=== PATIENT | female | born 1955 | race Caucasian/White ===

== ENCOUNTER 2017-02-15 18:02 | Emergency (ER) | payer OTHER ==
--- NOTE | 2017-02-15 19:56 | ED ---
Stephan Navarrete Matthew, scribed for Giuseppe Acuna MD on 02/15/17 at 1933 . Complex/Multi-Sys Presentation - HPI Summary HPI Summary: A 61 y/o female presents to the ED with intermittent bilateral tingling in the LE since 2 weeks ago. Today, the tingling increased and became more frequent. The tingling is worse in the right leg and localized in the right upper calf. Associated symptoms include pain on the right side of the neck. She denies any type of trauma or injury. She states that she has been under a lot of stress from her dad's health for the last 6 weeks. She also has a Hx of anxiety. She has not seen by her PCP, because the tingling as been intermittent. She called her PCP today who referred her to the ED. - History Of Current Complaint Chief Complaint: EDGeneral Time Seen by Provider: 02/15/17 19:13 Hx Obtained From: Patient Onset/Duration: Lasting Weeks, Still Present Timing: Intermittent, Lasting: Severity Currently: Mild Severity Initially: Mild Location: Pain At: - tingling in the bilateral LE, which is worse on the right Associated Signs And Symptoms: Positive: Other - Tingling in the legs bilaterally; pain on the right side of the neck - Allergies/Home Medications Allergies/Adverse Reactions: Allergies Allergy/AdvReac Type Severity Reaction Status Date / Time Alprazolam Allergy Unknown Verified 02/15/16 16:50 Reaction Details Atorvastatin Allergy Unknown Verified 02/15/17 17:33 Reaction Details Buspirone [From Buspar] Allergy Unknown Verified 02/15/16 16:50 Reaction Details Cefaclor Allergy GI Upset Verified 02/15/16 16:50 Dexamethasone Allergy Anxiety Verified 02/15/16 16:50 Doxycycline Allergy See Comment Verified 02/15/16 16:50 Erythromycin Allergy Unknown Verified 02/15/16 16:50 Reaction Details Fluoxetine [From Prozac] Allergy Unknown Verified 02/15/16 16:50 Reaction Details Glycerin Allergy Unknown Verified 02/15/16 16:50 Reaction Details Hydromorphone [From Dilaudid] Allergy Unknown Verified 02/15/16 16:50 Reaction Details Levofloxacin [From Levaquin] Allergy Unknown Verified 02/15/16 16:50 Reaction Details Metoprolol Allergy Unknown Verified 02/15/16 16:50 Reaction Details Metronidazole [From Flagyl] Allergy Unknown Verified 02/15/16 16:50 Reaction Details Paroxetine [From Paxil] Allergy Unknown Verified 02/15/16 16:50 Reaction Details Penicillins [PCN] Allergy Unknown Verified 02/15/16 16:50 Reaction Details Sulfacetamide Allergy Unknown Verified 02/15/16 16:50 Reaction Details Sulfur Dioxide Allergy Unknown Verified 02/15/16 16:50 Reaction Details IV contrast media Allergy Unknown Uncoded 02/15/16 16:50 Reaction Details PMH/Surg Hx/FS Hx/Imm Hx Endocrine/Hematology History: Reports: Hx Thyroid Disease - "flip-flopped" Denies: Hx Diabetes Cardiovascular History: Reports: Hx Hypercholesterolemia, Other Cardiovascular Problems/Disorders - HIGH LEVELS OF CO IN BLOOD - 3.2-3.5 Denies: Hx Hypertension Respiratory History: Reports: Hx Asthma - "came and went" Denies: Hx Chronic Obstructive Pulmonary Disease (COPD) GI History: Denies: Hx Ulcer Psychiatric History: Reports: Hx Anxiety - Surgical History Surgery Procedure, Year, and Place: precancerous skin cancers; deviated septum; wisdom teeth Infectious Disease History: No Infectious Disease History: Denies: Hx Clostridium Difficile, Hx Hepatitis, Hx Human Immunodeficiency Virus (HIV), Hx of Known/Suspected MRSA, Hx Shingles, Hx Tuberculosis, Hx Known/ Suspected VRE, Hx Known/Suspected VRSA, History Other Infectious Disease, Traveled Outside the [place] in Last 30 Days - Family History Known Family History: Positive: Cardiac Disease - SISTER - [place] AGE 54, Diabetes - FATHER, Other - F - COLON CA, BOTH PARENTS - HIGH CHOLESTEROL, M - BRAIN TUMOR - Social History Alcohol Use: Rare Hx Substance Use: No Substance Use Type: Reports: None Hx Tobacco Use: No Smoking Status (MU): Never Smoked Tobacco Review of Systems Constitutional: Negative Eyes: Negative ENT: Negative Cardiovascular: Negative Respiratory: Negative Gastrointestinal: Negative Genitourinary: Negative Positive: Myalgia - pain on the right side of the neck Skin: Negative Neurological: Other - Tingling in the bilateral LE, which is worse on the right Psychological: Normal All Other Systems Reviewed And Are Negative: Yes Physical Exam Triage Information Reviewed: Yes Vital Signs On Initial Exam: Initial Vitals Temp Pulse Resp BP Pulse Ox 98.8 F 87 14 192/86 100 02/15/17 18:05 02/15/17 18:05 02/15/17 18:05 02/15/17 18:05 02/15/17 18:05 Vital Signs Reviewed: Yes Appearance: Positive: Well-Appearing, No Pain Distress Skin: Positive: Warm Head/Face: Positive: Normal Head/Face Inspection Eyes: Positive: NATHAN ENT: Positive: Hearing grossly normal Neck: Positive: Supple Respiratory/Lung Sounds: Positive: Breath Sounds Present Cardiovascular: Positive: RRR Abdomen Description: Positive: Nontender, Soft Bowel Sounds: Positive: Present Musculoskeletal: Positive: Normal, Strength/ROM Intact. Negative: Edema Left, Edema Right Neurological: Positive: Sensory/Motor Intact, Normal Gait Psychiatric: Positive: Anxious - [place] Coma Scale Coma Scale Total: 15 Diagnostics - Vital Signs Vital Signs Temp Pulse Resp BP Pulse Ox 02/15/17 18:30 89 185/88 100 02/15/17 18:12 98.4 F 92 16 192/86 100 02/15/17 18:11 91 100 02/15/17 18:10 192/86 02/15/17 18:05 98.8 F 87 14 192/86 100 - Laboratory Result Diagrams: 02/15/17 20:30 02/15/17 20:30 Lab Statement: Any lab studies that have been ordered have been reviewed, and results considered in the medical decision making process. - Ultrasound No standard instances Ultrasound Interpretation: No Acute Changes - IMPRESSION: No evidence for right or left lower extremity deep venous thrombosis. Ultrasound Interpretation Completed By: Radiologist - EKG 18:24 Cardiac Rate: NL - 88 bpm EKG Rhythm: Sinus Rhythm EKG Interpretation: No STEMI; No Change 02/15/16 Complex Multi-Symp Course/Dx Assessment/Plan: A 61 y/o female presents to the ED with intermittent bilateral tingling in the LE since 2 weeks ago. Today, the tingling increased and became more frequent today. The tingling is worse in the right leg and localized in the right upper calf. Associated symptoms include pain on the right side of the neck. Labs were reviewed. US shows no evidence for right or left lower extremity deep venous thrombosis. EKG shows sinus rhythm at 88 bpm and no change from 02/15/16. The patient will be discharged home with PCP follow-up. - Diagnoses Provider Diagnoses: Extremity numbness Discharge - Discharge Plan Condition: Stable Disposition: HOME Patient Education Materials: Leg Pain (ED) Referrals: Jerson Tyson MD [Primary Care Provider] - 3 Days Additional Instructions: Please follow-up with your primary care physician within the next week. The documentation as recorded by the Stephan cast Matthew accurately reflects the service I personally performed and the decisions made by me, Giuseppe Acuna MD.
--- NOTE | 2017-02-15 20:30 | RAD ---
INDICATION: Bilateral leg pain and paresthesias. COMPARISON: November 07, 2008 RIGHT lower extremity venous Doppler. TECHNIQUE: Bonilla scale, color Doppler, and spectral analysis of the deep veins of the bilateral lower extremities. Vessel compression, phasicity, and augmentation assessed. REPORT: The right common femoral, great saphenous, profunda femoral, femoral, popliteal, peroneal, and posterior tibial veins are patent. The left common femoral, great saphenous, profunda femoral, femoral, popliteal, peroneal, and posterior tibial veins are patent. IMPRESSION: No evidence for right or left lower extremity deep venous thrombosis.
[2017-02-15 20:39] LABS: Hematocrit 42 % (35-47); Mean Corpuscular HGB Conc 33 g/dl (31-36); Mean Corpuscular Hemoglobin 29 pg (27-31); Mean Corpuscular Volume 88 fL (80-97); Mean Platelet Volume 8 um3 (7.4-10.4); Red Blood Count 4.79 10^6/ul (4.0-5.4); Red Cell Distribution Width 14 % (10.5-15); White Blood Count 9.1 10^3/ul (3.5-10.8)
[2017-02-15 21:12] LABS: BUN/Creatinine Ratio 16.3 (8-20); Calcium 10.7 mg/dL (8.6-10.3); EGFR African American 79.3 (>60); EGFR Non-African American 61.7 (>60); Magnesium 2.3 mg/dL (1.9-2.7); Potassium 3.3 mmol/L (3.5-5.0)
[2017-02-15 22:11] VITALS: BP 135/85
== END 2017-02-15 22:17 | disposition home or self-care (01) ==
LOC: ED 18:02
DX: R20.2 Paresthesia of skin (principal); E78.00 Pure hypercholesterolemia, unspecified; M54.2 Cervicalgia; M79.605 Pain in left leg; M79.604 Pain in right leg; Z88.8 Allergy status to other drugs, medicaments and biological substances; Z88.0 Allergy status to penicillin; Z88.1 Allergy status to other antibiotic agents
CPT/HCPCS: 36415; 80048; 83735; 85025; 93005; 93970; 99284

== ENCOUNTER 2017-03-10 19:10 | Emergency (ER) | payer OTHER ==
[2017-03-10 22:09] VITALS: BP 150/84
--- NOTE | 2017-03-10 22:16 | ED ---
Allergic Reaction/Systemic - HPI Summary HPI Summary: Patient presents to ED after taking the medication levothyroxine for the first time today at 8:45am. She notes to feeling scratchy in the throat, a cough, and feeling fuzzy since 3pm. She was seen by her PCP yesterday who prescribed the medication d/t high TSH levels incidentally found when she was in the ED 3 weeks ago. She is currently on several medications and currently takes potassium supplements found incidentally on last ED visit. Her MD stated her thyroid was slightly enlarged and she would like an US. I explained to the patient that would be an outpatient appt. I have given her information related to vitamins and natural supplements for hypothyroid. - History of Current Complaint Chief Complaint: EDAllergicReaction Time Seen by Provider: 03/10/17 21:02 Hx Obtained From: Patient Onset/Duration: Gradual Onset Timing: Constant, Lasting Hours Severity Initially: Moderate Severity Currently: Mild Pain Intensity: 1 Pain Scale Used: 0-10 Numeric Aggravating Factor(s): Nothing - medication Alleviating Factor(s): Nothing Associated Signs And Symptoms: Positive: Other: - throat itching, cough - Related Hx Possible Reaction To: Medications - Allergies/Home Medications Allergies/Adverse Reactions: Allergies Allergy/AdvReac Type Severity Reaction Status Date / Time Alprazolam Allergy Unknown Verified 02/15/16 16:50 Reaction Details Atorvastatin Allergy Unknown Verified 02/15/17 17:33 Reaction Details Buspirone [From Buspar] Allergy Unknown Verified 02/15/16 16:50 Reaction Details Cefaclor Allergy GI Upset Verified 02/15/16 16:50 Dexamethasone Allergy Anxiety Verified 02/15/16 16:50 Doxycycline Allergy See Comment Verified 02/15/16 16:50 Erythromycin Allergy Unknown Verified 02/15/16 16:50 Reaction Details Fluoxetine [From Prozac] Allergy Unknown Verified 02/15/16 16:50 Reaction Details Glycerin Allergy Unknown Verified 02/15/16 16:50 Reaction Details Hydromorphone [From Dilaudid] Allergy Unknown Verified 02/15/16 16:50 Reaction Details Levofloxacin [From Levaquin] Allergy Unknown Verified 02/15/16 16:50 Reaction Details Metoprolol Allergy Unknown Verified 02/15/16 16:50 Reaction Details Metronidazole [From Flagyl] Allergy Unknown Verified 02/15/16 16:50 Reaction Details Paroxetine [From Paxil] Allergy Unknown Verified 02/15/16 16:50 Reaction Details Penicillins [PCN] Allergy Unknown Verified 02/15/16 16:50 Reaction Details Sulfacetamide Allergy Unknown Verified 02/15/16 16:50 Reaction Details Sulfur Dioxide Allergy Unknown Verified 02/15/16 16:50 Reaction Details IV contrast media Allergy Unknown Uncoded 02/15/16 16:50 Reaction Details PMH/Surg Hx/FS Hx/Imm Hx Previously Healthy: Yes Endocrine/Hematology History: Reports: Hx Thyroid Disease - "flip-flopped" Denies: Hx Diabetes Cardiovascular History: Reports: Hx Hypercholesterolemia, Other Cardiovascular Problems/Disorders - HIGH LEVELS OF CO IN BLOOD - 3.2-3.5 Denies: Hx Hypertension Respiratory History: Reports: Hx Asthma - "came and went" Denies: Hx Chronic Obstructive Pulmonary Disease (COPD) GI History: Denies: Hx Ulcer Psychiatric History: Reports: Hx Anxiety - Surgical History Surgery Procedure, Year, and Place: precancerous skin cancers; deviated septum; wisdom teeth - Immunization History Hx Pertussis Vaccination: No Immunizations Up to Date: Unable to Obtain/Confirm Infectious Disease History: Denies: Hx Clostridium Difficile, Hx Hepatitis, Hx Human Immunodeficiency Virus (HIV), Hx of Known/Suspected MRSA, Hx Shingles, Hx Tuberculosis, Hx Known/ Suspected VRE, Hx Known/Suspected VRSA, History Other Infectious Disease, Traveled Outside the [place] in Last 30 Days - Family History Known Family History: Positive: None - REVIEWED & NONCONTRIBUTORY, Cardiac Disease - SISTER - [place] AGE 54, Diabetes - FATHER, Other - F - COLON CA, BOTH PARENTS - HIGH CHOLESTEROL, M - BRAIN TUMOR Family History: NON CONTRIBUTORY - Social History Occupation: Employed Full-time Lives: With Family Alcohol Use: Rare Hx Substance Use: No Substance Use Type: Reports: None Hx Tobacco Use: No Smoking Status (MU): Never Smoked Tobacco Do You Chew or Dip Tobacco: No Have You Chewed or Dipped Tobacco in the LAST YEAR: No Review of Systems Constitutional: Negative Eyes: Negative Positive: Other - throat tickling Cardiovascular: Negative Positive: Cough Positive: no symptoms reported, see HPI Musculoskeletal: Negative Neurological: Negative Psychological: Normal All Other Systems Reviewed And Are Negative: Yes Physical Exam Triage Information Reviewed: Yes Vital Signs On Initial Exam: Initial Vitals Temp Pulse Resp BP Pulse Ox 98 F 93 18 169/89 100 03/10/17 19:16 05/31/17 19:16 03/10/17 19:16 03/10/17 19:16 03/10/17 19:16 Vital Signs Reviewed: Yes Appearance: Positive: Well-Appearing, Well-Nourished Skin: Positive: Warm, Skin Color Reflects Adequate Perfusion Head/Face: Positive: Normal Head/Face Inspection Eyes: Positive: EOMI, NATHAN, Conjunctiva Clear ENT: Positive: Pharynx normal Neck: Positive: Supple, No Lymphadenopathy, Other: - slightly enlarged thyroid Respiratory/Lung Sounds: Positive: Clear to Auscultation, Breath Sounds Present Cardiovascular: Positive: Normal, RRR, Pulses are Symmetrical in both Upper and Lower Extremities Musculoskeletal: Positive: Strength/ROM Intact Neurological: Positive: Alert, Oriented to Person Place, Time Psychiatric: Positive: Normal Diagnostics - Vital Signs Vital Signs Temp Pulse Resp BP Pulse Ox 03/10/17 19:16 98 F 93 18 169/89 100 - Laboratory Lab Statement: Any lab studies that have been ordered have been reviewed, and results considered in the medical decision making process. Allergic Reaction Course/Dx - Course Course Of Treatment: Patient presents with possible allergic reaction to new levothyroxine medication. Fuzzy feeling, throat tingling and cough which all began about 6 hours after taking the medication. She denies symptoms now except for a slight tickle in the throat still. Otherwise symptoms resolved. Patient would like a thyroid US, and provider explained to patient we would be unable to do a thyroid US and she will need to follow up. She is OK with follow up and with discharge. D/t allergy with steroid, it was advised we would not start prednisone or other allergy medication since she is unable to take anything. She is to return if any symptoms become worse. - Diagnoses Differential Diagnosis/HQI/PQRI: Positive: Airway Obstruction, Anaphylaxis, Bronchospasm Provider Diagnoses: Medication reaction Discharge - Discharge Plan Condition: Stable Disposition: HOME Patient Education Materials: Anaphylaxis (ED) Referrals: Jerson Tyson MD [Primary Care Provider] - Additional Instructions: Magnesium Glycinate 400mg at bedtime For Hypothyroid: Lugol's Iodine solution dropper Red marine algae Nature-thyroid Get plenty of iodine in your diet If you take a large dose of a mineral, it will compete with other minerals to reduce their absorption. The mineral most often taken in large amounts is calcium: The dose is usually several hundred of milligrams, compared to doses of just a few milligrams or even microgram amounts (1,000 micrograms = 1 milligram) of most other minerals. So if you take a calcium supplement, take it at a different time of day than other mineral supplements or a multivitamin/ multimineral supplement. Doses of magnesium can also be relatively large and should, ideally, be taken apart from other minerals. If you take high doses of zinc long-term (50 mg or more per day for 10 weeks or longer ), be aware that it can cause copper deficiency, so you may need to supplement with copper as well. Some vitamins can actually enhance the absorption of other nutrients. Vitamin C , for example, can enhance iron absorption from supplements and plant foods. The fat-soluble vitamins (A, D, E, and K) are likely to be better absorbed if taken with a meal that contains fats. In fact, one study found that taking vitamin D with dinner rather than breakfast increased blood levels of vitamin D by about 50%. However, evidence (mainly from animal and cell studies) suggests that moderate to large doses of fat-soluble vitamins reduce absorption of other fat-soluble vitamins - by about 10 to 50% - due to competition. Absorption of vitamin K appears to be particularly reduced by other fat-soluble vitamins, while vitamin A absorption is least affected and may actually be better absorbed when taken with vitamin E (Alanis, Food [employer] 2015). Taking vitamins D, E, or K several hours before or after other fat-soluble vitamins would seem to maximize their absorption. Taking certain supplements with food can reduce gastrointestinal side-effects. For example, taking magnesium with food can reduce the occurrence of diarrhea, and taking iron with food can reduce the chance of stomach upset. Discontinue levothyroxine until follow up with PCP
== END 2017-03-10 22:10 | disposition home or self-care (01) ==
LOC: ED 19:10
DX: T38.1X5A Adverse effect of thyroid hormones and substitutes, initial encounter (principal); R09.89 Other specified symptoms and signs involving the circulatory and respiratory systems; R05 Cough; Y92.9 Unspecified place or not applicable; E07.9 Disorder of thyroid, unspecified; E78.00 Pure hypercholesterolemia, unspecified; J45.909 Unspecified asthma, uncomplicated; F41.9 Anxiety disorder, unspecified; Z88.5 Allergy status to narcotic agent; Z88.0 Allergy status to penicillin; Z88.2 Allergy status to sulfonamides; Z88.8 Allergy status to other drugs, medicaments and biological substances; Z88.1 Allergy status to other antibiotic agents; Z91.041 Radiographic dye allergy status
CPT/HCPCS: 99281

== ENCOUNTER 2017-06-14 13:31 | Inpatient (IN) | payer OTHER ==
[2017-06-14 15:45] LABS: Hematocrit 39 % (35-47); Hemoglobin 13.3 g/dl (12.0-16.0); Mean Corpuscular HGB Conc 34 g/dl (31-36); Mean Corpuscular Hemoglobin 30 pg (27-31); Mean Corpuscular Volume 88 fL (80-97); Mean Platelet Volume 8 um3 (7.4-10.4); Red Blood Count 4.47 10^6/ul (4.0-5.4); Red Cell Distribution Width 14 % (10.5-15); White Blood Count 5.2 10^3/ul (3.5-10.8)
[2017-06-14 15:59] LABS: Albumin 4.4 g/dL (3.2-5.2); BUN/Creatinine Ratio 12.7 (8-20); EGFR African American 64.3 (>60); Globulin 3.1 g/dL (2-4); Potassium 3.4 mmol/L (3.5-5.0); Total Bilirubin 0.5 mg/dL (0.2-1.0); Total Protein 7.5 g/dL (6.4-8.9)
--- NOTE | 2017-06-14 15:59 | RAD ---
Indication: Abdominal pain. Comparison: December 31, 2013 Technique: Upright AP 1525 hours Report: Suboptimal inspiration compared with the previous exam which demonstrated elevated lung volumes. Clear lungs and pleural spaces. Negative for pneumothorax. The heart, pulmonary vasculature, and mediastinal contours are unremarkable. Negative for free air beneath the diaphragm. Unremarkable osseous structures and soft tissue contours. IMPRESSION: No evidence for acute intrathoracic disease.
[2017-06-14 16:00] LABS: Urine Bacteria 1+ (Absent); Urine Bilirubin Negative (Negative); Urine Glucose Negative (Negative); Urine Nitrite Negative (Negative)
--- NOTE | 2017-06-14 16:27 | RAD ---
INDICATION: Abdominal pain LEFT abdomen. Question diverticulitis and hernia. COMPARISON: No relevant prior exams available on the [facility] for comparison. TECHNIQUE: Multidetector CT images were obtained from the lung bases to the ischial tuberosities. Evaluation of the viscera is limited without IV contrast. Multiplanar reformation. REPORT: Unremarkable visualized inferior thorax. The liver, gallbladder, pancreas, and spleen are unremarkable. Negative for CT abnormality of the upper GI, small bowel, or posteriorly extending appendix. Redundant colon without suspicious finding. Negative for ascites, free air, or significant hernias. Normal adrenal glands. 2.8 cm water density cortical cyst mid pole RIGHT kidney. No suspicious focal renal lesions, nephrolithiasis, or hydronephrosis. Unremarkable nondilated ureters and partially distended urinary bladder. Unremarkable rightward deviated uterus and adnexal regions. Negative for lymphadenopathy. Normal diameter abdominal aorta and iliac arteries. Physiologic partial distention of the IVC. Characteristic benign osseous hemangioma at L1. Asymmetric mild medullary sclerosis at the RIGHT iliac bone adjacent to the cephalad portion of the sacroiliac joint is grossly unchanged compared with the 2007 exam without concern. No suspicious focal osseous lesions evident. Mild multilevel degenerative spondylosis and facet joint osteoarthritis. IMPRESSION: No acute abdominal pelvic pathologic process evident.
[2017-06-14] MEDS: NS 0.9% 1000 ML* 1,000 ML IV SCH (16:42)
--- NOTE | 2017-06-14 17:57 | ED ---
Jt Navarrete Angela, scribed for Hayder Henao on 06/14/17 at 1459 . Skin Complaint - HPI Summary HPI Summary: This pt is a 62 y/o female c/o rash in her legs, now spreading to her abdomen and arms x3 days. Pt reports abdominal pain, lower extremity tingling, joint pain. She notes she has progressive muscle cramps since February. Pt states feeling "foggy" for the last couple of days. She denies chest pain, SOB, fever, back pain. Pt denies tobacco, drug, or alcohol use. 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 Pt reports seeing her PCP last week regarding her muscle cramps, joint pain, and decreased energy, and will be have a follow up for possible auto-immune disorder. - History of Current Complaint Chief Complaint: EDGeneral Time Seen by Provider: 06/14/17 14:47 Stated Complaint: RASH/PAIN, THROAT TIGHTNING Hx Obtained From: Patient Onset/Duration: Started Days Ago Skin Exposure Onset/Duration: Days Ago Pain Intensity: 0 Skin Location: Diffuse - legs, arms and abdomen Character: Redness Aggravating Symptom(s): Nothing Alleviating Symptom(s): Nothing Associated Signs & Symptoms: Rash, Abdominal Pain - Allergy/Home Medications Allergies/Adverse Reactions: Allergies Allergy/AdvReac Type Severity Reaction Status Date / Time Alprazolam Allergy Unknown Verified 02/15/16 16:50 Reaction Details Atorvastatin Allergy Unknown Verified 02/15/17 17:33 Reaction Details Buspirone [From Buspar] Allergy Unknown Verified 02/15/16 16:50 Reaction Details Cefaclor Allergy GI Upset Verified 02/15/16 16:50 Dexamethasone Allergy Anxiety Verified 02/15/16 16:50 Diphenhydramine Allergy Agitation Verified 06/14/17 13:58 Doxycycline Allergy See Comment Verified 02/15/16 16:50 Erythromycin Allergy Unknown Verified 02/15/16 16:50 Reaction Details Fluoxetine [From Prozac] Allergy Unknown Verified 02/15/16 16:50 Reaction Details Glycerin Allergy Unknown Verified 02/15/16 16:50 Reaction Details Hydromorphone [From Dilaudid] Allergy Unknown Verified 02/15/16 16:50 Reaction Details Levofloxacin [From Levaquin] Allergy Unknown Verified 02/15/16 16:50 Reaction Details Metoprolol Allergy Unknown Verified 02/15/16 16:50 Reaction Details Metronidazole [From Flagyl] Allergy Unknown Verified 02/15/16 16:50 Reaction Details Paroxetine [From Paxil] Allergy Unknown Verified 02/15/16 16:50 Reaction Details Penicillins [PCN] Allergy Unknown Verified 02/15/16 16:50 Reaction Details Sulfacetamide Allergy Unknown Verified 02/15/16 16:50 Reaction Details Sulfur Dioxide Allergy Unknown Verified 02/15/16 16:50 Reaction Details IV contrast media Allergy Unknown Uncoded 02/15/16 16:50 Reaction Details PMH/Surg Hx/FS Hx/Imm Hx Endocrine/Hematology History: Reports: Hx Thyroid Disease - "flip-flopped" Denies: Hx Diabetes Cardiovascular History: Reports: Hx Hypercholesterolemia, Other Cardiovascular Problems/Disorders - HIGH LEVELS OF CO IN BLOOD - 3.2-3.5 Denies: Hx Hypertension Respiratory History: Reports: Hx Asthma - "came and went" Denies: Hx Chronic Obstructive Pulmonary Disease (COPD) GI History: Reports: Other GI Disorders - IBS Denies: Hx Ulcer Psychiatric History: Reports: Hx Anxiety - Surgical History Surgery Procedure, Year, and Place: precancerous skin cancers; deviated septum; wisdom teeth Infectious Disease History: No Infectious Disease History: Denies: Hx Clostridium Difficile, Hx Hepatitis, Hx Human Immunodeficiency Virus (HIV), Hx of Known/Suspected MRSA, Hx Shingles, Hx Tuberculosis, Hx Known/ Suspected VRE, Hx Known/Suspected VRSA, History Other Infectious Disease, Traveled Outside the [place] in Last 30 Days - Family History Known Family History: Positive: None - REVIEWED & NONCONTRIBUTORY, Cardiac Disease - SISTER - [place] AGE 54, Diabetes - FATHER, Other - F - COLON CA, BOTH PARENTS - HIGH CHOLESTEROL, M - BRAIN TUMOR Family History: NON CONTRIBUTORY - Social History Alcohol Use: None Hx Substance Use: No Substance Use Type: Reports: None Hx Tobacco Use: No Smoking Status (MU): Never Smoked Tobacco Review of Systems Negative: Fever, Chills Eyes: Negative ENT: Negative Negative: Chest Pain Negative: Shortness Of Breath Positive: Abdominal Pain Positive: Arthralgia Positive: Rash Positive: Paresthesia - in her LE. Psychological: Normal All Other Systems Reviewed And Are Negative: Yes Physical Exam Triage Information Reviewed: Yes Vital Signs On Initial Exam: Initial Vitals Temp Pulse Resp BP Pulse Ox 98.7 F 100 17 156/82 100 06/14/17 13:34 06/14/17 13:34 06/14/17 13:34 06/14/17 13:34 06/14/17 13:34 Vital Signs Reviewed: Yes Appearance: Positive: Well-Appearing, No Pain Distress Skin: Positive: Warm, Dry, Other - Maculopapular rash in the right and left legs. generalised rash present Head/Face: Positive: Normal Head/Face Inspection Eyes: Positive: EOMI, NATHAN ENT: Positive: Normal ENT inspection Neck: Positive: Supple, Nontender Cardiovascular: Positive: RRR, Pulses are Symmetrical in both Upper and Lower Extremities Abdomen Description: Positive: Soft, Other: - Diffuse tenderness in the abd. Bowel Sounds: Positive: Present Musculoskeletal: Positive: Normal, Strength/ROM Intact Neurological: Positive: Normal, Sensory/Motor Intact, Alert, Oriented to Person Place, Time - Osvaldo Coma Scale Coma Scale Total: 15 Diagnostics - Vital Signs Vital Signs Temp Pulse Resp BP Pulse Ox 06/14/17 13:58 99.3 F 97 18 144/82 99 06/14/17 13:34 98.7 F 100 17 156/82 100 - Laboratory Lab Results: Lab Results 06/14/17 06/14/17 06/14/17 Range/Units 15:24 15:24 15:24 WBC 5.2 (3.5-10.8) 10^3/ul RBC 4.47 (4.0-5.4) 10^6/ul Hgb 13.3 (12.0-16.0) g/dl Hct 39 (35-47) % MCV 88 (80-97) fL MCH 30 (27-31) pg MCHC 34 (31-36) g/dl RDW 14 (10.5-15) % Plt Count 199 (150-450) 10^3/ul MPV 8 (7.4-10.4) um3 Neut % (Auto) 67.3 (38-83) % Lymph % (Auto) 13.2 L (25-47) % [place] % (Auto) 17.0 H (1-9) % Eos % (Auto) 2.2 (0-6) % Baso % (Auto) 0.3 (0-2) % Absolute Neuts (auto) 3.5 (1.5-7.7) 10^3/ul Absolute Lymphs (auto) 0.7 L (1.0-4.8) 10^3/ul Absolute Monos (auto) 0.9 H (0-0.8) 10^3/ul Absolute Eos (auto) 0.1 (0-0.6) 10^3/ul Absolute Basos (auto) 0 (0-0.2) 10^3/ul Absolute Nucleated RBC 0 10^3/ul Nucleated RBC % 0 INR (Anticoag Therapy) 0.93 (0.89-1.11) APTT 29.3 (26.0-36.3) seconds Sodium 136 (133-145) mmol/L Potassium 3.4 L (3.5-5.0) mmol/L Chloride 100 L (101-111) mmol/L Carbon Dioxide 26 (22-32) mmol/L Anion Gap 10 (2-11) mmol/L BUN 14 (6-24) mg/dL Creatinine 1.10 H (0.51-0.95) mg/dL Est GFR ( Amer) 64.3 (>60) Est GFR (Non-Af Amer) 50.0 (>60) BUN/Creatinine Ratio 12.7 (8-20) Glucose 89 (70-100) mg/dL Lactic Acid (0.5-2.0) mmol/L Calcium 10.0 (8.6-10.3) mg/dL Total Bilirubin 0.50 (0.2-1.0) mg/dL AST 40 H (13-39) U/L ALT 29 (7-52) U/L Alkaline Phosphatase 66 (34-104) U/L Total Creatine Kinase 47 (10-223) U/L Troponin I 0.00 (<0.04) ng/mL Total Protein 7.5 (6.4-8.9) g/dL Albumin 4.4 (3.2-5.2) g/dL Globulin 3.1 (2-4) g/dL Albumin/Globulin Ratio 1.4 (1-3) Lipase 19 (11.0-82.0) U/L Urine Color Urine Appearance Urine pH (5-9) Ur Specific [place] (1.010-1.030) Urine Protein (Negative) Urine Ketones (Negative) Urine Blood (Negative) Urine Nitrate (Negative) Urine Bilirubin (Negative) Urine Urobilinogen (Negative) Ur Leukocyte Esterase (Negative) Urine WBC (Auto) (Absent) Urine RBC (Auto) (Absent) Ur Squamous Epith Cells (Absent) Urine Bacteria (Absent) Urine Glucose (Negative) 06/14/17 06/14/17 Range/Units 15:45 15:45 WBC (3.5-10.8) 10^3/ul RBC (4.0-5.4) 10^6/ul Hgb (12.0-16.0) g/dl Hct (35-47) % MCV (80-97) fL MCH (27-31) pg MCHC (31-36) g/dl RDW (10.5-15) % Plt Count (150-450) 10^3/ul MPV (7.4-10.4) um3 Neut % (Auto) (38-83) % Lymph % (Auto) (25-47) % [place] % (Auto) (1-9) % Eos % (Auto) (0-6) % Baso % (Auto) (0-2) % Absolute Neuts (auto) (1.5-7.7) 10^3/ul Absolute Lymphs (auto) (1.0-4.8) 10^3/ul Absolute Monos (auto) (0-0.8) 10^3/ul Absolute Eos (auto) (0-0.6) 10^3/ul Absolute Basos (auto) (0-0.2) 10^3/ul Absolute Nucleated RBC 10^3/ul Nucleated RBC % INR (Anticoag Therapy) (0.89-1.11) APTT (26.0-36.3) seconds Sodium (133-145) mmol/L Potassium (3.5-5.0) mmol/L Chloride (101-111) mmol/L Carbon Dioxide (22-32) mmol/L Anion Gap (2-11) mmol/L BUN (6-24) mg/dL Creatinine (0.51-0.95) mg/dL Est GFR ( Amer) (>60) Est GFR (Non-Af Amer) (>60) BUN/Creatinine Ratio (8-20) Glucose (70-100) mg/dL Lactic Acid 1.6 (0.5-2.0) mmol/L Calcium (8.6-10.3) mg/dL Total Bilirubin (0.2-1.0) mg/dL AST (13-39) U/L ALT (7-52) U/L Alkaline Phosphatase (34-104) U/L Total Creatine Kinase (10-223) U/L Troponin I (<0.04) ng/mL Total Protein (6.4-8.9) g/dL Albumin (3.2-5.2) g/dL Globulin (2-4) g/dL Albumin/Globulin Ratio (1-3) Lipase (11.0-82.0) U/L Urine Color Yellow Urine Appearance Clear Urine pH 8.0 (5-9) Ur Specific [place] 1.003 L (1.010-1.030) Urine Protein Negative (Negative) Urine Ketones Negative (Negative) Urine Blood Negative (Negative) Urine Nitrate Negative (Negative) Urine Bilirubin Negative (Negative) Urine Urobilinogen Negative (Negative) Ur Leukocyte Esterase Trace H (Negative) Urine WBC (Auto) Trace(0-5/hpf) (Absent) Urine RBC (Auto) Absent (Absent) Ur Squamous Epith Cells Present H (Absent) Urine Bacteria 1+ H (Absent) Urine Glucose Negative (Negative) Result Diagrams: 06/14/17 15:24 06/14/17 15:24 Lab Statement: Any lab studies that have been ordered have been reviewed, and results considered in the medical decision making process. - Radiology Chest XR Xray Interpretation: No Acute Changes - IMPRESSION: No evidence for acute intrathoracic disease. ED physician has reviewed this radiology report and agrees. Radiology Interpretation Completed By: Radiologist - CT CT Abdomen/Pelvis CT Interpretation: No Acute Changes - IMPRESSION: No acute abdominal pelvic pathologic process evident. ED physician has reviewed this radiology report and agrees. CT Interpretation Completed By: Radiologist - EKG 16:37 Cardiac Rate: NL EKG Rhythm: Sinus Rhythm Re-Evaluation - Re-Evaluation First Eval Re-Evaluation Time: 17:11 Comment: Discussed the results and plan with the pt. Course/Dx - Course Assessment/Plan: This pt is a 62 y/o female c/o rash in her legs, now spreading to her abdomen and arms x3 days. Pt reports abdominal pain, lower extremity tingling, joint pain. Elevated BP noted. Bloodwork, CT abd/pelv, and chest XR were obtained. In the ED, pt was given IV fluids. Chest XR and CT abd/pel were both negative. Dr. Mart has accepted the pt for admission. - Diagnoses Provider Diagnoses: generalized rash, rule out TTP, MAHA/HUS, Renal failure, Anxiety, Depression - Physician Notifications Discussed Care Of Patient With: Charlene Mart Time Discussed With Above Provider: 17:06 Instructed by Provider To: Other - I discussed the pt's case with Dr. Mart. She has accepted the pt for admissionn. Discharge - Discharge Plan Condition: Stable Disposition: ADMITTED TO [facility] Referrals: Jerson Tyson MD [Primary Care Provider] - The documentation as recorded by the Jt cast Angela accurately reflects the service I personally performed and the decisions made by Earlene wolfe Emmanuel.
[2017-06-14] MEDS ORDERED: NS 0.9% 1000 ML* 1,000 ML IV SCH (18:00)
[2017-06-14] MEDS ORDERED: clonazePAM TAB(*) 0.5 MG ONE (18:10)
[2017-06-14] MEDS: clonazePAM TAB(*) 0.5 MG PO PRN ×2 (18:12→21:01)
[2017-06-14 18:39] LABS: C Reactive Protein 62.92 mg/L (< 5.00)
[2017-06-14] MEDS: Famotidine TAB* 20 MG PO SCH (20:59)
[2017-06-14] MEDS: Heparin VIAL(*) 5000 UNITS/ML VIAL (FIVE THOUSAND) SUBCUT SCH (20:59)
[2017-06-14] MEDS: Artificial Tears* 15 ML BTL BOTH EYES PRN (21:00)
[2017-06-14] MEDS: Nortriptyline CAP* 10 MG PO SCH (21:00)
[2017-06-14] MEDS: predniSONE TAB* 20 MG PO SCH (21:04)
[2017-06-14] MEDS: Cyclosporine 0.05% OPHTH (NF) 0.4 ML VIAL BOTH EYES SCH (21:05)
--- NOTE | 2017-06-14 21:36 | HP ---
CC: Dr. Tyson* HISTORY AND PHYSICAL: DATE OF ADMISSION: 06/14/17 PRIMARY CARE PROVIDER: Dr. Tyson. ATTENDING PHYSICIAN WHILE IN THE HOSPITAL: Dr. Pako Cuello * (report dictated by Rikki Barber NP) CHIEF COMPLAINT: 1. Arthralgias. 2. Myalgias. 3. Rash. HISTORY OF PRESENT ILLNESS: Ms. Trent is a 62-year-old female patient, who was recently seen by her primary for arthralgias and myalgias was referred to Rheumatology for an elevated STEVEN. She comes in today stating that she has been having difficulty with more arthralgias, more pain, not feeling well, having just aching all over and pain. She says she noticed that over the weekend she developed a rash that was mostly both on bilateral legs and also on the right triceps. The patient states that the rash is painful for palpation, says it does not itch, says that there has been no skin sloughing. She denies having any trouble with her eyes and denies having any sores in her mouth. She said that she has not had any fevers or chills. She does have her new medication. She was recently placed on ketoconazole cream. The patient denied having any abdominal discomfort. She denied having any nausea or vomiting. She denied having any chest pain or shortness of breath with this. Denied having any difficulty with her tightness in her throat. She was concerned because of the rash, the arthralgias, came to our ER, was evaluated by Dr. Henao, and we were asked to evaluate for admission. PAST MEDICAL HISTORY: Significant for: 1. Hyperlipidemia. 2. Graves'. 3. Anxiety. 4. Depression. 5. GERD. PAST SURGICAL HISTORY: 1. She has had skin excisions. 2. She has had septoplasty. HOME MEDICATIONS: 1. Selenium 100 mcg p.o. b.i.d. 2. Potassium 10 mEq p.o. daily. 3. Artificial tears 1 drop both eyes every 2 hours as needed. 4 Tylenol 500 mg every 8 hours as needed. 5. Nortriptyline 10 mg at bedtime. 6. Bactroban 1 application topical b.i.d. as needed. 7. Restasis 1 drop both eyes b.i.d. 8. Mucinex 600 mg p.o. b.i.d. as needed. 9. Ketoconazole 2% externally every 48 hours. 10. Ibuprofen 800 mg every 8 hours as needed. 11. Flaxseed 1 capsule p.o. b.i.d. 12. Calcium with vitamin D 1 capsule p.o. daily. 13. Nexium 40 mg daily. 14. Aspiring 81 mg daily. 15. Clonazepam 0.5 mg p.o. t.i.d. as needed. ALLERGIES TO MEDICATIONS: Multiple and include XANAX, ATORVASTATIN, BUSPAR, CEFACLOR, DEXAMETHASONE, DIPHENHYDRAMINE, DOXYCYCLINE, ERYTHROMYCIN, PROZAC, GLYCERIN, DILAUDID, LEVAQUIN, METOPROLOL, FLAGYL, PAXIL, PENICILLIN, SULFA, SULFUR DIOXIDE, and IV DYE. FAMILY HISTORY: Her mother had history of hyperlipidemia. Father had diabetes and TIA. Mother has had Alzheimer's. SOCIAL HISTORY: She does not smoke. Does not drink. Denies recreational drugs. Surrogate decision maker is her . REVIEW OF SYSTEMS: There is no documented fever. She denied having any double vision. No ear discharge, no rhinorrhea. No sore throat, no thyroid enlargement. Denies having any chest pain. There is no orthopnea, no nocturnal dyspnea. There was no abdominal pain. No nausea, no vomiting. No dysuria, no frequency. There was no seizure, no loss of consciousness. No pruritus and no skin ulcerations. Review of 14 systems was completed, all others negative. PHYSICAL EXAMINATION GENERAL: At this time, Ms. Trent is a 62-year-old female patient. She is sitting in the ER stretcher. She does not appear to be in any acute distress. VITAL SIGNS: Reveal blood pressure 155/78, pulse 91, respirations 18, O2 sat 99 %, temp 99.1. HEENT: Head is atraumatic and normocephalic. Eyes: EOMs are intact. Sclerae anicteric and not pale. Throat: Oral mucosa appears to be moist. No oropharyngeal erythema. NECK: Supple. LUNGS: Clear to auscultation bilaterally. No wheezes, rales, or rhonchi. HEART: Heart sounds S1, S2. Regular rate and rhythm. No murmurs, rubs, or gallops. ABDOMEN: Soft, flat, nontender. Bowel sounds were present. EXTREMITIES: Pulses 2+ throughout. She is able to move all 4 extremities with 5/5 strength. NEUROLOGIC: The patient is awake, she is alert, she is oriented x3. SKIN: Grossly intact. She does have a rash noted to her lower extremities, which is mildly raised, it is blanchable, it is painful to palpation, there are no vesicles or pustules noted. There is erythema noted, but otherwise the skin is grossly intact. DIAGNOSTIC STUDIES/LAB DATA: Today revealed WBC of 5.2, RBC of 4.47, hemoglobin of 13.3, hematocrit of 39, platelet count of 199. INR was 0.93, PTT of 29.3. Sodium was 134, potassium was 3.4, chloride 100, bicarb was 26, BUN 14 , creatinine 1.1, glucose of 89, lactate 1.6, calcium 10. Total bili 0.5, AST 40, ALT 29, Troponin 0. Lipase 19. Urine showed 1+ bacteria, low specific gravity, trace leukocyte esterase. She did have an abdominal and pelvis CT scan obtained today, which revealed impression: No acute abdominal or pelvic pathology process evident. She had an EKG obtained today, showed sinus rhythm with rate of 88. No ST elevations. There were T-wave inversions in V1 and flattened V2. Reviewed to the previous EKG, it is similar. She did have chest x-ray obtained today, which revealed no evidence for acute intrathoracic disease. Old medical records were reviewed. ASSESSMENT AND PLAN: Ms. Trent is a 62-year-old female patient coming into the ER today with complaints of arthralgias, myalgias, and a rash. The hospitalist service was asked to evaluate for admission. She will be admitted under observation status for: 1. Arthralgias and myalgias, again etiology is unclear. She did have positive STEVEN with her primary care provider. My plan at this point is to check autoimmune labs and check vasculitis labs as well, although the rash does not appear to be vasculitis in appearance. I will check rheumatoid factor as well. We will get ESR, CRP, anti-double stranded DNA antibody, and we will continue to follow and Lyme serology has been sent as well. If she spikes a fever, I would have a low threshold to put her on doxycycline. 2. Rash. Again, at this point this could be allergic reaction, possibly she was taking ketoconazole, which is new for her. I am going to go ahead and put her on steroids for the time being. We will monitor this. We will follow. 3. Hyperlipidemia. Continue her current medical regimen. 4. History of Graves'. Follow with her primary. 5. Gastroesophageal reflux disease. Continue PPI therapy. 6. Anxiety and depression. Continue with supportive care and p.r.n. Klonopin and her meds as prescribed. 7. DVT prophylaxis. I will place her on heparin subcu. 8. Code status. Full code. 9. Fluids, electrolytes, and nutrition: She can have a gluten-free diet. TIME SPENT: On this admission was approximately 60 minutes with greater than half the time spent [id number] with the patient obtaining my history and physical, the other half the time was spent going over the plan of care with the patient and implementing plan of care. I did discuss the plan of care with my attending, Dr. Cuello; he is in agreement. RIKKI BARBER, EBONY [id number]/CPS #: [id number] SREEKANTH
[2017-06-15] MEDS: NS 0.9% 1000 ML* 1,000 ML IV SCH (04:38)
[2017-06-15 05:31] LABS: Hematocrit 35 % (35-47); Hemoglobin 11.9 g/dl (12.0-16.0); Mean Corpuscular HGB Conc 34 g/dl (31-36); Mean Corpuscular Hemoglobin 30 pg (27-31); Mean Corpuscular Volume 88 fL (80-97); Mean Platelet Volume 9 um3 (7.4-10.4); Red Blood Count 3.96 10^6/ul (4.0-5.4); Red Cell Distribution Width 14 % (10.5-15); White Blood Count 3.4 10^3/ul (3.5-10.8)
[2017-06-15 05:34] LABS: Comments Flag Yes
[2017-06-15 05:35] LABS: Add Diff/Slide Review? Slide Review Added
[2017-06-15 05:49] LABS: BUN/Creatinine Ratio 14.3 (8-20); Calcium 8.9 mg/dL (8.6-10.3); EGFR Non-African American 62.2 (>60); Potassium 3.9 mmol/L (3.5-5.0)
[2017-06-15] MEDS: Heparin VIAL(*) 5000 UNITS/ML VIAL (FIVE THOUSAND) SUBCUT SCH ×3 (06:24→20:49)
[2017-06-15] MEDS: Cyclosporine 0.05% OPHTH (NF) 0.4 ML VIAL BOTH EYES SCH ×2 (07:34→22:11)
[2017-06-15] MEDS: Omeprazole CAP* 20 MG PO SCH (07:42)
[2017-06-15] MEDS: Calcium/Vitamin D TAB 250/125* TAB PO SCH (07:42)
[2017-06-15] MEDS: Aspirin EC Low Dose* 81 MG TAB.EC PO SCH (07:42)
[2017-06-15] MEDS: clonazePAM TAB(*) 0.5 MG PO PRN ×3 (07:42→20:48)
[2017-06-15] MEDS: Artificial Tears* 15 ML BTL BOTH EYES PRN (07:42)
[2017-06-15] MEDS: predniSONE TAB* 20 MG PO SCH (07:42)
[2017-06-15 09:36] LABS: TSH (Thyroid Stimulating Horm) 0.8 mcIU/mL (0.34-5.60)
--- NOTE | 2017-06-15 12:24 | PN ---
Subjective Date of Service: 06/15/17 Interval History: HOSPITALIST PROGRESS NOTE Patient seen and examined at bedside. She feels better today, rash has improved a lot. Pain is unchanged. Family History: Unchanged from Admission Social History: Unchanged from Admission Past Medical History: Unchanged from Admission Objective Active Medications: Acetaminophen (Tylenol Tab*) 650 mg PO Q4H PRN PRN Reason: FEVER/PAIN Aspirin (Aspirin Ec Low Dose*) 81 mg PO DAILY [facility] Last Admin: 06/15/17 07:42 Dose: 81 mg Calcium/Vitamin D (Oscal D Tab 250/125*) 1 tab PO DAILY [facility] Last Admin: 06/15/17 07:42 Dose: 1 tab Clonazepam (Klonopin Tab(*)) 0.5 mg PO TID PRN PRN Reason: ANXIETY Last Admin: 06/15/17 07:42 Dose: 0.5 mg Cyclosporine (Restasis 0.05% Ophth) 1 drop BOTH EYES BID [facility] PRN Reason: Protocol Last Admin: 06/15/17 07:34 Dose: Not Given Famotidine (Pepcid Tab*) 40 mg PO BEDTIME [facility] PRN Reason: Protocol Last Admin: 06/14/17 20:59 Dose: 40 mg Heparin Sodium (Porcine) (Heparin Vial(*)) 5,000 units SUBCUT Q8HR [facility] Last Admin: 06/15/17 06:24 Dose: 5,000 units Nortriptyline HCl (Pamelor Cap*) 10 mg PO BEDTIME [facility] Last Admin: 06/14/17 21:00 Dose: 10 mg Omeprazole (Prilosec Cap*) 20 mg PO DAILY@0730 [facility] PRN Reason: Protocol Last Admin: 06/15/17 07:42 Dose: 20 mg Ondansetron HCl (Zofran Inj*) 4 mg IV Q6H PRN PRN Reason: NAUSEA Polyvinyl Alcohol (Polyvinyl Alcohol 1.4% Opth*) 1 drop BOTH EYES Q2H PRN PRN Reason: DRY EYE Last Admin: 06/15/17 07:42 Dose: 1 drop Prednisone (Deltasone Tab*) 40 mg PO DAILY [facility] Last Admin: 06/15/17 07:42 Dose: 40 mg Vital Signs 06/15/17 06/15/17 06/15/17 04:11 07:42 08:05 Temperature 97.8 F Pulse Rate 76 69 Respiratory 16 20 16 Rate Blood Pressure 100/61 112/66 (mmHg) O2 Sat by Pulse 98 98 Oximetry Oxygen Devices in Use Now: None Appearance: Pleasant lady sitting up in bed in NAD. Eyes: No Scleral Icterus Ears/Nose/Mouth/Throat: Mucous Membranes Moist Neck: Trachea Midline Respiratory: Symmetrical Chest Expansion and Respiratory Effort, Clear to Auscultation Cardiovascular: RRR - Normal S1 and S2 Skin: - - Palpable purpura to lateral aspect of RLE Neurological: Alert and Oriented x 3, NL Muscle Strength and Tone Lines/Tubes/Other Access: Clean, Dry and Intact Peripheral IV Nutrition: Taking PO's Result Diagrams: 06/15/17 05:05 06/15/17 05:05 Additional Lab and Data: Assess/Plan/Problems-Billing Assessment: Mrs. Trent is a 62yo F with PMH of HLD, anxiety, depression, GERD, remote h/o Grave's disease, who has had months of arthralgias, myalgias, found to have a positive STEVEN as outpatient, who presented to ED with a painful rash to bilateral LE. - Patient Problems (1) Palpable purpura Comment: - Rash is already improving after first prednisone dose, but she still has some palpable lesions on the lateral aspect ofr RLE and RUE. - Will request skin biopsy. (2) Arthralgia Comment: - Suspect patient may have fibromyalgia with her chronic pain, but with her positive STEVEN, changing pain pattern, rash, will pursue further rheumatological w/u. - Consult requested with Dr. Valiente. (3) GERD (gastroesophageal reflux disease) Comment: - Continue Famotidine. (4) Graves disease Comment: - TSH is normal. (5) DVT prophylaxis Comment: - SQ heparin. (6) Full code status Status and Disposition: Change to inpatient to continue her w/u.
[2017-06-15] MEDS: Ondansetron INJ* 2 MG/ML VIAL IV PRN (14:07)
[2017-06-15] MEDS: Acetaminophen TAB* 325 MG PO PRN (14:08)
--- NOTE | 2017-06-15 18:45 | CONSULT ---
Consult Consult: Ms. Trent is a 62 year old woman with a history of Grave's disease who presented with increased lower extremity discomfort in the setting of a diffuse rash. Rash appears to be palpable purpura and may be due to vasculitis. Given her history of sicca symptoms, consider a possible connective tissue disorder such as lupus or Sjogren's. I agree with Prednisone 40mg daily; this should be tapered gradually as an outpatient by about 10mg every 4 to 5 days. Follow up YVETTE panel. Follow up with me in 1 or 2 weeks.
[2017-06-15] MEDS: Nortriptyline CAP* 10 MG PO SCH (20:49)
[2017-06-15] MEDS: Famotidine TAB* 20 MG PO SCH (20:49)
[2017-06-15] MEDS: PTO: Cyclosporine 0.05% OPHTH (NF) 0.4 ML VIAL BOTH EYES SCH (22:05)
--- NOTE | 2017-06-16 01:15 | CONS ---
CONSULTATION REPORT: DATE OF CONSULT: 06/15/17 CONSULTING PHYSICIAN: Dr. Charlene Carey. REASON FOR CONSULT: Evaluate for cause of a positive STEVEN and rash. HISTORY OF PRESENT ILLNESS: Ms. Trent is a 62-year-old woman with a longstanding history of Graves' disease. She has been on chronic Pamelor or nortriptyline and she has not been on any new medications. She has been referred to me for a positive STEVEN and tentatively, she was scheduled to see me as an outpatient. However, she developed increasing discomfort especially in the skin with discomfort of lumps under her skin along her thigh regions as well as general lethargy and more pain and not feeling well overall. In particular, she developed a rash over the weekend that was on her legs, but also the tarso especially her abdominal region and her upper arms as well too. It has been painful on palpation and she has noted some raised areas that are not pruritic. She was hospitalized for the discomfort related to this condition and a skin biopsy was done, which is now pending. As noted above, in light of a positive STEVEN, she is having skin biopsy to also evaluate for a possible vasculitis. She was placed on prednisone 40 mg daily which she has noted an improvement with as well, but it should be noted that prior to the rash she has been on a new shampoo, a ketoconazole cream. She denies any abdominal discomfort. She denies any vomiting. She currently denies any chest pain or shortness of breath. She has had no definite lymph node swelling, but her lymph nodes feel generally uncomfortable especially on her upper neck area. She denies any nausea or vomiting and she denies any focal neurologic signs. The rash indeed has improved and tentatively she is planning to go home tomorrow. Her symptoms are worse as the day goes on, but the rash lasted all the way and it is gradually fading. She is having a mass in her left arm region , which may be a lipoma, evaluated at [facility] PAST MEDICAL HISTORY: Includes: 1. Hyperlipidemia. 2. History of depression. 3. History of gastroesophageal reflux disease, for which she has had difficulty getting her proton pump inhibitor approved for a chronic 30-day use. 4. Longstanding history of depression and anxiety, which has been stable. 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 PAST SURGICAL HISTORY: Includes skin excisions, as well as a septoplasty. HOME MEDICATIONS: Include: 1. Selenium 100 mcg daily. 2. Potassium 10 mEq daily, which was recently placed on after a visit to the ER , when she was found to have a low potassium. 3. She also has artificial tear drops as needed for sicca symptoms from her eyes. 4. Also nortriptyline 10 mg daily as needed. 5. She is also on Bactroban as needed. 6. Also Restasis as needed. 7. Mucinex 600 mg as needed twice daily. 8. Ketoconazole 2% externally as needed which is on hold. 9. Ibuprofen as needed 800 mg. 10. Flaxseed oil. 11. Calcium with vitamin D. 12. Nexium. 13. Aspirin. 14. Clonazepam as needed. ALLERGIES: Include XANAX and she has had adverse reactions or intolerance to ATORVASTATIN, BUSPAR, CEFACLOR, DEXAMETHASONE, DIPHENHYDRAMINE, DOXYCYCLINE, ERYTHROMYCIN, PROZAC, GLYCERIN, DILAUDID, LEVAQUIN, METOPROLOL which actually paradoxically caused an elevated heart rate. She has also had adverse reactions to FLAGYL, PENICILLIN, SULFA, PAXIL, SULFUR DIOXIDE, and IV DYE. FAMILY HISTORY: Notable for hyperlipidemia, but no connective tissue disease or disorder in the family except for arthritis. Her father had diabetes and the TIA. Her mother had dementia. SOCIAL HISTORY: She does not smoke. She does not drink any alcohol. 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 REVIEW OF SYSTEMS: Skin: She has had lumps which have been notable and it was felt that she might have a lipoma. She recently had an MRI of her left upper extremity and she is seeing a possible plastic surgeon to have these removed. Otherwise, she has denied any fever. She denies any diplopia. No ear discharge and no sinus symptoms. She denies any sore throat. Endocrine: She denies thyroid enlargement. Cardiac: She denies chest wall pain. Pulmonary: She denies orthopnea or shortness of breath. GI: She denies abdominal pain. She has been trying to lose weight in a hard healthy way. Denies any nausea or vomiting. Genitourinary: Denies dysuria, no frequency. Neurologic: Denies any seizure. No loss of consciousness. Skin: She has had no itching, but she does have rash, which is gradually fading. A 14-point review of systems was reviewed and was otherwise negative. PHYSICAL EXAM: Temperature 97.8, respiratory rate of 16, blood pressure 100/61 to 112/66. In general, she is a pleasant woman sitting up in bed, in no acute distress. Eyes: No scleral icterus. Ears, Nose, and Throat: No lesions noted. Mucous membranes are moist. She did have mild dryness of her skin as well as her ocular region as well as her mouth. Neck: Trachea was midline. Lymph: No adenopathy. Lungs: Clear and symmetric. Chest: Expansion and respiratory effort. Cardiovascular: Regular rate and rhythm. Normal S1 and S2. No S3 or S4. On her exam, she did have a 1/6 systolic ejection murmur, left lower sternal border. Skin: She had nonconfluent papular erythematous regions, less than 3 to 4 cm each, scattered along the lower extremity, which were palpable especially at the right lower extremity, but also scattered across the upper arms. They are little more confluent on the arms, as well as scattered across the abdominal region. No specific pattern and no dermatomal pattern. Neurologic: Alert and oriented x3. Normal muscle strength and tone. Musculoskeletal: No synovitis. She had no warmth of the joints. Genitourinary : No CVA tenderness. Endocrine: No thyromegaly. LABORATORY DATA: She had a white count of 3.4. She did have an elevated C- reactive protein and a BUN of 13, creatinine 0.91. In terms of prior labs, she has had Lyme testing that was nonreactive in February of this year. She has recently had her TSH checked and she had a rheumatoid factor that was 11.1 and also she had an antinuclear antibody that was 1:640, nucleolar pattern, on 05/17. ASSESSMENT AND PLAN: Ms. Trent is a 62-year-old woman with a history of Graves ' disease, now with palpable purpura with increasing arthralgias, as well as positive STEVEN and now with painful rash in the lower extremities. 1. In terms of her rash, it is unclear whether this could be related to some kind of new agent or toxic exposure, but other than the ketoconazole shampoo, she has had no recent new medications or other topical applications. Given her history of dry eyes, as well as slightly dry mouth, as well as thyroid disease, we will consider a possible overlap connective tissue disorder that might be explaining her symptoms, such as Sjogren's Syndrome. I agree with checking an extractable nuclear antigen panel. I would also check complements, double- stranded DNA, and cardiolipin antibodies, as well as an ANCA as her rash also appears to be vasculitic, but also follow up on the skin biopsy. 2. Rash. Appears to be vasculitic in nature. Consider a small or medium vessel vasculitis. We will follow up on the skin biopsy. Would also consider checking urinalysis if not already done. 3. Elevated C-reactive protein. Should improve as we reduce the inflammation. 4. Prednisone use. She is on prednisone 40 mg daily, which she is noticing benefit from. Consider tapering by 10 mg every 4 to 5 [address] Based on her ultimate diagnosis, we may consider a disease-modifying agent such as Plaquenil if she is diagnosed with an undifferentiated connective tissue disorder or Sjogren's. Would also follow up on lesions as noted above. 5. Graves' disease. TSH was normal. TIME SPENT: With the patient was greater than 60 minutes with greater than 50% of the time spent counseling the patient. [id number]/[facility] #: [id number] SREEKANTH
[2017-06-16] MEDS: Heparin VIAL(*) 5000 UNITS/ML VIAL (FIVE THOUSAND) SUBCUT SCH ×2 (05:45→14:39)
[2017-06-16] MEDS: Calcium/Vitamin D TAB 250/125* TAB PO SCH (08:39)
[2017-06-16] MEDS: predniSONE TAB* 20 MG PO SCH (08:40)
[2017-06-16] MEDS: Aspirin EC Low Dose* 81 MG TAB.EC PO SCH (08:40)
[2017-06-16] MEDS: clonazePAM TAB(*) 0.5 MG PO PRN (08:40)
[2017-06-16] MEDS: Omeprazole CAP* 20 MG PO SCH (08:40)
[2017-06-16] MEDS: PTO: Cyclosporine 0.05% OPHTH (NF) 0.4 ML VIAL BOTH EYES SCH (08:40)
[2017-06-16] MEDS: Acetaminophen TAB* 325 MG PO PRN (08:43)
[2017-06-16] MEDS: Ondansetron INJ* 2 MG/ML VIAL IV PRN (09:58)
[2017-06-16] MEDS: Sucralfate TAB* 1 GM PO SCH ×2 (09:58→11:56)
[2017-06-16 13:17] VITALS: BP 125/66
[2017-06-16 14:29] LABS: Cyclic Citrullinated Pept IgG <15.6 U
[2017-06-16] MEDS: Artificial Tears* 15 ML BTL BOTH EYES PRN (14:40)
[2017-06-16 16:36] LABS: Rheumatoid Factor <15 IU/mL (<15)
[2017-06-16 16:41] LABS: Albumin 3.2 g/dL (3.4-4.7); Gamma Globulin 0.9 g/dL (0.6-1.6); Total Protein(PEP) 6.4 g/dL (6.3 - 7.9)
--- NOTE | 2017-06-17 03:12 | DS ---
CC: Dr. Tyson; Dr. Valiente * DISCHARGE SUMMARY: DATE OF ADMISSION: 06/14/17 DATE OF DISCHARGE: 06/16/17 PRIMARY CARE PROVIDER: Dr. Tyson. CONSULTING REMOTE BROADCAST TECHNICIAN: Dr. Valiente. DISCHARGE DIAGNOSES: 1. Arthralgias and rash, with palpable purpura, likely secondary to vasculitis. 2. Possible Sjogren's syndrome versus mixed connective tissue disorder. SECONDARY DIAGNOSES: 1. Remote history of Graves' disease. 2. Hyperlipidemia. 3. Anxiety. 4. Depression. 5. Gastroesophageal reflux disease. MEDICATION LIST: 1. Selenium 100 mcg p.o. b.i.d. 2. Potassium chloride 10 mEq p.o. daily. 3. Artificial tears 1 drop to both eyes q.2 hours p.r.n. dry eyes. 4. Acetaminophen 500 mg p.o. q.8 hours p.r.n. pain. 5. Ranitidine 300 mg p.o. at bedtime. 6. Nortriptyline 10 mg p.o. at bedtime. 7. Mupirocin topical to affected areas twice a day as needed. 8. Restasis 1 drop to both eyes b.i.d. 9. Guaifenesin 600 mg p.o. b.i.d. p.r.n. cough. 10. Ibuprofen 800 mg p.o. q.8 hours p.r.n. pain. 11. Flaxseed oil 1 capsule p.o. b.i.d. 12. Calcium plus vitamin D 1 tablet p.o. daily. 13. Nexium 40 mg p.o. daily. 14. Aspirin 81 mg p.o. daily. 15. Clonazepam 0.5 mg p.o. t.i.d. as needed for anxiety. New medications: 1. Prednisone taper as follows: 40 mg p.o. daily for 5 days, 30 mg p.o. daily for 5 days, 20 mg for 5 days, 10 mg until you see Dr. Valiente. 2. Sucralfate 1 g p.o. before meals. 3. Compazine 5 mg p.o. q.6 hours p.r.n. nausea. 4. Lorazepam 0.5 mg p.o. b.i.d. as needed for severe anxiety, MDD 2 tablets, dispense 45 tablets, no refills. The [facility] Prescription Monitoring Program was consulted and the patient last received a 30-day supply of clonazepam on 05/14/17. Reference number is [id number]. HOSPITAL COURSE: Ms. Trent is a 62-year-old lady with a past medical history as stated above that presented to the emergency room with complaints of arthralgias and a rash. For more details about her presentation, I refer you to her history and physical. As outpatient, the patient had a positive STEVEN 1:640, nucleolar pattern. The patient's rash was compatible with a palpable purpura and she had a skin biopsy done and the result is pending at the time of this dictation, but should be followed as outpatient. The patient also found to have an elevated ESR at 49, elevated CRP at 62. She was seen in consultation by Rheumatology (Dr. Valiente) and his thought was that given that the patient has a history of dry eyes as well as dry mouth as well as thyroid disease, we could consider possible mixed connective tissue disorder that might be explaining her symptoms such as Sjogren's syndrome. He agreed with autoimmune workup and biopsy. He has felt that her rash appeared vasculitic in nature and he recommended continued treatment with prednisone. At the time of this dictation, anti-double stranded DNA, STEVEN, ANCA panel, rheumatoid factor, C3, C4, anticardiolipin, YVETTE are pending and should be followed as outpatient. The patient had Lyme and hepatitis serologies that were negative. She will be discharged on a steroid taper as she states that the steroid use in this whole situation makes her extremely anxious and she states that for those situations, just Klonopin is not enough. She states she lives in an area that will take half an hour for EMS to reach her and she is afraid that without Ativan, she would not be able to wait for the ambulance. She describes an episode when she started taking fluoxetine that she had severe anxiety with the medication and "it was hell" waiting for the ambulance to get to her home, so I am giving her a prescription for Ativan and maybe her primary care provider could consider switching from Klonopin to Ativan instead. The patient is medically stable for discharge at this time. She will follow up with Dr. Tyson and Dr. Valiente as outpatient. PHYSICAL EXAMINATION: Vital Signs: Temperature is 97.9, heart rate is 70, respiratory rate is 18, oxygen saturation is 97% on room air, blood pressure is 125/66. General: The patient is a pleasant lady, sitting up in bed, in no acute distress. CVS: Normal S1, S2. Regular rate and rhythm. Chest: Breath sounds present bilaterally with no added sounds. Abdomen is soft. Bowel sounds are present. Neuro: She is alert and oriented x3. Able to move all 4 extremities. DIET: Gluten-free diet. ACTIVITIES: As tolerated. DISPOSITION: To home. STATUS WHILE IN THE HOSPITAL: Inpatient. Please keep in mind this is a summarized version of this patient's hospital stay. If you need more information, please feel free to call me at [phone] or please obtain the full medical records. Please note that at the time of this dictation, her skin biopsy as well as multiple laboratory tests as described above is pending and their results need to be followed as outpatient. TIME SPENT: Approximately 45 minutes was spent to complete this discharge. [id number]/[facility] #: [id number] SREEKANTH
[2017-06-17 13:09] LABS: SS-B/La Antibody <0.2 U; Sm (Smith) IgG Antibody <0.2 U; U1-nRNP Antibody <0.2 U
[2017-06-17 20:58] LABS: Complement C3 162 mg/dL (75 - 175)
[2017-06-18 12:24] LABS: Vitamin D 1,25-Dihydroxy 89 pg/mL (18-78)
[2017-06-18 19:04] LABS: Phospholipid Ab IgG < 9.4 GPL; Phospholipid Ab IgM, S 12.5 MPL
== END 2017-06-16 16:30 | disposition home or self-care (01) | DRG 813 ==
LOC: ED 13:31 → MED 17:40 → OBSVTOIN 17:40 → INTOOBSV 17:40 → OBSVTOIN 06-15 10:38
PROVIDERS: ADMIT Internal Medicine; ATTEND Internal Medicine
PROC: 0HBKXZX Excision of Right Lower Leg Skin, External Approach, Diagnostic (ICD-10-PCS; principal; 2017-06-15)
DX: D69.2 Other nonthrombocytopenic purpura (principal); M35.00 Sjogren syndrome, unspecified; F32.9 Major depressive disorder, single episode, unspecified; I77.6 Arteritis, unspecified; K58.9 Irritable bowel syndrome, unspecified; F41.9 Anxiety disorder, unspecified; E78.5 Hyperlipidemia, unspecified; K21.9 Gastro-esophageal reflux disease without esophagitis; G89.29 Other chronic pain; M25.50 Pain in unspecified joint; R40.2412 Glasgow coma scale score 13-15, at arrival to emergency department; J45.909 Unspecified asthma, uncomplicated; Z82.49 Family history of ischemic heart disease and other diseases of the circulatory system; Z83.3 Family history of diabetes mellitus; Z88.0 Allergy status to penicillin; Z88.2 Allergy status to sulfonamides; Z88.8 Allergy status to other drugs, medicaments and biological substances; Z88.1 Allergy status to other antibiotic agents; Z91.041 Radiographic dye allergy status; Z80.0 Family history of malignant neoplasm of digestive organs; Z82.3 Family history of stroke
CPT/HCPCS: 11100; 11101; 36415; 71010; 74176; 80048; 80053; 80074; 81003; 81015; 82550; 82570; 82652; 83516; 83605; 83690; 84155; 84156; 84165; 84443; 84484; 85025; 85610; 85652; 85730; 86038; 86140; 86147; 86160; 86200; 86225; 86235; 86431; 86618; 87040; 87086; 88305; 88312; 88346; 88350; 93005; A9270-GY; G0378; J1644; J2405; J7512

== ENCOUNTER 2017-06-16 20:38 | Emergency (ER) | payer OTHER ==
[2017-06-17 00:56] VITALS: BP 153/80
--- NOTE | 2017-06-17 01:21 | ED ---
Belle [facility]arrete Rebecca, scribed for Hayder Henao on 06/17/17 at 0034 . Complex/Multi-Sys Presentation - HPI Summary HPI Summary: Pt is a 62 y/o F who presents to ED c/o anxiety s/p Prednisone ingestion. Pt was evaluated by [facility] 3 days ago and was admitted and D/C to home with Rx for Prednisone. She was given Rx for 4 mg Prednisone for 5 days, then 30 mg for 5 days, then 20 mg for 5 days and 10 mg for 5 days. Pt reports that after taking her Prednisone dose today (day 2 of medication) she began experiencing anxiety. Sx aggravated by Prednisone and alleviated by nothing, unchanged by Klonopin. PCP is Dr. Tyson. - History Of Current Complaint Chief Complaint: EDGeneral Time Seen by Provider: 06/17/17 00:12 Hx Obtained From: Patient Onset/Duration: Still Present Severity Currently: None Location: Negative Aggravating Factor(s): Prednisone Alleviating Factor(s): Nothing Associated Signs And Symptoms: Positive: Other - Anxiety - Allergies/Home Medications Allergies/Adverse Reactions: Allergies Allergy/AdvReac Type Severity Reaction Status Date / Time Alprazolam Allergy Unknown Verified 06/16/17 22:19 Reaction Details Atorvastatin Allergy Unknown Verified 06/16/17 22:19 Reaction Details Buspirone [From Buspar] Allergy Unknown Verified 06/16/17 22:19 Reaction Details Cefaclor Allergy GI Upset Verified 06/16/17 22:19 Dexamethasone Allergy Anxiety Verified 06/16/17 22:19 Diphenhydramine Allergy Agitation Verified 06/16/17 22:19 Doxycycline Allergy See Comment Verified 06/16/17 22:19 Erythromycin Allergy Unknown Verified 06/16/17 22:19 Reaction Details Fluoxetine [From Prozac] Allergy Unknown Verified 06/16/17 22:19 Reaction Details Glycerin Allergy Unknown Verified 06/16/17 22:19 Reaction Details Hydromorphone [From Dilaudid] Allergy Unknown Verified 06/16/17 22:19 Reaction Details Levofloxacin [From Levaquin] Allergy Unknown Verified 06/16/17 22:19 Reaction Details Metoprolol Allergy Unknown Verified 06/16/17 22:19 Reaction Details Metronidazole [From Flagyl] Allergy Unknown Verified 06/16/17 22:19 Reaction Details Paroxetine [From Paxil] Allergy Unknown Verified 06/16/17 22:19 Reaction Details Penicillins [PCN] Allergy Unknown Verified 06/16/17 22:19 Reaction Details Sulfacetamide Allergy Unknown Verified 06/16/17 22:19 Reaction Details Sulfur Dioxide Allergy Unknown Verified 06/16/17 22:19 Reaction Details IV contrast media Allergy Unknown Uncoded 06/16/17 22:19 Reaction Details PMH/Surg Hx/FS Hx/Imm Hx Endocrine/Hematology History: Reports: Hx Thyroid Disease - "flip-flopped" Denies: Hx Diabetes Cardiovascular History: Reports: Hx Hypercholesterolemia, Other Cardiovascular Problems/Disorders - HIGH LEVELS OF CO IN BLOOD - 3.2-3.5 Denies: Hx Hypertension Respiratory History: Reports: Hx Asthma - "came and went" Denies: Hx Chronic Obstructive Pulmonary Disease (COPD) GI History: Reports: Other GI Disorders - IBS Denies: Hx Ulcer Sensory History: Reports: Hx Contacts or Glasses Denies: Hx Hearing Aid Opthamlomology History: Reports: Hx Contacts or Glasses Psychiatric History: Reports: Hx Anxiety - Surgical History Surgery Procedure, Year, and Place: precancerous skin cancers; deviated septum; wisdom teeth Infectious Disease History: No Infectious Disease History: Denies: Hx Clostridium Difficile, Hx Hepatitis, Hx Human Immunodeficiency Virus (HIV), Hx of Known/Suspected MRSA, Hx Shingles, Hx Tuberculosis, Hx Known/ Suspected VRE, Hx Known/Suspected VRSA, History Other Infectious Disease, Traveled Outside the in Last 30 Days - Family History Known Family History: Positive: Cardiac Disease - SISTER - [place] AGE 54, Diabetes - FATHER, Other - F - COLON CA, BOTH PARENTS - HIGH CHOLESTEROL, M - BRAIN TUMOR - Social History Alcohol Use: Occasionally Hx Substance Use: No Substance Use Type: Reports: None Hx Tobacco Use: No Smoking Status (MU): Never Smoked Tobacco Review of Systems Negative: Fever Positive: Anxious All Other Systems Reviewed And Are Negative: Yes Physical Exam - Summary Physical Exam Summary: Appearance: Well appearing, no pain distress Skin: warm, dry, reflects adequate perfusion Head/face: normal Eyes: EOMI, NATHAN ENT: normal Neck: supple, nontender Respiratory: CTA, breath sounds present Cardiovascular: RRR, pulses symmetrical Abdomen: nontender, soft Bowel: present Musculoskeletal: normal, strength/ROM intact Neuro: normal, sensory motor intact, A&Ox3 Triage Information Reviewed: Yes Vital Signs On Initial Exam: Initial Vitals Temp Pulse Resp BP Pulse Ox 98.4 F 104 18 185/98 97 06/16/17 20:47 06/16/17 20:47 06/16/17 20:47 06/16/17 20:47 06/16/17 20:47 Vital Signs Reviewed: Yes Diagnostics - Vital Signs Vital Signs Temp Pulse Resp BP Pulse Ox 06/16/17 23:00 76 146/70 97 06/16/17 22:30 79 139/76 96 06/16/17 22:14 98.4 F 85 16 167/82 96 06/16/17 22:12 88 95 06/16/17 22:11 167/82 06/16/17 20:47 98.4 F 104 18 185/98 97 - Laboratory Lab Statement: Any lab studies that have been ordered have been reviewed, and results considered in the medical decision making process. Complex Multi-Symp Course/Dx Assessment/Plan: Pt is a 62 y/o F who presents to ED c/o anxiety s/p Prednisone ingestion. Pt was evaluated by [facility] 3 days ago and was admitted and D/C to home with Rx for Prednisone. She was given Rx for 4 mg Prednisone for 5 days, then 30 mg for 5 days, then 20 mg for 5 days and 10 mg for 5 days. Pt reports that after taking her Prednisone dose today (day 2 of medication) she began experiencing anxiety. Sx aggravated by Prednisone and alleviated by nothing, unchanged by Klonopin. PCP is Dr. Tyson. She will be D/C to home with Dx of drug reaction and anxiety, Rx for medrol dosepack, instrucitons to cease prednisone and a follow up with her PCP. She understands and agrees. Elevated BP noted. - Diagnoses Provider Diagnoses: Drug reaction, Anxiety Discharge - Discharge Plan Condition: Stable Disposition: HOME Prescriptions: Methylprednisolone [Medrol Dosepak 4 MG*] 0 mg PO .SEE DEMARCO INSTRUCTION #1 tab Patient Education Materials: Adverse Drug Reaction (ED), Anxiety (ED) Referrals: Jerson Tyson MD [Primary Care Provider] - 3 Days Additional Instructions: Stop Prednisone prescription and follow up with your primary care physician. The documentation as recorded by the Belle [facility] Rebecca accurately reflects the service I personally performed and the decisions made by , Hayder Henao.
== END 2017-06-17 00:57 | disposition home or self-care (01) ==
LOC: ED 20:38
DX: T50.905A Adverse effect of unspecified drugs, medicaments and biological substances, initial encounter (principal); F41.9 Anxiety disorder, unspecified; Y92.9 Unspecified place or not applicable
CPT/HCPCS: 99282

== ENCOUNTER 2017-06-17 19:59 | Emergency (ER) | payer OTHER ==
[2017-06-17] MEDS ORDERED: NS 0.9% 1000 ML* 2,000 ML IV ONE (20:41)
[2017-06-17] MEDS ORDERED: LORazepam INJ* 2 MG/ML 1 ML VIAL IV ONE (20:41)
[2017-06-17 21:25] LABS: Hematocrit 39 % (35-47); Hemoglobin 13.2 g/dl (12.0-16.0); Mean Corpuscular HGB Conc 34 g/dl (31-36); Mean Corpuscular Hemoglobin 29 pg (27-31); Mean Corpuscular Volume 87 fL (80-97); Mean Platelet Volume 8 um3 (7.4-10.4); Red Blood Count 4.52 10^6/ul (4.0-5.4); Red Cell Distribution Width 14 % (10.5-15); White Blood Count 7.5 10^3/ul (3.5-10.8)
[2017-06-17 21:37] LABS: Urine Bacteria Absent (Absent); Urine Bilirubin Negative (Negative); Urine Glucose Negative (Negative); Urine Nitrite Negative (Negative)
[2017-06-17 21:42] LABS: ALT 53 U/L (7-52); AST 39 U/L (13-39); Alkaline Phosphatase 59 U/L (34-104); Anion Gap 8 mmol/L (2-11); BUN/Creatinine Ratio 18.3 (8-20); Blood Urea Nitrogen 19 mg/dL (6-24); C Reactive Protein 12.33 mg/L (< 5.00); CO2 Carbon Dioxide 28 mmol/L (22-32); Calcium 9.7 mg/dL (8.6-10.3); Chloride 104 mmol/L (101-111); EGFR African American 68.6 (>60); EGFR Non-African American 53.3 (>60); Glucose 93 mg/dL (70-100); Magnesium 2.1 mg/dL (1.9-2.7); Potassium 3.4 mmol/L (3.5-5.0); Sodium 140 mmol/L (133-145)
[2017-06-17] MEDS ORDERED: Potassium Chlor TAB* 10 MEQ TAB.ER PO ONE (22:06)
--- NOTE | 2017-06-17 22:10 | ED ---
Deep Navarrete Benjamin, scribed for Emerson Avila MD on 06/17/17 at 2041 . Syncope/Near Syncope - HPI Summary HPI Summary: 62yo female c/o weakness and near syncopal episode earlier tonight. Earlier tonight, pt started feeling weak and not right while she was walking outside to take some pictures. Pt states getting foggy, also noticed her left eye not focusing and having blurry vision. Pt felt so wiped out and weak that she had to lye down and close her eyes. She states that she wont feel comfortable standing/sitting or walking due to her weakness. Pt also reports some anxiety and racing heart rate. Pt was also seen last night at the ED and was evaluated for possible auto-immune disorder. Pt denies dizziness, CP, or SOB. PMHx of anxiety and depression. Pt has a mass on his left arm that is scheduled to be removed. Pt takes prednisone and last time she took it was last night. - History Of Current Complaint Chief Complaint: EDWeakness Time Seen by Provider: 06/17/17 20:17 Hx Obtained From: Patient Onset/Duration: Gradual Onset, Lasting Hours, Still Present Timing: Constant Context: Unwitnessed Activity At Onset: Exertion - walking Associated Head Trauma: No Aggravating Factor(s): Nothing Alleviating Factor(s): Nothing Associated Signs And Symptoms: Weakness - Allergies/Home Medications Allergies/Adverse Reactions: Allergies Allergy/AdvReac Type Severity Reaction Status Date / Time Alprazolam Allergy Unknown Verified 06/16/17 22:19 Reaction Details Atorvastatin Allergy Unknown Verified 06/16/17 22:19 Reaction Details Buspirone [From Buspar] Allergy Unknown Verified 06/16/17 22:19 Reaction Details Cefaclor Allergy GI Upset Verified 06/16/17 22:19 Dexamethasone Allergy Anxiety Verified 06/16/17 22:19 Diphenhydramine Allergy Agitation Verified 06/16/17 22:19 Doxycycline Allergy See Comment Verified 06/16/17 22:19 Erythromycin Allergy Unknown Verified 06/16/17 22:19 Reaction Details Fluoxetine [From Prozac] Allergy Unknown Verified 06/16/17 22:19 Reaction Details Glycerin Allergy Unknown Verified 06/16/17 22:19 Reaction Details Hydromorphone [From Dilaudid] Allergy Unknown Verified 06/16/17 22:19 Reaction Details Levofloxacin [From Levaquin] Allergy Unknown Verified 06/16/17 22:19 Reaction Details Metoprolol Allergy Unknown Verified 06/16/17 22:19 Reaction Details Metronidazole [From Flagyl] Allergy Unknown Verified 06/16/17 22:19 Reaction Details Paroxetine [From Paxil] Allergy Unknown Verified 06/16/17 22:19 Reaction Details Penicillins [PCN] Allergy Unknown Verified 06/16/17 22:19 Reaction Details Prednisone Allergy Anxiety Verified 06/17/17 00:38 Sulfacetamide Allergy Unknown Verified 06/16/17 22:19 Reaction Details Sulfur Dioxide Allergy Unknown Verified 06/16/17 22:19 Reaction Details IV contrast media Allergy Unknown Uncoded 06/16/17 22:19 Reaction Details PMH/Surg Hx/FS Hx/Imm Hx Endocrine/Hematology History: Reports: Hx Thyroid Disease - "flip-flopped" Denies: Hx Diabetes Cardiovascular History: Reports: Hx Hypercholesterolemia, Other Cardiovascular Problems/Disorders - HIGH LEVELS OF CO IN BLOOD - 3.2-3.5 Denies: Hx Hypertension Respiratory History: Reports: Hx Asthma - "came and went" Denies: Hx Chronic Obstructive Pulmonary Disease (COPD) GI History: Reports: Other GI Disorders - IBS Denies: Hx Ulcer Sensory History: Reports: Hx Contacts or Glasses Denies: Hx Hearing Aid Opthamlomology History: Reports: Hx Contacts or Glasses Psychiatric History: Reports: Hx Anxiety - Surgical History Surgery Procedure, Year, and Place: precancerous skin cancers; deviated septum; wisdom teeth Infectious Disease History: No Infectious Disease History: Denies: Hx Clostridium Difficile, Hx Hepatitis, Hx Human Immunodeficiency Virus (HIV), Hx of Known/Suspected MRSA, Hx Shingles, Hx Tuberculosis, Hx Known/ Suspected VRE, Hx Known/Suspected VRSA, History Other Infectious Disease, Traveled Outside the [place] in Last 30 Days - Family History Known Family History: Positive: Cardiac Disease - SISTER - [place] AGE 54, Diabetes - FATHER, Other - F - COLON CA, BOTH PARENTS - HIGH CHOLESTEROL, M - BRAIN TUMOR - Social History Occupation: Employed Full-time Lives: With Family Alcohol Use: Occasionally Hx Substance Use: No Substance Use Type: Reports: None Hx Tobacco Use: No Smoking Status (MU): Never Smoked Tobacco Review of Systems Positive: Fatigue Positive: Blurred Vision ENT: Negative Positive: Palpitations - racing heart Respiratory: Negative Gastrointestinal: Negative Genitourinary: Negative Musculoskeletal: Negative Skin: Negative Positive: Weakness, Syncope - near Positive: Anxious All Other Systems Reviewed And Are Negative: Yes Physical Exam Triage Information Reviewed: Yes Vital Signs On Initial Exam: Initial Vitals Temp Pulse Resp BP Pulse Ox 98.4 F 85 17 183/83 96 06/17/17 20:03 06/17/17 20:03 06/17/17 20:03 06/17/17 20:03 06/17/17 20:03 Vital Signs Reviewed: Yes Appearance: Positive: Well-Appearing, No Pain Distress, Well-Nourished Skin: Positive: Warm, Skin Color Reflects Adequate Perfusion, Dry Head/Face: Positive: Normal Head/Face Inspection Eyes: Positive: EOMI, NATHAN ENT: Positive: Normal ENT inspection, Hearing grossly normal Neck: Positive: Supple, Nontender Respiratory/Lung Sounds: Positive: Clear to Auscultation, Breath Sounds Present Cardiovascular: Positive: RRR, Pulses are Symmetrical in both Upper and Lower Extremities Abdomen Description: Positive: Nontender, Soft Bowel Sounds: Positive: Present Musculoskeletal: Positive: Strength/ROM Intact Neurological: Positive: Sensory/Motor Intact, Alert, Oriented to Person Place, Time, Other - pt states "feeling too weak to stand up." Psychiatric: Positive: Anxious Diagnostics - Vital Signs Vital Signs Temp Pulse Resp BP Pulse Ox 06/17/17 20:03 98.4 F 85 17 183/83 96 - Laboratory Lab Results: Lab Results 06/17/17 06/17/17 06/17/17 Range/Units 21:11 21:11 21:20 WBC 7.5 (3.5-10.8) 10^3/ul RBC 4.52 (4.0-5.4) 10^6/ul Hgb 13.2 (12.0-16.0) g/dl Hct 39 (35-47) % MCV 87 (80-97) fL MCH 29 (27-31) pg MCHC 34 (31-36) g/dl RDW 14 (10.5-15) % Plt Count 255 (150-450) 10^3/ul MPV 8 (7.4-10.4) um3 Neut % (Auto) 70.6 (38-83) % Lymph % (Auto) 16.4 L (25-47) % Sweet Grass % (Auto) 10.2 H (1-9) % Eos % (Auto) 2.6 (0-6) % Baso % (Auto) 0.2 (0-2) % Absolute Neuts (auto) 5.3 (1.5-7.7) 10^3/ul Absolute Lymphs (auto) 1.2 (1.0-4.8) 10^3/ul Absolute Monos (auto) 0.8 (0-0.8) 10^3/ul Absolute Eos (auto) 0.2 (0-0.6) 10^3/ul Absolute Basos (auto) 0 (0-0.2) 10^3/ul Absolute Nucleated RBC 0 10^3/ul Nucleated RBC % 0 Sodium 140 (133-145) mmol/L Potassium 3.4 L (3.5-5.0) mmol/L Chloride 104 (101-111) mmol/L Carbon Dioxide 28 (22-32) mmol/L Anion Gap 8 (2-11) mmol/L BUN 19 (6-24) mg/dL Creatinine 1.04 H (0.51-0.95) mg/dL Est GFR ( Amer) 68.6 (>60) Est GFR (Non-Af Amer) 53.3 (>60) BUN/Creatinine Ratio 18.3 (8-20) Glucose 93 (70-100) mg/dL Calcium 9.7 (8.6-10.3) mg/dL Magnesium 2.1 (1.9-2.7) mg/dL Total Bilirubin 0.40 (0.2-1.0) mg/dL AST 39 (13-39) U/L ALT 53 H (7-52) U/L Alkaline Phosphatase 59 (34-104) U/L Troponin I 0.00 (<0.04) ng/mL C-Reactive Protein 12.33 H (< 5.00) mg/L Total Protein 7.0 (6.4-8.9) g/dL Albumin 4.0 (3.2-5.2) g/dL Globulin 3.0 (2-4) g/dL Albumin/Globulin Ratio 1.3 (1-3) TSH Pending Urine Color Yellow Urine Appearance Clear Urine pH 8.0 (5-9) Ur Specific Drummond 1.005 L (1.010-1.030) Urine Protein Negative (Negative) Urine Ketones Negative (Negative) Urine Blood Negative (Negative) Urine Nitrate Negative (Negative) Urine Bilirubin Negative (Negative) Urine Urobilinogen Negative (Negative) Ur Leukocyte Esterase 1+ H (Negative) Urine WBC (Auto) Trace(0-5/hpf) (Absent) Urine RBC (Auto) Absent (Absent) Ur Squamous Epith Cells Present H (Absent) Urine Bacteria Absent (Absent) Urine Glucose Negative (Negative) Salicylates Pending Acetaminophen Pending Serum Alcohol Pending Result Diagrams: 06/17/17 21:11 06/17/17 21:11 Lab Statement: Any lab studies that have been ordered have been reviewed, and results considered in the medical decision making process. Course/Dx Course Of Treatment: Reviewed pts medication and allergy lists. High blood pressure noted. DISCUSSED RESULTS WITH PATIENT. SX APPEAR TO BE DUE TO ANXIETY. THIS WAS DISCUSSED WITH PATIENT/. NO CRITICAL CARE TIME. - Diagnoses Provider Diagnoses: Anxiety, Weakness Discharge - Discharge Plan Condition: Stable Disposition: HOME Prescriptions: Potassium Chlor TAB* [Klor Con ER TAB 10 MEQ*] 10 meq PO DAILY #30 tab Patient Education Materials: Anxiety (ED), Weakness (ED) Referrals: Jerson Tyson MD [Primary Care Provider] - Additional Instructions: FOLLOW UP WITH YOUR DOCTOR. RETURN TO THE EMERGENCY DEPARTMENT FOR ANY WORSENING OF YOUR CONDITION OR QUESTIONS OR CONCERNS. The documentation as recorded by the Deep cast Benjamin accurately reflects the service I personally performed and the decisions made by me, Emerson Avila MD.
[2017-06-17 22:44] VITALS: BP 144/70
[2017-06-17 23:31] LABS: Acetaminophen < 15 mcg/mL; Alcohol < 10 mg/dL (<10); Salicylate < 2.50 mg/dL (<30)
[2017-06-17 23:40] LABS: TSH (Thyroid Stimulating Horm) 4.81 mcIU/mL (0.34-5.60)
== END 2017-06-17 22:30 | disposition home or self-care (01) ==
LOC: ED 19:59
DX: F41.9 Anxiety disorder, unspecified (principal); R53.1 Weakness; R55 Syncope and collapse; R53.83 Other fatigue; H53.8 Other visual disturbances
CPT/HCPCS: 36415; 80053; 80320; 80329; 81003; 81015; 83735; 84443; 84484; 85025; 86140; 87086; 96374; 99284; A9270-GY; G0480; J2060

== ENCOUNTER 2017-10-28 17:38 | Emergency (ER) | payer SELFPAY ==
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
[2017-10-28 20:39] VITALS: BP 172/90
== END 2017-10-28 20:38 | disposition home or self-care (01) ==
LOC: ED 17:38
DX: R51 Headache (principal); M54.2 Cervicalgia; V89.2XXA Person injured in unspecified motor-vehicle accident, traffic, initial encounter; Y92.410 Unspecified street and highway as the place of occurrence of the external cause
CPT/HCPCS: 72020; 72050; 99282

== ENCOUNTER 2018-08-07 19:45 | Emergency (ER) | payer MEDICARE, OTHER ==
[2018-08-07 20:38] LABS: ABS Basophils 0 10^3/ul (0-0.2); ABS Eosinophils 0 10^3/ul (0-0.6); ABS Lymphocytes 1.6 10^3/ul (1.0-4.8); ABS Monocytes 0.7 10^3/ul (0-0.8); ABS Neutrophils 6.8 10^3/ul (1.5-7.7); ABS Nucleated RBC 0 10^3/ul; Eosinophil % 0.4 % (0-6); Hematocrit 39 % (35-47); Lymphocyte % 17.6 % (25-47); Mean Corpuscular HGB Conc 34 g/dl (31-36); Mean Corpuscular Hemoglobin 27 pg (27-31); Mean Corpuscular Volume 82 fL (80-97); Mean Platelet Volume 8.2 um3 (7.4-10.4); Nucleated Red Blood Cells % 0; Platelet Count 305 10^3/ul (150-450); Red Blood Count 4.74 10^6/ul (4.00-5.40); Red Cell Distribution Width 16 % (10.5-15); White Blood Count 9.2 10^3/ul (3.5-10.8)
[2018-08-07 20:42] LABS: Urine Appearance Clear; Urine Blood Negative (Negative); Urine Color Straw; Urine Ketones Negative (Negative); Urine Protein Negative (Negative); Urine Red Blood Cell Absent (Absent); Urine Specific Gravity 1.005 (1.010-1.030); Urine Urobilinogen Negative (Negative); Urine White Blood Cell Trace(0-5/hpf) (Absent)
[2018-08-07 20:52] LABS: EGFR Non-African American 54.4 (>60)
--- NOTE | 2018-08-07 21:02 | ED ---
Throat Pain/Nasal Congestion - HPI Summary HPI Summary: Patient complains of right ear pain, diffuse abdominal pain, diffuse back pain, intermittent burning after urination, productive cough, nasal congestion, loose stools, nausea 1 week. Patient was diagnosed with sinus infection and UTI on Wednesday by PCP and given Z-Leonardo for both infections. Patient states increase in symptoms despite being on azithromycin for 3 days. Denies fever, sore throat, CP, SOB, vomiting, diarrhea, vaginal symptoms. Medical history is sleep apnea, anxiety. - History of Current Complaint Chief Complaint: EDGeneral Time Seen by Provider: 08/07/18 20:02 Hx Obtained From: Patient Onset/Duration: Gradual Onset Severity: Moderate Associated Signs And Symptoms: Positive: Nasal Discharge Cough: Productive - Allergies/Home Medications Allergies/Adverse Reactions: Allergies Allergy/AdvReac Type Severity Reaction Status Date / Time alprazolam Allergy Anxiety Verified 08/07/18 20:58 atorvastatin Allergy See Comment Verified 08/07/18 20:58 buspirone Allergy See Comment Verified 08/07/18 20:58 cefaclor Allergy GI Upset Verified 08/07/18 20:58 dexamethasone Allergy Anxiety Verified 08/07/18 20:58 doxycycline Allergy See Comment Verified 08/07/18 20:58 erythromycin base Allergy See Comment Verified 08/07/18 20:58 fluoxetine [From Prozac] Allergy See Comment Verified 08/07/18 20:58 glycerin Allergy Unknown Verified 08/07/18 20:58 Reaction Details hydromorphone [From Dilaudid] Allergy See Comment Verified 08/07/18 20:58 levofloxacin Allergy GI Upset Verified 08/07/18 20:58 metoprolol Allergy See Comment Verified 08/07/18 20:58 metronidazole [From Flagyl] Allergy Unknown Verified 08/07/18 20:58 Reaction Details paroxetine Allergy See Comment Verified 08/07/18 20:58 Penicillins Allergy GI Upset Verified 08/07/18 20:58 prednisone Allergy Anxiety Verified 08/07/18 20:58 sulfacetamide Allergy Unknown Verified 08/07/18 20:58 Reaction Details sulfur dioxide Allergy Sneezing Verified 08/07/18 20:58 iv contrast Allergy See Comment Uncoded 08/07/18 20:58 IV contrast media Allergy ITCHY MOUTH Uncoded 09/22/17 11:26 Home Medications: Home Medications Albuterol inh POWDER (NF) [Proair Respiclick] 1 puff INH Q4H PRN 08/07/18 [ History Confirmed 08/07/18] Fluticasone/Vilanterol [Breo Ellipta 200-25 Mcg INH] 1 inh INH DAILY 08/07/18 [ History Confirmed 08/07/18] Levocetirizine Dihydrochloride [Levocetirizine Dihydrochl] 5 mg PO DAILY [History Confirmed 08/07/18] Magnesium Oxide [Magnesium] 250 mg PO DAILY 08/07/18 [History Confirmed 08/07/18 ] PMH/Surg Hx/FS Hx/Imm Hx Endocrine/Hematology History: Reports: Hx Thyroid Disease - "flip-flopped" Denies: Hx Anticoagulant Therapy, Hx Diabetes Cardiovascular History: Reports: Hx Hypercholesterolemia, Other Cardiovascular Problems/Disorders - HIGH LEVELS OF CO IN BLOOD - 3.2-3.5 Denies: Hx Hypertension, Hx Pacemaker/ICD Respiratory History: Reports: Hx Asthma - "came and went" Denies: Hx Chronic Obstructive Pulmonary Disease (COPD) GI History: Reports: Other GI Disorders - IBS Denies: Hx Ulcer History: Denies: Hx Renal Disease Sensory History: Reports: Hx Contacts or Glasses Denies: Hx Hearing Aid Opthamlomology History: Reports: Hx Contacts or Glasses Neurological History: Reports: Other Neuro Impairments/Disorders - NECK SPRAIN/ STRAIN Psychiatric History: Reports: Hx Anxiety Denies: Hx Panic Disorder - Cancer History Cancer Type, 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 Hx Chemotherapy: No Hx Radiation Therapy: No - Surgical History Surgery Procedure, Year, and Place: precancerous skin cancers; deviated septum; wisdom teeth - Immunization History Date of Tetanus Vaccine: UTD Infectious Disease History: No Infectious Disease History: Denies: Hx Clostridium Difficile, Hx Hepatitis, Hx Human Immunodeficiency Virus (HIV), Hx of Known/Suspected MRSA, Hx Shingles, Hx Tuberculosis, Hx Known/ Suspected VRE, Hx Known/Suspected VRSA, History Other Infectious Disease, Traveled Outside the [place] in Last 30 Days - Family History Known Family History: Positive: None - REVIEWED & NONCONTRIBUTORY, Cardiac Disease - SISTER - ID AGE 54, Diabetes - FATHER, Other - F - COLON CA, BOTH PARENTS - HIGH CHOLESTEROL, M - BRAIN TUMOR Family History: NON CONTRIBUTORY - Social History Alcohol Use: None Hx Substance Use: No Substance Use Type: Reports: None Hx Tobacco Use: No Smoking Status (MU): Never Smoked Tobacco Review of Systems Constitutional: Negative Eyes: Negative Positive: Ear Ache, Nasal Discharge Cardiovascular: Negative Positive: Cough Positive: Nausea Positive: burning Musculoskeletal: Negative Skin: Negative Neurological: Negative Psychological: Normal All Other Systems Reviewed And Are Negative: Yes Physical Exam Triage Information Reviewed: Yes Vital Signs On Initial Exam: Initial Vitals Temp Pulse Resp BP Pulse Ox 99 F 110 18 169/87 100 08/07/18 19:49 08/07/18 19:49 08/07/18 19:49 08/07/18 19:49 08/07/18 19:49 Vital Signs Reviewed: Yes Appearance: Positive: Well-Appearing Skin: Positive: Warm Head/Face: Positive: Normal Head/Face Inspection Eyes: Positive: Normal ENT: Positive: Normal ENT inspection Neck: Positive: Supple Respiratory/Lung Sounds: Positive: Clear to Auscultation Cardiovascular: Positive: Normal Abdomen Description: Positive: Other: - Mild tenderness to palpation of abdomen diffusely Musculoskeletal: Positive: Normal Neurological: Positive: Normal Psychiatric: Positive: Normal AVPU Assessment: Alert - [place] Coma Scale Best Eye Response: 4 - Spontaneous Best Motor Response: 6 - Obeys Commands Best Verbal Response: 5 - Oriented Coma Scale Total: 15 Diagnostics - Vital Signs Vital Signs Temp Pulse Resp BP Pulse Ox 08/07/18 19:49 99 F 110 18 169/87 100 - Laboratory Lab Results: Lab Results 08/07/18 08/07/18 08/07/18 Range/Units 20:18 20:18 20:18 WBC 9.2 (3.5-10.8) 10^3/ul RBC 4.74 (4.00-5.40) 10^6/ul Hgb 13.0 (12.0-16.0) g/dl Hct 39 (35-47) % MCV 82 (80-97) fL MCH 27 (27-31) pg MCHC 34 (31-36) g/dl RDW 16 H (10.5-15) % Plt Count 305 (150-450) 10^3/ul MPV 8.2 (7.4-10.4) um3 Neut % (Auto) 73.8 (38-83) % Lymph % (Auto) 17.6 L (25-47) % [place] % (Auto) 7.8 H (0-7) % Eos % (Auto) 0.4 (0-6) % Baso % (Auto) 0.4 (0-2) % Absolute Neuts (auto) 6.8 (1.5-7.7) 10^3/ul Absolute Lymphs (auto) 1.6 (1.0-4.8) 10^3/ul Absolute Monos (auto) 0.7 (0-0.8) 10^3/ul Absolute Eos (auto) 0 (0-0.6) 10^3/ul Absolute Basos (auto) 0 (0-0.2) 10^3/ul Absolute Nucleated RBC 0 10^3/ul Nucleated RBC % 0 Sodium 137 (135-145) mmol/L Potassium 3.5 (3.5-5.0) mmol/L Chloride 103 (101-111) mmol/L Carbon Dioxide 25 (22-32) mmol/L Anion Gap 9 (2-11) mmol/L BUN 13 (6-24) mg/dL Creatinine 1.02 H (0.51-0.95) mg/dL Est GFR ( Amer) 65.8 (>60) Est GFR (Non-Af Amer) 54.4 (>60) BUN/Creatinine Ratio 12.7 (8-20) Glucose 99 (70-100) mg/dL Lactic Acid 1.9 (0.5-2.0) mmol/L Calcium 9.9 (8.6-10.3) mg/dL Total Bilirubin 0.30 (0.2-1.0) mg/dL AST 19 (13-39) U/L ALT 19 (7-52) U/L Alkaline Phosphatase 67 (34-104) U/L C-Reactive Protein 2.11 (<8.01) mg/L Total Protein 7.4 (6.4-8.9) g/dL Albumin 4.5 (3.2-5.2) g/dL Globulin 2.9 (2-4) g/dL Albumin/Globulin Ratio 1.6 (1-3) Lipase 31 (11.0-82.0) U/L Urine Color Urine Appearance Urine pH (5-9) Ur Specific [place] (1.010-1.030) Urine Protein (Negative) Urine Ketones (Negative) Urine Blood (Negative) Urine Nitrate (Negative) Urine Bilirubin (Negative) Urine Urobilinogen (Negative) Ur Leukocyte Esterase (Negative) Urine WBC (Auto) (Absent) Urine RBC (Auto) (Absent) Urine Bacteria (Absent) Urine Glucose (Negative) 08/07/18 Range/Units 20:27 WBC (3.5-10.8) 10^3/ul RBC (4.00-5.40) 10^6/ul Hgb (12.0-16.0) g/dl Hct (35-47) % MCV (80-97) fL MCH (27-31) pg MCHC (31-36) g/dl RDW (10.5-15) % Plt Count (150-450) 10^3/ul MPV (7.4-10.4) um3 Neut % (Auto) (38-83) % Lymph % (Auto) (25-47) % [place] % (Auto) (0-7) % Eos % (Auto) (0-6) % Baso % (Auto) (0-2) % Absolute Neuts (auto) (1.5-7.7) 10^3/ul Absolute Lymphs (auto) (1.0-4.8) 10^3/ul Absolute Monos (auto) (0-0.8) 10^3/ul Absolute Eos (auto) (0-0.6) 10^3/ul Absolute Basos (auto) (0-0.2) 10^3/ul Absolute Nucleated RBC 10^3/ul Nucleated RBC % Sodium (135-145) mmol/L Potassium (3.5-5.0) mmol/L Chloride (101-111) mmol/L Carbon Dioxide (22-32) mmol/L Anion Gap (2-11) mmol/L BUN (6-24) mg/dL Creatinine (0.51-0.95) mg/dL Est GFR ( Amer) (>60) Est GFR (Non-Af Amer) (>60) BUN/Creatinine Ratio (8-20) Glucose (70-100) mg/dL Lactic Acid (0.5-2.0) mmol/L Calcium (8.6-10.3) mg/dL Total Bilirubin (0.2-1.0) mg/dL AST (13-39) U/L ALT (7-52) U/L Alkaline Phosphatase (34-104) U/L C-Reactive Protein (<8.01) mg/L Total Protein (6.4-8.9) g/dL Albumin (3.2-5.2) g/dL Globulin (2-4) g/dL Albumin/Globulin Ratio (1-3) Lipase (11.0-82.0) U/L Urine Color Straw Urine Appearance Clear Urine pH 8.0 (5-9) Ur Specific [place] 1.005 L (1.010-1.030) Urine Protein Negative (Negative) Urine Ketones Negative (Negative) Urine Blood Negative (Negative) Urine Nitrate Negative (Negative) Urine Bilirubin Negative (Negative) Urine Urobilinogen Negative (Negative) Ur Leukocyte Esterase Trace A (Negative) Urine WBC (Auto) Trace(0-5/hpf) (Absent) Urine RBC (Auto) Absent (Absent) Urine Bacteria 1+ A (Absent) Urine Glucose Negative (Negative) Result Diagrams: 08/07/18 20:18 08/07/18 20:18 Lab Statement: Any lab studies that have been ordered have been reviewed, and results considered in the medical decision making process. EENT Course/Dx - Course Course Of Treatment: Patient complains of right ear pain, diffuse abdominal pain , diffuse back pain, intermittent burning after urination, productive cough, nasal congestion, loose stools, nausea 1 week. Patient was diagnosed with sinus infection and UTI on Wednesday by PCP and given Z-Leonardo for both infections. Patient states increase in symptoms despite being on azithromycin for 3 days. Denies fever, sore throat, CP, SOB, vomiting, diarrhea, vaginal symptoms. Medical history is sleep apnea, anxiety. Physical exam unremarkable. Vital signs within normal limits. Labwork unremarkable. UA positive. Flu and strep negative. Rx for Keflex. - Diagnoses Provider Diagnoses: UTI (urinary tract infection), Viral syndrome Discharge - Sign-Out/Discharge Documenting (check all that apply): Patient Departure - Discharge Plan Condition: Stable Disposition: HOME Patient Education Materials: Urinary Tract Infection in Women (ED), Viral Syndrome (ED) Referrals: Jerson Tyson MD [Primary Care Provider] - - Billing Disposition and Condition Condition: STABLE Disposition: Home
[2018-08-07] MEDS ORDERED: Cephalexin CAP* 500 MG PO ONE (21:24)
[2018-08-07 21:54] VITALS: BP 155/90
== END 2018-08-07 21:53 | disposition home or self-care (01) ==
LOC: ED 19:45
DX: N39.0 Urinary tract infection, site not specified (principal); B34.9 Viral infection, unspecified; J45.909 Unspecified asthma, uncomplicated; Z88.5 Allergy status to narcotic agent; Z88.0 Allergy status to penicillin; Z88.2 Allergy status to sulfonamides; Z88.8 Allergy status to other drugs, medicaments and biological substances; Z88.1 Allergy status to other antibiotic agents; Z91.041 Radiographic dye allergy status
CPT/HCPCS: 36415; 80053; 81003; 81015; 83605; 83690; 85025; 86140; 87040; 87086; 87651; 99283; A9270-GY

== ENCOUNTER 2018-11-21 09:05 | Observation (INO) | payer MEDICARE, OTHER ==
[~2018-11-21 09:05] MED LIST: Buffered Lidocaine 1% SYRIN* 1 ML/SYRINGE INTRADERM ONE; Lactated Ringers 1000 ML Bag* 1,000 ML IV SCH
[2018-11-21] MEDS ORDERED: fentaNYL* 50 MCG/ML 2 ML VIAL (100 MCG VIAL) ONE ×5 (09:25→15:04)
[2018-11-21] MEDS ORDERED: Midazolam* 1 MG/ML 2 ML VIAL (2 MG) ONE (09:25)
[2018-11-21] MEDS ORDERED: Ondansetron INJ* 2 MG/ML VIAL ONE (09:42)
[2018-11-21] MEDS ORDERED: Clindamycin 900 MG/D5W BAG(*) 900 MG/50 ML BAG IVPB ONE (09:42)
[2018-11-21] MEDS ORDERED: Propofol* 10 MG/ML 20 ML BTL ONE (09:42)
[2018-11-21] MEDS ORDERED: Lidocaine 2% PF* 10 ML AMP ONE (09:42)
[2018-11-21] MEDS ORDERED: Bupivacaine 0.25% SDV PF* 10 ML VIAL INJ ONE (10:12)
[2018-11-21] MEDS ORDERED: Bupivacaine 0.25% W/EPI* 10 ML SDV ONE (10:12)
[2018-11-21] MEDS ORDERED: Ketorolac INJ* 30 MG/ML 1 ML VIAL ONE (11:09)
[2018-11-21] MEDS ORDERED: DiMENhydriNATE IV* 50 MG/ML VIAL IV PUSH PRN (11:12)
[2018-11-21] MEDS ORDERED: Naloxone* 0.4 MG/ML 1 ML VIAL IV PRN (11:12)
--- NOTE | 2018-11-21 12:11 | OP ---
OPERATIVE REPORT: DATE OF OPERATION: 11/21/18 DATE OF : 51 SURGEON: Pedrito Cason MD TRANSPORTATION ASSOCIATE: GAY Dangelo An marketing assistant was needed for the procedure to aid in positioning of the arm and retraction. ANESTHESIOLOGIST: Dr. Zuniga. ANESTHESIA: General. PRE-OP DIAGNOSIS: Large superficial anteromedial-sided elbow lipoma. POST-OP DIAGNOSIS: Large superficial anteromedial-sided elbow lipoma. OPERATIVE PROCEDURE: Excision of large superficial anteromedial elbow lipoma. INDICATIONS: Hamida has had a very slowing enlarging lipoma. MRI with and without contrast showed no enhancement to suggest an atypical lipomatous tumor. I had talked to the patient. She had wanted to have it excised. I told her that we would stay superficial to the fascia, and she understands that there is a risk with any mass excision that it may more than a benign mass. FINDINGS: See above and below. ESTIMATED BLOOD LOSS: 5 mL. COMPLICATIONS: None. DESCRIPTION OF PROCEDURE: Hamida was seen in the preoperative holding area. The correct site, side, and procedure were identified. We came back to the operating room, where the arm was prepped and draped in the usual fashion and a time-out was performed. The arm was gently exsanguinated with the Esmarch and the tourniquet was inflated to 250 mmHg. I made a longitudinal incision over the anteromedial aspect of the forearm right over the lipoma. It was about 8 cm long at least just medial to the elbow flexion crease. The dissection was carried down until I found what looked like a pseudocapsule around the more firm lipoma tissue. A marginal excision was then performed. I took great care to preserve as many sensory nerves as possible. There were some few larger branches that were preserved. The vein traversing to the lipoma was tied off proximally and distally. Once I had completed full marginal excision, I marked the lipoma with sutures to give the orientation for the pathologist. The deep fascia was not violated during the procedure. Local anesthetic was not used. The wound was irrigated out. It was closed with some 3-0 Vicryl to reapproximate the subcutaneous tissue and the skin was closed with 4-0 nylon suture. A well padded long-arm splint was applied with the elbow in about 45 degrees of flexion. Tourniquet was deflated and she was taken to the recovery room in stable condition. [id number]/[id number] #: [id number] SREEKANTH
[2018-11-21] MEDS: fentaNYL* 50 MCG/ML 2 ML VIAL (100 MCG VIAL) IV PRN ×5 (12:12→15:05)
[2018-11-21] MEDS ORDERED: DiMENhydriNATE IV* 50 MG/ML VIAL ONE (12:16)
[2018-11-21] MEDS ORDERED: Scopolamine 1.5 mg* PATCH TRANSDERM PRN (13:01)
[2018-11-21] MEDS ORDERED: traMADol TAB* 50 MG PO ONE (13:43)
[2018-11-21] MEDS ORDERED: traMADol TAB* 50 MG ONE (13:45)
[2018-11-21] MEDS ORDERED: Scopolamine 1.5 mg* PATCH ONE (13:45)
[2018-11-21] MEDS ORDERED: clonazePAM TAB(*) 0.5 MG PO ONE (15:25)
[2018-11-21] MEDS ORDERED: Acetaminophen ADULT LIQ* 650 MG/20.3 ML UDC ONE (15:48)
[2018-11-21] MEDS ORDERED: diPHENhydraMINE IV* 50 MG/ML 1 ml VIAL (BENADRYL) IV PRN (16:47)
[2018-11-21] MEDS ORDERED: Docusate CAP* 100 MG PO PRN (16:47)
[2018-11-21] MEDS ORDERED: Ondansetron INJ* 2 MG/ML VIAL IV PRN (16:47)
[2018-11-21] MEDS ORDERED: Ondansetron ODT TAB* 4 MG PO PRN (16:47)
[2018-11-21] MEDS ORDERED: diPHENhydraMINE PO* 25 MG PO PRN (16:47)
[2018-11-21] MEDS ORDERED: Cyclobenzaprine TAB* 10 MG PO PRN (16:47)
[2018-11-21] MEDS ORDERED: clonazePAM TAB(*) 0.5 MG PO PRN (16:51)
[2018-11-21] MEDS ORDERED: Ibuprofen TAB* 800 MG PO PRN (16:51)
[2018-11-21] MEDS ORDERED: Artificial Tears* 15 ML BTL BOTH EYES PRN (16:51)
[2018-11-21] MEDS ORDERED: Mupirocin 2% OINT* TUBE TOPICAL PRN (16:51)
[2018-11-21] MEDS ORDERED: Albuterol HFA INHALER* 8 gm MDI INH PRN (16:51)
[2018-11-21] MEDS ORDERED: Potassium Chlor TAB* 10 MEQ TAB.ER PO PRN (16:51)
[2018-11-21] MEDS ORDERED: guaiFENesin ER TAB 600 MG PO PRN (16:51)
[2018-11-21] MEDS ORDERED: HYDROcodone/ACETAMIN 5-325 MG* 1 TAB PO PRN (16:53)
[2018-11-21] MEDS: Lactated Ringers 1000 ML Bag* 1,000 ML IV SCH (17:52)
[2018-11-21] MEDS: Acetaminophen TAB* 325 MG PO SCH (17:53)
[2018-11-21] MEDS: HYDROcodone/ACETAMIN 5-325 MG* 1 TAB PO PRN (18:49)
[2018-11-21] MEDS: Cyclosporine 0.05% OPHTH (NF) 0.4 ML VIAL BOTH EYES SCH (20:16)
[2018-11-21] MEDS ORDERED: Famotidine TAB* 20 MG PO SCH (21:00)
[2018-11-21] MEDS ORDERED: Aspirin EC TAB* 81 MG TAB.EC PO SCH (21:00)
[2018-11-21] MEDS ORDERED: Nortriptyline CAP* 10 MG PO SCH (21:00)
[2018-11-22] MEDS: Acetaminophen TAB* 325 MG PO SCH ×2 (01:07→09:17)
[2018-11-22] MEDS: Lactated Ringers 1000 ML Bag* 1,000 ML IV SCH (03:11)
[2018-11-22] MEDS: HYDROcodone/ACETAMIN 5-325 MG* 1 TAB PO PRN ×2 (04:55→11:32)
[2018-11-22] MEDS ORDERED: Pantoprazole TAB * 40 MG TAB PO SCH (09:00)
[2018-11-22] MEDS ORDERED: NON FORMULARY MED* (Magnesium Oxide [Magnesium] 250 MG) PO SCH (09:00)
[2018-11-22] MEDS: Cyclosporine 0.05% OPHTH (NF) 0.4 ML VIAL BOTH EYES SCH (09:17)
[2018-11-22 11:18] VITALS: BP 104/49
--- NOTE | 2018-11-22 11:22 | PN ---
Progress Note - Progress Note Date of Service: 11/22/18 SOAP: Subjective: []Pt seen and examined at bedside. She stayed the night after excision of her left elbow lipoma last night due to extreme anxiety after receiving tramadol and a scopolamine patch. It is unclear if this was in reaction to one of these medications or if she was suffering a panic attack, as she does have a history of anxiety. Today she feels well, she tolerate norco well. Dnies CP, SOB, dizziness, nausea. Desires DC to home Objective: []General: NAD LLE: Left elbow dressing CDI, no erythema proximal or distal. Able to flex and crane engineer MTPs, sensation intact to light touch distally, capillary refill less than two seconds distally. Assessment: [] POD 1 sp excision of elbow lipoma Plan: []Patient is feeling well and stable for discharge to home today Vital Signs Temp 98.0 F 11/22/18 11:04 Pulse 78 11/22/18 11:04 Resp 16 11/22/18 11:04 BP 104/49 11/22/18 11:04 Pulse Ox 98 11/22/18 11:04 Intake & Output 11/21/18 11/22/18 11/22/18 18:59 06:59 18:59 Intake Total 800 2160 Output Total 0 Balance 800 2160 Weight 187 lb Intake: IV Fluids 800 980 LR 800 980 Oral 1180 Output: Urine 0 Other: Estimated Void Medium # Voids 1
--- NOTE | 2018-11-22 15:41 | DS ---
DISCHARGE SUMMARY: DATE OF ADMISSION: 11/21/18 DATE OF DISCHARGE: PROVIDER: Pedrito Cason MD * (DICTATED BY GAY SEPULVEDA) PRE-OP DIAGNOSIS: Large superficial anteromedial-sided elbow lipoma. OPERATIVE PROCEDURE: Excision of large superficial anteromedial elbow lipoma. HISTORY: Hamida has a very slowing enlarging lipoma of her left elbow. She elected to have it removed. HOSPITAL COURSE: The patient was admitted to [facility] on . She underwent an excision of large superficial anteromedial elbow lipoma. She was initially set to have this done as an outpatient procedure. While on PACU, she was not able to meet criteria in order to be discharged, who is experiencing extreme anxiety. It was unclear if this was from a medication she was given, 2 medications that she had not received before include tramadol and scopolamine patch or if this is just an exacerbation of her baseline anxiety. The patient was having panic attack in the PACU and was unable to be discharged home postop day 0. She was therefore admitted to stay overnight. Postop day 1 , she is well appearing, in no acute distress. She was given Ambridge for pain which she has tolerated well and pain is well controlled. She has no further concerns. She is deemed to be medically and orthopedically stable for discharge home. DISCHARGE MEDICATIONS: Include: 1. Klonopin 0.5 mg p.o. t.i.d. 2. Nortriptyline 10 mg p.o. at bedtime. 3. Nexium 40 mg p.o. q.a.m. 4. Restasis 1 drop both eyes b.i.d. 5. Acetaminophen 500 mg p.o. q.8 hours p.r.n. 6. Artificial tears 1 drop both eyes q.2 hours. 7. Ranitidine 300 mg p.o. at bedtime. 8. Mupirocin 2% ointment topically b.i.d. p.r.n. 9. Mucinex 600 mg p.o. b.i.d. p.r.n. 10. Motrin 800 mg p.o. q.8 hours p.r.n. 11. Flaxseed oil 1000 mg capsule b.i.d. 12. Calcium 600, vitamin D3 800 one cap p.o. q.a.m. 13. Aspirin 81 mg p.o. at bedtime. 14. Magnesium oxide 250 mg p.o. q.a.m. 15. ProAir RespiClick 1 puff inhaled q.4 hours p.r.n. 16. Potassium chloride tab 10 mg p.o. q.a.m. p.r.n. 17. Docusate 100 mg p.o. b.i.d. p.r.n. 18. Ambridge 5/325 one to two tabs every 4 to 6 hours as needed for pain, max daily dose of 6. DISCHARGE PLAN: The patient will be discharged to home. Pain medication is Ambridge 5/325 one to two tabs every 4 to 6 hours as needed for pain, max of 6 per day. Colace [id number] as needed for constipation while using narcotics. Elevate extremity often decrease swelling and pain; wiggle fingers; no pushing, pulling or lifting. Apply ice as needed to operative site and move all fingers not splinted. Remove the dressing in 3 to 4 days. You may shower, cover sutures as able with light dressing after showering. Follow up in the office with Dr. Cason in 10 to 14 days. GAY SEPULVEDA [id number]/[facility] #: [id number] SREEKANTH
== END 2018-11-22 13:00 | disposition home or self-care (01) | DRG 572 ==
LOC: OR 09:05 → SSU 17:40 → INTOOBSV 17:40
PROVIDERS: ADMIT Orthopaedic Surgery Hand Surgery; ATTEND Orthopaedic Surgery Hand Surgery
PROC: 0JBH0ZZ Excision of Left Lower Arm Subcutaneous Tissue and Fascia, Open Approach (ICD-10-PCS; principal; 2018-11-21 11:15)
DX: D17.22 Benign lipomatous neoplasm of skin and subcutaneous tissue of left arm (principal); J45.909 Unspecified asthma, uncomplicated; E78.5 Hyperlipidemia, unspecified; K21.9 Gastro-esophageal reflux disease without esophagitis; F32.9 Major depressive disorder, single episode, unspecified; F41.9 Anxiety disorder, unspecified; M35.00 Sjogren syndrome, unspecified; Z79.1 Long term (current) use of non-steroidal anti-inflammatories (NSAID); Z79.82 Long term (current) use of aspirin; Z79.899 Other long term (current) drug therapy; Z88.0 Allergy status to penicillin; Z88.2 Allergy status to sulfonamides; Z88.8 Allergy status to other drugs, medicaments and biological substances; Z88.1 Allergy status to other antibiotic agents; Z91.041 Radiographic dye allergy status; G47.00 Insomnia, unspecified; G47.33 Obstructive sleep apnea (adult) (pediatric); F41.0 Panic disorder [episodic paroxysmal anxiety]
CPT/HCPCS: 88304; A9270-GY; G8978-GP-CI; G8979-GP-CI; G8980-GP-CI; G8987-GO-CJ; G8988-GO-CJ; G8989-GO-CJ; J1240; J1885; J2001; J2250; J2405; J2704; J3010; J3490

== ENCOUNTER 2018-11-24 22:53 | Emergency (ER) | payer MEDICARE, OTHER ==
--- OUTSIDE RECORDS SUMMARY | 2018-11-24 23:03 | XMS REPORT | Continuity of Care Document ---
:1955 External Reference #:[id number] Author Name Valeria Carty Care Team Providers Name Role Phone Jerson Tyson MD Primary Care Physician Unavailable Payers Type Date Identification Numbers Payment Provider Subscriber Policy Number: [id number] Medicare Hamida Trent PayID: [id number] [address] [place] [address] Policy Number: [id number] [employer] Hamida Trent PayID: [id number] [address] [place] [address] Expires: 2018 Policy Number: [id number] [employer] Hamida Trent PayID: [id number] [address] [place] [address] Advance Directives Description No Information Available Problems Date Description Provider Status Onset: 02/10/2018 Obstructive sleep apnea Brionna Horvath DNP, RN, Active syndrome [employer] Onset: 02/10/2018 Insomnia Brionna Horvath DNP, RN, Active [employer] Onset: 02/10/2018 Sleep related bruxism Brionna Horvath DNP, RN, Active [employer] Onset: 10/18/2018 Lipoma of skin Pedrito Cason MD Active Family History Date Family Member(s) Problem(s) Comments General Arthritis Social History Type Date Description Comments Sex Unknown Marital Status Lives With Lives With Children Grown, come and go Lives With 2 cats Occupation 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 Working 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, 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 Tobacco Use Start: Unknown Never Smoked Cigarettes Smoking Status Reviewed: 11/15/18 Never Smoked Cigarettes ETOH Use Denies alcohol use Tobacco Use Start: Unknown Patient has never smoked Recreational Drug Use Denies Drug Use Exercise Type/Frequency Exercises regularly Exercise Type/Frequency Physical therapy 1x per week Exercise Type/Frequency Walks 2 times a week Allergies, Adverse Reactions, Alerts Date Description Reaction Status Severity Comments 06/21/2017 Alprazolam Active 06/21/2017 Atorvastatin Active 06/21/2017 Buspirone Active 06/21/2017 Cefaclor Active 06/21/2017 Contrast Dye Active 06/21/2017 Dexamethasone Active 06/21/2017 Dilaudid Cough Active 06/21/2017 Doxycycline Hyclate Active 06/21/2017 Erythromycin Active 06/21/2017 Flagyl IV Active 06/21/2017 Glycerin Active 06/21/2017 Levaquin Active 06/21/2017 Levothyroxine Active 06/21/2017 Metoprolol Active 06/21/2017 Paxil Active 06/21/2017 Penicillin Active 06/21/2017 Fluoxetine Active 06/21/2017 Sulfacetamide Sodium Active 06/21/2017 Sulfur Dioxide Active when she eats dried apricots she gets sneezing fits 01/26/2018 Prednisone Active Moderate 02/10/2018 Gabapentin Active Medications Medication Date Status Form Strength Qnty SIG Indications Ordering Provider Aspir-81 Active Tablets 81mg 1 by mouth Unknown /0000 DR every day Calcium Active Tablets 600-800mg 1 by mouth Unknown 600/Vitamin D3 /0000 -Unit once a day Clonazepam Active Tablets 0.5mg 1 by mouth Unknown /0000 3-4 times daily Esomeprazole Active Capsules 40mg 1 by mouth Unknown Magnesium /0000 DR every day Flaxseed Oil Active Capsules 1000mg 1 by mouth Unknown /0000 twice daily Ibuprofen Active Tablets 800mg by mouth Unknown /0000 three times a day as needed Mucinex Active Tablets 600mg twice a day Unknown /0000 ER 12HR as needed Mupirocin Active Ointment 2% As needed Unknown /0000 Pamelor Active Capsules 10mg Unknown /0000 Refresh Active Solution 1.4-0.6% use daily Unknown /0000 as needed for dry eyes Potassium Chloride Active Tablets 10Meq 1 by mouth Unknown Adore ER /0000 ER every day as needed Ranitidine HCL Active Tablets 300mg 1 by mouth Unknown /0000 every day Restasis Active Emulsion 0.05% 1 drop to Unknown /0000 each eye 2 times per day Tylenol Extra Active Tablets 500mg 2 by mouth Unknown Strength /0000 as needed Ativan Active Tablets 1mg 1 tab as Unknown /0000 needed Benzonatate Active Capsules 100mg Take 1 Unknown /0000 Capsule By Mouth Three Times Daily as Needed For Cough Multivitamin Adult Active Tablets 1 by mouth Unknown /0000 every day Magnesium Active Tablets 250mg 1 by mouth Unknown /0000 every day ( last taken 7-8 days ago week of 02/08/18) Colchicine 07/20 Hx Tablets 0.6mg 30tab take one L95.8 s tablet by Steffanie, - mouth twice M.D. 11/15 a day needed for flare of vasculitis (not started yet 02/10/18) Ketoconazole Hx Shampoo 2% apply twice Unknown /0000 a week for - up to 8 atleast 3 days between each shampoo. Selenium Hx Tablets 100mcg Unknown /0000 - 12/09 Azithromycin Hx Tablets 500mg Take 1 Unknown /0000 Tablet By - Mouth Every Hydroxychloroquine Hx Tablets 200mg Take 1 Unknown Sulfate /0000 Tablet By - Mouth Two 05/03 Times Daily /2017 (not started yet 02/09/18) Immunizations Description No Information Available Vital Signs Date Vital Result Comment 11/15/2018 2:21pm Height 67.25 inches 5'7.25" Weight 183.00 lb Heart Rate 92 /min BP Systolic 138 mmHg BP Diastolic 70 mmHg Pain Level 0 BMI (Body Mass Index) 28.4 kg/m2 10/18/2018 8:27am Height 67.25 inches 5'7.25" Weight 182.00 lb Heart Rate 80 /min BP Systolic 128 mmHg BP Diastolic 62 mmHg Respiratory Rate 18 /min Pain Level 5 BMI (Body Mass Index) 28.3 kg/m2 05/31/2018 9:35am Height 67.25 inches 5'7.25" Weight 185.12 lb Heart Rate 76 /min BP Systolic Sitting 120 mmHg Rue regular cuff BP Diastolic Sitting 76 mmHg Rue regular cuff Respiratory Rate 12 /min O2 % BldC Oximetry 98 % BMI (Body Mass Index) 28.8 kg/m2 05/04/2018 2:22pm Height 67.25 inches 5'7.25" Weight 181.00 lb Heart Rate 90 /min BP Systolic Sitting 126 mmHg Rue reg cuff BP Diastolic Sitting 80 mmHg Rue reg cuff Respiratory Rate 16 /min O2 % BldC Oximetry 96 % On Ra BMI (Body Mass Index) 28.1 kg/m2 03/22/2018 1:10pm Height 67.25 inches 5'7.25" Weight 180.12 lb Heart Rate 81 /min BP Systolic Sitting 138 mmHg BP Diastolic Sitting 76 mmHg Pain Level 0 O2 % BldC Oximetry 98 % BMI (Body Mass Index) 28.0 kg/m2 02/10/2018 2:20pm Height 67.25 inches 5'7.25" Weight 170.50 lb Heart Rate 82 /min BP Systolic Sitting 150 mmHg Rue reg cuff BP Diastolic Sitting 78 mmHg Rue reg cuff Respiratory Rate 16 /min O2 % BldC Oximetry 94 % On Ra BMI (Body Mass Index) 26.5 kg/m2 01/26/2018 11:20am Height 67.25 inches 5'7.25" Weight 172.00 lb Heart Rate 76 /min BP Systolic Sitting 124 mmHg Rue reg cuff BP Diastolic Sitting 72 mmHg Rue reg cuff Respiratory Rate 16 /min O2 % BldC Oximetry 99 % On Ra BMI (Body Mass Index) 26.7 kg/m2 Neck Circumference in inches 15.5 10/20/2017 1:26pm Height 67.25 inches 5'7.25" Weight 176.00 lb Heart Rate 97 /min BP Systolic Sitting 134 mmHg BP Diastolic Sitting 85 mmHg Respiratory Rate 14 /min Pain Level 3 BMI (Body Mass Index) 27.4 kg/m2 07/20/2017 2:14pm Height 67.25 inches 5'7.25" Weight 170.12 lb Heart Rate 104 /min BP Systolic Sitting 144 mmHg BP Diastolic Sitting 74 mmHg Body Temperature 97.5 F O2 % BldC Oximetry 96 % BMI (Body Mass Index) 26.4 kg/m2 06/21/2017 10:29am Height 67.25 inches 5'7.25" Weight 171.25 lb Heart Rate 94 /min BP Systolic Sitting 120 mmHg BP Diastolic Sitting 70 mmHg Respiratory Rate 14 /min Pain Level 5 BMI (Body Mass Index) 26.6 kg/m2 Results Test Date Facility Test Result H/L Range Note CBC Auto Diff 02/01/2018 [facility] White Blood 6.2 10^3/uL N 3.5-10.[address] [place] [address] [phone] Red Blood Count 4.34 10^6/uL N 4.0-5.4 Hemoglobin 12.5 g/dL N 12.0-16.0 Hematocrit 37 % N 35-47 Mean Corpuscular Volume 86 fL N 80-97 Mean Corpuscular Hemoglobin 29 pg N 27-31 Mean Corpuscular HGB Conc 34 g/dL N 31-36 Red Cell Distribution Width 15 % N 10.5-15 Platelet Count 296 10^3/uL N 150-450 Mean Platelet Volume 8.0 um3 N 7.4-10.4 Abs Neutrophils 3.3 10^3/uL N 1.5-7.7 Abs Lymphocytes 1.9 10^3/uL N 1.0-4.8 Abs Monocytes 0.7 10^3/uL N 0-0.8 Abs Eosinophils 0.1 10^3/uL N 0-0.6 Abs Basophils 0.1 10^3/uL N 0-0.2 Abs Nucleated RBC 0 10^3/uL Granulocyte % 53.8 % N 38-83 Lymphocyte % 31.2 % N 25-47 Monocyte % 12.0 % High 0-7 Eosinophil % 2.2 % N 0-6 Basophil % 0.8 % N 0-2 Nucleated Red Blood Cells % 0 Protein 02/01/2018 [facility] Total 7.3 g/dL 6.3 - Electrophoresis [address] Protein(Pep) 7.9 [place] [address] [phone] Albumin 3.9 g/dL 3.4-4.7 Alpha-1 Globulin 0.2 g/dL 0.1-0.3 Alpha-2 Globulin 1.1 g/dL Abnormal 0.6-1.0 Beta Globulin 1.2 g/dL 0.7-1.2 Gamma Globulin 1.0 g/dL 0.6-1.6 Albumin/Globulin Ratio 1.14 Impression See Comment 1 Centuria/Lambda Free 02/01/2018 [facility] Centuria Free 1.08 mg/dL 2 Light Chains Ser [address] [place] [address] [phone] Lambda Free Light Chain 1.27 mg/dL 3 Centuria/Lambda Free Light Chain 0.8504 4 Laboratory test 10/20/2017 [facility] Myeloperoxidase AB <0.2 U [address] [place] [address] [phone] Proteinase 3 0.2 U 6 Urinalysis Profile 10/20/2017 [facility] Urine Color Yellow [address] [place] [address] [phone] Urine Appearance Clear Urine Specific Elco 1.006 Low 1.010-1.030 Urine pH 7.0 N 5-9 Urine Urobilinogen Negative Negative Urine Ketones Negative Negative Urine Protein Negative Negative Urine Leukocytes Trace Abnormal Negative Urine Blood Negative Negative Urine Nitrite Negative Negative Urine Bilirubin Negative Negative Urine Glucose Negative Negative Urine White Blood Cell Trace(0-5/hpf) Absent Urine Red Blood Cell Trace(0-2/hpf) Absent Urine Bacteria Absent Absent CBC Auto Diff 10/20/2017 [facility] White Blood 4.9 10^3/uL N 3.5-10.[address] [place] [address] [phone] Red Blood Count 4.54 10^6/uL N 4.0-5.4 Hemoglobin 13.0 g/dL N 12.0-16.0 Hematocrit 39 % N 35-47 Mean Corpuscular Volume 86 fL N 80-97 Mean Corpuscular Hemoglobin 29 pg N 27-31 Mean Corpuscular HGB Conc 33 g/dL N 31-36 Red Cell Distribution Width 15 % N 10.5-15 Platelet Count 311 10^3/uL N 150-450 Mean Platelet Volume 8 um3 N 7.4-10.4 Abs Neutrophils 2.8 10^3/uL N 1.5-7.7 Abs Lymphocytes 1.4 10^3/uL N 1.0-4.8 Abs Monocytes 0.5 10^3/uL N 0-0.8 Abs Eosinophils 0.1 10^3/uL N 0-0.6 Abs Basophils 0.1 10^3/uL N 0-0.2 Abs Nucleated RBC 0 10^3/uL Granulocyte % 56.4 % N 38-83 Lymphocyte % 29.5 % N 25-47 Monocyte % 11.1 % High 1-9 Eosinophil % 1.9 % N 0-6 Basophil % 1.1 % N 0-2 Nucleated Red Blood Cells % 0 Comp Metabolic Panel 10/20/2017 [facility] Sodium 138 mmol/L N 133-[address] [place] [address] [phone] Potassium 4.3 mmol/L N 3.5-5.0 Chloride 104 mmol/L N 101-111 Co2 Carbon Dioxide 27 mmol/L N 22-32 Anion Gap 7 mmol/L N 2-11 Glucose 87 mg/dL N 70-100 Blood Urea Nitrogen 16 mg/dL N 6-24 Creatinine 0.98 mg/dL High 0.51-0.95 BUN/Creatinine Ratio 16.3 N 8-20 Calcium 9.9 mg/dL N 8.6-10.3 Total Protein 6.9 g/dL N 6.4-8.9 Albumin 4.3 g/dL N 3.2-5.2 Globulin 2.6 g/dL N 2-4 Albumin/Globulin Ratio 1.7 N 1-3 Total Bilirubin 0.50 mg/dL N 0.2-1.0 Alkaline Phosphatase 63 U/L N 34-104 Alt 19 U/L N 7-52 Ast 21 U/L N 13-39 Egfr Non- 57.1 >60 Egfr 73.5 >60 7 Urine Culture And 10/20/2017 [facility] Urine Culture SEE RESULT [address] [place] [address] [phone] Laboratory test 10/13/2017 [facility] C Reactive 3.13 mg/L N < [address] Protein 5.00 [place] [address] [phone] Erythrocyte Sed Rate 35 mm/Hr High 0-30 Anca AB Ser If 10/13/2017 [facility] C-Anca Negative Negative [address] [place] [address] [phone] P-Anca Positive Negative 10 Laboratory test 07/08/2017 [facility] Erythrocyte Sed 41 mm/Hr High 0-[address] [place] [address] [phone] Laboratory test 07/08/2017 [facility] C Reactive 11.27 High < 5.00 [address] Protein mg/[place] [address] [phone] Comp Metabolic 07/05/2017 [facility] Sodium 140 N 133-[address] mmol/[place] [address] [phone] Potassium 3.7 mmol/L N 3.5-5.0 Chloride 104 mmol/L N 101-111 Co2 Carbon Dioxide 28 mmol/L N 22-32 Anion Gap 8 mmol/L N 2-11 Glucose 84 mg/dL N 70-100 Blood Urea Nitrogen 15 mg/dL N 6-24 Creatinine 1.00 mg/dL High 0.51-0.95 BUN/Creatinine Ratio 15.0 N 8-20 Calcium 9.9 mg/dL N 8.6-10.3 Total Protein 6.9 g/dL N 6.4-8.9 Albumin 4.1 g/dL N 3.2-5.2 Globulin 2.8 g/dL N 2-4 Albumin/Globulin Ratio 1.5 N 1-3 Total Bilirubin 0.50 mg/dL N 0.2-1.0 Alkaline Phosphatase 66 U/L N 34-104 Alt 22 U/L N 7-52 Ast 18 U/L N 13-39 Egfr Non- 55.8 N >60 Egfr 71.8 N >60 12 Cryoglobulin & 07/05/2017 [facility] Cryoglobulin Negative N Negative [address] %[place] [address] [phone] Cryofibrinogen Negative N Negative 14 Laboratory test 07/05/2017 [facility] Beta 2 2.16 g/mL N [address] [place] [address] [phone] Centuria/Lambda 07/05/2017 [facility] Centuria Free Light 1.26 mg/dL N 16 Free Light [address] [place] [address] [phone] Lambda Free Light Chain 1.52 mg/dL N 17 Centuria/Lambda Free Light Chain 0.8289 N 18 Protein 07/05/2017 [facility] Total 7.1 g/dL N 6.3 - Electrophoresis [address] Protein(Pep) 7.9 [place] [address] [phone] Albumin 3.7 g/dL N 3.4-4.7 Alpha-1 Globulin 0.3 g/dL N 0.1-0.3 Alpha-2 Globulin 1.1 g/dL Abnormal 0.6-1.0 Beta Globulin 1.1 g/dL N 0.7-1.2 Gamma Globulin 1.1 g/dL N 0.6-1.6 Albumin/Globulin Ratio 1.06 N Impression See Comment N 19 Laboratory test 07/05/2017 [facility] Serum 1.1 cpoise N <= 1.5 [address] [place] [address] [phone] CBC Auto Diff 07/05/2017 [facility] White Blood 4.2 10^3/uL N 3.5-10.[address] [place] [address] [phone] Red Blood Count 4.10 10^6/uL N 4.0-5.4 Hemoglobin 12.3 g/dL N 12.0-16.0 Hematocrit 36 % N 35-47 Mean Corpuscular Volume 87 fL N 80-97 Mean Corpuscular Hemoglobin 30 pg N 27-31 Mean Corpuscular HGB Conc 34 g/dL N 31-36 Red Cell Distribution Width 14 % N 10.5-15 Platelet Count 263 10^3/uL N 150-450 Mean Platelet Volume 8 um3 N 7.4-10.4 Abs Neutrophils 2.1 10^3/uL N 1.5-7.7 Abs Lymphocytes 1.5 10^3/uL N 1.0-4.8 Abs Monocytes 0.5 10^3/uL N 0-0.8 Abs Eosinophils 0.1 10^3/uL N 0-0.6 Abs Basophils 0.1 10^3/uL N 0-0.2 Abs Nucleated RBC 0 10^3/uL N Granulocyte % 48.8 % N 38-83 Lymphocyte % 34.8 % N 25-47 Monocyte % 12.1 % High 1-9 Eosinophil % 3.1 % N 0-6 Basophil % 1.2 % N 0-2 Nucleated Red Blood Cells % 0 N Laboratory test 06/22/2017 [facility] Immunoglobulin E 5.0 N < =214 [address] (Ige) kU/[place] [address] [phone] Immunoglobulins 06/22/2017 [facility] Immunoglobulin G 923 N 767 - 22 Serum Quant [address] mg/dL 1590 [place] [address] [phone] Immunoglobulin M 118 mg/dL N 37 - 286 Immunoglobulin A 130 mg/dL N 61 - 356 Anca AB Ser If 06/22/2017 [facility] C-Anca Negative N Negative [address] [place] [address] [phone] P-Anca Negative N Negative 23 Laboratory test 06/22/2017 [facility] C Reactive 12.98 mg/L High < 5.[address] [place] [address] [phone] Creatine Kinase(CK) 29 U/L N 10-223 Cryoglobulin & 06/22/2017 [facility] Cryoglobulin See Comment N Negative [address] %[place] [address] [phone] Cryofibrinogen Negative N Negative 26 Immunofixation Cryoglobulin See Comment N 27 Laboratory test 06/22/2017 [facility] Anti Nuclear 0.4 U N [address] [place] [address] [phone] Anti Double Stranded Dna AB <12.3 IU/mL N 29 1 RESULT: No apparent monoclonal protein on serum electrophoresis. Test Performed by: [facility] [address] [place] [address] 2 REFERENCE VALUE 0.3300-1.94 3 REFERENCE VALUE 0.5700-2.63 4 REFERENCE VALUE 0.2600-1.65 Test Performed by: [facility] [address] [place] [address] 5 REFERENCE VALUE <0.4 (Negative) Test Performed by: [facility] [address] [place] [address] 6 REFERENCE VALUE <0.4 (Negative) Test Performed by: [facility] [place] [address] [place] [address] 7 Because ethnic data is not always readily available, this report includes an eGFR for both -Americans and non- Americans. The National Kidney Disease Education Program (NKDEP) does not endorse the use of the MDRD equation for patients that are not between the ages of 18 and 70, are , have extremes of body size, muscle mass, or nutritional status, or are non- or non-. According to the National Kidney Foundation, irrespective of diagnosis, the stage of the disease is based on the level of kidney function: Stage Description GFR(mL/min/1.73 m(2)) 1 Kidney damage with normal or decreased GFR 90 2 Kidney damage with mild decrease in GFR 60-89 3 Moderate decrease in GFR 30-59 4 Severe decrease in GFR 15-29 5 Kidney failure <15 (or dialysis) 8 SEE RESULT BELOW Name: HAMIDA TRENT : [address]: Franky Valiente MD Acct: [id number] Unit: [id number] AGE: 62 Location: LAB Re10/20/17 SEX: F Status: REG REF SPEC: [id number] FABRICIO: 10/20/[address] [facility] [address]: Franky Valiente MD REQ: [id number] RECD: 10/20/17 STATUS: NAYA BAINS DR: PAUL BENJAMIN MD, MD _ SOURCE: URINE SPDESC: ORDERED: Urine Culture Procedure Result Reported Site Urine Culture Final 10/22/17- 0855 ML No growth of clinically significant organisms * ML - MAIN LAB ([facility]) . END OF REPORT * ML=Testing performed at Main Lab DEPARTMENT OF PATHOLOGY, [address] [place] [address] Golden Paul M.D. Director [facility] # [id number] 9 Acute inflammation: >10.00 10 Positive for pANCA pattern by immunofluorescence. Suggest further testing for anti-myeloperoxidase (anti-MPO) antibodies, if clinically indicated. ADDITIONAL INFORMATION This test was developed and its performance characteristics determined by [facility] in a manner consistent with CLIA requirements. This test has not been cleared or approved by the U.S. Food and Drug Administration. Test Performed by: [address] [address] 11 Acute inflammation: >10.00 12 Because ethnic data is not always readily available, this report includes an eGFR for both -Americans and non- Americans. The National Kidney Disease Education Program (NKDEP) does not endorse the use of the MDRD equation for patients that are not between the ages of 18 and 70, are , have extremes of body size, muscle mass, or nutritional status, or are non- or non-. According to the National Kidney Foundation, irrespective of diagnosis, the stage of the disease is based on the level of kidney function: Stage Description GFR(mL/min/1.73 m(2)) 1 Kidney damage with normal or decreased GFR 90 2 Kidney damage with mild decrease in GFR 60-89 3 Moderate decrease in GFR 30-59 4 Severe decrease in GFR 15-29 5 Kidney failure <15 (or dialysis) 13 This test is negative at 24 hours. All samples are held and reviewed again at 7 days. If delayed precipitation occurs after 7 days, Immunofixation will be performed and an additional report will follow. REVISED REPORT --- Revised on 07/07/17 1105 --- Cryoglobulin previously reported as: Test not performed Cancelled due to duplicate test on this order Test Performed by: [facility] [place] [address] [place] [address] 14 Test Performed by: [address] [address] 15 REFERENCE VALUE 1.21 - 2.70 Test Performed by: [facility] [place] [address] 16 REFERENCE VALUE 0.3300-1.94 17 REFERENCE VALUE 0.5700-2.63 18 REFERENCE VALUE 0.2600-1.65 Test Performed by: [facility] [place] [address] 19 RESULT: No apparent monoclonal protein on serum electrophoresis. Test Performed by: [facility] - [address] [address] 20 ADDITIONAL INFORMATION This test was developed and its performance characteristics determined by [facility] in a manner consistent with CLIA requirements. This test has not been cleared or approved by the U.S. Food and Drug Administration. Test Performed by: [facility] [place] [address] 21 Test Performed by: [facility] [place] [address] 22 Test Performed by: [place] [address] 23 Negative for cANCA and pANCA patterns by immunofluorescence. ADDITIONAL INFORMATION This test was developed and its performance characteristics determined by [facility] in a manner consistent with CLIA requirements. This test has not been cleared or approved by the U.S. Food and Drug Administration. Test Performed by: [facility] [address] [place] [address] 24 Acute inflammation: >10.00 25 REVISED RESULTS The 7-day test has a trace cryoprecipitate. PREVIOUSLY REPORTED Negative (Reported 06/24/2017 13:39) This test is negative at 24 hours. All samples are held and reviewed again at 7 days. If delayed precipitation occurs after 7 days, Immunofixation will be performed and an additional report will follow. (Reported 06/24/2017 13:39) REVISED REPORT --- Revised on 06/30/17 1301 --- Cryoglobulin previously reported as: Negative %ppt This test is negative at 24 hours. All samples are held and reviewed again at 7 days. If delayed precipitation occurs after 7 days, Immunofixation will be performed and an additional report will follow. 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 ADDITIONAL INFORMATION This test was developed and its performance characteristics determined by [facility] in a manner consistent with CLIA requirements. This test has not been cleared or approved by the U.S. Food and Drug Administration. 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, subcu of left arm Office Visit 05/31/2018 Pulmonology And Brionna Horvath, G47.33 Obstructive sleep 9:30a Sleep Services 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, LEEROY-ALLIE apnea (adult) [facility] (pediatric) Z68.28 Body mass index (BMI) 28.0-28.9, adult Office Visit 05/04/2018 Pulmonology And Brionna G47.33 Obstructive sleep 2:30p Sleep Services Of AUGUSTUS Horvath RN, apnea (adult) [facility] (pediatric) Z68.28 Body mass index (BMI) 28.0-28.9, adult Office Visit 03/22/2018 1:00p Rheumatology Franky Valiente L95.8 Other vasculitis Services Of [place] Judd limited to the skin J32.8 Other chronic sinusitis R79.82 Elevated C-reactive protein (CRP) R70.0 Elevated erythrocyte sedimentation rate 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 Office Visit 02/10/2018 Pulmonology And Brionna G47.33 Obstructive sleep 2:15p Sleep Services Of AUGUSTUS Horvath RN, apnea (adult) [employer] [facility] (pediatric) G47.63 Sleep related bruxism G47.00 Insomnia, unspecified Office Visit 01/26/2018 11:00a Pulmonology And Sleep Sandra Amaro, R06.83 Snoring Services Of [place] NESBITT R40.0 Somnolence G47.63 Sleep related bruxism Office Visit 10/20/2017 1:20p Rheumatology Franky Valiente L95.8 Other vasculitis Services Of [place] Jud[facility] limited to the skin R79.82 Elevated C-reactive protein (CRP) R70.0 Elevated erythrocyte sedimentation rate 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 limited to the skin R79.82 Elevated C-reactive protein (CRP) R70.0 Elevated erythrocyte sedimentation rate 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 R76.0 Raised antibody titer K21.9 Gastro-esophageal reflux disease without esophagitis Office Visit 06/21/2017 10:20a Rheumatology Franky Valiente, L95.8 Other vasculitis [facility] [employer] Professor M.D. limited to the skin R79.82 Elevated C-reactive protein (CRP) M79.1 Myalgia R76.0 Raised antibody titer E88.2 Lipomatosis, not elsewhere classified Office Visit 06/16/2017 [facility] R76.8 Other specified 3:13p kevin Han M.D. abnormal Hospitalists immunological findings in serum D69.2 Other nonthrombocytopenic purpura F32.9 Major depressive disorder, single episode, unspecified F41.9 Anxiety disorder, unspecified Office 06/15/2017 [facility] Charlene D69.2 Other Visit 3:12p kevin Han M.D. nonthrombocytopenic Hospitalists purpura R76.8 Other specified abnormal immunological findings in serum F32.9 Major depressive disorder, single episode, unspecified F41.9 Anxiety disorder, unspecified Office Visit 06/15/2017 8:22a Rheumatology Franky Valiente, R21 Rash and other [facility] M.D. nonspecific skin eruption R76.0 Raised antibody titer R79.82 Elevated C-reactive protein (CRP) M79.1 Myalgia Office Visit 06/14/2017 [facility] Vishal F41.9 Anxiety disorder, 3:11p Assockevin, N.P. unspecified Hospitalists F32.9 Major depressive disorder, single episode, unspecified R21 Rash and other nonspecific skin eruption Plan of Treatment Future Appointment(s):11/21/2018 2:15 pm - GAY Dangelo at [facility]11/21/2018 2:15 pm - Pedrito Cason MD at [facility]05/31/2019 9:30 am - Brionna Horvath DNP, RN, MERCHANDISE BUYER-BC at [facility]
--- OUTSIDE RECORDS SUMMARY | 2018-11-24 23:03 | XMS REPORT | Continuity of Care Document ---
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 Jerson Tyson MD Primary Care Physician Unavailable Payers Date Identification Numbers Payment Provider Subscriber Policy Number: [id number] [employer] [place] Trent PayID: [id number] [address] [place] [address] Policy Number: [id number] [facility] Hamida Trent PayID: [id number] [address] [place] [address] Advance Directives Description No Information Available Problems Date Description Provider Status Onset: 02/04/2018 Uncomplicated moderate persistent Ochoa Yeung MD Active asthma Onset: 02/04/2018 Allergic rhinitis Ochoa Yeung MD Active Onset: 02/04/2018 Allergic rhinitis due to pollen Ochoa Yeung MD Active Family History Date Family Member(s) Observation Comments General Unknown Social History Type Date Description Comments Sex Unknown Home Environment Has a window air conditioner Home Environment Finished Basement Home Environment Uses a dehumidifier Home Environment The floors are carpeted Home Environment The floors are tile Home Environment The floors are wood Home Environment Uses wood heating Home Environment Uses hot water heating Home Environment Uses baseboard heating Smoke-Free Home is smoke-free Pets 2 cats Tobacco Use Start: Unknown No Second Hand Smoke Exposure Tobacco Use Start: Unknown Patient has never smoked Smoking Status Reviewed: 03/16/18 Patient has never smoked Allergies, Adverse Reactions, Alerts Date Description Reaction Status Severity Comments 02/04/2018 Prednisone Active 02/04/2018 Alprazolam Active 02/04/2018 Atorvastatin Active 02/04/2018 Buspirone Active 02/04/2018 Cefaclor Active 02/04/2018 Contrast Dye Active 02/04/2018 Dexamethasone Active 02/04/2018 Hydromorphone Active 02/04/2018 Doxycycline Active 02/04/2018 Erythromycin Active 02/04/2018 Metronidazole Active 02/04/2018 Glycerin Active 02/04/2018 Levofloxacin Active 02/04/2018 Levothyroxine Active 02/04/2018 Metoprolol Active 02/04/2018 Paroxetine Active 02/04/2018 Penicillin Active 02/04/2018 Fluoxetine Active 02/04/2018 Sulfacetamide Active 02/04/2018 Sulfur Dioxide Active 02/04/2018 Gabapentin Active 09/09/2018 Keflex Active Medications Medication Date Status Form Strength Qnty SIG Indications Ordering Provider Azithromycin Active Tablets 500mg Take 1 Unknown /0000 Tablet By Mouth Every Day Restasis Active Emulsion 0.05% Instill 1 Unknown /0000 Drop Into Both Eyes Two Times Daily Ibuprofen Active Tablets 800mg Take 1 Unknown /0000 Tablet By Mouth Every 8 Hours as Needed For Pain Potassium Active Tablets ER 10Meq Take 1 Unknown Chloride Adore ER /0000 Tablet By Mouth Every Day Clonazepam Active Tablets 0.5mg Take 1 Unknown /0000 Tablet By Mouth Every 4 Hours as Needed For Anxiety -- Maximum Benzonatate Active Capsules 100mg Take 1 Unknown /0000 Capsule By Mouth Three Times Daily as Needed For Cough Aspir-[address] 81mg i tab Unknown /0000 everyday Calcium + D3 Active Tablets 600-200 1 by Unknown /0000 mouth every day Multivitamin Active Tablets Unknown Adult /0000 Flaxseed Oil Active Capsules 1000mg Unknown /0000 Mupirocin Active Ointment 2% applyto Unknown /0000 affected area twice a day for 5 days5 Pamelor Active Capsules 10mg Unknown /0000 Ranitidine HCL Active Capsules 300mg 1 capsule Unknown /0000 (300 mg) by oral route once a day as directed Tumeric Active Capsules 1 cap PO Unknown /0000 daily Esomeprazole Active Capsules 40mg Unknown Magnesium /0000 DR Magnesium Active Tablets 250mg Unknown /0000 Refresh Active Solution 1.4-0.6% Unknown / Tylenol Extra Active Tablets 500mg 2 tabs by Unknown Strength /0000 mouth three times a day as directed. max daily dose of tylenol from all sources to not exceed 4000mg Xopenex HFA 03/16 Hx Aerosol 45mcg/Act 15gm 2 puffs J30.1 Christopher /2017 every 4-6 Pillo Yeung MD - hrs as 09/09 needed Flonase 03/16 Hx Suspension 27.5mcg/S 18.20 one spray J30.1 Christopher Sensimist pray 0ml in each Pillo Yeung MD - nostril 09/09 daily Nasacort Allergy 02/04 Hx Aerosol 55mcg/Act 1unit 2 sprays J30.1 Christopher 24H s in each Pillo Yeung MD - nostril 09/09 once a day Xyzal Allergy 02/04 Hx Tablets 5mg 30tab take 1 J30.1 Christopher 24HR s tablet (5 Pillo Yeung MD - mg) by 09/09 oral route once daily as needed Breo Ellipta 02/04 Hx Aerosol 200-25mcg 1unit inhale J30.1 oph /2017 /Inh s one puff Pillo Yeung MD - once a Proair HFA 02/04 Hx Aerosol 108(90Bas 8.500 2 puffs J30.1 oph e) gm every 4 Pillo Yeung MD - mcg/Act as needed 09/09 Hydroxychloroqui Hx Tablets 200mg Take 1 Unknown ne Sulfate / Tablet By - Mouth Two 09/09 Times Daily Immunizations Description No Information Available Vital Signs Date Vital Result Comment 09/09/2018 1:46pm BP Systolic 138 mmHg BP Diastolic 78 mmHg Height 67 inches 5'7" Weight 180.00 lb BMI (Body Mass Index) 28.2 kg/m2 Heart Rate 84 /min Respiratory Rate 18 /min O2 % BldC Oximetry 99 % 03/16/2018 10:59am BP Systolic 119 mmHg BP Diastolic 68 mmHg Height 67 inches 5'7" Weight 174.00 lb BMI (Body Mass Index) 27.2 kg/m2 Heart Rate 79 /min Body Temperature 98.5 F O2 % BldC Oximetry 99 % 02/25/2018 1:29pm BP Systolic 121 mmHg BP Diastolic 69 mmHg Height 67 inches 5'7" Weight 174.00 lb BMI (Body Mass Index) 27.2 kg/m2 Heart Rate 92 /min Body Temperature 97.5 F O2 % BldC Oximetry 98 % 02/04/2018 3:21pm BP Systolic 112 mmHg BP Diastolic 68 mmHg Height 67 inches 5'7" Weight 172.00 lb BMI (Body Mass Index) 26.9 kg/m2 Heart Rate 82 /min Respiratory Rate 16 /min Body Temperature 97.8 F O2 % BldC Oximetry 96 % Results Description No Information Available Procedures Date Code Description Status 09/09/2018 22342 Nitric Oxide Gas Determination Completed 09/09/2018 34978 Nitric Oxide Gas Determination Completed 09/09/2018 95971 Bronchodilation Responsiveness Spirometry Pre/Post Completed Bronchodil Adm 09/09/2018 01788 Bronchodilation Responsiveness Spirometry Pre/Post Completed Bronchodil Adm 02/25/2018 30824 Allergy Tests Percutaneous W/ Allergenic Extracts Completed 02/25/2018 75675 Allergy Tests Percutaneous W/ Allergenic Extracts Completed 02/25/2018 57074 Allergy Tests Percutaneous W/ Allergenic Extracts Completed 02/04/2018 45395 Nitric Oxide Gas Determination Completed 02/04/2018 20721 Bronchodilation Responsiveness Spirometry Pre/Post Completed Bronchodil Adm Encounters Type Date Location Provider Dx Diagnosis Office Visit 09/09/2018 Maciej Solis NP J45.40 Moderate persistent 1:00p asthma, uncomplicated J30.89 Other allergic rhinitis Office Visit 03/16/2018 11:00a GAY White J45.40 Moderate persistent asthma, uncomplicated J30.89 Other allergic rhinitis J30.1 Allergic rhinitis due to pollen Office Visit 02/25/2018 1:30p Maciej Solis NP J45.40 Moderate persistent asthma, uncomplicated J30.89 Other allergic rhinitis J30.1 Allergic rhinitis due to pollen Office Visit 02/04/2018 3:00p Maciej Yeung J30.1 Allergic rhinitis MD due to pollen J30.89 Other allergic rhinitis J45.40 Moderate persistent asthma, uncomplicated Plan of Treatment Future Appointment(s):03/13/2019 1:30 pm - GAY Marroquin at [place]
[2018-11-24] MEDS ORDERED: LORazepam INJ* 2 MG/ML 1 ML VIAL IV PUSH ONE (23:57)
--- NOTE | 2018-11-25 | ED ---
HPI Cardiac - HPI Summary HPI Summary: This patient is a 63 year old female presenting to [facility] accompanied by with a chief complaint of palpitations since this morning. Patient had a lipoma removed from her left elbow on 11/21/2018 and her initial pain medications did not agree with her, so she switched medications. Patient states that all day, she has been hearing my pulse in my ears and presents to the ED in concern. The pain is rated 7/10 in severity. Symptoms aggravated by nothing. Symptoms alleviated by nothing. Patient additionally reports constipation, SOB - History of Current Complaint Chief Complaint: EDDysrhythmPalp Stated Complaint: SHORT OF BREATH Time Seen by Provider: 11/24/18 23:48 Hx Obtained From: Patient Onset/Duration: Started Hours Ago, Still Present Timing: Constant Initial Severity: Moderate Pain Intensity: 7 Pain Scale Used: 0-10 Numeric Chest Pain Location: Diffuse Aggravating Factor(s): Nothing Alleviating Factor(s): Nothing Associated Signs and Symptoms: Positive: Other: - constipation, SOB - Additional Pertinent History Primary Care Physician: [id number] - Allergy/Home Medications Allergies/Adverse Reactions: Allergies Allergy/AdvReac Type Severity Reaction Status Date / Time alprazolam Allergy Anxiety Verified 11/24/18 22:57 atorvastatin Allergy See Comment Verified 11/24/18 22:57 buspirone Allergy See Comment Verified 11/24/18 22:57 cefaclor Allergy GI Upset Verified 11/24/18 22:57 dexamethasone Allergy Anxiety Verified 11/24/18 22:57 doxycycline Allergy See Comment Verified 11/24/18 22:57 erythromycin base Allergy See Comment Verified 11/24/18 22:57 fluoxetine [From Prozac] Allergy See Comment Verified 11/24/18 22:57 gabapentin Allergy See Comment Verified 11/24/18 22:57 gluten Allergy See Comment Verified 11/24/18 22:57 glycerin Allergy Unknown Verified 11/24/18 22:57 Reaction Details hydromorphone [From Dilaudid] Allergy See Comment Verified 11/24/18 22:57 levofloxacin Allergy GI Upset Verified 11/24/18 22:57 levothyroxine Allergy Tachycardia Verified 11/24/18 22:57 metoprolol Allergy See Comment Verified 11/24/18 22:57 metronidazole [From Flagyl] Allergy Unknown Verified 11/24/18 22:57 Reaction Details paroxetine Allergy See Comment Verified 11/24/18 22:57 Penicillins Allergy GI Upset Verified 11/24/18 22:57 prednisone Allergy Anxiety Verified 11/24/18 22:57 sulfacetamide Allergy Unknown Verified 11/24/18 22:57 Reaction Details Iodinated Contrast- Oral and AdvReac See Comment Verified 11/24/18 22:57 IV Dye PMH/Surg Hx/FS Hx/Imm Hx Previously Healthy: No Endocrine/Hematology History: Reports: Hx Thyroid Disease - had issues in the past-no issues since becoming gluten free Denies: Hx Anticoagulant Therapy, Hx Diabetes Cardiovascular History: Reports: Hx Hypercholesterolemia, Other Cardiovascular Problems/Disorders - Elevated cholesterol Denies: Hx Hypertension, Hx Pacemaker/ICD Respiratory History: Reports: Hx Asthma - rescue med if needed-hasn't had issues in a long, Hx Sleep Apnea Denies: Hx Chronic Obstructive Pulmonary Disease (COPD), Other Respiratory Problems/Disorders GI History: Reports: Hx Gastroesophageal Reflux Disease - GERD-on medication Denies: Hx Irritable Bowel, Hx Ulcer, Other GI Disorders - Gluten free diet History: Reports: Other Problems/Disorders - had a UTI once, not recently Denies: Hx Renal Disease Musculoskeletal History: Reports: Hx Arthritis - hands and neck, Other Musculoskeletal History - benign lipomatous neoplasm-left elbow Sensory History: Reports: Hx Cataracts - developing cataracts, Hx Contacts or Glasses - Glasses Denies: Hx Hearing Aid Opthamlomology History: Reports: Hx Cataracts - developing cataracts, Hx Contacts or Glasses - Glasses Neurological History: Reports: Hx Nerve Disease - Sjogrens syndrome Denies: Other Neuro Impairments/Disorders Psychiatric History: Reports: Hx Anxiety - on medication, Hx Depression Denies: Hx Panic Disorder - Cancer History Cancer Type, 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 Deviated septum. [place] teeth. Colonoscopies Hx Anesthesia Reactions: Yes - last colonoscopy-was told she should be sedated differently-[facility] - Immunization History Date of Tetanus Vaccine: UTD Infectious Disease History: No Infectious Disease History: Denies: Hx Clostridium Difficile, Hx Hepatitis, Hx Human Immunodeficiency Virus (HIV), Hx of Known/Suspected MRSA, Hx Shingles, Hx Tuberculosis, Hx Known/ Suspected VRE, Hx Known/Suspected VRSA, History Other Infectious Disease, Traveled Outside the [place] in Last 30 Days - Family History Known Family History: Positive: Cardiac Disease - SISTER - [place] AGE 54, Diabetes - FATHER, Other - F - COLON CA, BOTH PARENTS - HIGH CHOLESTEROL, M - BRAIN TUMOR - Social History Lives: With Family Alcohol Use: None Hx Substance Use: No Substance Use Type: Reports: None Hx Tobacco Use: No Smoking Status (MU): Never Smoked Tobacco Review of Systems Negative: Fever Positive: Palpitations, Chest Pain Positive: Shortness Of Breath Positive: Other - Constipation All Other Systems Reviewed And Are Negative: Yes Physical Exam - Summary Physical Exam Summary: VITAL SIGNS: Reviewed. GENERAL: Patient is a well-developed and nourished female who is lying comfortable in the stretcher. Patient is not in any acute respiratory distress. HEAD AND FACE: No signs of trauma. No ecchymosis, hematomas or skull depressions. No sinus tenderness. EYES: PERRLA, EOMI x 2, No injected conjunctiva, no nystagmus. EARS: Hearing grossly intact. Ear canals and tympanic membranes are within normal limits. MOUTH: Oropharynx within normal limits. NECK: Supple, trachea is midline, no adenopathy, no JVD, no carotid bruit, no c- spine tenderness, neck with full ROM. CHEST: Symmetric, no tenderness at palpation LUNGS: Clear to auscultation bilaterally. No wheezing or crackles. CVS: Regular rate and rhythm, S1 and S2 present, no murmurs or gallops appreciated. ABDOMEN: Soft, non-tender. No signs of distention. No rebound no guarding, and no masses palpated. Bowel sounds are normal. EXTREMITIES: FROM in all major joints, no edema, no cyanosis or clubbing. Left arm is wrapped from hand to all the way up to left mid upper arm NEURO: Alert and oriented x 3. No acute neurological deficits. Speech is normal and follows commands. SKIN: Dry and warm Triage Information Reviewed: Yes Vital Signs On Initial Exam: Initial Vitals Temp Pulse Resp BP Pulse Ox 98.9 F 112 18 214/88 99 11/24/18 22:54 11/24/18 22:54 11/24/18 22:54 11/24/18 22:54 11/24/18 22:54 Vital Signs Reviewed: Yes Diagnostics - Vital Signs Vital Signs Temp Pulse Resp BP Pulse Ox 11/24/18 23:34 100 13 190/92 100 02/14/19 23:30 96 26 98 11/24/18 22:54 98.9 F 112 18 214/88 99 - Laboratory Result Diagrams: 11/25/18 00:06 11/25/18 00:06 Lab Statement: Any lab studies that have been ordered have been reviewed, and results considered in the medical decision making process. - Radiology CXR Radiology Interpretation Completed By: ED Physician Summary of Radiographic Findings: CXR reveals, per ED physician, no acute process. Pending official report. - EKG 2304 Cardiac Rate: NL EKG Rhythm: Sinus Rhythm - 99 BPM Summary of EKG Findings: An EKG, taken 2304, reveals NSR (99 BPM), normal axis, normal interval, no ischemic changes. Re-Evaluation - Re-Evaluation First Eval Re-Evaluation Time: 02:31 Change: Improved Comment: We reviewed labs with patient. Patient feels somewhat better. Her D dimer is elevated. Patient also just had surgery done. There is some risk for PE. Patient is allergic to IV dye. As such, patient will be in the ED until morning when she can get a V/Q scan. Patient is agreeable to this plan. Disposition - Course Course Of Treatment: This patient is a 63 year old female presenting to [facility] accompanied by with a chief complaint of palpitations since this morning. Patient had a lipoma removed from her left elbow on 11/21/2018 and her initial pain medications did not agree with her, so she switched medications. Patient states that all day, she has been hearing my pulse in my ears and presents to the ED in concern. An EKG, taken 2304, reveals NSR (99 BPM), normal axis, normal interval, no ischemic changes. CXR reveals, per ED physician, no acute process. Pending official report. Bloodwork Obtained. In the ED course the patient was given Toradol. We reviewed labs with patient. Patient feels somewhat better. Her D dimer is elevated. Patient also just had surgery done. There is some risk for PE. Patient is allergic to IV dye. As such, patient will be in the ED until morning when she can get a V/Q scan. Patient is agreeable to this plan. Patient will be signed out to Dr. Green at end of shift, pending V/ Q scan. - Diagnoses Provider Diagnoses: Anxiety, SOB (shortness of breath) Discharge - Sign-Out/Discharge Documenting (check all that apply): Sign-Out Patient Signing out patient TO: Sara Green Patient Received Moderate/Deep Sedation with Procedure: No - Discharge Plan Referrals: Jerson Tyson MD [Primary Care Provider] - - Attestation Statements Document Initiated by Scribe: Yes Documenting Scribe: Ryan Hartley Provider For Whom Scribe is Documenting (Include Credential): Reggie Yates MD Scribe Attestation: Ryan Navarrete, scribed for Reggie Yates MD on 11/25/18 at 0720. Status of Scribe Document: Ready
[2018-11-25 00:14] LABS: ABS Basophils 0 10^3/ul (0-0.2); ABS Eosinophils 0.1 10^3/ul (0-0.6); ABS Lymphocytes 1.3 10^3/ul (1.0-4.8); ABS Monocytes 0.8 10^3/ul (0-0.8); ABS Neutrophils 5.5 10^3/ul (1.5-7.7); ABS Nucleated RBC 0 10^3/ul; Eosinophil % 1.5 %; Hematocrit 36 % (35-47); Hemoglobin 11.6 g/dl (12.0-16.0); Lymphocyte % 16.4 %; Mean Corpuscular HGB Conc 33 g/dl (31-36); Mean Corpuscular Hemoglobin 26 pg (27-31); Mean Corpuscular Volume 81 fL (80-97); Mean Platelet Volume 7.9 fL (7.4-10.4); Nucleated Red Blood Cells % 0.1; Platelet Count 306 10^3/ul (150-450); Red Cell Distribution Width 16 % (10.5-15); White Blood Count 7.8 10^3/ul (3.5-10.8)
[2018-11-25 00:24] LABS: INR 0.88 (0.77-1.02)
[2018-11-25 00:33] LABS: Albumin 4.2 g/dL (3.2-5.2); Albumin/Globulin Ratio 1.4 (1-3); BUN/Creatinine Ratio 19.3 (8-20); Calcium 9.8 mg/dL (8.6-10.3); EGFR Non-African American 64.5 (>60); Potassium 3.7 mmol/L (3.5-5.0); Total Bilirubin 0.3 mg/dL (0.2-1.0); Total Protein 7.2 g/dL (6.4-8.9)
[2018-11-25 00:51] LABS: TSH (Thyroid Stimulating Horm) 0.59 mcIU/mL (0.34-5.60)
--- NOTE | 2018-11-25 08:52 | ED ---
Progress - Progress Note Progress Note: The patient is a signout from Dr. Yates. The VQ scan is negative and she will be sent home with a diagnosis of palpitations. - Results/Orders Results/Orders: VQ scan results Homogenous ventilation and perfusion without mass defect. Negative VQ scan. Re-Evaluation - Re-Evaluation First Eval Re-Evaluation Time: 02:31 Change: Improved Comment: We reviewed labs with patient. Patient feels somewhat better. Her D dimer is elevated. Patient also just had surgery done. There is some risk for PE. Patient is allergic to IV dye. As such, patient will be in the ED until morning when she can get a V/Q scan. Patient is agreeable to this plan. Course/Dx - Course Course Of Treatment: The pt is a signout from Dr. Yates. The VQ scan is negative, and the patient will be discharged. I discussed results with patient and she reports feeling better. She is hemodynamically stable and safe for discharge. Strict return precautions given and she will otherwise follow up with her PCP. - Diagnoses Provider Diagnoses: Heart palpitations Discharge - Sign-Out/Discharge Documenting (check all that apply): Patient Departure, Receiving Sign-Out Receiving patient FROM: Reggie Yates Patient Received Moderate/Deep Sedation with Procedure: No - Discharge Plan Condition: Stable Disposition: HOME Referrals: Jerson Tyson MD [Primary Care Provider] - Additional Instructions: Follow up with your primary care physician in 1-3 days. RETURN TO THE EMERGENCY DEPARTMENT FOR CHANGING OR WORSENING SYMPTOMS. - Billing Disposition and Condition Condition: STABLE Disposition: Home - Attestation Statements Document Initiated by Perfecto: Yes Documenting Scribe: Minerva Hickman Provider For Whom Perfecto is Documenting (Include Credential): Sara Green Scribe Attestation: I, Minerva Hickman, scribed for Sara Green on 11/26/18 at 0937. Scribe Documentation Reviewed: Yes Provider Attestation: The documentation as recorded by the Minerva cast accurately reflects the service I personally performed and the decisions made by , Sebastien Green Status of Scribe Document: Viewed
[2018-11-25 10:24] VITALS: BP 116/78
== END 2018-11-25 10:24 | disposition home or self-care (01) ==
LOC: ED 22:53
DX: F41.9 Anxiety disorder, unspecified (principal); R06.02 Shortness of breath; R00.2 Palpitations; K21.9 Gastro-esophageal reflux disease without esophagitis; Z88.5 Allergy status to narcotic agent; Z88.0 Allergy status to penicillin; Z88.2 Allergy status to sulfonamides; Z88.8 Allergy status to other drugs, medicaments and biological substances; Z88.1 Allergy status to other antibiotic agents; Z91.041 Radiographic dye allergy status; Z82.49 Family history of ischemic heart disease and other diseases of the circulatory system; Z83.3 Family history of diabetes mellitus; Z80.0 Family history of malignant neoplasm of digestive organs
CPT/HCPCS: 36415; 71045; 78582; 80053; 83735; 83880; 84443; 84484; 85025; 85379; 85610; 93005; 96374; 99284; A9540; A9558; J2060

== ENCOUNTER 2018-12-27 03:04 | Emergency (ER) | payer MEDICARE, OTHER ==
[2018-12-27] MEDS ORDERED: LORazepam INJ* 2 MG/ML 1 ML VIAL IV PUSH ONE (03:22)
--- NOTE | 2018-12-27 03:22 | ED ---
Palpitations / Dysrhythmia - HPI Summary HPI Summary: A 63 y/o female brought in by [facility] ambulance presents to [facility] with a chief complaint of heart palpitations since 22:35 12/26/18. She reports that she took her new medication for depression for the first time [employer], and this has happened before when she took a new medication. She said that it felt like her heart was racing and so she took Klonopin. She then felt her legs being irritated. She distracted herself with music and by drinking water but then felt chest pressure. She denies feeling dizzy or pain. She also reports that her Jaw hurts on both sides but she has TMJ. She was given Aspirin and NTG en route. At triage she rated her pain as an 8/10 in severity. She reports arm surgery on 08/29 and having some difficulty sleeping. Vital signs while in room HR: 91 bpm , O2 Sat: 99, BP: 109/77. - History of Current Complaint Chief Complaint: EDDysrhythmPalp Time Seen by Provider: 12/27/18 03:07 Hx Obtained From: Patient, EMS Onset/Duration: Sudden Onset, Lasting Hours, Still Present Timing: Constant Severity Initially: Severe Severity Currently: Severe Character: Fast Aggravating: Nothing Associated Signs & Symptoms: Negative - dizziness, fever, chest pain - Allergy/Home Medications Allergies/Adverse Reactions: Allergies Allergy/AdvReac Type Severity Reaction Status Date / Time alprazolam Allergy Anxiety Verified 12/27/18 03:12 atorvastatin Allergy See Comment Verified 12/27/18 03:12 buspirone Allergy See Comment Verified 12/27/18 03:12 cefaclor Allergy GI Upset Verified 12/27/18 03:12 dexamethasone Allergy Anxiety Verified 12/27/18 03:12 doxycycline Allergy See Comment Verified 12/27/18 03:12 erythromycin base Allergy See Comment Verified 12/27/18 03:12 fluoxetine [From Prozac] Allergy See Comment Verified 12/27/18 03:12 gabapentin Allergy See Comment Verified 12/27/18 03:12 gluten Allergy See Comment Verified 12/27/18 03:12 glycerin Allergy Unknown Verified 12/27/18 03:12 Reaction Details hydromorphone [From Dilaudid] Allergy See Comment Verified 12/27/18 03:12 levofloxacin Allergy GI Upset Verified 12/27/18 03:12 levothyroxine Allergy Tachycardia Verified 12/27/18 03:12 metoprolol Allergy See Comment Verified 12/27/18 03:12 metronidazole [From Flagyl] Allergy Unknown Verified 12/27/18 03:12 Reaction Details paroxetine Allergy See Comment Verified 12/27/18 03:12 Penicillins Allergy GI Upset Verified 12/27/18 03:12 prednisone Allergy Anxiety Verified 12/27/18 03:12 sulfacetamide Allergy Unknown Verified 12/27/18 03:12 Reaction Details tramadol Allergy Tachycardia Verified 12/27/18 03:12 Iodinated Contrast- Oral and AdvReac See Comment Verified 12/27/18 03:12 IV Dye PMH/Surg Hx/FS Hx/Imm Hx Endocrine/Hematology History: Reports: Hx Thyroid Disease - had issues in the past-no issues since becoming gluten free Denies: Hx Anticoagulant Therapy, Hx Diabetes Cardiovascular History: Reports: Hx Hypercholesterolemia, Other Cardiovascular Problems/Disorders - Elevated cholesterol Denies: Hx Hypertension, Hx Pacemaker/ICD Respiratory History: Reports: Hx Asthma - rescue med if needed-hasn't had issues in a long, Hx Sleep Apnea Denies: Hx Chronic Obstructive Pulmonary Disease (COPD), Other Respiratory Problems/Disorders GI History: Reports: Hx Gastroesophageal Reflux Disease - GERD-on medication Denies: Hx Irritable Bowel, Hx Ulcer, Other GI Disorders - Gluten free diet History: Reports: Other Problems/Disorders - had a UTI once, not recently Denies: Hx Renal Disease Musculoskeletal History: Reports: Hx Arthritis - hands and neck, Other Musculoskeletal History - benign lipomatous neoplasm-left elbow Sensory History: Reports: Hx Cataracts - developing cataracts, Hx Contacts or Glasses - Glasses Denies: Hx Hearing Aid Opthamlomology History: Reports: Hx Cataracts - developing cataracts, Hx Contacts or Glasses - Glasses Neurological History: Reports: Hx Nerve Disease - Sjogrens syndrome Denies: Other Neuro Impairments/Disorders Psychiatric History: Reports: Hx Anxiety - on medication, Hx Depression Denies: Hx Panic Disorder - Cancer History Cancer Type, 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 Deviated septum. [place] teeth. Colonoscopies Hx Anesthesia Reactions: Yes - last colonoscopy-was told she should be sedated differently-[facility] - Immunization History Date of Tetanus Vaccine: UTD Infectious Disease History: No Infectious Disease History: Denies: Hx Clostridium Difficile, Hx Hepatitis, Hx Human Immunodeficiency Virus (HIV), Hx of Known/Suspected MRSA, Hx Shingles, Hx Tuberculosis, Hx Known/ Suspected VRE, Hx Known/Suspected VRSA, History Other Infectious Disease, Traveled Outside the [place] in Last 30 Days - Family History Known Family History: Positive: Cardiac Disease - SISTER - [place] AGE 54, Diabetes - FATHER, Other - F - COLON CA, BOTH PARENTS - HIGH CHOLESTEROL, M - BRAIN TUMOR - Social History Alcohol Use: None Hx Substance Use: No Substance Use Type: Reports: None Hx Tobacco Use: No Smoking Status (MU): Never Smoked Tobacco Review of Systems Negative: Fever Positive: Palpitations, Other - positive: chest pressure. Negative: Chest Pain Neurological: Negative - dizziness All Other Systems Reviewed And Are Negative: Yes Physical Exam - Summary Physical Exam Summary: VITAL SIGNS: Reviewed. GENERAL: Patient is a well-developed and nourished FEMALE who is lying comfortable in the stretcher. Patient is not in any acute respiratory distress. HEAD AND FACE: No signs of trauma. No ecchymosis, hematomas or skull depressions. No sinus tenderness. EYES: PERRLA, EOMI x 2, No injected conjunctiva, no nystagmus. EARS: Hearing grossly intact. Ear canals and tympanic membranes are within normal limits. MOUTH: Oropharynx within normal limits. NECK: Supple, trachea is midline, no adenopathy, no JVD, no carotid bruit, no c- spine tenderness, neck with full ROM. CHEST: Symmetric, no tenderness at palpation LUNGS: Clear to auscultation bilaterally. No wheezing or crackles. CVS: Regular rate and rhythm, S1 and S2 present, no murmurs or gallops appreciated. ABDOMEN: Soft, non-tender. No signs of distention. No rebound no guarding, and no masses palpated. Bowel sounds are normal. EXTREMITIES: FROM in all major joints, no edema, no cyanosis or clubbing. NEURO: Alert and oriented x 3. No acute neurological deficits. Speech is normal and follows commands. SKIN: Dry and warm Psych: Anxious Triage Information Reviewed: Yes Vital Signs On Initial Exam: Initial Vitals Temp Pulse Resp BP Pulse Ox 98.3 F 87 17 187/103 99 12/27/18 03:09 12/27/18 03:09 12/27/18 03:09 12/27/18 03:09 12/27/18 03:09 Vital Signs Reviewed: Yes Diagnostics - Vital Signs Vital Signs Temp Pulse Resp BP Pulse Ox 12/27/18 03:09 98.3 F 87 17 187/103 99 - Laboratory Result Diagrams: 12/27/18 03:35 12/27/18 03:35 Lab Statement: Any lab studies that have been ordered have been reviewed, and results considered in the medical decision making process. - EKG 03:18 Cardiac Rate: NL - 84 bpm EKG Rhythm: Sinus Rhythm Summary of EKG Findings: Normal sinus rhythm at 84 bpm. Normal axis. Normal interval. No ischemic changes Course/Dx - Course Course Of Treatment: A 63 y/o female brought in by [facility] ambulance presents to [facility] with a chief complaint of heart palpitations since 22:35 12/26/18. She reports that she took her new medication for depression for the first time [employer], and this has happened before when she took a new medication. She said that it felt like her heart was racing and so she took Klonopin. She then felt her legs being irritated. She distracted herself with music and by drinking water but then felt chest pressure. She denies feeling dizzy or pain. She also reports that her Jaw hurts on both sides but she has TMJ. She was given Aspirin and NTG en route. At triage she rated her pain as an 8/10 in severity. She reports arm surgery on 11/21/18 and having some difficulty sleeping. The physical exam revealed that the patient was anxious. EKG at 03:18 showed Normal sinus rhythm at 84 bpm. Normal axis. Normal interval. No ischemic changes. In the ED course the patient was given Ativan IV and Potassium Chloride PO. Bloodowork and chemistries obtained and are WNL. The patient will be discharged. She is agreeable with this plan. - Diagnoses Provider Diagnoses: Anxiety Discharge - Sign-Out/Discharge Documenting (check all that apply): Patient Departure - DC Patient Received Moderate/Deep Sedation with Procedure: No - Discharge Plan Condition: Stable Disposition: HOME Referrals: Jerson Tyson MD [Primary Care Provider] - (1-2 days) Additional Instructions: RETURN TO THE EMERGENCY DEPARTMENT FOR CHANGING OR WORSENING SYMPTOMS. FOLLOW UP WITH PCP IN 1-2 DAYS. - Billing Disposition and Condition Condition: STABLE Disposition: Home - Attestation Statements Document Initiated by Scribe: Yes Documenting Scribe: Hesham Guerrero Provider For Whom Scribe is Documenting (Include Credential): Reggie Yates MD Scribe Attestation: Hesham Navarrete, scribed for Reggie Yates MD on 12/27/18 at 0617. Scribe Documentation Reviewed: Yes Provider Attestation: The documentation as recorded by the Hesham cast accurately reflects the service I personally performed and the decisions made by Po wolfe MD Status of Scribe Document: Viewed
[2018-12-27 03:41] LABS: ABS Basophils 0.1 10^3/ul (0-0.2); ABS Eosinophils 0.1 10^3/ul (0-0.6); ABS Lymphocytes 1.9 10^3/ul (1.0-4.8); ABS Monocytes 0.8 10^3/ul (0-0.8); ABS Neutrophils 3.9 10^3/ul (1.5-7.7); ABS Nucleated RBC 0 10^3/ul; Eosinophil % 1.8 %; Hematocrit 34 % (33-41); Hemoglobin 11.3 g/dL (12.0-16.0); Lymphocyte % 27.7 %; Mean Corpuscular HGB Conc 33 g/dL (31-36); Mean Corpuscular Hemoglobin 26 pg (27-31); Mean Corpuscular Volume 80 fL (80-97); Mean Platelet Volume 8.3 fL (7.4-10.4); Nucleated Red Blood Cells % 0; Platelet Count 303 10^3/uL (150-450); Red Blood Count 4.27 10^6 /uL (3.70-4.87); Red Cell Distribution Width 17 % (10.5-15); White Blood Count 6.8 10^3/uL (3.5-10.8)
[2018-12-27 03:59] LABS: Albumin 4.3 g/dL (3.2-5.2); Albumin/Globulin Ratio 1.6 (1-3); Calcium 9.8 mg/dL (8.6-10.3); EGFR African American 71.4 (>60); Globulin 2.7 g/dL (2-4); Magnesium 2.2 mg/dL (1.9-2.7); Potassium 3.3 mmol/L (3.5-5.0); Total Bilirubin 0.3 mg/dL (0.2-1.0)
[2018-12-27 03:59] LABS: Activated Partial Thrombo Time 27.5 seconds (26.0-36.3); INR 0.89 (0.77-1.02)
--- OUTSIDE RECORDS SUMMARY | 2018-12-27 04:03 | XMS REPORT | Continuity of Care Document ---
:1955 External Reference #:[id number] Author Name Melony Santiago Care Team Providers Name Role Phone Jerson Tyson MD Primary Care Physician Unavailable Payers Date Identification Numbers Payment Provider Subscriber Policy Number: [id number] Medicare Hamida Trent PayID: [id number] [address] [place] [address] Policy Number: [id number] [employer] Hamida Trent PayID: [id number] [address] [place] [address] Expires: 2018 Policy Number: [id number] [employer] Hamida Trent PayID: [id number] [address] [place] [address] Advance Directives Description No Information Available Problems Date Description Provider Status Onset: 02/10/2018 Obstructive sleep apnea Brionna Horvath DNP, RN, Active syndrome KEY ACCOUNT DIRECTOR-BC Onset: 02/10/2018 Insomnia Brionna Horvath DNP, RN, Active KEY ACCOUNT DIRECTOR-BC Onset: 02/10/2018 Sleep related bruxism Brionna Horvath DNP, RN, Active KEY ACCOUNT DIRECTOR-BC Onset: 10/18/2018 Lipoma of skin Pedrito Cason MD Active Family History Date Family Member(s) Observation Comments General Arthritis Social History Type Date Description Comments Sex Unknown Marital Status Lives With Lives With Children Grown, come and go Lives With 2 cats Occupation Currently Working 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, 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 Tobacco Use Start: Unknown Never Smoked Cigarettes Smoking Status Reviewed: 12/23/18 Never Smoked Cigarettes ETOH Use Denies alcohol [...] 06/21/2017 Cefaclor Active 06/21/[address] contrast 06/21/2017 Dexamethasone Active 06/21/2017 Dilaudid Cough Active [...] needed Unknown /0000 Pamelor Active Capsules 10mg 1 capsule Unknown /0000 by mouth at bedtime Refresh Active Solution 1.4-0.6% use daily Unknown [...] taken 7-8 days ago week of 02/08/18) Tramadol HCL 11/21 Hx Tablets 50mg 30tab 1-2 tablets s by mouth Cason, - every 6 MD 12/06 hours needed pain Colchicine 07/20 Hx Tablets 0.6mg 30tab take [...] Available Vital Signs Date Vital Result Comment 12/23/2018 2:01pm Heart Rate 87 /min BP Systolic Sitting 136 mmHg BP Diastolic Sitting 80 mmHg Respiratory Rate 16 /min Pain Level 2 O2 % BldC Oximetry 96 % 12/06/2018 2:39pm Height 67.25 inches 5'7.25" Weight 183.00 lb BP Systolic 122 mmHg BP Diastolic 76 mmHg Pain Level 7 Varies BMI (Body Mass Index) 28.4 kg/m2 12/01/2018 3:34pm Height 67.25 inches 5'7.25" Heart Rate 91 /min BP Systolic 142 mmHg BP Diastolic 82 mmHg Respiratory Rate 19 /min Body Temperature 98.1 F Pain Level 5 11/25/2018 11:27am Height 67.25 inches 5'7.25" Weight 183.00 lb BP Systolic Sitting 116 mmHg BP Diastolic Sitting 68 mmHg Respiratory Rate 16 /min Pain Level 5 BMI (Body Mass Index) 28.4 kg/m2 11/15/2018 2:21pm Height 67.25 inches 5'7.25" Weight [...] Date Facility Test Result H/L Range Note Laboratory test [facility] D Dimer 363 ng/mL High Less Than 1 finding 9 101 [facility] Quantitative [address] [place] [address] [phone] Inr/Protime [facility] Inr 0.88 N 0.77-1.02 9 [place] [address] [phone] CBC Auto Diff [facility] White Blood Count 7.8 10^3/ uL N 3.5-10.8 9 [place] [address] [phone] Red Blood Count 4.40 10^6/uL N 4.00-5.40 Hemoglobin 11.6 g/dL Low 12.0-16.0 Hematocrit 36 % N 35-47 Mean Corpuscular Volume 81 fL N 80-97 Mean Corpuscular Hemoglobin 26 pg Low 27-31 Mean Corpuscular HGB Conc 33 g/dL N 31-36 Red Cell Distribution Width 16 % High 10.5-15 Platelet Count 306 10^3/uL N 150-450 Mean Platelet Volume 7.9 fL N 7.4-10.4 Abs Neutrophils 5.5 10^3/uL N 1.5-7.7 Abs Lymphocytes 1.3 10^3/uL N 1.0-4.8 Abs Monocytes 0.8 10^3/uL N 0-0.8 Abs Eosinophils 0.1 10^3/uL N 0-0.6 Abs Basophils 0 10^3/uL N 0-0.2 Abs Nucleated RBC 0 10^3/uL Granulocyte % 71.3 % Lymphocyte % 16.4 % Monocyte % 10.4 % Eosinophil % 1.5 % Basophil % 0.4 % Nucleated Red Blood Cells % 0.1 Laboratory test 11/25/2018 [facility] B-Type 8 pg/mL <=[address] [address] Peptide BNP [phone] Laboratory test 11/25/2018 [facility] Magnesium 2.0 mg/dL N 1.9-2.[address] [place] [address] [phone] Troponin-I (TnI) 0.00 ng/mL <0.04 2 TSH (Thyroid Stim Horm) 0.59 mcIU/mL N 0.34-5.60 Comp Metabolic Panel 11/25/2018 [facility] Sodium 137 mmol/L N 135-[address] [place] [address] [phone] Potassium 3.7 mmol/L N 3.5-5.0 Chloride 102 mmol/L N 101-111 Co2 Carbon Dioxide 24 mmol/L N 22-32 Anion Gap 11 mmol/L N 2-11 Glucose 121 mg/dL High 70-100 Blood Urea Nitrogen 17 mg/dL N 6-24 Creatinine 0.88 mg/dL N 0.51-0.95 BUN/Creatinine Ratio 19.3 N 8-20 Calcium 9.8 mg/dL N 8.6-10.3 Total Protein 7.2 g/dL N 6.4-8.9 Albumin 4.2 g/dL N 3.2-5.2 Globulin 3.0 g/dL N 2-4 Albumin/Globulin Ratio 1.4 N 1-3 Total Bilirubin 0.30 mg/dL N 0.2-1.0 Alkaline Phosphatase 73 U/L N 34-104 Alt 19 U/L N 7-52 Ast 21 U/L N 13-39 Egfr Non- 64.5 >60 Egfr 78.0 >60 3 CBC Auto Diff 02/01/2018 [facility] White Blood 6.2 10^3/uL N 3.5-10.[address] [place] [address] [phone] Red Blood Count 4.34 10^6/uL N 4.0-5.4 [...] Red Blood Cells % 0 Protein 02/01/2018 [facility] Total 7.3 g/dL 6.3 - Electrophoresis [address] Protein(Pep) 7.9 [place] [address] [phone] Albumin 3.9 g/dL 3.4-4.7 Alpha-1 Globulin 0.2 g/dL 0.1-0.3 Alpha-2 Globulin 1.1 g/dL Abnormal 0.6-1.0 Beta Globulin 1.2 g/dL 0.7-1.2 Gamma Globulin 1.0 g/dL 0.6-1.6 Albumin/Globulin Ratio 1.14 Impression See Comment 4 [place]/Lambda Free 02/01/2018 [facility] [place] Free 1.08 mg/dL 5 Light Chains Ser [address] [place] [address] [phone] Lambda Free Light Chain 1.27 mg/dL 6 [place]/Lambda Free Light Chain 0.8504 7 Laboratory test 10/20/2017 [facility] Myeloperoxidase AB <0.2 U [address] [place] [address] [phone] Proteinase 3 0.2 U 9 Urinalysis Profile 10/20/2017 [facility] Urine Color Yellow [address] [place] [address] [phone] Urine Appearance Clear Urine Specific [place] 1.006 Low 1.010-1.030 Urine pH 7.0 N 5-9 Urine Urobilinogen Negative Negative Urine Ketones Negative Negative Urine Protein Negative Negative Urine Leukocytes Trace Abnormal Negative Urine Blood Negative Negative Urine Nitrite Negative Negative Urine Bilirubin Negative Negative Urine Glucose Negative Negative Urine White Blood Cell Trace(0-5/hpf) Absent Urine Red Blood Cell Trace(0-2/hpf) Absent Urine Bacteria Absent Absent CBC Auto Diff 10/20/2017 [facility] White Blood 4.9 10^3/uL N 3.5-10.[address] [place] [address] [phone] Red Blood Count 4.54 10^6/uL N 4.0-5.4 [...] Cells % 0 Comp Metabolic Panel 10/20/2017 [facility] Sodium 138 mmol/L N 133-[address] [place] [address] [phone] Potassium 4.3 mmol/L N 3.5-5.0 Chloride 104 [...] Egfr Non- 57.1 >60 Egfr 73.5 >60 10 Urine Culture And 10/20/2017 [facility] Urine Culture SEE RESULT [address] [place] [address] [phone] Laboratory test 10/13/2017 [facility] C Reactive 3.13 mg/L N < [address] Protein 5.00 [place] [address] [phone] Erythrocyte Sed Rate 35 mm/Hr High 0-30 Anca AB Ser If 10/13/2017 [facility] C-Anca Negative Negative [address] [place] [address] [phone] P-Anca Positive Negative 13 Laboratory test 07/08/2017 [facility] Erythrocyte 41 mm/Hr High 0-[address] [place] [address] [phone] Laboratory test 07/08/2017 [facility] C Reactive 11.27 mg/L High < 5.00 [address] [place] [address] [phone] Cryoglobulin & 07/05/2017 [facility] Cryoglobulin Negative N Negative [address] %[place] [address] [phone] Cryofibrinogen Negative N Negative 16 Laboratory test 07/05/2017 [facility] Beta 2 2.16 g/mL N [address] [place] [address] [phone] M[place]/Lambda 07/05/2017 [facility] [place] Free Light 1.26 mg/dL N 18 Free Light [address] [place] [address] [phone] Lambda Free Light Chain 1.52 mg/dL N 19 [place]/Lambda Free Light Chain 0.8289 N 20 Protein 07/05/2017 [facility] Total 7.1 g/dL N 6.3 - Electrophoresis [address] Protein(Pep) 7.9 [place] [address] [phone] Albumin 3.7 g/dL N 3.4-4.7 Alpha-1 Globulin 0.3 g/dL N 0.1-0.3 Alpha-2 Globulin 1.1 g/dL Abnormal 0.6-1.0 Beta Globulin 1.1 g/dL N 0.7-1.2 Gamma Globulin 1.1 g/dL N 0.6-1.6 Albumin/Globulin Ratio 1.06 N Impression See Comment N 21 Laboratory test 07/05/2017 [facility] Serum 1.1 cpoise N <= 1.5 [address] [place] [address] [phone] Comp Metabolic 07/05/2017 [facility] Sodium 140 mmol/L N 133- [address] [place] [address] [phone] Potassium 3.7 mmol/L N 3.5-5.0 Chloride 104 [...] 55.8 N >60 Egfr 71.8 N >60 23 CBC Auto Diff 07/05/2017 [facility] White Blood 4.2 10^3/uL N 3.5-10.[address] [place] [address] [phone] Red Blood Count 4.10 10^6/uL N 4.0-5.4 [...] Cells % 0 N Laboratory test 06/22/2017 [facility] Immunoglobulin E 5.0 N < =214 [address] (Ige) kU/[place] [address] [phone] Immunoglobulins 06/22/2017 [facility] Immunoglobulin G 923 N 767 - 25 Serum Quant [address] mg/dL 1590 [place] [address] [phone] Immunoglobulin M 118 mg/dL N 37 - 286 Immunoglobulin A 130 mg/dL N 61 - 356 Anca AB Ser If 06/22/2017 [facility] C-Anca Negative N Negative [address] [place] [address] [phone] P-Anca Negative N Negative 26 Laboratory test 06/22/2017 [facility] C Reactive 12.98 mg/L High < 5.00 [address] [place] [address] [phone] Creatine Kinase(CK) 29 U/L N 10-223 Cryoglobulin & 06/22/2017 [facility] Cryoglobulin See Comment N Negative [address] %[place] [address] [phone] Cryofibrinogen Negative N Negative 29 Immunofixation Cryoglobulin See Comment N 30 Laboratory test 06/22/2017 [facility] Anti Nuclear 0.4 U N [address] [place] [address] [phone] Anti Double Stranded Dna AB <12.3 IU/mL N 32 1 Please note: The following may produce a false positive D Dimer test: - Rheumatoid factor greater than 60 IU/ml - Plasma hemoglobin greater than 0.05 gm/dl - Bilirubin greater than 50 mg/dl - Lipids greater than 1000 mg/dl - FDP greater than 20 ug/ml 2 Troponin-I testing on Plasma Separator Tubes (PST) has a known false positive rate of 0.20-0.40%. All positive troponins reflex immediate secondary confirmatory testing. 3 Because ethnic data is not always readily [...] 15-29 5 Kidney failure <15 (or dialysis) 4 RESULT: No apparent monoclonal protein on serum electrophoresis. Test Performed by: [facility] - [address] [address] 5 REFERENCE VALUE 0.3300-1.94 6 REFERENCE VALUE 0.5700-2.63 7 REFERENCE VALUE 0.2600-1.65 Test Performed by: [facility] - [address] [address] 8 REFERENCE VALUE <0.4 (Negative) Test Performed by: [address] [address] 9 REFERENCE VALUE <0.4 (Negative) Test Performed by: [address] [address] 10 Because ethnic data is not always readily [...] 15-29 5 Kidney failure <15 (or dialysis) 11 SEE RESULT BELOW Name: HAMIDA TRENT : [address]: Franky Valiente MD Acct: [id number] Unit: [id number] AGE: 62 Location: LAB Re10/20/17 SEX: F Status: REG REF SPEC: [id number] FABRICIO: 10/20/17-14[address] [facility] [address]: Franky Valiente MD REQ: [id number] RECD: 10/20/17314 STATUS: COMP NARA DR: PAUL BENJAMIN MD, MD _ SOURCE: URINE SPDESC: ORDERED: Urine Culture Procedure Result Reported Site Urine Culture Final 10/22/17- 0855 ML No growth of clinically significant organisms * ML - MAIN LAB ([facility]) . END OF REPORT * ML=Testing performed at Main Lab DEPARTMENT OF PATHOLOGY, [address] [place] [address] Golden Paul M.D. Director [facility] # [id number] 12 Acute inflammation: >10.00 13 Positive for pANCA pattern by immunofluorescence. Suggest further testing for anti-myeloperoxidase (anti-MPO) antibodies, if clinically indicated. ADDITIONAL INFORMATION This test was developed and its performance characteristics determined by [facility] in a manner consistent with CLIA requirements. This test has not been cleared or approved by the U.S. Food and Drug Administration. Test Performed by: [address] [address] 14 Acute inflammation: >10.00 15 This test is negative at 24 hours. All samples are held and reviewed again at 7 days. If delayed precipitation occurs after 7 days, Immunofixation will be performed and an additional report will follow. REVISED REPORT --- Revised on 07/07/17 1105 --- Cryoglobulin previously reported as: Test not performed Cancelled due to duplicate test on this order Test Performed by: [address] [address] 16 Test Performed by: [address] [address] 17 REFERENCE VALUE 1.21 - 2.70 Test Performed by: [facility] - [address] [address] 18 REFERENCE VALUE 0.3300-1.94 19 REFERENCE VALUE 0.5700-2.63 20 REFERENCE VALUE 0.2600-1.65 Test Performed by: [address] [address] 21 RESULT: No apparent monoclonal protein on serum electrophoresis. Test Performed by: [address] [address] 22 ADDITIONAL INFORMATION This test was developed and its performance characteristics determined by [facility] in a manner consistent with CLIA requirements. This test has not been cleared or approved by the U.S. Food and Drug Administration. Test Performed by: [address] [address] 23 Because ethnic data is not always readily [...] 15-29 5 Kidney failure <15 (or dialysis) 24 Test Performed by: [facility] [place] [address] 25 Test Performed by: [facility] [place] [address] 26 Negative for cANCA and pANCA patterns by immunofluorescence. ADDITIONAL INFORMATION This test was developed and its performance characteristics determined by [facility] in a manner consistent with CLIA requirements. This test has not been cleared or approved by the U.S. Food and Drug Administration. Test Performed by: [place] [address] 27 Acute inflammation: >10.00 28 REVISED RESULTS The 7-day test has a [...] performed and an additional report will follow. 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 ADDITIONAL INFORMATION This test was developed and its performance characteristics determined by [facility] in a manner consistent with CLIA requirements. This test has not been cleared or approved by the U.S. Food and Drug Administration. Test Performed by: [facility] - [address] [address] 31 REFERENCE VALUE <=1.0 (Negative) Test Performed by: [facility] - [address] [address] 32 REFERENCE VALUE <30.0 (Negative) Test Performed by: [address] [address] Procedures Date Code Description Status 11/21/2018 72280 Excision Tumor Soft Tissue Upper Arm/Elbow Subcutaneous < Completed 3 CM 11/21/2018 19733 Excision Tumor Soft Tissue Upper Arm/Elbow Subcutaneous < Completed 3 CM 01/29/2018 30863 Sleep Study Unattended,HRT Rate,Oxygen Sat,Resp Completed Effort/Airflow Encounters Type Date Location Provider Dx Diagnosis Office Visit 10/18/2018 Orthopedic Services Pedrito Cason, D17.22 Benign lipomatous 8:00a Of [facility] N[facility]T neoplasm of skin, subcu of left arm Office Visit 05/31/2018 Pulmonology And Brionna Horvath, G47.33 Obstructive sleep 9:30a [facility], RN, KEY ACCOUNT DIRECTOR-BC apnea (adult) Director Of Rehabilitative Services (pediatric) Z68.28 Body mass index (BMI) 28.0-28.9, adult Office Visit 05/04/2018 Pulmonology And Brionna G47.33 Obstructive sleep 2:30p [facility] Horvath RN, apnea (adult) [place] [facility] (pediatric) Z68.28 Body mass index (BMI) 28.0-28.9, adult Office Visit 03/22/2018 1:00p Rheumatology Analy Cage5.8 Other vasculitis Services Of [place] limited to the skin J32.8 Other chronic sinusitis R79.82 Elevated C-reactive protein (CRP) R70.0 Elevated erythrocyte sedimentation rate 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 Office Visit 02/10/2018 Pulmonology And Brionna G47.33 Obstructive sleep 2:15p [facility]ath RN, [facility] G47.63 Sleep related bruxism G47.00 Insomnia, unspecified Office Visit 01/26/2018 11:00a Pulmonology And Sleep Sandra Amrao, R06.83 Snoring Services [facility] [place] NESBITT R40.0 Somnolence G47.63 Sleep related bruxism Office Visit 10/20/2017 1:20p Rheumatology Alysha Cage.8 Other vasculitis Services Of [place] limited to the skin R79.82 Elevated C-reactive protein (CRP) R70.0 Elevated erythrocyte sedimentation rate 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, unspecified hand F32.9 Major depressive disorder, single episode, unspecified Office Visit 07/20/2017 2:00p Rheumatology Alysha Cage.8 Other vasculitis Services Of [place] limited to the skin R79.82 Elevated C-reactive protein (CRP) R70.0 Elevated erythrocyte sedimentation rate 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 R76.0 Raised antibody titer K21.9 Gastro-esophageal reflux disease without esophagitis Office Visit 06/21/2017 10:20a Rheumatology Alysha Cage.8 Other vasculitis Services Of [place] limited to the skin R79.82 Elevated C-reactive protein (CRP) M79.1 Myalgia R76.0 Raised antibody titer E88.2 Lipomatosis, not elsewhere classified Office Visit 06/16/2017 [facility] R76.8 Other specified 3:13p Asskevin ward M.D. abnormal Hospitalists immunological findings in serum D69.2 Other nonthrombocytopenic purpura F32.9 Major depressive disorder, single episode, unspecified F41.9 Anxiety disorder, unspecified Office 06/15/2017 [facility] Charlene D69.2 Other Visit 3:12p Asskevin ward M.D. nonthrombocytopenic Hospitalists purpura R76.8 Other specified abnormal immunological findings in serum F32.9 Major depressive disorder, single episode, unspecified F41.9 Anxiety disorder, unspecified Office Visit 06/15/2017 8:22a Rheumatology Franky Valiente, R2Be Rash and other Services Of [facility] Dutch nonspecific skin eruption R76.0 Raised antibody titer R79.82 Elevated C-reactive protein (CRP) M79.1 Myalgia Office Visit 06/14/2017 [facility] Vishal F41.9 Anxiety disorder, 3:11p Assockevin, N.PAyana unspecified Hospitalists F32.9 Major depressive disorder, single episode, unspecified R21 Rash and other nonspecific skin eruption Plan of Treatment Future Appointment(s):02/07/2019 1:30 pm - Pedrito Cason MD at [facility]05/31/2019 9:30 am - Brionna Horvath DNP, RN, KEY ACCOUNT DIRECTOR-BC at [facility]ology [facility]
--- OUTSIDE RECORDS SUMMARY | 2018-12-27 04:03 | XMS REPORT | Continuity of Care Document ---
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 Jerson Tyson MD Primary Care Physician Unavailable Payers Date Identification Numbers Payment Provider Subscriber Policy Number: [id number] [place] Hamida Trent PayID: [id number] [address] [place] [address] Policy Number: [id number] [facility] Hamida Trent PayID: [id number] [address] [place] [address] Advance Directives Description No Information Available Problems Date Description Provider Status Onset: 02/04/2018 Allergic rhinitis due to pollen Ochoa Yeung MD Active Onset: 02/04/2018 Allergic rhinitis Ochoa Yeung MD Active Onset: 02/04/2018 Uncomplicated moderate persistent Ochoa Yeung MD Active asthma Family History Date Family Member(s) Observation Comments [...] Form Strength Qnty SIG Indications Ordering Provider Restasis Active Emulsion 0.05% Instill 1 Unknown /0000 Drop Into Both Eyes Two Times Daily Ibuprofen Active Tablets 800mg Take 1 Unknown /0000 Tablet By Mouth Every 8 Hours as Needed For Pain Clonazepam Active Tablets 0.5mg Take 1 Unknown /0000 Tablet By Mouth Every 4 Hours as Needed For Anxiety -- Maximum Aspir-[address] 81mg i tab Unknown /0000 everyday Calcium + D3 Active Tablets 600-200 1 by Unknown /0000 mouth every day Multivitamin Active Tablets Unknown Adult /0000 Flaxseed Oil Active Capsules 1000mg Unknown /0000 Pamelor Active Capsules 10mg Unknown /0000 Ranitidine HCL Active Capsules 300mg 1 capsule Unknown /0000 (300 mg) by oral route once a day as directed Esomeprazole Active Capsules 40mg Unknown Magnesium /0000 DR Magnesium Active Tablets 250mg Unknown /0000 Refresh Active Solution 1.4-0.6% Unknown /0000 Xopenex HFA 03/16 Hx Aerosol 45mcg/Act 15gm 2 puffs J30.1 Christopher /2017 every 4-6 Pillo Yeung MD - hrs as 09/09 needed Flonase 03/16 Hx Suspension 27.5mcg/S 18.20 one spray J30.1 Christopher Sensimist /2017 pray 0ml in each Pillo Yeung MD - nostril 09/09 Nasacort Allergy 04/27 Hx Aerosol 55mcg/Act 1unit 2 sprays J30.1 Christopher 24HR s in each Pillo Yeung MD - nostril 09/09 once a day Xyzal Allergy 02/04 Hx Tablets 5mg 30tab take 1 J30.1 Christopher 24H s tablet (5 Pillo Yeung MD - mg) by 09/09 route once daily as needed Breo Ellipta 02/04 Hx Aerosol 200-25mcg 1unit inhale J30.1 Christopher /2017 /Inh s one puff Pillo Yeung MD - once a Proair HFA 02/04 Hx Aerosol 108(90Bas 8.500 2 puffs J30.1 e) gm every 4 Pillo Yeung MD - mcg/Act as needed 09/09 Azithromycin Hx Tablets 500mg Take 1 Unknown /0000 Tablet By - Mouth 12/16 Potassium Hx Tablets ER 10Meq Take 1 Unknown Chloride Adore ER /0000 Tablet By - Mouth 12/16 Every /2018 Hydroxychloroqui Hx Tablets 200mg Take 1 Unknown ne Sulfate /0000 Tablet By - Mouth Two 09/09 Times Daily Benzonatate Hx Capsules 100mg Take 1 Unknown /0000 Capsule - By Mouth 12/16 Times Daily as Needed For Cough Mupirocin Hx Ointment 2% applyto Unknown /0000 affected - area 12/16 twice day for 5 days5 Tumeric Hx Capsules 1 cap PO Unknown /0000 daily - 12/16 Tylenol Extra Hx Tablets 500mg 2 tabs by Unknown Strength /0000 mouth - three 12/16 times day as directed. max daily dose of tylenol from all sources to not exceed 4000mg Immunizations Description No Information Available Vital Signs Date Vital Result Comment 12/16/2018 3:20pm BP Systolic 140 mmHg BP Diastolic 90 mmHg Height 67 inches 5'7" Weight 187.00 lb BMI (Body Mass Index) 29.3 kg/m2 Heart Rate 96 /min Respiratory Rate 18 /min Body Temperature 97.3 F O2 % BldC Oximetry 95 % 09/09/2018 1:46pm BP Systolic 138 mmHg BP [...] Available Procedures Date Code Description Status 09/09/2018 04533 Nitric Oxide Gas Determination Completed 09/09/2018 21676 Nitric Oxide Gas Determination Completed 09/09/2018 42786 Bronchodilation Responsiveness Spirometry Pre/Post Completed Bronchodil Adm 09/09/2018 63575 Bronchodilation Responsiveness Spirometry Pre/Post Completed Bronchodil Adm 02/25/2018 73746 Allergy Tests Percutaneous W/ Allergenic Extracts Completed 02/25/2018 57183 Allergy Tests Percutaneous W/ Allergenic Extracts Completed 02/25/2018 38090 Allergy Tests Percutaneous W/ Allergenic Extracts Completed 02/04/2018 47643 Nitric Oxide Gas Determination Completed 02/04/2018 35368 Bronchodilation Responsiveness Spirometry Pre/Post Completed Bronchodil Adm [...] due to pollen Office Visit 02/04/2018 3:00p [place] Ochoa Yeung, J30.1 Allergic rhinitis MD due to pollen J30.89 Other allergic rhinitis J45.40 Moderate persistent asthma, uncomplicated Plan of Treatment Future Appointment(s):03/13/2019 1:30 pm - GAY Marroquin at [place]
--- OUTSIDE RECORDS SUMMARY | 2018-12-27 04:04 | XMS REPORT | Continuity of Care Document ---
:1955 External Reference #:[id number] Author Name Jaleesa Smalls Care Team Providers Name Role Phone Jerson Tyson MD Primary Care Physician Unavailable Payers Date Identification Numbers Payment Provider Subscriber Policy Number: [id number] Medicare Hamida Trent PayID: [id number] [address] [place] [address] Policy Number: [id number] [employer] Hamida Trent PayID: [id number] [address] [place] [address] Expires: 2018 Policy Number: [id number] [employer] Hamida Trent PayID: [id number] [address] [place] [address] Advance Directives Description No Information Available Problems Date Description Provider Status Onset: 02/10/2018 Obstructive sleep apnea Brionna Horvath DNP, RN, Active syndrome [employer] MACHINE-BC Onset: 02/10/2018 Insomnia Brionna Horvath DNP, RN, Active [employer] Onset: 02/10/2018 Sleep related bruxism Brionna Horvath DNP, RN, Active [employer] Onset: 10/18/2018 Lipoma of skin Pedrito Cason MD Active Family History Date Family Member(s) Observation Comments General Arthritis Social History Type Date Description Comments Sex Unknown Marital Status Lives With Lives With Children Grown, come and go Lives With 2 cats Occupation Currently Working 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, 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 Tobacco Use Start: Unknown Never Smoked Cigarettes Smoking Status Reviewed: 12/06/18 Never Smoked Cigarettes ETOH Use Denies alcohol [...] Pamelor Active Capsules 10mg Unknown /0000 Refresh 00 Active Solution 1.4-0.6% use daily Unknown /0000 [...] Available Vital Signs Date Vital Result Comment 12/06/2018 2:39pm Height 67.25 inches 5'7.25" Weight [...] Result H/L Range Note CBC Auto Diff 11/25/2018 [facility] White Blood 7.8 10^3/uL N 3.5-10.[address] [place] [address] [phone] Red Blood Count 4.40 10^6/uL N 4.00-5.40 [...] Blood Cells % 0.1 Laboratory test 11/25/2018 [facility] B-Type 8 pg/mL <=[address] [place] [address] Peptide BNP [phone] Comp Metabolic 11/25/2018 [facility] Sodium 137 mmol/L N 135- [address] [place] [address] [phone] Potassium 3.7 mmol/L N 3.5-5.0 Chloride 102 [...] Egfr Non- 64.5 >60 Egfr 78.0 >60 1 Laboratory test 11/25/2018 [facility] Magnesium 2.0 mg/dL N 1.9-2.[address] [place] [address] [phone] Troponin-I (TnI) 0.00 ng/mL <0.04 2 TSH (Thyroid Stim Horm) 0.59 mcIU/mL N 0.34-5.60 Inr/Protime 11/25/2018 [facility] Inr 0.88 N 0.77-1.[address] [place] [address] [phone] Laboratory test 11/25/2018 [facility] D Dimer 363 High Less Than 3 finding Quantitative ng/mL [address] [place] [address] [phone] CBC Auto Diff 02/01/2018 [facility] White Blood 6.2 N 3.5- 10.8 Count 10^3/[place] [address] [phone] Red Blood Count 4.34 10^6/uL N 4.0-5.4 [...] Red Blood Cells % 0 Protein 02/01/2018 [facility] Total 7.3 g/dL 6.3 - Electrophoresis [address] Protein(Pep) 7.9 [place] [address] [phone] Albumin 3.9 g/dL 3.4-4.7 Alpha-1 Globulin 0.2 g/dL 0.1-0.3 Alpha-2 Globulin 1.1 g/dL Abnormal 0.6-1.0 Beta Globulin 1.2 g/dL 0.7-1.2 Gamma Globulin 1.0 g/dL 0.6-1.6 Albumin/Globulin Ratio 1.14 Impression See Comment 4 [place]/Lambda Free 02/01/2018 [facility] [place] Free 1.08 mg/dL 5 Light Chains Ser [address] [place] [address] [phone] Lambda Free Light Chain 1.27 mg/dL 6 [place]/Lambda Free Light Chain 0.8504 7 Urine Culture And 10/20/2017 [facility] Urine Culture SEE RESULT [address] [place] [address] [phone] Laboratory test 10/20/2017 [facility] Myeloperoxidase AB <0.2 U [address] [place] [address] [phone] Proteinase 3 0.2 U 10 Urinalysis Profile 10/20/2017 [facility] Urine Color Yellow [address] [place] [address] [phone] Urine Appearance Clear Urine Specific [place] 1.006 Low 1.010-1.030 Urine pH 7.0 N 5-9 Urine Urobilinogen Negative Negative Urine Ketones Negative Negative Urine Protein Negative Negative Urine Leukocytes Trace Abnormal Negative Urine Blood Negative Negative Urine Nitrite Negative Negative Urine Bilirubin Negative Negative Urine Glucose Negative Negative Urine White Blood Cell Trace(0-5/hpf) Absent Urine Red Blood Cell Trace(0-2/hpf) Absent Urine Bacteria Absent Absent CBC Auto Diff 10/20/2017 [facility] White Blood 4.9 10^3/uL N 3.5-10.[address] [place] [address] [phone] Red Blood Count 4.54 10^6/uL N 4.0-5.4 [...] Cells % 0 Comp Metabolic Panel 10/20/2017 [facility] Sodium 138 mmol/L N 133-[address] [place] [address] [phone] Potassium 4.3 mmol/L N 3.5-5.0 Chloride 104 [...] Egfr Non- 57.1 >60 Egfr 73.5 >60 11 Laboratory test 10/13/2017 [facility] C Reactive 3.13 mg/L N < 5.00 [address] [place] [address] [phone] Erythrocyte Sed Rate 35 mm/Hr High 0-30 Anca AB Ser If 10/13/2017 [facility] C-Anca Negative Negative [address] [place] [address] [phone] P-Anca Positive Negative 13 Laboratory test 07/08/2017 [facility] Erythrocyte Sed 41 mm/Hr High 0-[address] [place] [address] [phone] Laboratory test 07/08/2017 [facility] C Reactive 11.27 High < 5.00 [address] Protein mg/[place] [address] [phone] Comp Metabolic 07/05/2017 [facility] Sodium 140 N 133-[address] mmol/[place] [address] [phone] Potassium 3.7 mmol/L N 3.5-5.0 Chloride 104 [...] 55.8 N >60 Egfr 71.8 N >60 15 Cryoglobulin & 07/05/2017 [facility] Cryoglobulin Negative N Negative [address] %[place] [address] [phone] Cryofibrinogen Negative N Negative 17 Laboratory test 07/05/2017 [facility] Beta 2 2.16 g/mL N [address] [place] [address] [phone] [place]/Lambda 07/05/2017 [facility] [place] Free Light 1.26 mg/dL N 19 Free Light [address] [place] [address] [phone] Lambda Free Light Chain 1.52 mg/dL N 20 [place]/Lambda Free Light Chain 0.8289 N 21 Protein 07/05/2017 [facility] Total 7.1 g/dL N 6.3 - Electrophoresis [address] Protein(Pep) 7.9 [place] [address] [phone] Albumin 3.7 g/dL N 3.4-4.7 Alpha-1 Globulin 0.3 g/dL N 0.1-0.3 Alpha-2 Globulin 1.1 g/dL Abnormal 0.6-1.0 Beta Globulin 1.1 g/dL N 0.7-1.2 Gamma Globulin 1.1 g/dL N 0.6-1.6 Albumin/Globulin Ratio 1.06 N Impression See Comment N 22 Laboratory test 07/05/2017 [facility] Serum 1.1 cpoise N <= 1.[address] [place] [address] [phone] CBC Auto Diff 07/05/2017 [facility] White Blood 4.2 10^3/uL N 3.5-10.[address] [place] [address] [phone] Red Blood Count 4.10 10^6/uL N 4.0-5.4 [...] Cells % 0 N Laboratory test 06/22/2017 [facility] Immunoglobulin E 5.0 N < =[address] (Ige) kU/[place] [address] [phone] Immunoglobulins 06/22/2017 [facility] Immunoglobulin G 923 N 767 - 25 Serum Quant 101 mg/dL 1590 [place] [address] [phone] Immunoglobulin M 118 mg/dL N 37 - 286 Immunoglobulin A 130 mg/dL N 61 - 356 Anca AB Ser If 06/22/2017 [facility] C-Anca Negative N Negative [address] [place] [address] [phone] P-Anca Negative N Negative 26 Laboratory test 06/22/2017 [facility] C Reactive 12.98 mg/L High < 5.[address] [place] [address] [phone] Creatine Kinase(CK) 29 U/L N 10-223 Cryoglobulin & 06/22/2017 [facility] Cryoglobulin See Comment N Negative [address] %[place] [address] [phone] Cryofibrinogen Negative N Negative 29 Immunofixation Cryoglobulin See Comment N 30 Laboratory test 06/22/2017 [facility] Anti Nuclear 0.4 U N [address] [place] [address] [phone] Anti Double Stranded Dna AB <12.3 IU/mL N 32 1 Because ethnic data is not always readily [...] 15-29 5 Kidney failure <15 (or dialysis) 2 Troponin-I testing on Plasma Separator Tubes (PST) has a known false positive rate of 0.20-0.40%. All positive troponins reflex immediate secondary confirmatory testing. 3 Please note: The following may produce a false positive D Dimer test: - Rheumatoid factor greater than 60 IU/ml - Plasma hemoglobin greater than 0.05 gm/dl - Bilirubin greater than 50 mg/dl - Lipids greater than 1000 mg/dl - FDP greater than 20 ug/ml 4 RESULT: No apparent monoclonal protein on serum electrophoresis. Test Performed by: [facility] [address] [place] [address] 5 REFERENCE VALUE 0.3300-1.94 6 REFERENCE VALUE 0.5700-2.63 7 REFERENCE VALUE 0.2600-1.65 Test Performed by: [facility] [address] [place] [address] 8 SEE RESULT BELOW Name: BISITAMMYAmericaHAMIDA M : [address]: Franky Valiente MD Acct: [id number] Unit: [id number] AGE: 62 Location: LAB Re10/20/17 SEX: F Status: REG REF SPEC: [id number] FABRICIO: 10/20/170150 [facility] DR: Franky Valiente MD REQ: [id number] RECD: 10/20/17 STATUS: NAYA BAINS DR: PAUL BENJAMIN MD, MD _ SOURCE: URINE [facility]: ORDERED: Urine Culture Procedure Result Reported Site Urine Culture Final 10/22/17- 0855 ML No growth of clinically significant organisms * ML - MAIN LAB ([facility]) . END OF REPORT * ML=Testing performed at Main Lab DEPARTMENT OF PATHOLOGY, [address] [place] [address] Golden Paul M.D. Director BETTINA # [id number] REFERENCE VALUE <0.4 (Negative) Test Performed by: [address] [address] 10 REFERENCE VALUE <0.4 (Negative) Test Performed by: [address] [address] 11 Because ethnic data is not always readily [...] 15-29 5 Kidney failure <15 (or dialysis) 12 Acute inflammation: >10.00 13 Positive for pANCA pattern by immunofluorescence. Suggest further testing for anti-myeloperoxidase (anti-MPO) antibodies, if clinically indicated. ADDITIONAL INFORMATION This test was developed and its performance characteristics determined by [facility] in a manner consistent with CLIA requirements. This test has not been cleared or approved by the U.S. Food and Drug Administration. Test Performed by: [facility] - [address] [address] 14 Acute inflammation: >10.00 15 Because ethnic data is not always readily [...] 15-29 5 Kidney failure <15 (or dialysis) 16 This test is negative at 24 hours. All samples are held and reviewed again at 7 days. If delayed precipitation occurs after 7 days, Immunofixation will be performed and an additional report will follow. REVISED REPORT --- Revised on 07/07/17 1105 --- Cryoglobulin previously reported as: Test not performed Cancelled due to duplicate test on this order Test Performed by: [address] [address] 17 Test Performed by: [address] [address] 18 REFERENCE VALUE 1.21 - 2.70 Test Performed by: [address] [address] 19 REFERENCE VALUE 0.3300-1.94 20 REFERENCE VALUE 0.5700-2.63 21 REFERENCE VALUE 0.2600-1.65 Test Performed by: [address] [address] 22 RESULT: No apparent monoclonal protein on serum electrophoresis. Test Performed by: [address], [place] [address] 23 ADDITIONAL INFORMATION This test was developed and its performance characteristics determined by [facility] in a manner consistent with CLIA requirements. This test has not been cleared or approved by the U.S. Food and Drug Administration. Test Performed by: [address] [address] Test Performed by: [facility] - [address] [address] Test Performed by: [address] [address] 26 Negative for cANCA and pANCA patterns by immunofluorescence. ADDITIONAL INFORMATION This test was developed and its performance characteristics determined by [facility] in a manner consistent with CLIA requirements. This test has not been cleared or approved by the U.S. Food and Drug Administration. Test Performed by: [address] [address] 27 Acute inflammation: >10.00 28 REVISED RESULTS [...] report will follow. 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 ADDITIONAL INFORMATION This test was developed and its performance characteristics determined by [facility] in a manner consistent with CLIA requirements. This test has not been cleared or approved by the U.S. Food and Drug Administration. Test Performed by: [facility] - [address] [address] 31 REFERENCE VALUE <=1.0 (Negative) Test Performed by: 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 NESBITT neoplasm of skin, subcu of left arm Office Visit 05/31/2018 Pulmonology And Brionna Horvath, G47.33 Obstructive sleep 9:30a Sleep Services 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, 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) Z68.28 Body mass index (BMI) 28.0-28.9, adult Office Visit 05/04/2018 Pulmonology And Brionna G47.33 Obstructive sleep 2:30p Sleep Services Of AUGUSTUS Horvath RN, apnea (adult) [employer]ACH[employer]-BC (pediatric) Z68.28 Body mass index (BMI) 28.0-28.9, adult Office Visit 03/22/2018 1:00p Rheumatology Analy Cage5.8 Other vasculitis Services Of [place] limited to the skin J32.8 Other chronic sinusitis R79.82 Elevated C-reactive protein (CRP) R70.0 Elevated erythrocyte sedimentation rate 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 Office Visit 02/10/2018 Pulmonology And Brionna G47.33 Obstructive sleep 2:15p Sleep Services Of AUGUSTUS Horvath, RN, apnea (adult) [facility] (pediatric) G47.63 Sleep related bruxism G47.00 Insomnia, unspecified Office Visit 01/26/2018 11:00a Pulmonology And Sleep Sandra Amaro, R06.83 Snoring Services Of [facility] R40.0 Somnolence G47.63 Sleep related bruxism Office Visit 10/20/2017 1:20p Rheumatology Franky Valiente L95.8 Other vasculitis Services Of [place] limited to the skin R79.82 Elevated C-reactive protein (CRP) R70.0 Elevated erythrocyte sedimentation rate 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, unspecified hand F32.9 Major depressive disorder, single episode, unspecified Office Visit 07/20/2017 2:00p Rheumatology Franky Valiente L95.8 Other vasculitis Services Of [place] limited to the skin R79.82 Elevated C-reactive protein (CRP) R70.0 Elevated erythrocyte sedimentation rate 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 abnormal Hospitalists immunological findings in serum D69.2 Other nonthrombocytopenic purpura F32.9 Major depressive disorder, single episode, unspecified F41.9 Anxiety disorder, unspecified Office 06/15/2017 [facility] Charlene D69.2 Other Visit 3:12p Assoc,kevin Mart M.D. nonthrombocytopenic Hospitalists purpura R76.8 Other specified abnormal immunological findings in serum F32.9 Major depressive disorder, single episode, unspecified F41.9 Anxiety disorder, unspecified Office Visit 06/15/2017 8:22a Rheumatology Franky Valiente, R21 Rash and other Services Of [facility] Dutch nonspecific skin eruption R76.0 Raised antibody titer R79.82 Elevated C-reactive protein (CRP) M79.1 Myalgia Office Visit 06/14/2017 [facility] Vishal F41.9 Anxiety disorder, 3:11p Assoc,kevin Barber, N.P. unspecified Hospitalists F32.9 Major depressive disorder, single episode, unspecified R21 Rash and other nonspecific skin eruption Plan of Treatment Future Appointment(s):02/07/2019 1:30 pm - Pedrito Cason MD at [facility]05/31/2019 9:30 am - Brionna Horvath DNP, RN, CUTTER MACHINE-BC at Pulmonology And Sleep Services Of [facility]
[2018-12-27] MEDS ORDERED: Potassium Chlor TAB* 20 MEQ TAB.ER PO ONE (04:14)
[2018-12-27 04:46] VITALS: BP 136/81
== END 2018-12-27 04:45 | disposition home or self-care (01) ==
LOC: ED 03:04
DX: F41.9 Anxiety disorder, unspecified (principal); R00.2 Palpitations; J45.909 Unspecified asthma, uncomplicated; K21.9 Gastro-esophageal reflux disease without esophagitis; Z88.5 Allergy status to narcotic agent; Z88.0 Allergy status to penicillin; Z88.2 Allergy status to sulfonamides; Z88.8 Allergy status to other drugs, medicaments and biological substances; Z88.1 Allergy status to other antibiotic agents; Z91.041 Radiographic dye allergy status; Z82.49 Family history of ischemic heart disease and other diseases of the circulatory system; Z83.3 Family history of diabetes mellitus; Z80.0 Family history of malignant neoplasm of digestive organs
CPT/HCPCS: 36415; 80053; 83735; 84484; 85025; 85610; 85730; 93005; 96374; 99283; A9270-GY; J2060

== ENCOUNTER 2019-03-12 21:37 | Emergency (ER) | payer MEDICARE, OTHER ==
--- OUTSIDE RECORDS SUMMARY | 2019-03-12 21:50 | XMS REPORT | Continuity of Care Document ---
:1955 External Reference #:[id number] Author Name Jaleesa Smalls Care Team Providers Name Role Phone Jerson Tyson MD Primary Care Physician Unavailable Payers Date Identification Numbers Payment Provider Subscriber Policy Number: [id number] Medicare Hamida Trent PayID: [id number] [address] [place] [address] Policy Number: [id number] [employer] Hamida Trent PayID: [id number] [address] [place] [address] Expires: 2018 Policy Number: [id number] [employer] Hamida Trent PayID: [id number] [address] [place] [address] Advance Directives Description No Information Available Problems Active Problems Provider Date Obstructive sleep apnea syndrome Brionna Horvath DNP, RN, PHARMACY SERVICE ASSOCIATE- Onset: 12/2017 Insomnia Brionna Horvath DNP RN, PHARMACY SERVICE ASSOCIATE-BC Onset: 02/10/2018 Sleep related bruxism Brionna Horvath DNP, RN, PHARMACY SERVICE ASSOCIATE-BC Onset: 02/10/2018 Lipoma of skin Pedrito Cason MD Onset: 10/18/2018 Family History Date Family Member(s) Observation Comments General Arthritis Social History Type Date Description Comments Sex Unknown Marital Status Lives With Lives With Children Grown, come and go Lives With 2 cats Occupation Currently 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, 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 Tobacco Use Start: Unknown Never Smoked Cigarettes Smoking Status Reviewed: 02/21/19 Never Smoked Cigarettes ETOH Use Denies alcohol use Tobacco Use Start: Unknown Patient has never smoked Recreational Drug Use Denies Drug Use Exercise Type/Frequency Exercises regularly Exercise Type/Frequency Physical therapy 1x per week Exercise Type/Frequency Walks 2 times a week Allergies, Adverse Reactions, Alerts Active Allergies Reaction Severity Comments Date Alprazolam 06/21/2017 Atorvastatin 06/21/2017 Buspirone 06/21/2017 Cefaclor 06/21/[address] contrast 06/21/2017 Dexamethasone 06/21/2017 Dilaudid Cough 06/21/2017 Doxycycline Hyclate 06/21/2017 Erythromycin 06/21/2017 Flagyl IV 06/21/2017 Glycerin 06/21/2017 Levaquin 06/21/2017 Levothyroxine 06/21/2017 Metoprolol 06/21/2017 Paxil 06/21/2017 Penicillin 06/21/2017 Fluoxetine 06/21/2017 Sulfacetamide Sodium 06/21/2017 Sulfur Dioxide when she eats dried apricots she 06/21/2017 gets sneezing fits Prednisone Moderate 01/26/2018 Gabapentin 02/10/2018 Medications Active Medications SIG Qnty Indications Ordering Provider Date Magnesium 1 by mouth every Unknown 250mg Tablets day ( last taken 7-8 days ago week of 02/08/18) Multivitamin Adult 1 by mouth every Unknown day Tablets Benzonatate Take 1 Capsule By Unknown 100mg Mouth Three Times Capsules Daily as Needed For Cough Ativan 1 tab as needed Unknown 1mg Tablets Tylenol Extra Strength 2 by mouth as Unknown needed 500mg Tablets Restasis 1 drop to each Unknown 0.05% Emulsion eye 2 times per day Ranitidine HCL 1 by mouth every Unknown 300mg day Tablets Potassium Chloride 1 by mouth every Unknown Adore ER day as needed 10Meq Tablets ER Refresh use daily as Unknown 1.4-0.6% Solution needed for dry eyes Pamelor 1 capsule by Unknown 10mg Capsules mouth at bedtime Mupirocin As needed Unknown 2% Ointment Mucinex twice a day as Unknown 600mg Tablets ER needed 12HR Ibuprofen by mouth three Unknown 800mg Tablets times a day as needed Flaxseed Oil 1 by mouth twice Unknown 1000mg daily Capsules Esomeprazole Magnesium 1 by mouth every Unknown day 40mg Capsules DR Clonazepam 1 by mouth 3-4 Unknown 0.5mg Tablets times daily Calcium 600/Vitamin D3 1 by mouth once a Unknown day 095-837xf-Stmg Tablets Aspir-81 1 by mouth every Unknown 81mg Tablets DR day History Medications Tramadol HCL 1-2 tablets by 30tabs Pedrito 11/21/2018 - 50mg Tablets mouth every 6 MD Kamla 12/06/2018 hours as needed pain Colchicine take one tablet 30tabs L95.8 Franky Valiente, 07/20/2017 - 0.6mg Tablets by mouth twice a M.D. 11/15/2018 day as needed for flare of vasculitis (not started yet 02/10/18) Ketoconazole apply twice a Unknown - 2% Shampoo week for up to 8 07/20/2017 weeks atleast 3 days between each shampoo. Selenium Unknown - 100mcg Tablets 12/09/2017 Azithromycin Take 1 Tablet By Unknown - 500mg Tablets Mouth Every Day 02/09/2018 Hydroxychloroquine Take 1 Tablet By Unknown - Sulfate Mouth Two Times 05/03/2018 200mg Tablets Daily (not started yet 02/09/18) Immunizations Description No Information Available Vital Signs Date Vital Result Comment 02/21/2019 11:11am Height 67 inches 5'7" Weight 180.00 lb Heart Rate 80 /min BP Systolic 130 mmHg BP Diastolic 64 mmHg Respiratory Rate 16 /min Pain Level 1 BMI (Body Mass Index) 28.2 kg/m2 12/23/2018 2:01pm Heart Rate 87 /min BP [...] Test Result H/L Range Note Laboratory test [facility] D Dimer 363 ng/mL High Less Than 1 finding 9 101 [facility] Quantitative [address] [place] [address] [phone] Inr/Protime [facility] Inr 0.88 N 0.77-1.02 9 [place] [address] [phone] CBC Auto Diff [facility] White Blood Count 7.8 10^3/ uL N 3.5-10.8 9 [place] [address] [phone] Red Blood Count 4.40 10^6/uL N 4.00-5.40 [...] Blood Cells % 0.1 Laboratory test 11/25/2018 [facility] B-Type 8 pg/mL <=[address] [place] [address] Peptide BNP [phone] Laboratory test 11/25/2018 [facility] Magnesium 2.0 mg/dL N 1.9-2.[address] [place] [address] [phone] Troponin-I (TnI) 0.00 ng/mL <0.04 2 TSH (Thyroid Stim Horm) 0.59 mcIU/mL N 0.34-5.60 Comp Metabolic Panel 11/25/2018 [facility] Sodium 137 mmol/L N 135-[address] [place] [address] [phone] Potassium 3.7 mmol/L N 3.5-5.0 Chloride 102 [...] 78.0 >60 3 CBC Auto Diff 02/01/2018 [facility] White Blood 6.2 10^3/uL N 3.5-10.[address] [place] [address] [phone] Red Blood Count 4.34 10^6/uL N 4.0-5.4 [...] Red Blood Cells % 0 Protein 02/01/2018 [facility] Total 7.3 g/dL 6.3 - Electrophoresis [address] Protein(Pep) 7.9 [place] [address] [phone] Albumin 3.9 g/dL 3.4-4.7 Alpha-1 Globulin 0.2 g/dL 0.1-0.3 Alpha-2 Globulin 1.1 g/dL Abnormal 0.6-1.0 Beta Globulin 1.2 g/dL 0.7-1.2 Gamma Globulin 1.0 g/dL 0.6-1.6 Albumin/Globulin Ratio 1.14 Impression See Comment 4 [place]/Lambda Free 02/01/2018 [facility] [place] Free 1.08 mg/dL 5 Light Chains Ser [address] [place] [address] [phone] Lambda Free Light Chain 1.27 mg/dL 6 [place]/Lambda Free Light Chain 0.8504 7 Laboratory test 10/20/2017 [facility] Myeloperoxidase AB <0.2 U [address] [place] [address] [phone] Proteinase 3 0.2 U 9 Urinalysis Profile 10/20/2017 [facility] Urine Color Yellow [address] [place] [address] [phone] Urine Appearance Clear Urine Specific [place] 1.006 Low 1.010-1.030 Urine pH 7.0 N 5-9 Urine Urobilinogen Negative Negative Urine Ketones Negative Negative Urine Protein Negative Negative Urine Leukocytes Trace Abnormal Negative Urine Blood Negative Negative Urine Nitrite Negative Negative Urine Bilirubin Negative Negative Urine Glucose Negative Negative Urine White Blood Cell Trace(0-5/hpf) Absent Urine Red Blood Cell Trace(0-2/hpf) Absent Urine Bacteria Absent Absent CBC Auto Diff 10/20/2017 [facility] White Blood 4.9 10^3/uL N 3.5-10.[address] [place] [address] [phone] Red Blood Count 4.54 10^6/uL N 4.0-5.4 [...] Cells % 0 Comp Metabolic Panel 10/20/2017 [facility] Sodium 138 mmol/L N 133-[address] [place] [address] [phone] Potassium 4.3 mmol/L N 3.5-5.0 Chloride 104 [...] 73.5 >60 10 Urine Culture And 10/20/2017 [facility] Urine Culture SEE RESULT [address] [place] [address] [phone] Laboratory test 10/13/2017 [facility] C Reactive 3.13 mg/L N < [address] Protein 5.00 [place] [address] [phone] Erythrocyte Sed Rate 35 mm/Hr High 0-30 Anca AB Ser If 10/13/2017 [facility] C-Anca Negative Negative [address] [place] [address] [phone] P-Anca Positive Negative 13 Laboratory test 07/08/2017 [facility] Erythrocyte 41 mm/Hr High 0-[address] [place] [address] [phone] Laboratory test 07/08/2017 [facility] C Reactive 11.27 mg/L High < 5.00 [address] [place] [address] [phone] Cryoglobulin & 07/05/2017 [facility] Cryoglobulin Negative N Negative [address] %[place] [address] [phone] Cryofibrinogen Negative N Negative 16 Laboratory test 07/05/2017 [facility] Beta 2 2.16 g/mL N [address] [place] [address] [phone] [place]/Lambda 07/05/2017 [facility] [place] Free Light 1.26 mg/dL N 18 Free Light [address] [place] [address] [phone] Lambda Free Light Chain 1.52 mg/dL N 19 [place]/Lambda Free Light Chain 0.8289 N 20 Protein 07/05/2017 [facility] Total 7.1 g/dL N 6.3 - Electrophoresis [address] Protein(Pep) 7.9 [place] [address] [phone] Albumin 3.7 g/dL N 3.4-4.7 Alpha-1 Globulin 0.3 g/dL N 0.1-0.3 Alpha-2 Globulin 1.1 g/dL Abnormal 0.6-1.0 Beta Globulin 1.1 g/dL N 0.7-1.2 Gamma Globulin 1.1 g/dL N 0.6-1.6 Albumin/Globulin Ratio 1.06 N Impression See Comment N 21 Laboratory test 07/05/2017 [facility] Serum 1.1 cpoise N <= 1.5 [address] [place] [address] [phone] Comp Metabolic 07/05/2017 [facility] Sodium 140 mmol/L N 133- [address] [place] [address] [phone] Potassium 3.7 mmol/L N 3.5-5.0 Chloride 104 [...] N >60 23 CBC Auto Diff 07/05/2017 [facility] White Blood 4.2 10^3/uL N 3.5-10.[address] [place] [address] [phone] Red Blood Count 4.10 10^6/uL N 4.0-5.4 [...] Cells % 0 N Laboratory test 06/22/2017 [facility] Immunoglobulin E 5.0 N < =214 [address] (Ige) kU/[place] [address] [phone] Immunoglobulins 06/22/2017 [facility] Immunoglobulin G 923 N 767 - 25 Serum Quant [address] mg/dL [address] [place] [address] [phone] Immunoglobulin M 118 mg/dL N 37 - 286 Immunoglobulin A 130 mg/dL N 61 - 356 Anca AB Ser If 06/22/2017 [facility] C-Anca Negative N Negative [address] [place] [address] [phone] P-Anca Negative N Negative 26 Laboratory test 06/22/2017 [facility] C Reactive 12.98 mg/L High < 5.[address] [place] [address] [phone] Creatine Kinase(CK) 29 U/L N 10-223 Cryoglobulin & 06/22/2017 [facility] Cryoglobulin See Comment N Negative [address] %[place] [address] [phone] Cryofibrinogen Negative N Negative 29 Immunofixation Cryoglobulin See Comment N 30 Laboratory test 06/22/2017 [facility] Anti Nuclear 0.4 U N [address] [place] [address] [phone] Anti Double Stranded Dna AB <12.3 IU/mL [...] protein on serum electrophoresis. Test Performed by: [facility] - [facility] [address] [place] [address] 5 REFERENCE VALUE 0.3300-1.94 6 REFERENCE VALUE 0.5700-2.63 7 REFERENCE VALUE 0.2600-1.65 Test Performed by: [facility] - [address] [address] 8 REFERENCE VALUE <0.4 (Negative) Test Performed by: [address] [address] 9 REFERENCE VALUE <0.4 (Negative) Test Performed by: [address] [address] 10 Because ethnic data is not always [...] (or dialysis) 11 SEE RESULT BELOW Name: BISITAMMYAmericaHAMIDA M : [address]: Franky Valiente MD Acct: [id number] Unit: [id number] AGE: 62 Location: LAB Re10/20/17 SEX: F Status: REG REF SPEC: [id number] FABRICIO: 10/20/170 [facility] [address]: Franky Valiente MD REQ: [id number] RECD: 10/20/17 STATUS: NAYA BAINS DR: PAUL BENJAMIN MD, MD _ SOURCE: URINE SPDESC: ORDERED: Urine Culture Procedure Result Reported Site Urine Culture Final 10/22/17- 0855 ML No growth of clinically significant organisms * ML - MAIN LAB ([facility]) . END OF REPORT * ML=Testing performed at Main Lab DEPARTMENT OF PATHOLOGY, [address] [place] [address] Golden Paul M.D. Director [facility] # [id number] 12 Acute inflammation: >10.00 13 Positive for pANCA pattern by immunofluorescence. Suggest further testing for anti-myeloperoxidase (anti-MPO) antibodies, if clinically indicated. ADDITIONAL INFORMATION This test was developed and its performance characteristics determined by [facility] in a manner consistent with CLIA requirements. This test has not been cleared or approved by the U.S. Food and Drug Administration. Test Performed by: [address] [address] 14 Acute inflammation: >10.00 15 This test [...] test on this order Test Performed by: [address] [address] 16 Test Performed by: [address] [address] 17 REFERENCE VALUE 1.21 - 2.70 Test Performed by: [address] [address] 18 REFERENCE VALUE 0.3300-1.94 19 REFERENCE VALUE 0.5700-2.63 20 REFERENCE VALUE 0.2600-1.65 Test Performed by: [address] [address] 21 RESULT: No apparent monoclonal protein on serum electrophoresis. Test Performed by: [address] [address] 22 ADDITIONAL INFORMATION This test was developed and its performance characteristics determined by [facility] in a manner consistent with CLIA requirements. This test has not been cleared or approved by the U.S. Food and Drug Administration. Test Performed by: [address] [address] 23 Because ethnic data is not always [...] <15 (or dialysis) 24 Test Performed by: [facility] [place] [address] 25 Test Performed by: [place] [address] 26 Negative for cANCA and pANCA patterns by immunofluorescence. ADDITIONAL INFORMATION This test was developed and its performance characteristics determined by [facility] in a manner consistent with CLIA requirements. This test has not been cleared or approved by the U.S. Food and Drug Administration. Test Performed by: [place] [address] 27 Acute inflammation: >10.00 28 REVISED RESULTS [...] report will follow. 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 ADDITIONAL INFORMATION This test was developed and its performance characteristics determined by [facility] in a manner consistent with CLIA requirements. This test has not been cleared or approved by the U.S. Food and Drug Administration. Test Performed by: [facility] - [address] [address] 31 REFERENCE VALUE <=1.0 (Negative) Test Performed by: [facility] - [address] [address] 32 REFERENCE VALUE <30.0 (Negative) Test Performed by: [address] [address] Procedures Date Code Description Status 11/21/2018 76258 Excision Tumor Soft Tissue Upper Arm/Elbow Subcutaneous < Completed 3 CM 11/21/2018 32905 Excision Tumor Soft Tissue Upper Arm/Elbow Subcutaneous < Completed 3 CM 01/29/2018 26627 Sleep Study Unattended,HRT Rate,Oxygen Sat,Resp Completed Effort/Airflow Encounters Type Date Location Provider Dx Diagnosis Office Visit 10/18/2018 Orthopedic Services Pedrito Cason, D17.22 Benign lipomatous 8:00a Of [facility] neoplasm of skin, subcu of left arm Office Visit 05/31/2018 Pulmonology And Brionna Horvath, G47.33 Obstructive sleep 9:30a [facility] [place], RN, PHARMACY SERVICE ASSOCIATE-BC apnea (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) 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) Z68.28 Body mass index (BMI) 28.0-28.9, adult Office Visit 05/04/2018 Pulmonology And Brionna G47.33 Obstructive sleep 2:30p [facility] Horvath RN, apnea (adult) [place] RE[place] (pediatric) Z68.28 Body mass index (BMI) 28.0-28.9, adult Office Visit 03/22/2018 1:00p Rheumatology Alysha Cage.8 Other vasculitis Services Of [place] limited to the skin J32.8 Other chronic sinusitis R79.82 Elevated C-reactive protein (CRP) R70.0 Elevated erythrocyte sedimentation rate 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 Office Visit 02/10/2018 Pulmonology And Brionna G47.33 Obstructive sleep 2:15p [facility] Horvath RN, apnea (adult) [facility] DAMIR (pediatric) G47.63 Sleep related bruxism G47.00 Insomnia, unspecified Office Visit 01/26/2018 11:00a Pulmonology And Sleep Sandra Amaro, R06.83 Snoring Services Of [place] NESBITT R40.0 Somnolence G47.63 Sleep related bruxism Office Visit 10/20/2017 1:20p Rheumatology Analy Cage5.8 Other vasculitis Services Of [...] esophagitis Office Visit 06/21/2017 10:20a Rheumatology Alysha Cage.Aria Other vasculitis Services Of [place] Jud[place] limited to the skin R79.82 Elevated C-reactive protein (CRP) M79.1 Myalgia R76.0 Raised antibody titer E88.2 Lipomatosis, not elsewhere classified Office Visit 06/16/2017 [facility] Charlene R76.8 Other specified 3:13p kevin Han M.D. abnormal Hospitalists immunological findings in serum D69.2 Other nonthrombocytopenic purpura F32.9 Major depressive disorder, single episode, unspecified F41.9 Anxiety disorder, unspecified Office 06/15/2017 [facility] Charlene D69.2 Other Visit 3:12p kevin Han M.D. nonthrombocytopenic Hospitalists purpura R76.8 Other specified abnormal immunological findings in serum F32.9 Major depressive disorder, single episode, unspecified F41.9 Anxiety disorder, unspecified Office Visit 06/15/2017 8:22a Rheumatology Franky Valiente, R21 Rash and other Services Of [facility] Dutch nonspecific skin eruption R76.0 Raised antibody titer R79.82 Elevated C-reactive protein (CRP) M79.1 Myalgia Office Visit 06/14/2017 [facility] Vishal F41.9 Anxiety disorder, 3:11p Asskevin ward, N.PAyana unspecified Hospitalists F32.9 Major depressive disorder, single episode, unspecified R21 Rash and other nonspecific skin eruption Plan of Treatment Future Appointment(s):05/31/2019 9:30 am - Brionna Horvath DNP, RN, PHARMACY SERVICE ASSOCIATE-BC at Pul[facility]ology [facility]02/21/2019 - Pedrito Cason, MDD17.22 Benign lipomatous neoplasm of skin and subcutaneous tissue oFollow up:Follow up : As needed
[2019-03-12] MEDS ORDERED: NS 0.9% 1000 ML** 1,000 ML IV ONE (23:20)
[2019-03-12 23:39] LABS: ABS Basophils 0.1 10^3/ul (0-0.2); ABS Eosinophils 0.2 10^3/ul (0-0.6); ABS Lymphocytes 2.2 10^3/ul (1.0-4.8); ABS Monocytes 0.9 10^3/ul (0-0.8); ABS Neutrophils 3.1 10^3/ul (1.5-7.7); Eosinophil % 3.7 %; Hematocrit 39 % (35-47); Hemoglobin 12.6 g/dL (12.0-16.0); Lymphocyte % 33.3 %; Mean Corpuscular HGB Conc 33 g/dL (31-36); Mean Corpuscular Hemoglobin 26 pg (27-31); Mean Corpuscular Volume 81 fL (80-97); Mean Platelet Volume 8.1 fL (7.4-10.4); Nucleated Red Blood Cells % 0.1; Platelet Count 329 10^3/uL (150-450); Red Blood Count 4.77 10^6 /uL (3.70-4.87); Red Cell Distribution Width 18 % (10.5-15); White Blood Count 6.5 10^3/uL (3.5-10.8)
[2019-03-12 23:58] LABS: Albumin 4.9 g/dL (3.2-5.2); Albumin/Globulin Ratio 1.6 (1-3); BUN/Creatinine Ratio 22.2 (8-20); C Reactive Protein 5.55 mg/L (<8.01); Calcium 10.2 mg/dL (8.6-10.3); EGFR Non-African American 62.8 (>60); Potassium 3.5 mmol/L (3.5-5.0); Total Bilirubin 0.4 mg/dL (0.2-1.0); Total Protein 7.9 g/dL (6.4-8.9)
[2019-03-13] MEDS ORDERED: LORazepam TAB(*) 1 MG PO ONE (00:05)
[2019-03-13 00:27] LABS: Urine Appearance Clear; Urine Bacteria Absent (Absent); Urine Bilirubin Negative (Negative); Urine Blood Negative (Negative); Urine Color Colorless; Urine Glucose Negative (Negative); Urine Ketones Negative (Negative); Urine Nitrite Negative (Negative); Urine Protein Negative (Negative); Urine Red Blood Cell Absent (Absent); Urine Specific Gravity 1.004 (1.010-1.030); Urine Squamous Epithelial Cell Present (Absent); Urine Urobilinogen Negative (Negative); Urine White Blood Cell Trace(0-5/hpf) (Absent)
[2019-03-13 00:55] LABS: TSH (Thyroid Stimulating Horm) 2.98 mcIU/mL (0.34-5.60)
--- NOTE | 2019-03-13 01:00 | ED ---
Complex/Multi-Sys Presentation - HPI Summary HPI Summary: Patient complains of decreased energy, decreased by mouth intake, feeling dehydrated and overexerted today. Patient states he is working hard on the sun the past 2 days and just doesn't feel "right". Denies fever, cough, sore throat , CP, SOB, N/V/D, abdominal pain, change in urine, change in BM, vaginal symptoms. Medical history is HDL, Graves' disease, sleep apnea, Sjogren's. - History Of Current Complaint Chief Complaint: EDGeneral Time Seen by Provider: 03/12/19 23:19 Hx Obtained From: Patient Onset/Duration: Gradual Onset, Lasting Days Timing: Intermittent, Lasting: Severity Currently: Moderate Severity Initially: Moderate - Allergies/Home Medications Allergies/Adverse Reactions: Allergies Allergy/AdvReac Type Severity Reaction Status Date / Time alprazolam Allergy Anxiety Verified 03/12/19 21:42 atorvastatin Allergy See Comment Verified 03/12/19 21:42 buspirone Allergy See Comment Verified 03/12/19 21:42 cefaclor Allergy GI Upset Verified 03/12/19 21:42 dexamethasone Allergy Anxiety Verified 03/12/19 21:42 doxycycline Allergy See Comment Verified 03/12/19 21:42 erythromycin base Allergy See Comment Verified 03/12/19 21:42 fluoxetine [From Prozac] Allergy See Comment Verified 03/12/19 21:42 gabapentin Allergy See Comment Verified 03/12/19 21:42 gluten Allergy See Comment Verified 03/12/19 21:42 glycerin Allergy Unknown Verified 03/12/19 21:42 Reaction Details hydromorphone [From Dilaudid] Allergy See Comment Verified 03/12/19 21:42 levofloxacin Allergy GI Upset Verified 03/12/19 21:42 levothyroxine Allergy Tachycardia Verified 03/12/19 21:42 metoprolol Allergy See Comment Verified 03/12/19 21:42 metronidazole [From Flagyl] Allergy Unknown Verified 03/12/19 21:42 Reaction Details paroxetine Allergy See Comment Verified 03/12/19 21:42 Penicillins Allergy GI Upset Verified 03/12/19 21:42 prednisone Allergy Anxiety Verified 03/12/19 21:42 sulfacetamide Allergy Unknown Verified 03/12/19 21:42 Reaction Details tramadol Allergy Tachycardia Verified 03/12/19 21:42 Iodinated Contrast- Oral and AdvReac See Comment Verified 03/12/19 21:42 IV Dye PMH/Surg Hx/FS Hx/Imm Hx Endocrine/Hematology History: Reports: Hx Thyroid Disease - had issues in the past-no issues since becoming gluten free Denies: Hx Anticoagulant Therapy, Hx Diabetes Cardiovascular History: Reports: Hx Hypercholesterolemia, Other Cardiovascular Problems/Disorders - Elevated cholesterol Denies: Hx Hypertension, Hx Pacemaker/ICD Respiratory History: Reports: Hx Asthma - rescue med if needed-hasn't had issues in a long, Hx Sleep Apnea Denies: Hx Chronic Obstructive Pulmonary Disease (COPD), Other Respiratory Problems/Disorders GI History: Reports: Hx Gastroesophageal Reflux Disease - GERD-on medication Denies: Hx Irritable Bowel, Hx Ulcer, Other GI Disorders - Gluten free diet History: Reports: Other Problems/Disorders - had a UTI once, not recently Denies: Hx Renal Disease Musculoskeletal History: Reports: Hx Arthritis - hands and neck, Other Musculoskeletal History - benign lipomatous neoplasm-left elbow Sensory History: Reports: Hx Cataracts - developing cataracts, Hx Contacts or Glasses - Glasses Denies: Hx Hearing Aid Opthamlomology History: Reports: Hx Cataracts - developing cataracts, Hx Contacts or Glasses - Glasses EENT History: Denies: Hx Deafness Neurological History: Reports: Hx Nerve Disease - Sjogrens syndrome Denies: Other Neuro Impairments/Disorders Psychiatric History: Reports: Hx Anxiety - on medication, Hx Depression Denies: Hx Panic Disorder - Cancer History Cancer Type, 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 Deviated septum. [place] teeth. Colonoscopies Hx Anesthesia Reactions: Yes - last colonoscopy-was told she should be sedated differently-[facility] - Immunization History Date of Tetanus Vaccine: UTD Date of Influenza Vaccine: none Infectious Disease History: No Infectious Disease History: Denies: Hx Clostridium Difficile, Hx Hepatitis, Hx Human Immunodeficiency Virus (HIV), Hx of Known/Suspected MRSA, Hx Shingles, Hx Tuberculosis, Hx Known/ Suspected VRE, Hx Known/Suspected VRSA, History Other Infectious Disease, Traveled Outside the [place] in Last 30 Days - Family History Known Family History: Positive: Cardiac Disease - SISTER - [place] AGE 54, Diabetes - FATHER, Other - F - COLON CA, BOTH PARENTS - HIGH CHOLESTEROL, M - BRAIN TUMOR - Social History Alcohol Use: None Hx Substance Use: No Substance Use Type: Reports: None Hx Tobacco Use: No Smoking Status (MU): Never Smoked Tobacco Review of Systems Positive: Fatigue Eyes: Negative ENT: Negative Cardiovascular: Negative Respiratory: Negative Gastrointestinal: Negative Genitourinary: Negative Musculoskeletal: Negative Skin: Negative Neurological: Negative Psychological: Normal All Other Systems Reviewed And Are Negative: Yes Physical Exam - Summary Physical Exam Summary: Patient alert and oriented. Lung sounds clear to auscultation bilaterally. RRR. Abdomen soft nontender. Triage Information Reviewed: Yes Vital Signs On Initial Exam: Initial Vitals Temp Pulse Resp BP Pulse Ox 99.4 F 101 16 183/97 97 03/12/19 21:38 03/12/19 21:38 03/12/19 21:38 03/12/19 21:38 03/12/19 21:38 Vital Signs Reviewed: Yes Appearance: Positive: Well-Appearing Skin: Positive: Warm Head/Face: Positive: Normal Head/Face Inspection Eyes: Positive: Normal Neck: Positive: Supple Respiratory/Lung Sounds: Positive: Clear to Auscultation Cardiovascular: Positive: Normal Abdomen Description: Positive: Nontender Musculoskeletal: Positive: Normal Neurological: Positive: Normal Psychiatric: Positive: Normal AVPU Assessment: Alert - Osvaldo Coma Scale Best Eye Response: 4 - Spontaneous Best Motor Response: 6 - Obeys Commands Best Verbal Response: 5 - Oriented Coma Scale Total: 15 Diagnostics - Vital Signs Vital Signs Temp Pulse Resp BP Pulse Ox 03/13/19 00:11 20 03/13/19 00:00 72 19 100 03/12/19 23:57 77 10 167/98 100 03/12/19 23:53 10 03/12/19 21:38 99.4 F 101 16 183/97 97 - Laboratory Lab Results: Lab Results 03/12/19 03/12/19 03/12/19 Range/Units 23:31 23:31 23:55 WBC 6.5 (3.5-10.8) 10^3/uL RBC 4.77 (3.70-4.87) 10^6 /uL Hgb 12.6 (12.0-16.0) g/dL Hct 39 (35-47) % MCV 81 (80-97) fL MCH 26 L (27-31) pg MCHC 33 (31-36) g/dL RDW 18 H (10.5-15) % Plt Count 329 (150-450) 10^3/uL MPV 8.1 (7.4-10.4) fL Neut % (Auto) 47.5 % Lymph % (Auto) 33.3 % [place] % (Auto) 14.4 % Eos % (Auto) 3.7 % Baso % (Auto) 1.1 % Absolute Neuts (auto) 3.1 (1.5-7.7) 10^3/ul Absolute Lymphs (auto) 2.2 (1.0-4.8) 10^3/ul Absolute Monos (auto) 0.9 H (0-0.8) 10^3/ul Absolute Eos (auto) 0.2 (0-0.6) 10^3/ul Absolute Basos (auto) 0.1 (0-0.2) 10^3/ul Absolute Nucleated RBC 0.0 10^3/ul Nucleated RBC % 0.1 Sodium 138 (135-145) mmol/L Potassium 3.5 (3.5-5.0) mmol/L Chloride 103 (101-111) mmol/L Carbon Dioxide 28 (22-32) mmol/L Anion Gap 7 (2-11) mmol/L BUN 20 (6-24) mg/dL Creatinine 0.90 (0.51-0.95) mg/dL Est GFR ( Amer) 76.0 (>60) Est GFR (Non-Af Amer) 62.8 (>60) BUN/Creatinine Ratio 22.2 H (8-20) Glucose 97 (70-100) mg/dL Calcium 10.2 (8.6-10.3) mg/dL Total Bilirubin 0.40 (0.2-1.0) mg/dL AST 23 (13-39) U/L ALT 22 (7-52) U/L Alkaline Phosphatase 66 (34-104) U/L C-Reactive Protein 5.55 (<8.01) mg/L Total Protein 7.9 (6.4-8.9) g/dL Albumin 4.9 (3.2-5.2) g/dL Globulin 3.0 (2-4) g/dL Albumin/Globulin Ratio 1.6 (1-3) TSH 2.98 (0.34-5.60) mcIU/mL Urine Color Colorless Urine Appearance Clear Urine pH 7.0 (5-9) Ur Specific [place] 1.004 L (1.010-1.030) Urine Protein Negative (Negative) Urine Ketones Negative (Negative) Urine Blood Negative (Negative) Urine Nitrate Negative (Negative) Urine Bilirubin Negative (Negative) Urine Urobilinogen Negative (Negative) Ur Leukocyte Esterase 2+ A (Negative) Urine WBC (Auto) Trace(0-5/hpf) (Absent) Urine RBC (Auto) Absent (Absent) Ur Squamous Epith Cells Present A (Absent) Urine Bacteria Absent (Absent) Urine Glucose Negative (Negative) Result Diagrams: 03/12/19 23:31 03/12/19 23:31 Lab Statement: Any lab studies that have been ordered have been reviewed, and results considered in the medical decision making process. Complex Multi-Symp Course/Dx Course Of Treatment: Patient complains of decreased energy, decreased by mouth intake, feeling dehydrated and overexerted today. Patient states he is working hard on the sun the past 2 days and just doesn't feel "right". Denies fever, cough, sore throat, CP, SOB, N/V/D, abdominal pain, change in urine, change in BM, vaginal symptoms. Medical history is HDL, Graves' disease, sleep apnea, Sjogren's. Physical exam:Patient alert and oriented. Lung sounds clear to auscultation bilaterally. RRR. Abdomen soft nontender. Vital signs within normal limits. Labs unremarkable. EKG sinus rhythm. Patient feels better after 1 L normal saline. Advised to follow-up with primary care. - Diagnoses Provider Diagnoses: Low energy, Dehydration Discharge - Sign-Out/Discharge Documenting (check all that apply): Patient Departure Patient Received Moderate/Deep Sedation with Procedure: No - Discharge Plan Condition: Stable Disposition: HOME Patient Education Materials: Dehydration (ED), Fatigue (ED) Referrals: Jerson Tyson MD [Primary Care Provider] - Additional Instructions: Drink plenty of fluids to maintain hydration. Follow-up with primary care for further evaluation of ongoing fatigue. Return to the ED for any new or worsening symptoms. - Billing Disposition and Condition Condition: STABLE Disposition: Home
[2019-03-13 01:09] VITALS: BP 153/83
== END 2019-03-13 01:18 | disposition home or self-care (01) ==
LOC: ED 21:37
DX: R53.83 Other fatigue (principal); E86.0 Dehydration; K21.9 Gastro-esophageal reflux disease without esophagitis; E78.00 Pure hypercholesterolemia, unspecified; Z88.0 Allergy status to penicillin
CPT/HCPCS: 36415; 80053; 81003; 81015; 84443; 85025; 86140; 87086; 93005; 99283; A9270-GY

== ENCOUNTER 2019-03-14 15:23 | Emergency (ER) | payer MEDICARE, OTHER ==
[2019-03-14 15:40] VITALS: BP 146/85
--- NOTE | 2019-03-14 16:35 | UC ---
Skin Complaint HPI - HPI Summary HPI Summary: 63-year-old female presents with complaints of a tick bite to her abdomen. States she discovered the tick earlier today and immediately removed. She is concerned that there may be a retained mouthpart. Patient did bring the tick with her it appears to be an adult female deer tick that is not engorged. Denies fever, chills, rash, flulike symptoms, fatigue, body aches, joint pain or swelling. - History of Current Complaint Chief Complaint: UCSkin Time Seen by Provider: 03/14/19 16:22 Stated Complaint: TICK BITE Hx Obtained From: Patient Pain Intensity: 1 - Allergy/Home Medications Allergies/Adverse Reactions: Allergies Allergy/AdvReac Type Severity Reaction Status Date / Time alprazolam Allergy Anxiety Verified 03/12/19 21:42 atorvastatin Allergy See Comment Verified 03/12/19 21:42 buspirone Allergy See Comment Verified 03/12/19 21:42 cefaclor Allergy GI Upset Verified 03/12/19 21:42 cephalexin [From Keflex] Allergy Unknown Verified 03/14/19 15:42 Reaction Details dexamethasone Allergy Anxiety Verified 03/12/19 21:42 doxycycline Allergy See Comment Verified 03/12/19 21:42 erythromycin base Allergy See Comment Verified 03/12/19 21:42 fluoxetine [From Prozac] Allergy See Comment Verified 03/12/19 21:42 gabapentin Allergy See Comment Verified 03/12/19 21:42 gluten Allergy See Comment Verified 03/12/19 21:42 glycerin Allergy Unknown Verified 03/12/19 21:42 Reaction Details hydromorphone [From Dilaudid] Allergy See Comment Verified 03/12/19 21:42 levofloxacin Allergy GI Upset Verified 03/14/19 15:41 levothyroxine Allergy Tachycardia Verified 03/14/19 15:41 metoprolol Allergy See Comment Verified 03/14/19 15:41 metronidazole [From Flagyl] Allergy Unknown Verified 03/14/19 15:41 Reaction Details mirtazapine Allergy Tachycardia Verified 03/14/19 15:42 paroxetine Allergy See Comment Verified 03/14/19 15:41 Penicillins Allergy GI Upset Verified 03/14/19 15:41 prednisone Allergy Anxiety Verified 03/14/19 15:41 sulfacetamide Allergy Unknown Verified 03/14/19 15:41 Reaction Details tramadol Allergy Tachycardia Verified 03/14/19 15:41 Iodinated Contrast- Oral and AdvReac See Comment Verified 03/14/19 15:41 IV Dye Home Medications: Home Medications Pantoprazole TAB * [Protonix TAB*] 40 mg PO DAILY 03/14/19 [History Confirmed ] PMH/Surg Hx/FS Hx/Imm Hx Endocrine History: Hyperthyroidism, Dyslipidemia Cardiovascular History: Hypertension Respiratory History: Asthma GI/ History: Gastroesophageal Reflux Psychological History: Anxiety Other History Of: Negative For: Anticoagulant Therapy - Surgical History Surgical History: Yes Surgery Procedure, Year, and Place: Precancerous skin cancers. Deviated septum. [place] teeth. Colonoscopies - Family History Known Family History: Positive: Cardiac Disease - SISTER - [place] AGE 54, Diabetes - FATHER, Other - F - COLON CA, BOTH PARENTS - HIGH CHOLESTEROL, M - BRAIN TUMOR - Social History Occupation: Works From/At Home Lives: With Family Alcohol Use: None Substance Use Type: None Smoking Status (MU): Never Smoked Tobacco - Immunization History Most Recent Influenza Vaccination: none Most Recent Pneumonia Vaccination: none Review of Systems All Other Systems Reviewed And Are Negative: Yes Constitutional: Negative: Fever, Chills Skin: Positive: Other - See HPI Respiratory: Positive: Negative Cardiovascular: Positive: Negative Gastrointestinal: Positive: Negative Genitourinary: Positive: Negative Musculoskeletal: Negative: Arthralgia, Myalgia Neurological: Positive: Negative Is Patient Immunocompromised?: No Physical Exam - Summary Physical Exam Summary: GENERAL APPEARANCE: Well developed, well nourished, alert and cooperative, and appears to be in no acute distress. CARDIAC: Normal S1 and S2. No S3, S4 or murmurs. Rhythm is regular. There is no peripheral edema, cyanosis or pallor. Extremities are warm and well perfused. Capillary refill is less than 2 seconds. Peripheral pulses intact. LUNGS: Clear to auscultation without rales, rhonchi, wheezing or diminished breath sounds. ABDOMEN: Positive bowel sounds. Soft, nondistended, nontender. No guarding or rebound. No masses or hepatosplenomegally. MUSKULOSKELETAL: ROM intact to all extremities. No joint erythema or tenderness. Normal muscular development. Normal gait. SKIN: Small area or erythema <0.5 cm in diameter with central excoriation and a retained mouth part to edge of her umbilicus. Triage Information Reviewed: Yes Vital Signs: Initial Vital Signs Temp 98 F 06/04/19 15:35 Pulse 88 03/14/19 15:35 Resp 12 03/14/19 15:35 BP 146/85 03/14/19 15:35 Pulse Ox 99 03/14/19 15:35 Vital Signs Reviewed: Yes Course/Dx - Course Course Of Treatment: 63-year-old female presents with complaints of a tick bite to her abdomen. States she discovered the tick earlier today and immediately removed. She is concerned that there may be a retained mouthpart. Patient did bring the tick with her it appears to be an adult female deer tick that is not engorged. Denies fever, chills, rash, flulike symptoms, fatigue, body aches, joint pain or swelling. Afebrile. Vital signs stable. Patient had a small area or erythema <0.5 cm in diameter with central excoriation and a retained mouth part to edge of her umbilicus otherwise unremarkable exam. Discussed with the patient that since the tick was not engorged there was a very small chance of Lyme transmission and also discussed that with her reported allergy to doxycycline prophylactic treatment would not be warranted at this time. Reviewed symptoms of Lyme disease, anticipatory guidance, and warning symptoms with the patient. She is to follow-up with her primary care provider as needed. Verbalizes understanding and agrees with plan of care. - Differential Diagnoses - Skin Complaint Differential Diagnoses: Local Allergic Reaction, Tick Born Illness - Diagnoses Provider Diagnosis: Tick bite of abdomen Discharge - Sign-Out/Discharge Documenting (check all that apply): Patient Departure All imaging exams completed and their final reports reviewed: No Studies - Discharge Plan Condition: Stable Disposition: HOME Patient Education Materials: Tick Bite (ED) Referrals: Jerson Tyson MD [Primary Care Provider] - Additional Instructions: Ticks transmit infection only after they have attached and then taken a blood meal from their new host. A tick that has not attached cannot not pass any infection. Since the deer tick that transmits Lyme disease typically feeds for more than 36 hours before transmitting the organisim that causes Lyme disease, the risk of acquiring Lyme disease from an tick bite is extremely small, even in an area where the disease is common. There is no benefit of blood testing for Lyme disease at the time of the tick bite because even people who become infected will not have a positive blood test until approximately two to six weeks after the tick bite. To try to avoid getting bitten by a tick, you can: * Wear shoes, long-sleeved shirts, and long pants when you go outside. Keep ticks away from your skin by tucking your pants into your socks. * Wear light colors so you can spot any ticks that get on your clothes. * Wear bug spray or cream that contains DEET. (Do not use DEET on babies younger than 2 months.) On your clothes and gear, you can use bug repellents that have a chemical called "permethrin." * Shower within 2 hours of being outdoors if you think you have been in an area where there are ticks. * Put dry clothes briefly (for about 4 minutes) in a dryer after being outdoors. * Check your clothes and body for ticks after being outdoors. Be sure to check your scalp, waist, armpits, groin, and backs of your knees. Check your children , too. After a tick bite, you will need to monitor for signs of Lyme disease over the nexter several weeks even if you have been given antibiotics to prevent the infection. Seek immediate medical attention if you develop a bullseye rash, fever, flu-like symptoms including headache, stiff neck, fatigue, muscle aches, joint pain or swelling. - Billing Disposition and Condition Condition: STABLE Disposition: Home - Attestation Statements Provider Attestation: Per institutional requirements, I have reviewed the chart, however, I was not consulted specifically or made aware of this patient by the midlevel provider. I did not personally evaluate, interact with , or disposition this patient.
== END 2019-03-14 16:47 | disposition home or self-care (01) ==
LOC: UCEAST 15:23
DX: S30.861A Insect bite (nonvenomous) of abdominal wall, initial encounter (principal); W57.XXXA Bitten or stung by nonvenomous insect and other nonvenomous arthropods, initial encounter; Y92.9 Unspecified place or not applicable; K21.9 Gastro-esophageal reflux disease without esophagitis; Z88.5 Allergy status to narcotic agent; Z88.0 Allergy status to penicillin; Z88.2 Allergy status to sulfonamides; Z88.8 Allergy status to other drugs, medicaments and biological substances; Z88.1 Allergy status to other antibiotic agents; Z91.041 Radiographic dye allergy status
CPT/HCPCS: 99212; G0463

== ENCOUNTER 2019-04-26 23:06 | Emergency (ER) | payer MEDICARE, OTHER ==
--- OUTSIDE RECORDS SUMMARY | 2019-04-26 23:22 | XMS REPORT | Continuity of Care Document ---
:1955 External Reference #:[id number] Author Name Ochoa Yeung MD Address [address] [place] [address] Care Team Providers Name Role Phone Franky Valiente MD Care Team Information Patient Experience Coordinator Unavailable Jerson Tyson MD Primary Care Physician Unavailable Payers Date Identification Numbers Payment Provider Subscriber Policy Number: [id number] [employer] [place] [place] Trent PayID: [id number] [address] [place] [address] Policy Number: [id number] [facility] Hamida Trent PayID: [id number] [address] [place] [address] Problems Active Problems Provider Date Allergic rhinitis due to pollen Ochoa Yeung MD Onset: 02/04/2018 Allergic rhinitis Ochoa Yeung MD Onset: 02/04/2018 Uncomplicated moderate persistent asthma Ochoa Yeung MD Onset: Otitis media Flores Solis NP Onset: 12/16/2018 Family History Date Family Member(s) Observation Comments [...] has never smoked Allergies, Adverse Reactions, Alerts Active Allergies Reaction Severity Comments Date Prednisone 02/04/2018 Alprazolam 02/04/2018 Atorvastatin 02/04/2018 Buspirone 02/04/2018 Cefaclor 02/04/2018 Contrast Dye 02/04/2018 Dexamethasone 02/04/2018 Hydromorphone 02/04/2018 Doxycycline 02/04/2018 Erythromycin 02/04/2018 Metronidazole 02/04/2018 Glycerin 02/04/2018 Levofloxacin 02/04/2018 Levothyroxine 02/04/2018 Metoprolol 02/04/2018 Paroxetine 02/04/2018 Penicillin 02/04/2018 Fluoxetine 02/04/2018 Sulfacetamide 02/04/2018 Sulfur Dioxide 02/04/2018 Gabapentin 02/04/2018 Keflex 09/09/2018 Fluoxetine 03/31/2019 Paroxetine 03/31/2019 Metronidazole 03/31/2019 Tramadol 03/31/2019 Mirtazapine 03/31/2019 Medications Active Medications SIG Qnty Indications Ordering Provider Date Rosuvastatin Calcium Unknown 5mg Tablets Breo Ellipta inhale one puff Unknown once a day 200-25mcg/Inh Aerosol Potassium Chloride Unknown Adore ER 10Meq Tablets ER Pantoprazole Sodium Unknown 40mg Tablets Mupirocin Unknown 2% Ointment Refresh Unknown 1.4-0.6% Solution Magnesium Unknown 250mg Tablets Ranitidine HCL 1 capsule (300 mg) Unknown 300mg by oral route once Capsules a day as directed Pamelor Unknown 10mg Capsules Flaxseed Oil Unknown 1000mg Capsules Multivitamin Adult Unknown Tablets Calcium + D3 1 by mouth every Unknown 600-200 day Tablets Aspir-81 i tab everyday Unknown 81mg Tablets Clonazepam Take 1 Tablet By Unknown 0.5mg Tablets Mouth Every 4 Hours as Needed For Anxiety -- Maximum Ibuprofen Take 1 Tablet By Unknown 800mg Tablets Mouth Every 8 Hours as Needed For Pain History Medications Soma 1 by mouth 10taDonaldo Bustos MD 12/17/2018 - 350mg Tablets every day 03/31/2019 Celecoxib 1 by mouth 60caps Donaldo Nascimento MD 12/17/2018 - 100mg Capsules twice a day 03/31/2019 Azithromycin take 500 mg (2 6tabs H66.91 Ochoa Ferro 12/16/2018 - 250mg Tablets tabs) on day MD Gamal 03/31/2019 one, then 250 mg (1tab) days 2-5. Azithromycin H66.91 Flores Solis NP 12/16/2018 - 250mg Tablets 12/16/2018 Xopenex HFA 2 puffs every 15gm J30.1 Ochoa Ferro 03/16/2018 - 45mcg/Act Aerosol 4-6 hrs as MD Gamal 09/09/2018 needed Flonase Sensimist one spray in 18.200ml J30.1 Ochoa Ferro 03/16/2018 - each nostril MD Gamal 09/09/2018 27.5mcg/[place] Suspension daily Nasacort Allergy 24HR 2 sprays in 1units J30.1 Ochoa Ferro 02/04/2018 - each nostril MD Gamal 09/09/2018 55mcg/Act Aerosol once a day Xyzal Allergy 24HR take 1 tablet 30tabs J30.1 Ochoa Ferro 02/04/2018 - 5mg (5 mg) by oral MD Gamal 09/09/2018 Tablets route once daily as needed Breo Ellipta inhale one 1units J30.1 Ochoa Ferro 02/04/2018 - 200-25mcg/Inh puff once a MD Gamal 09/09/2018 Aerosol day Proair HFA 2 puffs every 8.500gm J30.1 Ochoa Ferro 02/04/2018 - 108(90Base) 4 as needed MD Gamal 09/09/2018 mcg/Act Aerosol Proair HFA 2 puffs every Unknown - 108(90Base) 4 as needed 03/31/2019 mcg/Act Aerosol Tylenol Extra Strength 2 tabs by Unknown - 500mg mouth three 12/16/2018 Tablets times a day as directed. max daily dose of tylenol from all sources to not exceed 4000mg Esomeprazole Magnesium Unknown - 40mg 03/31/[address] Gomez 1 cap PO daily Unknown - Capsules 12/16/2018 Mupirocin applyto Unknown - 2% Ointment affected area 12/16/2018 twice a day for 5 days5 Benzonatate Take 1 Capsule Unknown - 100mg Capsules By Mouth Three 12/16/2018 Times Daily as Needed For Cough Hydroxychloroquine Take 1 Tablet Unknown - Sulfate By Mouth Two 09/09/2018 200mg Tablets Times Daily Potassium Chloride Adore Take 1 Tablet Unknown - ER By Mouth Every 12/16/2018 10Meq Tablets ER Day Restasis Instill 1 Drop Unknown - 0.05% Emulsion Into Both Eyes 03/31/2019 Two Times Daily Azithromycin Take 1 Tablet Unknown - 500mg Tablets By Mouth Every 12/16/2018 Day Vital Signs Date Vital Result Comment 03/31/2019 3:04pm BP Systolic 160 mmHg BP Diastolic 78 mmHg Height 67 inches 5'7" Weight 187.00 lb BMI (Body Mass Index) 29.3 kg/m2 Heart Rate 85 /min Respiratory Rate 16 /min Body Temperature 97.7 F O2 % BldC Oximetry 98 % 12/16/2018 3:20pm BP Systolic 140 mmHg BP [...] F O2 % BldC Oximetry 96 % Procedures Date Code Description Status 03/31/2019 25854 Nitric Oxide Gas Determination Completed 03/31/2019 70428 Nitric Oxide Gas Determination Completed 03/31/2019 95439 Bronchodilation Responsiveness Spirometry Pre/Post Completed Bronchodil Adm 03/31/2019 30052 Bronchodilation Responsiveness Spirometry Pre/Post Completed Bronchodil Adm 09/09/2018 61785 Nitric Oxide Gas Determination Completed 09/09/2018 81588 Nitric Oxide Gas Determination Completed 09/09/2018 54877 Bronchodilation Responsiveness Spirometry Pre/Post Completed Bronchodil Adm 09/09/2018 11171 Bronchodilation Responsiveness Spirometry Pre/Post Completed Bronchodil Adm 02/25/2018 89610 Allergy Tests Percutaneous W/ Allergenic Extracts Completed 02/25/2018 23356 Allergy Tests Percutaneous W/ Allergenic Extracts Completed 02/25/2018 49205 Allergy Tests Percutaneous W/ Allergenic Extracts Completed 02/04/2018 79495 Nitric Oxide Gas Determination Completed 02/04/2018 06260 Bronchodilation Responsiveness Spirometry Pre/Post Completed Bronchodil Adm Encounters Type Date Location Provider Dx Diagnosis Office Visit 03/31/2019 Maciej Solis NP J45.40 Moderate persistent 2:30p asthma, uncomplicated J30.1 Allergic rhinitis due to pollen Office Visit 12/16/2018 3:00p Maciej Solis NP H66.91 Otitis media, unspecified, right ear Office Visit 09/09/2018 1:00p Maciej Solis NP J45.40 Moderate persistent asthma, uncomplicated J30.89 Other allergic rhinitis Office Visit 03/16/2018 11:00a GAY White J45.40 Moderate persistent asthma, uncomplicated J30.89 Other allergic rhinitis J30.1 Allergic rhinitis due to pollen Office Visit 02/25/2018 1:30p Maciej Solis NP J45.40 Moderate persistent asthma, uncomplicated J30.89 Other allergic rhinitis J30.1 Allergic rhinitis due to pollen Office Visit 02/04/2018 3:00p Adis Sandhu30.1 Allergic rhinitis MD due to pollen J30.89 Other allergic rhinitis J45.40 Moderate persistent asthma, uncomplicated Plan of Treatment Future Appointment(s):09/29/2019 1:30 pm - Flores Solis NP at [id number] - Flores Solis NPJ45.40 Moderate persistent asthma, uncomplicatedComments :Patient presents for a follow-up visit PFT was normal NiOx study 20 ppb. She has Breo and Xopenex both of which she uses only on an as-needed basis.Follow- up 6 months.Greater than 50% of the 15-minutevisit was spent in discussion of the testing results and treatment options.J30.1 Allergic rhinitis due to pollen
--- OUTSIDE RECORDS SUMMARY | 2019-04-26 23:22 | XMS REPORT | Continuity of Care Document ---
:1955 External Reference #:[id number] Author Name Adriane Locke Care Team Providers Name Role Phone Franky Valiente MD Care Team Information Backwinder Unavailable Jesron Tyson MD Primary Care Physician Unavailable Payers Date Identification Numbers Payment Provider Subscriber Policy Number: [id number] [place] PayID: [id number] [address] [place] [address] Policy Number: [id number] [facility] Hamida Trent PayID: [id number] [address] [place] [address] Problems Active Problems Provider Date Allergic rhinitis [...] Provider Date Rosuvastatin Calcium Unknown 5mg Tablets Proair HFA 2 puffs every 4 as Unknown 108(90Base) needed mcg/Act Aerosol Breo Ellipta inhale one puff Unknown once [...] Hours as Needed For Pain History Medications Celecoxib 1 by mouth 60capDonaldo Vásquez MD 12/17/2018 - 100mg Capsules twice a day 03/31/2019 Soma 1 by mouth 10tabs Donaldo Nascimento MD 12/17/2018 - 350mg Tablets every day 03/31/2019 Azithromycin H66.91 Flores Solis NP 12/16/2018 - 250mg Tablets 12/16/2018 Azithromycin take 500 mg (2 6tabs H66.91 Ochoa Ferro 12/16/2018 - 250mg Tablets tabs) on day MD Gamal 03/31/2019 one, then 250 mg (1tab) days 2-5. Xopenex HFA 2 puffs every 15gm J30.1 Ochoa Ferro 03/16/2018 - 45mcg/Act Aerosol 4-6 hrs as MD Gamal 09/09/2018 needed Flonase Sensimist one spray in 18.200ml J30.1 Ochoa Ferro 03/16/2018 - each nostril MD Gamal 09/09/2018 27.5mcg/[place] Suspension daily Nasacort Allergy 24HR 2 sprays [...] as needed MD Gamal 09/09/2018 mcg/Act Aerosol Tylenol Extra Strength 2 tabs [...] 96 % Procedures Date Code Description Status 09/09/2018 43705 Nitric Oxide Gas Determination Completed 09/09/2018 84282 Nitric Oxide Gas Determination Completed 09/09/2018 30303 Bronchodilation Responsiveness Spirometry Pre/Post Completed Bronchodil Adm 09/09/2018 46712 Bronchodilation Responsiveness Spirometry Pre/Post Completed Bronchodil Adm 02/25/2018 95796 Allergy Tests Percutaneous W/ Allergenic Extracts Completed 02/25/2018 60445 Allergy Tests Percutaneous W/ Allergenic Extracts Completed 02/25/2018 70643 Allergy Tests Percutaneous W/ Allergenic Extracts Completed 02/04/2018 83336 Nitric Oxide Gas Determination Completed 02/04/2018 74609 Bronchodilation Responsiveness Spirometry Pre/Post Completed Bronchodil Adm Encounters Type Date Location Provider Dx Diagnosis Office Visit 12/16/2018 Maciej Solis NP H66.91 Otitis media, 3:00p unspecified, right ear Office Visit 09/09/2018 Maciej Solis NP J45.40 [...] Moderate persistent asthma, uncomplicated Plan of Treatment 12/16/2018 - Flores Solis NPH66.91 Otitis media, unspecified, right earNew Medication:Azithromycin 250 mg -Azithromycin 250 mg - take 500 mg (2 tabs) on day one, then 250 mg (1tab) days 2-5.Comments:Patient presents to our office today with complaints of bilateral ear pain. However the right ear is most painful she has a full sensation in the ear and slight decrease in hearing. The symptoms began after she had a skin lipoma removed November 21, 2017. She also has a history of TMJ and I suspectthe surgery may have aggravated the TMJ is not clear to me if she had any oral airway maintenance during the surgery but given the list of medications that she received and a prolonged conscious sedation I suspect it has aggravated her previous condition. She has a small effusion behind the TM I am going to treat with Z-mirna she has had that medication before. I also contacted Dr. Nascimento who was called this patient for a follow-up to further evaluate TMJ. Dr. Nascimento did call me back with her permission I gave him the patient's phone number the patient is aware that he will be contacting her. She was otherwise stable and appropriate for outpatient discharge and follow-up.
--- OUTSIDE RECORDS SUMMARY | 2019-04-26 23:22 | XMS REPORT | Continuity of Care Document ---
:1955 External Reference #:[id number] Author Name Lindsey Mireles O.D. Address [address] [place] [address] Care Team Providers Name Role Phone Jerson Tyson M.D. Primary Care Physician Unavailable Payers Date Identification Numbers Payment Provider Subscriber Policy Number: [id number] Medicare - [employer] Hamida Trent PayID: [id number] [address] [place] [address] Policy Number: [id number] [employer] Ppo/Pos/Epo/Nap Hamida Trent Group Number: [id number] [address] PayID: [id number] [place] [address] Problems Active Problems Provider Date Depressive disorder Onset: Anxiety Onset: Sinusitis Onset: Ear problem Onset: Internal hordeolum Mary Weiss O.D. Onset: 04/16/2015 Nuclear senile cataract Mary Weiss O.D. Onset: 04/16/2015 Tear film insufficiency Mary Weiss O.D. Onset: 09/24/2015 Vitreous opacities Mary Weiss O.D. Onset: 09/24/2015 Myopia Mary Weiss O.D. Onset: 09/24/2015 Presbyopia Mary Weiss O.D. Onset: 09/24/2015 Combined form of senile cataract Mary Weiss O.D. Onset: 09/16/2016 Sjogren's syndrome Onset: Taking medication Lindsey Mireles O.D. Onset: 12/10/2017 Trichiasis of right eyelid Lindsey Mireles O.D. Onset: 08/25/2018 Squamous blepharitis Lindsey Mireles O.D. Onset: 08/25/2018 Conjunctival cyst Scot Medrano M.D. Onset: 09/26/2018 Regular astigmatism Lindsey Mireles O.D. 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 [employer] Work Status Full-Time Employment ETOH Use Never used alcohol Tobacco Use Start: Unknown Patient has never smoked Recreational Drug Use Never Used Drugs Smoking Status Reviewed: 04/15/19 Patient has never smoked Allergies, Adverse Reactions, Alerts Active Allergies Reaction Severity Comments Date Atenolol 04/16/2015 Metoprolol 04/16/2015 Penicillin 04/16/2015 Sulfa Antibiotics 04/16/2015 Levaquin 04/16/2015 Erythromycin 04/16/2015 Paxil 04/16/2015 Alprazolam 04/16/2015 Buspar 04/16/2015 Prozac 04/16/2015 Dilaudid 04/16/2015 Doxycycline 09/16/2016 Prednisone 12/10/2017 Atorvastatin 12/10/2017 Flagyl 12/10/2017 Sulfacetamide Sodium 12/10/2017 Glycerin 12/10/2017 Contrast Dye 12/10/2017 Dexamethasone 12/10/2017 Medications Active Medications SIG Qnty Indications Ordering Provider Date Warm Compresses as needed Mary Weiss, 09/23/2015 O.D. Restasis 1 drops both Mary Weiss, 04/15/2015 0.05% Emulsion eyes twice a day O.D. Vitamin D3-Vitamin C Unknown [id number] Capsules Potassium Chloride Unknown Mucinex Allergy prn Unknown 180mg Tablets Flax Seed Oil Unknown 1300mg Capsules Multivitamin Adult 1 Tab PO Daily Unknown Tablets Azithromycin Take 1 Tablet By Unknown 500mg Tablets Mouth Every Day Tylenol Extra Strength 2 by mouth as Unknown needed 500mg Tablets Aspirin Unknown 81mg Tablets DR Artificial Tears as needed Unknown 0.1-0.3% Solution Nortriptyline HCL Unknown 10mg Capsules Clonazepam Unknown 0.5mg Tablets Nexium Marbella Jerson 40mg Capsules DR uJdd History Medications Neomycin/Polymyxin/Dexamethasone apply one 10ml H01.021 Scot 2017 - 0.1% Suspension drop to Marcela, 03/22/2019 left M.D. eyes, three times a day for 2 weeks Restasis 0.05% 1 drops 60units H04.123 Lindsey RodriguezAyana 2017 - Emulsion both eyes Rian Mireles 09/23/2018 twice a day Hydroxychloroquine Sulfate Take 1 Unknown - 200mg Tablets Tablet By 03/21/2019 Mouth Two Times Daily Medications Administered in Office Medication SIG Qnty Indications Ordering Provider Date CrizPayton Damon 02/23/2003 Injection Crizal Elyssa Headley, 03/01/2000 Injection Fclsa Procedures Date Code Description Status 03/22/2019 68124 Determination Of Refractive State Completed 03/22/2019 66825 Est Patient Comprehensive Exam Completed 12/14/2017 91639 Visual Field Exam Extended Completed 12/10/2017 93801 Scanning Computerized Opthalmic Diagnostic Posterior Seg Completed Retina 12/10/2017 71447 Est Patient Comprehensive Exam Completed 09/16/2016 92692 Est Patient Comprehensive Exam Completed 09/24/2015 01389 Est Patient Comprehensive Exam Completed 04/16/2015 35089 Est Patient Comprehensive Exam Completed 06/16/2014 80295 Determination Of Refractive State Completed 06/16/2014 06681 Est Patient Comprehensive Exam Completed 12/13/2013 72175 Est Patient Intermediate Exam Completed 12/13/2013 508 Refresh PM Ointment Completed 03/03/2013 28491 Est Patient Comprehensive Exam Completed 03/03/2013 74785 Determination Of Refractive State Completed 12/28/2011 70879 Est Patient Comprehensive Exam Completed 12/22/2010 66307 Determination Of Refractive State Completed 12/22/2010 65456 Est Patient Comprehensive Exam Completed 09/22/2010 03397 Est Patient Intermediate Exam Completed 12/30/2009 59041 Est Patient Comprehensive Exam Completed 06/27/2008 40357 Est Patient Intermediate Exam Completed 12/23/2007 72099 Determination Of Refractive State Completed 12/23/2007 97871 Est Patient Comprehensive Exam Completed 06/09/2005 75349 Determination Of Refractive State Completed 06/09/2005 06238 Est Patient Comprehensive Exam Completed 02/23/2003 113 Crizal Completed 03/01/2000 113 Crizal Completed Encounters Type Date Location Provider Dx Diagnosis Office Visit 09/26/2018 Scot Rodríguez H01.021 Squamous 10:30a , pc Dutch Medrano blepharitis right upper eyelid H01.024 Squamous blepharitis left upper eyelid H11.442 Conjunctival cysts, left eye Office Visit 08/25/2018 1:45p Franky Mireles, H02.052 Trichiasis MD Laura, kevin Modi without entropion right lower eyelid H01.021 Squamous blepharitis right upper eyelid H01.024 Squamous blepharitis left upper eyelid Office Visit 10/07/2013 9:45a Franky Morton 373.00 Blepharitis Unspec MD Laura, kevin Weiss O.D. Office Visit 01/28/2013 10:45a Franky Gleason.00 Blepharitis Unspec MD Laura, kevin Weiss O.D. Office Visit 04/08/2012 8:00a Franky Gleason.00 Blepharitis Unspec MD Laura, kevin Weiss O.D. Office Visit 04/05/2012 1:45p Franky Gleason.00 Blepharitis Unspec MD Laura, kevin Gutierrez M.D. Office Visit 09/09/2011 5:30p Franky Gleason.00 Blepharitis Unspec MD Laura, kevin Weiss O.D. Office Visit 05/29/2010 8:00a Franky Gleason.00 Blepharitis Unspec MD Laura, kevin Weiss O.D. Office Visit 05/07/2010 8:30a Franky Gleason.00 Blepharitis Unspec MD Laura, pc Oltz, O.D. Office Visit 09/12/2009 3:00p Franky Morton 373.00 Blepharitis Unspec MD Laura, kevin Weiss OAyanaD. Office Visit 06/20/2009 8:45a Franky Morton 373.12 Meibomitevgeny Sanchez MD, kevin Weiss, O.D. Office Visit 05/20/2009 1:45p Franky Morton 373.00 Blepharitis Unspec MD Laura, kevin Weiss, O.D. Office Visit 04/18/2009 1:45p Franky Morton 373.00 Blepharitis Unspec MD Laura, kevin Weiss, O.D. Office Visit 03/14/2009 1:15p Franky Morton 373.00 Blepharitis Unspec MD Laura, kevin Weiss, O.D. Office Visit 08/02/2008 8:15a Franky Morton 373.00 Blepharitis Unspec MD Laura, kevin Weiss, O.D. Office Visit 07/19/2008 8:15a Franky Morton 373.00 Blepharitis Unspec MD Laura, kevin Weiss, O.D. Office Visit 07/05/2008 9:15a Franky Morton 373.00 Blepharitis Unspec MD Laura, kevin Weiss, O.D. Plan of Treatment 04/15/2019 - Lindsey Mireles O.D.H52.13 Myopia, bilateralComments:You have Myopia, or near sightedness. I have given you a prescription for glasses.H52.223 Regular astigmatism, bilateralComments:Astigmatism is a common vision condition that happens when a person's cornea is not symmetrical. Dr. Mireles has given you a prescription to correct for this.H52.4 PresbyopiaComments :Smoking can increase the risk of developing or worsening any eye related disease, as well as affect your overall health. If you are a smoker, we strongly recommend that you quit.If you are not a smoker, we strongly recommend that you do not start. You have presbyopia. This is when the lens in your eye loses the ability to change focus, and happens as we age. A pair of reading glasses will help you see up close.
--- OUTSIDE RECORDS SUMMARY | 2019-04-26 23:22 | XMS REPORT | Continuity of Care Document ---
:1955 Author Organization [facility] Address [address], [place] [id number] Phone Care Team Providers Name Role Phone Yesica Prieto PA-C Unavailable Unavailable Allergies, Adverse Reactions, Alerts Substance Reaction Status sulfur dioxide Active SULFACETAMIDE SODIUM Active FLUOXETINE HCL Active PENICILLIN Active PAROXETINE HCL Active metoprolol Active levothyroxine Active levofloxacin Active glycerin Active metronidazole Active erythromycin base Active DOXYCYCLINE HYCLATE Active HYDROMORPHONE HCL Active guaifenesin Active dexamethasone Active buspirone Active atorvastatin Active alprazolam Active Penicillins Active WARNIN allergy(ies) could not be collected because the type is not supported. Please contact [facility] practice for further details. Medications Medication Instructions Dosage Effective Dates Status Comments (start - stop) pantoprazole 20 mg take 2 tablet by 40 MG - Active tablet,delayed oral route every release day Calcium 500 + D 500 - Active mg (1,250 mg)-200 unit tablet Aspir-81 81 mg take 1 tablet by 81 MG - Active tablet,delayed oral route every release day Klonopin 0.5 mg take 1 tablet by 0.5 MG - Active tablet oral route 3 times every day prn as needed Nexium 40 mg take 1 capsule by 40 MG - Active capsule,delayed oral route every release day ibuprofen 800 mg take 1 tablet by 800 MG - Active tablet oral route 3 times every day with food as needed Bactroban Nasal 2 % apply by topical - Active ointment route 2 times every day one-half of the ointment from the tube into each nostril in the morning and evening as needed MUCINEX (unknown take 1 tablet by Not Available - Active strength) oral route every 12 hours as needed Pamelor 10 mg take 1 tablet by 1 tablet - Active capsule oral route every day Refresh Tears 0.5 % as dir as needed - Active eye drops potassium chloride take 1 Tablet by 10 MEQ - Active ER 10 mEq oral route every tablet,extended day with food release Zantac 300 mg tablet take 1 tablet by 300 MG - Active oral route every day at bedtime Restasis 0.05 % eye instill 1 drop by 1.00 drop - Active drops in a ophthalmic route dropperette every 12 hours into affected eye(s) selenium 100 mcg take 1 tablet by 1 tablet - Active tablet oral route 2 times every day Problems Condition Effective Dates (start - Clinical Status Comments stop) 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 Fatigue 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, unspecified Fatigue 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, unspecified Fatigue Depression Active GERD Active High Cholesterol Active Osteoarthritis Active Hypothyroidism Active Asthma Active Anxiety Active Migraine Headaches Active Bilateral cataracts Active Procedures Procedure Date OFFICE/OUTPATIENT VISIT, FLO Results Test Name Date and Time Measure Units Reference Range Abnormal Flag Status Comments No information Advance Directives Directive Yes / No Effective Date File Name No information Encounters Encounter Practice Location Reason(s) Diagnoses Date Provider Providers Description For Visit Copied on Encounter OFFICE/OUTPA Arthritis Arthritis *Establish Sicca syndrome [facility] Referring TIENT VISIT, [facility] ed Patient with other 1- PA-C Provider: FLO Duval (chief organ 9 [facility], [facility] complaint) involvement [address] [facility], [facility] [place], [place], [address] [place], [place], [place] [id number], [id number], [address], [facility]. [place], tel:[phone] tel:[phone] [place], [address]. [id number] tel:[phone] Arthritis Arthritis Sicca syndrome [facility] Referring [facility] with other 4-201 PA-C Provider: Simin Duval organ 8 [facility], [facility] involvement [address] [facility], [facility] [place], [place], [address] [place], [place], [place] [id number], [id number], [address], [facility]. [place], tel:[phone] tel:[phone] [place], [address]. [id number] tel:[phone] Arthritis Arthritis Sicca syndrome Jan- [facility] Referring Health Health with other 5-201 PA-C Provider: Simin Duval organ 8 [facility], [facility] involvementFati [address] [facility], [facility] [place], [place], [address] [place], [place], [place] [id number], [id number], [address], [place]. [place], tel:[phone] tel:[phone] [place], [address]. [id number] tel:[phone] Arthritis Arthritis Vasculitis Nov- [facility] Referring Health Health limited to the 8-201 PA-C Provider: Simin Duval skin, 8 [facility], [facility] unspecifiedFati [address] [facility], [facility] [place], [place], [address] [place], [place], [place] [id number], [id number], [address], [place], tel:[phone] tel:[phone] [place], [address]. [id number] tel:[phone] Arthritis Arthritis Vasculitis Oct- Giles NESBITT Referring Health Health limited to the 0-201 Noah. Provider: Simin Duval skin, 8 [address] [facility], [address] [facility], [place], [place], [place], [address] [place], [id number], [place] [id number], [place]. Rd, [place] tel:+[phone] [place], tel:[phone] [place], [address]. [id number] tel:[phone] Family History Family Member Diagnosis Age At Onset Father Osteoarthritis Immunizations Vaccine Date Status Comments No information Payers Payer name Insurance type Covered libertarian ID Authorization(s) Medicare [id number] Aetna No Referral Required [id number] Social History Type Description Quantity Date Captured Comments Alcohol Use Details No Caffeine Use Details No Tobacco Use Status Never smoked tobacco Smoking Status Never smoker Non-Smoking Tobacco : No Details Available : No Details Available 2018 Use Details Sex Female Vital Signs Date / Height Weight BMI Pulse Blood Temperature Respiratory Body Head BMI Pulse Inhaled Time: Rate Pressure Rate Surface Circumference percentile Ox Ox Area 67.00 177.00 27.7 126 in lbs 2 mm[Hg] 2:15 kg/m PM eter (2) Chief Complaint And Reason For Visit Most recent encounter only, dated '04/10/2019 14:00'. Established Patient (chief complaint). Description: The pain severity is 5/10. Patient is experiencing generalized morning stiffness for 15 Minutes, eye symptoms including dryness, fatigue and dry mouth. Patient denies having abdominal pain , hair loss, diarrhea, infection, loss of appetite, fever, rash, oral ulcers ( mouth sores), weight loss, pleuritic pain and shortness of breath. Reason For Referral Reason For Referral No information Plan Of Treatment Date Type Action Status Appointment Hamida Trent BOOKED History Of Present Illness Encounter Date Complaint History Of Present Illness *Established Patient The pain severity is 5/10. Patient is experiencing generalized morning stiffness for 15 Minutes, eye symptoms including dryness, fatigue and dry mouth. Patient denies having abdominal pain, hair loss, diarrhea, infection, loss of appetite, fever, rash, oral ulcers (mouth sores), weight loss, pleuritic pain and shortness of breath. Functional Status Date Functional Assessment No information Medications Administered Medication Instructions Dosage Effective Dates (start - stop) Status Comments No information Instructions Date Instruction Additional Information No information
--- OUTSIDE RECORDS SUMMARY | 2019-04-26 23:22 | XMS REPORT | Continuity of Care Document ---
:1955 External Reference #:[id number] Author Name Franky Sanchez M.D. Address [address] [place] [address] Care Team Providers Name Role Phone Jerson Tyson M.D. Primary Care Physician Unavailable Payers Date Identification Numbers Payment Provider Subscriber Policy Number: [id number] Medicare - NGS Hamida Trent PayID: [id number] [address] [place] [address] Policy Number: [id number] [employer] Ppo/Pos/Epo/Nap Hamida Trent Group Number: [id number] [id number] PayID: [id number] [place] [address] Problems Active Problems Provider Date Depressive disorder [...] Regular astigmatism Lindsey Mireles O.D. Onset: 03/22/2019 Meibomian gland dysfunction right upper Franky Sanchez M.D. Onset: 2018 eyelid Meibomian gland dysfunction right lower Franky Sanchez M.D. Onset: 2018 eyelid Meibomian gland dysfunction left upper Franky Sanchez M.D. Onset: 2018 eyelid Meibomian gland dysfunction left lower Franky Sanchez M.D. 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 Restasis 1 drops both Mary Weiss, 04/15/2015 0.05% Emulsion eyes twice a day O.D. Vitamin D3-Vitamin C Unknown [id number]-ep Capsules Potassium Chloride Unknown Mucinex Allergy prn [...] 10mg Capsules Clonazepam Unknown 0.5mg Tablets Nexium Skez[place], Jerosn 40mg Capsules DR Judd History Medications Neomycin/Polymyxin/Dexamethasone apply one 10ml H01.021 Scot 2017 - 0.1% Suspension drop to Marcela, 03/22/2019 left M.D. eyes, three times a day for 2 weeks Restasis 0.05% 1 drops 60units H04.123 Lindsey RodriguezAyana 2017 - Emulsion both eyes [place], O.D. 09/23/2018 twice a day Hydroxychloroquine Sulfate Take 1 Unknown - 200mg Tablets Tablet By 03/21/2019 Mouth Two Times Daily Medications Administered in Office Medication SIG Qnty Indications Ordering Provider Date Crizal Rosita Patel,Payton 02/23/2003 Injection Crizal Elyssa Carmine Headley, 03/01/2000 Injection Fclsa Procedures Date Code Description Status 03/22/2019 99928 Determination Of Refractive State Completed 03/22/2019 77182 Est Patient Comprehensive Exam Completed 12/14/2017 80705 Visual Field Exam Extended Completed 12/10/2017 63704 Scanning Computerized Opthalmic Diagnostic Posterior Seg Completed Retina 12/10/2017 60189 Est Patient Comprehensive Exam Completed 09/16/2016 07620 Est Patient Comprehensive Exam Completed 09/24/2015 78241 Est Patient Comprehensive Exam Completed 04/16/2015 98081 Est Patient Comprehensive Exam Completed 06/16/2014 61285 Determination Of Refractive State Completed 06/16/2014 43121 Est Patient Comprehensive Exam Completed 12/13/2013 87047 Est Patient Intermediate Exam Completed 12/13/2013 508 Refresh PM Ointment Completed 03/03/2013 74947 Est Patient Comprehensive Exam Completed 03/03/2013 41870 Determination Of Refractive State Completed 12/28/2011 36082 Est Patient Comprehensive Exam Completed 12/22/2010 53883 Determination Of Refractive State Completed 12/22/2010 00399 Est Patient Comprehensive Exam Completed 09/22/2010 07586 Est Patient Intermediate Exam Completed 12/30/2009 58620 Est Patient Comprehensive Exam Completed 06/27/2008 61516 Est Patient Intermediate Exam Completed 12/23/2007 10501 Determination Of Refractive State Completed 12/23/2007 52924 Est Patient Comprehensive Exam Completed 06/09/2005 53576 Determination Of Refractive State Completed 06/09/2005 86719 Est Patient Comprehensive Exam Completed 02/23/2003 113 Crizal Completed 03/01/2000 113 Crizal Completed Encounters Type Date Location Provider Dx Diagnosis Office Visit 09/26/2018 Scot Rodríguez H01.021 Squamous 10:30a , pc Dutch Medrano blepharitis right upper eyelid H01.024 Squamous blepharitis left upper eyelid H11.442 Conjunctival cysts, left eye Office Visit 08/25/2018 1:45p Franky Mireles, H02.052 Trichiasis MD Laura, kevin Godfrey.[place]ko without entropion right lower eyelid H01.021 Squamous blepharitis right upper eyelid H01.024 Squamous blepharitis left upper eyelid Office Visit 10/07/2013 9:45a Franky Morton 373.00 Blepharitis Unspec MD Laura, kevin Weiss O.D. Office Visit 01/28/2013 10:45a Franky Morton 373.00 Blepharitis Unspec MD Laura, kevin Weiss O.D. Office Visit 04/08/2012 8:00a Franky Morton 373.00 Blepharitis Unspec MD Laura, kevin Weiss O.D. Office Visit 04/05/2012 1:45p Franky Gleason.00 Blepharitis Unspec MD Laura, kevin Gutierrez M.D. Office Visit 09/09/2011 5:30p Franky Gleason.00 Blepharitis Unspec MD Laura, kevin Weiss O.D. Office Visit 05/29/2010 8:00a Franky Gleason.Jimena Blepharitis Unspec MD Laura, kevin Weiss O.D. Office Visit 05/07/2010 8:30a Franky Gleason.00 Blepharitis Unspec MD Laura, kevin Weiss O.D. Office Visit 09/12/2009 3:00p Franky Gleason.00 Blepharitis Unspec MD Laura, kevin Weiss O.D. Office Visit 06/20/2009 8:45a Franky Gleason.12 Meibomitis MD Laura, kevin Weiss O.D. Office Visit 05/20/2009 1:45p Franky Gleason.00 Blepharitis Unspec MD Laura, kevin Weiss O.D. Office Visit 04/18/2009 1:45p Franky Gleason.00 Blepharitis Unspec MD Laura, kevin Weiss O.D. Office Visit 03/14/2009 1:15p Franky Gleason.Jimena Blepharitis Unspec MD Laura, kevin Weiss O.D. Office Visit 08/02/2008 8:15a Franky Gleason.Jimena Blepharitis Unspec MD Laura, kevin Weiss O.D. Office Visit 07/19/2008 8:15a Franky Gleason.00 Blepharitis Unspec MD Laura, kevin Weiss O.D. Office Visit 07/05/2008 9:15a Franky Gleason.00 Blepharitis Unspec MD Laura, kevin Weiss O.D. Plan of Treatment 04/25/2019 - Franky Sanchez M.D.H02.881 Meibomian gland dysfunction right upper eyelidComments:Smoking can increase the risk of developing or worsening any eye related disease, as well as affect your overall health. If you are a smoker, we strongly recommend that you quit.If you are not a smoker, we strongly recommend that you do not start. STOP RESTASIS CPAP GOGGLES AT NIGHTUSE WARM COMPRESSES TWICE A DAY BOTH EYESUSE TEARS 4-5 TIMES DAY USE LID SCRUBS NEEDEDFollow up:2 Year Follow Up You can expect to have your eyes dilated at your next visit. If Dr. Sanchez orders any additional testing, it may require extra time. You can expect to spend at least an hour and a halfto two hours at our office for your appointment. We recommend that you bring sunglasses , as dilationdrops often make you light sensitive until they wear off. We always recommend you bring someone to drive you home if you are uncomfortable driving with your eyes dilated. If you have any questions before your next visit , feel free to call our office at .H02.882 Meibomian gland dysfunction right lower ldglrwC79.884 Meibomian gland dysfunction left upper qnekalS19.885 Meibomian gland dysfunction left lower eyelid
[2019-04-27] MEDS ORDERED: Metoclopramide IV* 5 MG/ML 2 ML VIAL IV SLOW PU ONE (01:00)
[2019-04-27] MEDS ORDERED: LORazepam INJ* 2 MG/ML 1 ML VIAL IV PUSH ONE (01:00)
[2019-04-27] MEDS ORDERED: Lorazepam PYXIS KEY PRN (01:00)
[2019-04-27] MEDS ORDERED: Ketorolac INJ* 30 MG/ML 1 ML VIAL IV PUSH ONE (01:00)
[2019-04-27] MEDS ORDERED: diPHENhydraMINE IV* 50 MG/ML 1 ml VIAL (BENADRYL) SLOW PUSH ONE (01:01)
[2019-04-27] MEDS ORDERED: Lorazepam PYXIS KEY ONE (01:29)
--- NOTE | 2019-04-27 04:32 | ED ---
Complex/Multi-Sys Presentation - HPI Summary HPI Summary: Patient is a 64 year old F presenting to [facility] with a chief complaint of near syncope, neck and head pain, and bilateral jaw pain. Patient reports she was driving home in [place] when she could not go very far and came back to the ED. Patient reported that she felt like passing out, her neck was sore, her head hurt, and she has recently been experiencing "eye troubles" for which she visited the eye doctor 3 times, the last visit being yesterday. Patient denies HTN. Patient reports use of medications including baby aspirin at night, depression and anxiety medication, supplements. Patient reports vascular study done on both legs a week ago because of sleep trouble at night. PSHx: left arm. Pain is rated 10/10 in severity. Symptoms aggravated by nothing. Symptoms alleviated by nothing. - History Of Current Complaint Chief Complaint: EDHypertension Time Seen by Provider: 04/27/19 00:37 Hx Obtained From: Patient Onset/Duration: Lasting Hours, Still Present Aggravating Factor(s): nothing Alleviating Factor(s): nothing Associated Signs And Symptoms: Positive: Other - near syncope, her neck was sore , her head hurt, eye troubles. - Allergies/Home Medications Allergies/Adverse Reactions: Allergies Allergy/AdvReac Type Severity Reaction Status Date / Time alprazolam Allergy Anxiety Verified 03/12/19 21:42 atorvastatin Allergy See Comment Verified 03/12/19 21:42 buspirone Allergy See Comment Verified 03/12/19 21:42 cefaclor Allergy GI Upset Verified 03/12/19 21:42 cephalexin [From Keflex] Allergy Unknown Verified 03/14/19 15:42 Reaction Details dexamethasone Allergy Anxiety Verified 03/12/19 21:42 doxycycline Allergy See Comment Verified 03/12/19 21:42 erythromycin base Allergy See Comment Verified 03/12/19 21:42 fluoxetine [From Prozac] Allergy See Comment Verified 03/12/19 21:42 gabapentin Allergy See Comment Verified 03/12/19 21:42 gluten Allergy See Comment Verified 03/12/19 21:42 glycerin Allergy Unknown Verified 03/12/19 21:42 Reaction Details hydromorphone [From Dilaudid] Allergy See Comment Verified 03/12/19 21:42 levofloxacin Allergy GI Upset Verified 03/14/19 15:41 levothyroxine Allergy Tachycardia Verified 04/26/19 23:20 metoprolol Allergy See Comment Verified 04/26/19 23:20 metronidazole [From Flagyl] Allergy Unknown Verified 04/26/19 23:20 Reaction Details mirtazapine Allergy Tachycardia Verified 04/26/19 23:20 paroxetine Allergy See Comment Verified 04/26/19 23:20 Penicillins Allergy GI Upset Verified 04/26/19 23:20 prednisone Allergy Anxiety Verified 04/26/19 23:20 sulfacetamide Allergy Unknown Verified 04/26/19 23:20 Reaction Details tramadol Allergy Tachycardia Verified 04/26/19 23:20 Iodinated Contrast- Oral and AdvReac See Comment Verified 04/26/19 23:20 IV Dye PMH/Surg Hx/FS Hx/Imm Hx Endocrine/Hematology History: Reports: Hx Thyroid Disease - had issues in the past-no issues since becoming gluten free Denies: Hx Anticoagulant Therapy, Hx Diabetes Cardiovascular History: Reports: Hx Hypercholesterolemia, Other Cardiovascular Problems/Disorders - Elevated cholesterol Denies: Hx Hypertension, Hx Pacemaker/ICD Respiratory History: Reports: Hx Asthma - rescue med if needed-hasn't had issues in a long, Hx Sleep Apnea Denies: Hx Chronic Obstructive Pulmonary Disease (COPD), Other Respiratory Problems/Disorders GI History: Reports: Hx Gastroesophageal Reflux Disease - GERD-on medication Denies: Hx Irritable Bowel, Hx Ulcer, Other GI Disorders - Gluten free diet History: Reports: Other Problems/Disorders - had a UTI once, not recently Denies: Hx Renal Disease Musculoskeletal History: Reports: Hx Arthritis - hands and neck, Other Musculoskeletal History - benign lipomatous neoplasm-left elbow Sensory History: Reports: Hx Cataracts - developing cataracts, Hx Contacts or Glasses - Glasses Denies: Hx Deafness, Hx Hearing Aid Opthamlomology History: Reports: Hx Cataracts - developing cataracts, Hx Contacts or Glasses - Glasses Neurological History: Reports: Hx Nerve Disease - Sjogrens syndrome Denies: Other Neuro Impairments/Disorders Psychiatric History: Reports: Hx Anxiety - on medication, Hx Depression Denies: Hx Panic Disorder - Cancer History Cancer Type, 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 Deviated septum. [place] teeth. Colonoscopies Hx Anesthesia Reactions: Yes - last colonoscopy-was told she should be sedated differently-[facility] - Immunization History Date of Tetanus Vaccine: UTD Date of Influenza Vaccine: none Immunizations Up to Date: Yes Infectious Disease History: No Infectious Disease History: Denies: Hx Clostridium Difficile, Hx Hepatitis, Hx Human Immunodeficiency Virus (HIV), Hx of Known/Suspected MRSA, Hx Shingles, Hx Tuberculosis, Hx Known/ Suspected VRE, Hx Known/Suspected VRSA, History Other Infectious Disease, Traveled Outside the [place] in Last 30 Days - Family History Known Family History: Positive: Cardiac Disease - SISTER - MD AGE 54, Diabetes - FATHER, Other - F - COLON CA, BOTH PARENTS - HIGH CHOLESTEROL, M - BRAIN TUMOR - Social History Alcohol Use: None Hx Substance Use: No Substance Use Type: Reports: None Hx Tobacco Use: No Smoking Status (MU): Never Smoked Tobacco Review of Systems Positive: Other - near syncope Eyes: Other - "eye troubles" Positive: Other - head and neck pain, jaw pain All Other Systems Reviewed And Are Negative: Yes Physical Exam - Summary Physical Exam Summary: VITAL SIGNS: Reviewed. GENERAL: Patient is a well-developed and nourished FEMALE who is lying comfortable in the stretcher. Patient is not in any acute respiratory distress. HEAD AND FACE: No signs of trauma. No ecchymosis, hematomas or skull depressions. No sinus tenderness. EYES: PERRLA, EOMI x 2, No injected conjunctiva, no nystagmus. EARS: Hearing grossly intact. Ear canals and tympanic membranes are within normal limits. MOUTH: Oropharynx within normal limits. NECK: Supple, trachea is midline, no adenopathy, no JVD, no carotid bruit, no c- spine tenderness, mild decrease of neck movement bc of chronic pain CHEST: Symmetric, no tenderness at palpation LUNGS: Clear to auscultation bilaterally. No wheezing or crackles. CVS: Regular rate and rhythm, S1 and S2 present, no murmurs or gallops appreciated. ABDOMEN: Soft, non-tender. No signs of distention. No rebound no guarding, and no masses palpated. Bowel sounds are normal. EXTREMITIES: FROM in all major joints, no edema, no cyanosis or clubbing. NEURO: Alert and oriented x 3. No acute neurological deficits. Speech is normal and follows commands. Psych: Anxious SKIN: Dry and warm Triage Information Reviewed: Yes Vital Signs On Initial Exam: Initial Vitals Temp Pulse Resp BP Pulse Ox 97.5 F 114 20 215/99 98 04/26/19 23:10 04/26/19 23:10 04/26/19 23:10 04/26/19 23:10 04/26/19 23:10 Vital Signs Reviewed: Yes Diagnostics - Vital Signs Vital Signs Temp Pulse Resp BP Pulse Ox 04/27/19 01:46 20 04/26/19 23:10 97.5 F 114 20 215/99 98 - Laboratory Lab Statement: Any lab studies that have been ordered have been reviewed, and results considered in the medical decision making process. - EKG 2313 Cardiac Rate: NL - 104 BPM EKG Rhythm: Sinus Tachycardia Summary of EKG Findings: Sinus tachycardia at 104 BPM Complex Multi-Symp Course/Dx Course Of Treatment: Patient is a 64 year old F presenting to [facility] with a chief complaint of near syncope, neck and head pain, and bilateral jaw pain. Patient reports she was driving home in [place] when she could not go very far and came back to the ED. Patient reported that she felt like passing out, her neck was sore, her head hurt, and she has recently been experiencing "eye troubles" for which she visited the eye doctor 3 times, the last visit being yesterday. Physical exam shows no abnormalities except for patient was anxious and had mild decrease of neck movement because of chronic pain. Patient was given ketorolac tromethamine 15 mg IV, lorazepam 1 mg IV, and metoclopramide Hcl 10 mg IV in the ED. EKG reveals Sinus tachycardia at 104 BPM. Physician discusses discharge with patient who agrees with discharge. Patient will be discharged. Patient will follow up with PCP within 3 days. - Diagnoses Provider Diagnoses: Anxiety Discharge - Sign-Out/Discharge Documenting (check all that apply): Patient Departure - discharge Patient Received Moderate/Deep Sedation with Procedure: No - Discharge Plan Condition: Stable Disposition: HOME Referrals: Jerson Tyson MD [Primary Care Provider] - - Attestation Statements Document Initiated by Scribe: Yes Documenting Scribe: Gladis Hung Provider For Whom Juanitaibkatina is Documenting (Include Credential): Reggie Yates MD Scribe Attestation: Jerson Navarrete Alison Kim, scribed for Reggie Yates MD on 04/27/19 at 0727. Status of Scribe Document: Ready
[2019-04-27 04:39] VITALS: BP 157/81
== END 2019-04-27 02:45 | disposition home or self-care (01) ==
LOC: ED 23:06
DX: F41.9 Anxiety disorder, unspecified (principal); E78.00 Pure hypercholesterolemia, unspecified; K21.9 Gastro-esophageal reflux disease without esophagitis; F32.9 Major depressive disorder, single episode, unspecified; Z79.82 Long term (current) use of aspirin; Z79.899 Other long term (current) drug therapy; Z88.5 Allergy status to narcotic agent; Z88.0 Allergy status to penicillin; Z88.2 Allergy status to sulfonamides; Z88.8 Allergy status to other drugs, medicaments and biological substances; Z88.1 Allergy status to other antibiotic agents; Z91.041 Radiographic dye allergy status
CPT/HCPCS: 93005; 96374; 96375; 99283; J1200; J1885; J2060; J2765

== ENCOUNTER → 2019-04-29 06:46 | Emergency (ER) | payer MEDICARE, OTHER ==
[~2019-04-29 06:46] MED LIST changes: -Buffered Lidocaine 1% SYRIN* 1 ML/SYRINGE INTRADERM ONE; +Ketorolac INJ* 30 MG/ML 1 ML VIAL IV ONE; -Lactated Ringers 1000 ML Bag* 1,000 ML IV SCH; +Lisinopril TAB* 10 MG PO ONE; +Losartan TAB* 25 MG PO ONE; +NS 0.9% 1000 ML** 1,000 ML IV.FLUID IV ONE; +clonazePAM TAB(*) 0.5 MG PO ONE; +hydrALAZINE IV* 20 MG/ML VIAL IV SLOW PU ONE
--- NOTE | 2019-04-29 09:46 | ED ---
Complex/Multi-Sys Presentation - HPI Summary HPI Summary: This patient is a 64 year old female presenting to [facility] with a chief complaint of hypertension. She states she has been seeing her psychiatrist for anxiety and depression. She states through her psychiatrist she found she was hypertensive. She is now stating she can not sleep because she has pain in her neck, pain in bilateral arms, and both legs bilaterally. The patient denies weakness, and slurred speech. She describes the pain as a shooting pain in her bilateral arms and legs. The patient states she does no ETOH, tobacco, or any other substances. She states a family Hx of hypertension. She states she has not yet been treated for her hypertension. She has many medication allergies so is worried about starting new medication. Vital signs in room: HR 80 BPM, BP 170/95. Cyclosporine 0.05% OPHTH (NF) [Restasis 0.05% OPHTH] 1 drop BOTH EYES BID [History Confirmed 03/14/19] Nortriptyline CAP* [Nortriptylline CAP*] 10 mg PO BEDTIME 10/17/15 [History Confirmed 03/14/19] clonazePAM TAB(*) [Klonopin TAB(*)] 0.5 mg PO TID PRN 10/17/15 [History Confirmed 03/14/19] Artificial Tears* 15 ML BTL [Polyvinyl Alcohol 1.4% OPTH*] 1 drop BOTH EYES Q2H PRN 06/14/17 [History Confirmed 03/14/19] Aspirin EC TAB* [Ecotrin EC Low Dose 81 MG*] 81 mg PO BEDTIME 06/14/17 [History Confirmed 03/14/19] Calcium Carbonate/Vitamin D3 [Calcium 600-Vit D3 800 Tablet] 1 tab PO QAM [History Confirmed 03/14/19] Flaxseed Oil 1 cap PO BID 06/14/17 [History Confirmed 03/14/19] Mupirocin 2% OINT* [Bactroban 2 % Oint*] 1 applic TOPICAL BID PRN 06/14/17 [ History Confirmed 03/14/19] Ranitidine TAB (NF) [Zantac TAB (NF)] 300 mg PO BEDTIME 06/14/17 [History Confirmed 03/14/19] Albuterol inh POWDER (NF) [Proair Respiclick] 1 puff INH Q4H PRN 08/07/18 [ History Confirmed 03/14/19] Magnesium Oxide [Magnesium] 250 mg PO QAM 08/07/18 [History Confirmed 03/14/19] Potassium Chlor TAB* [Klor Con ER TAB 10 MEQ*] 10 meq PO QAM PRN 11/14/18 [ History Confirmed 03/14/19] Acetaminophen TAB* [Tylenol TAB*] 975 mg PO Q8H PRN tab 11/22/18 [Rx Confirmed 03/14/19] Docusate CAP* [Colace Cap*] 100 mg PO BID PRN cap 11/22/18 [Rx Confirmed ] Pantoprazole TAB * [Protonix TAB*] 40 mg PO DAILY 03/14/19 [History Confirmed ] - History Of Current Complaint Chief Complaint: EDGeneral Time Seen by Provider: 04/29/19 09:38 Hx Obtained From: Patient Onset/Duration: Sudden Onset, Lasting Hours Timing: Intermittent, Lasting:, Seconds Severity Currently: Moderate Severity Initially: Moderate Character: Unable To Describe - Shooting - Allergies/Home Medications Allergies/Adverse Reactions: Allergies Allergy/AdvReac Type Severity Reaction Status Date / Time alprazolam Allergy Anxiety Verified 03/12/19 21:42 atorvastatin Allergy See Comment Verified 03/12/19 21:42 buspirone Allergy See Comment Verified 03/12/19 21:42 cefaclor Allergy GI Upset Verified 03/12/19 21:42 cephalexin [From Keflex] Allergy Unknown Verified 03/14/19 15:42 Reaction Details dexamethasone Allergy Anxiety Verified 03/12/19 21:42 doxycycline Allergy See Comment Verified 03/12/19 21:42 erythromycin base Allergy See Comment Verified 03/12/19 21:42 fluoxetine [From Prozac] Allergy See Comment Verified 03/12/19 21:42 gabapentin Allergy See Comment Verified 03/12/19 21:42 gluten Allergy See Comment Verified 03/12/19 21:42 glycerin Allergy Unknown Verified 03/12/19 21:42 Reaction Details hydromorphone [From Dilaudid] Allergy See Comment Verified 03/12/19 21:42 levofloxacin Allergy GI Upset Verified 03/14/19 15:41 levothyroxine Allergy Tachycardia Verified 04/26/19 23:20 metoprolol Allergy See Comment Verified 04/26/19 23:20 metronidazole [From Flagyl] Allergy Unknown Verified 04/26/19 23:20 Reaction Details mirtazapine Allergy Tachycardia Verified 04/26/19 23:20 paroxetine Allergy See Comment Verified 04/26/19 23:20 Penicillins Allergy GI Upset Verified 04/26/19 23:20 prednisone Allergy Anxiety Verified 04/26/19 23:20 sulfacetamide Allergy Unknown Verified 04/26/19 23:20 Reaction Details tramadol Allergy Tachycardia Verified 04/26/19 23:20 Iodinated Contrast- Oral and AdvReac See Comment Verified 04/26/19 23:20 IV Dye PMH/Surg Hx/FS Hx/Imm Hx Endocrine/Hematology History: Reports: Hx Thyroid Disease - had issues in the past-no issues since becoming gluten free Denies: Hx Anticoagulant Therapy, Hx Diabetes Cardiovascular History: Reports: Hx Hypercholesterolemia, Other Cardiovascular Problems/Disorders - Elevated cholesterol Denies: Hx Hypertension, Hx Pacemaker/ICD Respiratory History: Reports: Hx Asthma - rescue med if needed-hasn't had issues in a long, Hx Sleep Apnea Denies: Hx Chronic Obstructive Pulmonary Disease (COPD), Other Respiratory Problems/Disorders GI History: Reports: Hx Gastroesophageal Reflux Disease - GERD-on medication Denies: Hx Irritable Bowel, Hx Ulcer, Other GI Disorders - Gluten free diet History: Reports: Other Problems/Disorders - had a UTI once, not recently Denies: Hx Renal Disease Musculoskeletal History: Reports: Hx Arthritis - hands and neck, Other Musculoskeletal History - benign lipomatous neoplasm-left elbow Sensory History: Reports: Hx Cataracts - developing cataracts, Hx Contacts or Glasses - Glasses Denies: Hx Deafness, Hx Hearing Aid Opthamlomology History: Reports: Hx Cataracts - developing cataracts, Hx Contacts or Glasses - Glasses Neurological History: Reports: Hx Nerve Disease - Sjogrens syndrome Denies: Other Neuro Impairments/Disorders Psychiatric History: Reports: Hx Anxiety - on medication, Hx Depression Denies: Hx Panic Disorder - Cancer History Cancer Type, 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 Deviated septum. [place] teeth. Colonoscopies Hx Anesthesia Reactions: Yes - last colonoscopy-was told she should be sedated differently-[facility] - Immunization History Date of Tetanus Vaccine: UTD Date of Influenza Vaccine: none Infectious Disease History: No Infectious Disease History: Denies: Hx Clostridium Difficile, Hx Hepatitis, Hx Human Immunodeficiency Virus (HIV), Hx of Known/Suspected MRSA, Hx Shingles, Hx Tuberculosis, Hx Known/ Suspected VRE, Hx Known/Suspected VRSA, History Other Infectious Disease, Traveled Outside the [place] in Last 30 Days - Family History Known Family History: Positive: Cardiac Disease - SISTER - [place] AGE 54, Diabetes - FATHER, Other - F - COLON CA, BOTH PARENTS - HIGH CHOLESTEROL, M - BRAIN TUMOR - Social History Alcohol Use: None Hx Substance Use: No Substance Use Type: Reports: None Hx Tobacco Use: No Smoking Status (MU): Never Smoked Tobacco Review of Systems Positive: Other - Hypertension Positive: Other - Pain in all extremities, neck. All Other Systems Reviewed And Are Negative: Yes Physical Exam - Summary Physical Exam Summary: Appearance: Ill-appearing, moderate pain distress, well-nourished Skin: Warm, color reflects adequate perfusion, dry. Bruising on the dorsal surface of her right hand. Head: Normal Head/Face inspection, atraumatic Eyes: Conjunctiva clear ENT: Normal inspection Neck: Supple, no nodes, no JVD Respiratory: Lungs clear, normal breath sounds, no respiratory distress Cardio: RRR, No murmur, pulses normal, brisk capillary refill Abdomen: Soft, nontender Bowel sounds: Present Musculoskeletal: Strength Intact/ROM intact, no calf tenderness, no edema. Psychological: Normal Neuro: Alert, muscle tone normal, no focal deficit Triage Information Reviewed: Yes Vital Signs On Initial Exam: Initial Vitals Temp Pulse Resp BP Pulse Ox 97.8 F 92 18 198/104 98 04/29/19 06:48 04/29/19 06:48 04/29/19 06:48 04/29/19 06:48 04/29/19 06:48 Vital Signs Reviewed: Yes Diagnostics - Vital Signs Vital Signs Temp Pulse Resp BP Pulse Ox 04/29/19 06:48 97.8 F 92 18 198/104 98 - Laboratory Result Diagrams: 04/29/19 11:02 04/29/19 11:02 Lab Statement: Any lab studies that have been ordered have been reviewed, and results considered in the medical decision making process. - Radiology Shoulder Right Radiology Interpretation Completed By: Radiologist Summary of Radiographic Findings: No fracture of the right shoulder is noted. ED Provider has reviewed this report. - CT Cervical Spine CT Interpretation Completed By: Radiologist Summary of CT Findings: Degenerative disc disease at C5-C6. Straightening of the normal lordosis. Ed Provider has reviewed this report. - EKG 1047 Cardiac Rate: NL - 74 BPM EKG Rhythm: Sinus Rhythm ST Segment: Non-Specific Ectopy: None Summary of EKG Findings: An EKG at 1047 reveals nml AV/IV CT, nml QTc, and nml axis. No acute changes.ED MD has reviewed and interpreted this EKG. Re-Evaluation - Re-Evaluation First Eval Re-Evaluation Time: 12:02 Comment: Patient requested to take her home Klonopin. ED Provider explained that they can give her her dosage in the ED but cannot take her home medication. Patient is asking a lot of questions repetitively, is unsure about taking her medications. HR is 95 BPM and her BP is 167/83. Second Eval Re-Evaluation Time: 14:20 Change: Improved Comment: Patient has no headache. BP 148/81. Patient is calm. She agrees to take lisinopril. Plan for discharge was discussed with the patient and she was agreeable with this plan. Complex Multi-Symp Course/Dx Course Of Treatment: This patient is a 64 year old female presenting to [facility] with a chief complaint of hypertension. Medications reviewed. Vital signs reviewed. Vital signs revealed hypertension (BP 198/104). CT cervical spine revealed Degenerative disc disease at C5-C6. Straightening of the normal lordosis. The patient was given Cozaar and Prinizil to manage her HTN. She was administered Klonopin upon request as it is her home medication, but she was not permitted to take her home medication in the ED. Upon reevaluation blood pressure dropped to 148/81. A plan for discharge was discussed with the patient and she was agreeable with this plan. - Diagnoses Provider Diagnoses: Asymptomatic hypertension, Myalgia Discharge - Sign-Out/Discharge Documenting (check all that apply): Patient Departure - Discharge Patient Received Moderate/Deep Sedation with Procedure: No - Discharge Plan Condition: Stable Disposition: HOME Prescriptions: Lisinopril TAB* [Prinivil TAB 10 MG*] 10 mg PO DAILY #10 tab Patient Education Materials: Musculoskeletal Pain (ED), Hypertension (ED) Referrals: Jerson Tyson MD [Primary Care Provider] - 2 Days Additional Instructions: The test for pheochromocytoma is pending at the time of discharge, urine metanephrines. Your doctor will need to be sure to follow up on this result. The ER will only contact you if it is abnormal. You were given lisinopril 10mg orally without any adverse reaction, and Dr. Hi has prescribed this for you to take until you see Dr. Tyson. You were also given toradol 15mg IV and you took your usual clonazepam 0.5mg po at 12:35pm You did not have any symptoms with your hypertension but Dr. Hi recommends that you should be started on antihypertensive medication. Please return to the ER if you have any new or worsening symptoms. - Attestation Statements Document Initiated by Perfecto: Yes Documenting Scribe: Pedrito Yates Provider For Whom Perfecto is Documenting (Include Credential): Adilia Hi MD Scribe Attestation: Pedrito Navarrete, scribed for Adilia Hi MD on 04/29/19 at 1424. Status of Scribe Document: Ready
[2019-04-29 10:55] LABS: Urine Appearance Clear; Urine Bacteria Absent (Absent); Urine Bilirubin Negative (Negative); Urine Blood Negative (Negative); Urine Color Colorless; Urine Glucose Negative (Negative); Urine Ketones Negative (Negative); Urine Nitrite Negative (Negative); Urine Protein Negative (Negative); Urine Red Blood Cell Absent (Absent); Urine Specific Gravity 1.005 (1.010-1.030); Urine Urobilinogen Negative (Negative); Urine White Blood Cell 1+(6-10/hpf) (Absent)
[2019-04-29 11:27] LABS: ABS Eosinophils 0.1 10^3/ul (0-0.6); ABS Lymphocytes 1.3 10^3/ul (1.0-4.8); ABS Monocytes 0.6 10^3/ul (0-0.8); ABS Neutrophils 3.9 10^3/ul (1.5-7.7); Eosinophil % 2.1 %; Hematocrit 39 % (35-47); Hemoglobin 12.9 g/dL (12.0-16.0); Lymphocyte % 21.3 %; Mean Corpuscular HGB Conc 33 g/dL (31-36); Mean Corpuscular Hemoglobin 27 pg (27-31); Mean Corpuscular Volume 82 fL (80-97); Mean Platelet Volume 8.1 fL (7.4-10.4); Nucleated Red Blood Cells % 0.1; Platelet Count 286 10^3/uL (150-450); Red Blood Count 4.73 10^6 /uL (3.70-4.87); Red Cell Distribution Width 18 % (10-15); White Blood Count 5.9 10^3/uL (3.5-10.8)
[2019-04-29 11:33] LABS: Albumin 4.4 g/dL (3.2-5.2); Albumin/Globulin Ratio 1.4 (1-3); BUN/Creatinine Ratio 22.4 (8-20); Calcium 10.1 mg/dL (8.6-10.3); EGFR African American 68.7 (>60); EGFR Non-African American 56.8 (>60); Globulin 3.1 g/dL (2-4); Potassium 3.9 mmol/L (3.5-5.0); Total Bilirubin 0.4 mg/dL (0.2-1.0); Total Protein 7.5 g/dL (6.4-8.9)
[2019-04-29 11:35] LABS: Activated Partial Thrombo Time 32.1 seconds (26.0-38.0); INR 0.95 (0.82-1.09)
[2019-04-29 11:38] LABS: CKMB ng/mL 1.1 ng/mL (0.6-6.3)
[2019-04-29 15:10] VITALS: BP 152/92
== END | disposition home or self-care (01) ==
LOC: ED 06:46
DX: I10 Essential (primary) hypertension (principal); M79.10 Myalgia, unspecified site; M50.322 Other cervical disc degeneration at C5-C6 level; J45.909 Unspecified asthma, uncomplicated; K21.9 Gastro-esophageal reflux disease without esophagitis; F41.9 Anxiety disorder, unspecified; F32.9 Major depressive disorder, single episode, unspecified; Z79.82 Long term (current) use of aspirin; Z88.5 Allergy status to narcotic agent; Z88.0 Allergy status to penicillin; Z88.2 Allergy status to sulfonamides; Z88.8 Allergy status to other drugs, medicaments and biological substances; Z88.1 Allergy status to other antibiotic agents; Z91.041 Radiographic dye allergy status
CPT/HCPCS: 36415; 72125; 80053; 81003; 81015; 82550; 82553; 83605; 83835; 84436; 85025; 85610; 85730; 87086; 93005; 96374; 99283; A9270-GY; J1885

== ENCOUNTER 2019-04-29 21:26 | Emergency (ER) | payer MEDICARE, OTHER ==
--- NOTE | 2019-04-29 22:35 | ED ---
Influenza-Like Illness - HPI Summary HPI Summary: 64 yo female presents to [facility] via ambulance with general complaints. She was seen earlier today for HTN and anxiety/depression and chronic pain. A workup was negative and her BP was controlled with IV medications. She was discharged with po lisinopril, which she took after leaving the ED. She then researched side effects of the medication and began to have a dry cough and abdominal cramping with 2-3 formed bowel movements. When discussing her symptoms that brought her back to the ED, she continues to talk about her neck pain that has been chronic for years in addition to the above abdominal cramping and bowel movements. She attributes her symptoms to the lisinopril she took earlier today as she is sensitive to many medications. She ate blueberries for dinner. Denies fever, SOB, chest pain, palpitations, vomiting, dysuria, blood in stool, or numbness. - History of Current Complaint Chief Complaint: EDGeneral Time Seen by Provider: 04/29/19 22:35 Hx Obtained From: Patient Onset/Duration: Sudden Onset - Allergy/Home Medications Allergies/Adverse Reactions: Allergies Allergy/AdvReac Type Severity Reaction Status Date / Time alprazolam Allergy Anxiety Verified 04/29/19 22:18 atorvastatin Allergy See Comment Verified 04/29/19 22:18 buspirone Allergy See Comment Verified 04/29/19 22:18 cefaclor Allergy GI Upset Verified 04/29/19 22:18 cephalexin [From Keflex] Allergy Unknown Verified 04/29/19 22:18 Reaction Details dexamethasone Allergy Anxiety Verified 04/29/19 22:18 doxycycline Allergy See Comment Verified 04/29/19 22:18 erythromycin base Allergy See Comment Verified 04/29/19 22:18 fluoxetine [From Prozac] Allergy See Comment Verified 04/29/19 22:18 gabapentin Allergy See Comment Verified 04/29/19 22:18 gluten Allergy See Comment Verified 04/29/19 22:18 glycerin Allergy Unknown Verified 04/29/19 22:18 Reaction Details hydromorphone [From Dilaudid] Allergy See Comment Verified 04/29/19 22:18 levofloxacin Allergy GI Upset Verified 04/29/19 22:18 levothyroxine Allergy Tachycardia Verified 04/29/19 22:18 metoprolol Allergy See Comment Verified 04/29/19 22:18 metronidazole [From Flagyl] Allergy Unknown Verified 04/29/19 22:18 Reaction Details mirtazapine Allergy Tachycardia Verified 04/29/19 22:18 paroxetine Allergy See Comment Verified 04/29/19 22:18 Penicillins Allergy GI Upset Verified 04/29/19 22:18 prednisone Allergy Anxiety Verified 04/29/19 22:18 sulfacetamide Allergy Unknown Verified 04/29/19 22:18 Reaction Details tramadol Allergy Tachycardia Verified 04/29/19 22:18 Iodinated Contrast- Oral and AdvReac See Comment Verified 04/29/19 22:18 IV Dye PMH/Surg Hx/FS Hx/Imm Hx Endocrine/Hematology History: Reports: Hx Thyroid Disease - had issues in the past-no issues since becoming gluten free Denies: Hx Anticoagulant Therapy, Hx Diabetes Cardiovascular History: Reports: Hx Hypercholesterolemia, Other Cardiovascular Problems/Disorders - Elevated cholesterol Denies: Hx Hypertension, Hx Pacemaker/ICD Respiratory History: Reports: Hx Asthma - rescue med if needed-hasn't had issues in a long, Hx Sleep Apnea Denies: Hx Chronic Obstructive Pulmonary Disease (COPD), Other Respiratory Problems/Disorders GI History: Reports: Hx Gastroesophageal Reflux Disease - GERD-on medication Denies: Hx Irritable Bowel, Hx Ulcer, Other GI Disorders - Gluten free diet History: Reports: Other Problems/Disorders - had a UTI once, not recently Denies: Hx Renal Disease Musculoskeletal History: Reports: Hx Arthritis - hands and neck, Other Musculoskeletal History - benign lipomatous neoplasm-left elbow Sensory History: Reports: Hx Cataracts - developing cataracts, Hx Contacts or Glasses - Glasses Denies: Hx Deafness, Hx Hearing Aid Opthamlomology History: Reports: Hx Cataracts - developing cataracts, Hx Contacts or Glasses - Glasses Neurological History: Reports: Hx Nerve Disease - Sjogrens syndrome Denies: Other Neuro Impairments/Disorders Psychiatric History: Reports: Hx Anxiety - on medication, Hx Depression Denies: Hx Panic Disorder - Cancer History Cancer Type, 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 Deviated septum. [place] teeth. Colonoscopies Hx Anesthesia Reactions: Yes - last colonoscopy-was told she should be sedated differently-[facility] - Immunization History Date of Tetanus Vaccine: UTD Date of Influenza Vaccine: none Infectious Disease History: No Infectious Disease History: Denies: Hx Clostridium Difficile, Hx Hepatitis, Hx Human Immunodeficiency Virus (HIV), Hx of Known/Suspected MRSA, Hx Shingles, Hx Tuberculosis, Hx Known/ Suspected VRE, Hx Known/Suspected VRSA, History Other Infectious Disease, Traveled Outside the [place] in Last 30 Days - Family History Known Family History: Positive: Cardiac Disease - SISTER - [place] AGE 54, Diabetes - FATHER, Other - F - COLON CA, BOTH PARENTS - HIGH CHOLESTEROL, M - BRAIN TUMOR - Social History Alcohol Use: None Hx Substance Use: No Substance Use Type: Reports: None Hx Tobacco Use: No Smoking Status (MU): Never Smoked Tobacco Review of Systems Constitutional: Other - Body pain Eyes: Negative ENT: Negative Cardiovascular: Negative Positive: Cough Positive: Diarrhea Genitourinary: Negative Musculoskeletal: Other - Neck pain Skin: Negative Neurological: Negative Positive: Anxious All Other Systems Reviewed And Are Negative: Yes Physical Exam - Summary Physical Exam Summary: GENERAL: NAD. WDWN. No pain distress. SKIN: No rashes, sores, or open wounds. Scant ecchymosis on right dorsal hand and left forearm from IV sites. Soft and without warmth or edema. HEENT: Head: AT/NC Eyes: PERRLA. EOM intact. Conjunctiva clear without inflammation or discharge. Ears: Hearing grossly normal. TMs intact, no bulging, erythema, or edema. Nose: Nasal mucosa pink and moist. NTTP maxillary and frontal sinus. Throat: Posterior oropharynx without exudates, erythema, or tonsillar enlargement. Uvula midline. NECK: No lymphadenopathy. FROM. CHEST: CTAB. No r/r/w. No accessory muscle use. Breathing comfortably and in no distress. CV: RRR. Without m/r/g. Pulses intact. Brisk cap refill. ABDOMEN: Soft. NTTP. No distention or guarding. No CVA tenderness. Bowel sounds present MSK: FROM and 5/5 strength throughout. No edema. NEURO: Alert. PSYCH: Age appropriate behavior. Triage Information Reviewed: Yes Vital Signs On Initial Exam: Initial Vitals Temp Pulse Resp BP Pulse Ox 97.8 F 84 18 185/100 100 04/29/19 21:27 04/29/19 21:27 04/29/19 21:27 04/29/19 21:27 04/29/19 21:27 Vital Signs Reviewed: Yes Diagnostics - Vital Signs Vital Signs (72 hours) 04/29/19 04/29/19 04/29/19 21:27 21:28 21:31 Temperature 97.8 F Pulse Rate 84 76 78 Respiratory 18 Rate Blood Pressure 185/100 (mmHg) O2 Sat by Pulse 100 100 100 Oximetry 04/29/19 04/29/19 04/29/19 21:40 21:58 22:00 Temperature Pulse Rate 83 82 74 Respiratory 16 13 10 Rate Blood Pressure 179/93 (mmHg) O2 Sat by Pulse 97 100 99 Oximetry 04/29/19 04/29/19 22:27 23:41 Temperature 98.0 F Pulse Rate 78 80 Respiratory 7 18 Rate Blood Pressure 161/92 146/81 (mmHg) O2 Sat by Pulse 96 Oximetry - Laboratory Lab Statement: Any lab studies that have been ordered have been reviewed, and results considered in the medical decision making process. Flu Symptom Course/Dx - Course Course Of Treatment: EKG NSR [address] changes as read by Dr. Yates. She is afebrile, well appearing, and her exam is WNL with a non-acute workup earlier today. I had a long discussion with the pt that she had an extensive workup on as well as earlier today for, what appear to be, chronic complaints. Work revealed no acute findings other than her persistently elevated BP. She agreed with this interpretation, but continues to blame her anxiety and chronic pain. She did not want labwork or imaging done today as her arms have been "poked too many times" and she has bruising and bandages on both arms currently. Her BP was initially elevated, but after she was allowed to rest in a quiet room her BP decreased to 146/81. She mentioned that she had ativan with toradol a few days ago that was very helpful to her anxiety and pain. I discussed that we can give her toradol tonight for her discomfort, but she took her klonopin about 2 hours ago and I am not comfortable giving her ativan at this time. She was agreeable to have IM toradol and I encouraged her to follow up with her PCP and multiple specialists for management of her chronic pain, anxiety, and HTN. Return to the ED if she develops chest pain, SOB, fever, or worsening symptoms. Pt voiced understanding and was agreeable to this plan. - Diagnoses Provider Diagnoses: HTN (hypertension), Anxiety, Neck pain Discharge - Sign-Out/Discharge Documenting (check all that apply): Patient Departure Patient Received Moderate/Deep Sedation with Procedure: No - Discharge Plan Condition: Stable Disposition: HOME Patient Education Materials: Chronic Pain (ED), Anxiety (ED) Referrals: Jerson Tyson MD [Primary Care Provider] - 2 Days Additional Instructions: If you develop a fever, shortness of breath, chest pain, new or worsening symptoms - please call your PCP or go to the ED immediately. Please stop taking the lisinopril as it appears you do not tolerate this medication. Your BP is stable this evening and is much improved from when you were here earlier today. Please follow up with your primary doctor on Wednesday for an ER follow up visit. Your pain and complaints today seem chronic in nature and it is important to follow up with your primary doctor and specialists for continued treatment. We should have results of your adrenal test within a week or so and will follow up with you when they return. - Billing Disposition and Condition Condition: STABLE Disposition: Home
[2019-04-29] MEDS ORDERED: Ketorolac INJ* 30 MG/ML 1 ML VIAL IM ONE (23:22)
[2019-04-29 23:42] VITALS: BP 146/81
== END 2019-04-29 23:41 | disposition home or self-care (01) ==
LOC: ED 21:26
DX: I10 Essential (primary) hypertension (principal); F41.9 Anxiety disorder, unspecified; M54.2 Cervicalgia; J45.909 Unspecified asthma, uncomplicated; K21.9 Gastro-esophageal reflux disease without esophagitis; Z88.5 Allergy status to narcotic agent; Z88.0 Allergy status to penicillin; Z88.2 Allergy status to sulfonamides; Z88.8 Allergy status to other drugs, medicaments and biological substances; Z88.1 Allergy status to other antibiotic agents; Z91.041 Radiographic dye allergy status
CPT/HCPCS: 93005; 96372; 99283; J1885

== ENCOUNTER 2019-05-11 13:29 | Inpatient (IN) | payer MEDICARE, OTHER ==
--- NOTE | 2019-05-11 15:03 | ED ---
Psychiatric Complaint - HPI Summary HPI Summary: The patient is a 64 y/o F presenting to [facility] with a chief complaint of worsening anxiety and depression over the last few weeks. She reports that she had surgery in November 2018, and since then, she has been experiencing worsening anxiety, which has been aggravated by her blood pressure as dx of HTN has continued to be uncontrolled because she has tried Lisinopril, Losartan, and Amlodipine to no relief. Last night, she began having myalgia in her legs despite use of Clonidine and Acetaminophen, and her BP was also elevated this morning. She notes that her psychiatric hx has been managed by Dr. Vigil, and her PCP is Dr. Tyson. She additionally c/o [place], chest discomfort, diffuse abd pain, and decreased appetite. She denies SI, fever, chills, erythema of eyes , sore throat, SOB, cough, N/V, dysuria, hematuria, myalgia, edema, rash, or dizziness. Hx of anxiety, depression, thyroid disease, HLD, asthma, sleep apnea , GERD. Nonsmoker, no EtOH, no substance use. - History Of Current Complaint Chief Complaint: EDPsychosocial Time Seen by Provider: 05/11/19 13:35 Hx Obtained From: Patient Onset/Duration: Gradual Onset, Lasting Weeks, Still Present Timing: Weeks Severity Initially: Mild Severity Currently: Moderate Character: Depressed, Anxious Aggravating Factor(s): Other - unable to control BP Alleviating Factor(s): Nothing Associated Signs And Symptoms: Positive: Appetite Change - decreased Has Suicidal: Denies: Thoughts - Allergies/Home Medications Allergies/Adverse Reactions: Allergies Allergy/AdvReac Type Severity Reaction Status Date / Time alprazolam Allergy Anxiety Verified 05/01/19 14:17 atorvastatin Allergy See Comment Verified 05/01/19 14:17 buspirone Allergy See Comment Verified 05/01/19 14:17 cefaclor Allergy GI Upset Verified 05/01/19 14:17 cephalexin [From Keflex] Allergy Unknown Verified 05/01/19 14:17 Reaction Details dexamethasone Allergy Anxiety Verified 05/01/19 14:17 diphenhydramine Allergy See Comment Verified 05/12/19 19:06 [From Benadryl] doxycycline Allergy See Comment Verified 05/01/19 14:17 erythromycin base Allergy See Comment Verified 05/01/19 14:17 fluoxetine [From Prozac] Allergy See Comment Verified 05/01/19 14:17 gabapentin Allergy See Comment Verified 05/01/19 14:17 gluten Allergy See Comment Verified 05/01/19 14:17 glycerin Allergy Unknown Verified 05/01/19 14:17 Reaction Details hydromorphone [From Dilaudid] Allergy See Comment Verified 05/01/19 14:17 levofloxacin Allergy GI Upset Verified 05/01/19 14:17 levothyroxine Allergy Tachycardia Verified 05/01/19 14:17 lisinopril Allergy Nausea And Verified 05/01/19 14:17 Vomiting metoprolol Allergy See Comment Verified 05/01/19 14:17 metronidazole [From Flagyl] Allergy Unknown Verified 05/01/19 14:17 Reaction Details mirtazapine Allergy Tachycardia Verified 05/01/19 14:17 paroxetine Allergy See Comment Verified 05/01/19 14:17 Penicillins Allergy GI Upset Verified 05/01/19 14:17 prednisone Allergy Anxiety Verified 05/01/19 14:17 sulfacetamide Allergy Unknown Verified 05/01/19 14:17 Reaction Details tramadol Allergy Tachycardia Verified 05/01/19 14:17 Iodinated Contrast Media AdvReac See Comment Verified 05/01/19 14:17 [Iodinated Contrast- Oral and IV Dye] Home Medications: Home Medications Acetaminophen TAB* [Tylenol TAB*] 650 mg PO Q8H PRN 05/11/19 [History Confirmed 05/11/19] Cholecalciferol TAB* [Vitamin D TAB*] 2,000 units PO DAILY 05/11/19 [History Confirmed 05/11/19] Cyclobenzaprine TAB* [Flexeril 10 MG TAB*] 10 mg PO TID PRN 05/11/19 [History Confirmed 05/11/19] Flaxseed Oil [Park-3 Flaxseed Oil] 1,000 mg PO DAILY 05/11/19 [History Confirmed 05/11/19] Fluticasone/Vilanterol MDI(NF) [Breo Ellipta MDI 200/25(NF)] 1 puff INH DAILY PRN 05/11/19 [History Confirmed 05/11/19] Ibuprofen TAB* [Motrin TAB* 800 MG] 800 mg PO Q8HR PRN 05/11/19 [History Confirmed 05/11/19] LevoCETirizine TAB (NF) [Xyzal TAB (NF)] 5 mg PO DAILY 05/11/19 [History Confirmed 05/11/19] Magnesium Oxide TAB* [MagOx 400 TAB*] 400 mg PO DAILY 05/11/19 [History Confirmed 05/11/19] Multivitamins/Minerals TAB* [Theragran/minerals TAB*] 1 tab PO DAILY 05/11/19 [ History Confirmed 05/11/19] Mupirocin 2% CREAM* [Bactroban 2% CREAM*] 1 applic TOPICAL BID PRN 05/11/19 [ History Confirmed 05/11/19] Nortriptyline CAP* [Nortriptylline CAP*] 10 mg PO BEDTIME 05/11/19 [History Confirmed 05/11/19] amLODIPine TAB* [Norvasc 5 mg TAB*] 2.5 mg PO DAILY 05/11/19 [History Confirmed 05/11/19] guaiFENesin ER TAB [Mucinex*] 600 mg PO BID PRN 05/11/19 [History Confirmed 10/29] PMH/Surg Hx/FS Hx/Imm Hx Endocrine/Hematology History: Reports: Hx Thyroid Disease - had issues in the past-no issues since becoming gluten free Denies: Hx Anticoagulant Therapy, Hx Diabetes Cardiovascular History: Reports: Hx Hypercholesterolemia, Hx Hypertension Denies: Hx Pacemaker/ICD Respiratory History: Reports: Hx Asthma - rescue med if needed-hasn't had issues in a long, Hx Sleep Apnea Denies: Hx Chronic Obstructive Pulmonary Disease (COPD), Other Respiratory Problems/Disorders GI History: Reports: Hx Gastroesophageal Reflux Disease - GERD-on medication Denies: Hx Irritable Bowel, Hx Ulcer, Other GI Disorders - Gluten free diet History: Reports: Other Problems/Disorders - had a UTI once, not recently Denies: Hx Renal Disease Musculoskeletal History: Reports: Hx Arthritis - hands and neck, Other Musculoskeletal History - benign lipomatous neoplasm-left elbow Sensory History: Reports: Hx Cataracts - developing cataracts, Hx Contacts or Glasses - Glasses Denies: Hx Deafness, Hx Hearing Aid Opthamlomology History: Reports: Hx Cataracts - developing cataracts, Hx Contacts or Glasses - Glasses Neurological History: Reports: Hx Nerve Disease - Sjogrens syndrome Denies: Other Neuro Impairments/Disorders Psychiatric History: Reports: Hx Anxiety - on medication, Hx Depression Denies: Hx Panic Disorder - Cancer History Cancer Type, 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 Deviated septum. [place] teeth. Colonoscopies Hx Anesthesia Reactions: Yes - last colonoscopy-was told she should be sedated differently-[facility] - Immunization History Date of Tetanus Vaccine: UTD Date of Influenza Vaccine: none Infectious Disease History: No Infectious Disease History: Denies: Hx Clostridium Difficile, Hx Hepatitis, Hx Human Immunodeficiency Virus (HIV), Hx of Known/Suspected MRSA, Hx Shingles, Hx Tuberculosis, Hx Known/ Suspected VRE, Hx Known/Suspected VRSA, History Other Infectious Disease, Traveled Outside the [place] in Last 30 Days - Family History Known Family History: Positive: Cardiac Disease - SISTER - [place] AGE 54, Diabetes - FATHER, Other - F - COLON CA, BOTH PARENTS - HIGH CHOLESTEROL, M - BRAIN TUMOR - Social History Alcohol Use: None Hx Substance Use: No Substance Use Type: Reports: None Hx Tobacco Use: No Smoking Status (MU): Never Smoked Tobacco Review of Systems Negative: Fever, Chills Negative: Erythema Negative: Sore Throat Positive: Chest Pain - discomfort Negative: Shortness Of Breath, Cough Positive: Abdominal Pain - diffuse, Other - decreased appetite. Negative: Vomiting, Nausea Negative: dysuria, hematuria Positive: Myalgia - legs. Negative: Edema Negative: Rash Neurological: Other - NEGATIVE: dizziness Positive: Headache Psychological: Other - NEGATIVE: SI Positive: Anxious, Depressed All Other Systems Reviewed And Are Negative: Yes Physical Exam - Summary Physical Exam Summary: Constitutional: Well-developed, Well-nourished, Alert. (-) Distressed Skin: Warm, Dry HENT: Normocephalic; Atraumatic Eyes: Conjunctiva normal Neck: Musculoskeletal ROM normal neck. (-) JVD, (-) Stridor, (-) Tracheal deviation Cardio: Rhythm regular, rate normal, Heart sounds normal; Intact distal pulses; The pedal pulses are 2+ and symmetric. Radial pulses are 2+ and symmetric. (-) Murmur Pulmonary/Chest wall: Effort normal. (-) Respiratory distress, (-) Wheezes, (-) Rales Abd: Soft, (-) tenderness, (-) Distension, (-) Guarding, (-) Rebound Musculoskeletal: (-) Edema Lymph: (-) Cervical adenopathy Neuro: Alert, Oriented x3 Psych: Mood and affect Normal Triage Information Reviewed: Yes Vital Signs On Initial Exam: Initial Vitals Temp Pulse Resp BP Pulse Ox 98.1 F 67 18 165/90 100 05/11/19 13:31 05/11/19 13:31 05/11/19 13:31 05/11/19 13:31 05/11/19 13:31 Vital Signs Reviewed: Yes Diagnostics - Vital Signs Vital Signs Temp Pulse Resp BP Pulse Ox 05/11/19 13:31 98.1 F 67 18 165/90 100 - Laboratory Result Diagrams: 05/11/19 15:32 05/11/19 15:32 Lab Statement: Any lab studies that have been ordered have been reviewed, and results considered in the medical decision making process. - EKG 1505 Cardiac Rate: NL - 70 bpm EKG Rhythm: Sinus Rhythm Summary of EKG Findings: NSR at 70 bpm. No STEMI. Re-Evaluation - Re-Evaluation First Eval Re-Evaluation Time: 15:37 Comment: I discussed work up with patient. Second Eval Re-Evaluation Time: 16:30 Comment: Patient is medically clear. Third Eval Re-Evaluation Time: 17:40 Comment: I discussed results with patient before admission by [facility]. Course/Dx - Course Course Of Treatment: Patient is a 64 y/o F with cc of worsening anxiety and depression over the last few months following a surgery. She is concerned because she has been unable to control her BP despite various medication interventions. Psychiatrist is Dr. Vigil. Upon physical exam, the patient exhibits no acute abnormalities. Blood work reveals RBCs of 5.13, RDW of 17, calcium of 10.9. UA reveals specific gravity of 1.006, 1+ leukocyte esterase, and presence of squamous epithelial cells. EKG at 1505 reveals NSR at 70 bpm. She is medically clear at 1630. At 1730, Johnie Cortez, mental health hydrogen braze furnace operator , reports that the patient is being admitted under Dr. Vigil with dx of panic disorder. Patient agrees with this plan. - Differential Dx/Clinical Impression Provider Diagnosis: Panic disorder - Physician Notifications Discussed Care Of Patient With: Johnie Cortez - mental health hydrogen braze furnace operator Time Discussed With Above Provider: 17:30 Instructed by Provider To: Other - Johnie reports that the patient is being admitted under Dr. Vigil with dx of panic disorder. Discharge - Sign-Out/Discharge Documenting (check all that apply): Patient Departure - Patient is admitted by Dr. Vigil. Patient Received Moderate/Deep Sedation with Procedure: No - Discharge Plan Condition: Improved Disposition: [place]IATRIC FAC[place] [place] Billing Disposition and Condition Condition: IMPROVED Disposition: Psychiatric Facility [facility] [place] - Attestation Statements Document Initiated by Scribe: Yes Documenting Scribe: Alissa Zamora Provider For Whom Perfecto is Documenting (Include Credential): Dr. Seth Waters MD Scribe Attestation: Alissa Navarrete scribed for Dr. Seth Waters MD on 05/30/19 at 0818. Scribe Documentation Reviewed: Yes Provider Attestation: The documentation as recorded by the lennoxibAlissa ambriz accurately reflects the service I personally performed and the decisions made by me, Dr. Seth Waters MD Status of Scribe Document: Viewed
[2019-05-11 15:41] LABS: Urine Appearance Clear; Urine Bacteria Absent (Absent); Urine Bilirubin Negative (Negative); Urine Blood Negative (Negative); Urine Color Straw; Urine Glucose Negative (Negative); Urine Ketones Negative (Negative); Urine Nitrite Negative (Negative); Urine Protein Negative (Negative); Urine Red Blood Cell Trace(0-2/hpf) (Absent); Urine Specific Gravity 1.006 (1.010-1.030); Urine Squamous Epithelial Cell Present (Absent); Urine Urobilinogen Negative (Negative); Urine White Blood Cell Trace(0-5/hpf) (Absent)
[2019-05-11 15:44] LABS: ABS Eosinophils 0.1 10^3/ul (0-0.6); ABS Lymphocytes 1.5 10^3/ul (1.0-4.8); ABS Monocytes 0.7 10^3/ul (0-0.8); ABS Neutrophils 5.3 10^3/ul (1.5-7.7); Eosinophil % 1.4 %; Hematocrit 42 % (35-47); Lymphocyte % 19.3 %; Mean Corpuscular HGB Conc 33 g/dL (31-36); Mean Corpuscular Hemoglobin 27 pg (27-31); Mean Corpuscular Volume 82 fL (80-97); Mean Platelet Volume 8.3 fL (7.4-10.4); Platelet Count 349 10^3/uL (150-450); Red Blood Count 5.13 10^6 /uL (3.70-4.87); Red Cell Distribution Width 17 % (10-15); White Blood Count 7.6 10^3/uL (3.5-10.8)
[2019-05-11 15:53] LABS: Urine Benzodiazepine Screen None Detected (None Detect); Urine Opiates Screen None Detected (None Detect)
[2019-05-11 16:03] LABS: ALT 23 U/L (7-52); AST 20 U/L (13-39); Albumin 5.2 g/dL (3.2-5.2); Albumin/Globulin Ratio 1.5 (1-3); Alkaline Phosphatase 72 U/L (34-104); Anion Gap 10 mmol/L (2-11); Blood Urea Nitrogen 16 mg/dL (6-24); CO2 Carbon Dioxide 26 mmol/L (22-32); Calcium 10.9 mg/dL (8.6-10.3); Chloride 103 mmol/L (101-111); EGFR African American 67.1 (>60); EGFR Non-African American 55.5 (>60); Globulin 3.5 g/dL (2-4); Glucose 100 mg/dL (70-100); Potassium 3.5 mmol/L (3.5-5.0); Sodium 139 mmol/L (135-145); Total Protein 8.7 g/dL (6.4-8.9)
[2019-05-11 16:24] LABS: Acetaminophen < 15 mcg/mL; Alcohol < 10 mg/dL (<10); Salicylate < 2.50 mg/dL (<30)
[2019-05-11 16:33] LABS: TSH (Thyroid Stimulating Horm) 2.06 mcIU/mL (0.34-5.60)
[2019-05-11] MEDS ORDERED: Al Hydrox/Mg Hydrox/Simet LIQ* 30 ML UDC PO PRN (19:27)
[2019-05-11] MEDS ORDERED: Potassium Chlor TAB* 10 MEQ TAB.ER PO PRN (20:07)
[2019-05-11] MEDS ORDERED: guaiFENesin ER TAB 600 MG PO PRN (20:09)
[2019-05-11] MEDS ORDERED: Albuterol HFA INHALER* 8 gm MDI INH PRN (20:14)
[2019-05-11] MEDS: clonazePAM TAB(*) 0.5 MG PO PRN (20:34)
[2019-05-11] MEDS: Famotidine TAB* 20 MG PO SCH (20:34)
[2019-05-11] MEDS: Aspirin EC TAB* 81 MG TAB.EC PO SCH (20:35)
[2019-05-11] MEDS: QUEtiapine TAB* 25 MG PO SCH (20:36)
[2019-05-11] MEDS ORDERED: Docusate CAP* 100 MG PO SCH (21:00)
[2019-05-11] MEDS ORDERED: Mupirocin 2% OINT* TUBE TOPICAL PRN (21:56)
[2019-05-11] MEDS: Artificial Tears* 15 ML BTL BOTH EYES PRN (21:58)
[2019-05-11] MEDS: Nortriptyline CAP* 10 MG PO SCH (21:59)
[2019-05-12] MEDS: Acetaminophen TAB* 325 MG PO PRN (00:45)
[2019-05-12 06:55] LABS: HDL Cholesterol 48.9 mg/dL
[2019-05-12] MEDS: clonazePAM TAB(*) 0.5 MG PO PRN ×3 (07:32→15:57)
[2019-05-12] MEDS: Artificial Tears* 15 ML BTL BOTH EYES PRN ×2 (07:34→18:09)
[2019-05-12] MEDS: QUEtiapine TAB* 25 MG PO SCH (08:18)
[2019-05-12] MEDS: FLAXSEED OIL PO SCH (08:21)
[2019-05-12] MEDS: [UNRECOGNIZED DRUG - OTHER] PO SCH (08:21)
[2019-05-12] MEDS: Vitamin THERAPEUTIC TAB PO SCH (08:22)
[2019-05-12] MEDS: Magnesium Oxide TAB* 400 MG PO SCH (08:22)
[2019-05-12] MEDS: Pantoprazole TAB * 40 MG TAB PO SCH (08:22)
[2019-05-12] MEDS: Ibuprofen TAB* 800 MG PO PRN (08:23)
[2019-05-12] MEDS ORDERED: ARIPiprazole TAB* 2 MG PO SCH (09:00)
[2019-05-12] MEDS ORDERED: Lurasidone(*) 20 MG TAB PO SCH ×2 (13:00→21:00)
--- NOTE | 2019-05-12 13:39 | ADMNOTE ---
Identification - Identify Employment Status: Employed Hx Psychiatric Hospitalization: Yes - here about ten years ago Prior Psychiatric Diagnosis: major depression, panic disorder Arrived to Hospital Via: Ambulatory History - Objective HPI: Chief complaint is anxiety attacks and insomnia. Justification for treatment is failure of outpatient treatment with multiple ER visits and use of outpatient medical care. 64 year old white female who over the past month has failed in outpatient treatment for panic disorder, anxiety, somatization, and likely depressive relapse. She gets anxiety attacks which she attributes to somatic issues and has made multiple ER visits, calls to [facility], and calls to her outpatient psychiatrist (me). She would have elevated blood pressure during her anxiety attacks, leading to trials of antihypertensives which made her dizzy, she says. The acute stressor is that her father has colon cancer with an iliostomy; the father largely tried to control the mother who has alzheimes and personality disorder and both parents live in assisted living. She has a twenty year history of these conditions and years of therapy with Dr. Vanessa. About ten years ago she had a depressive episode and was admitted here. Historically she reports not tolerating many drugs listed in the adverse events chart. She also did not tolerate more than 10 mg of nortriptyline but did benefit from the 10 mg dose and from Klonopin. She ruminates and catastrophizes about new drugs and did not try PRN Seroquel or Soma I offered. She reported that flexeril helped her sleep 5 years ago when she took it for back pain but would not take it as an outpatient. Family and legal history are negative. Denies substance use history. Denies history of suicidality. 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 Has two sons. Psychiatric Review of Systems is notable for anxiety and episodes of panic attacks as well as insomnia. Denies obsessive thoughts, compulsive rituals, binging, purging, or restricting. Past Medical History: History of sleep apnea on CPAP, mild hypertension. Hemoglobin A1C elevated at 6.6. Exam Appearance: Well Developed/Nourished, Healthy Appearing Hygiene: Normal Grooming: Well Kept Psychomotor Activities: Normal Exhibits Abnormal Movement: No Attitude and Relatedness: Needy Eye Contact: Good - Speech Quality: Unpressured Latencies: Normal Quantity: Copious Patient's Decription of Mood: "Anxious" Observed Affect: Fair Affect Consistent with: Dysphoria Patient's Thought Process: Coherent, Goal Directed Thought Content: No Passive Wish, No Suicidal Planning, No Homicidal Ideation, No Paranoid Ideation Experiencing Hallucinations: No, Sensorium is Clear Type of Hallucinations: Visual: No, Auditory: No, Command: No Level of Consciousness: Alert Orientation: Yes Intact, Yes Orientated to Time, Yes Orientated to Place, Yes Orientated to Person Impulse Control: Tenuous Insight and Judgement: Fair Impression - Impression Clinical Impression: Impression is of a woman with multiple stressors who most likely has a recurrent major depression with associated anxiety, somatic symptoms, sleep disturbance. She reports being intolerant to multiple antidepressants, unfortunately. She has no bipolar history. She is willing to try Latuda for anxiety off label and on label to treat depression. She is apprehensive and I will give her the first dose at 1 PM with staff around. She can have individual and group psychotherapy. She has intellectual insight only; she is unable to grapple with the idea that she can ride through the anxiety attacks or medication side effects without life -threatening events. Her suicide risk is low at this time. She denies feeling hopeless. She does report racing thoughts during acute anxiety attacks. She denies psychosis. Inpatient DSM-V Dx: F33.1 Merits Inpatient Hospitalization: Yes BSU: Problem List - Patient Problems (1) Depressed Current Visit: Yes Status: Acute Priority: High Code(s): F32.9 - MAJOR DEPRESSIVE DISORDER, SINGLE EPISODE, UNSPECIFIED SNOMED Code(s): 05266204 (2) Anxiety Current Visit: Yes Status: Acute Priority: High Code(s): F41.9 - ANXIETY DISORDER, UNSPECIFIED SNOMED Code(s): 06828604 Plan - Treatment Plan Continued Medication Management: Different Medication Medications: Current Medications Acetaminophen (Tylenol Tab*) 650 mg PO Q4H PRN PRN Reason: PAIN or TEMP > 101 F Last Admin: 05/12/19 00:45 Dose: 650 mg Al Hydrox/Mg Hydrox/Simethicone (Maalox Plus*) 30 ml PO Q4H PRN PRN Reason: INDIGESTION Albuterol (Ventolin Hfa Inhaler*) 1 puff INH Q4H PRN PRN Reason: SOB/WHEEZING Aspirin (Aspirin Ec Tab*) 81 mg PO BEDTIME CHRIST Last Admin: 05/11/19 20:35 Dose: 81 mg Clonazepam (Klonopin Tab(*)) 0.5 mg PO QID PRN PRN Reason: ANXIETY Last Admin: 05/12/19 07:32 Dose: 0.5 mg Famotidine (Pepcid Tab*) 40 mg PO BEDTIME CHRIST Last Admin: 05/11/19 20:34 Dose: 40 mg Guaifenesin (Mucinex*) 600 mg PO BID PRN PRN Reason: CONGESTION Ibuprofen (Motrin Tab*) 800 mg PO Q8H PRN PRN Reason: PAIN Last Admin: 05/12/19 08:23 Dose: 800 mg Lurasidone HCl (Latuda) 20 mg PO 1300 [facility]ST Magnesium Oxide (Magox 400 Tab*) 200 mg PO DAILY [facility] Last Admin: 05/12/19 08:22 Dose: 200 mg Multivitamins (Theragran Tab*) 1 tab PO DAILY [facility] Last Admin: 05/12/19 08:22 Dose: 1 tab Mupirocin (Bactroban 2 % Oint*) 1 applic TOPICAL BID PRN PRN Reason: DRY SKIN Avilla-3 Flaxseed Oil (1000mg) 1 dose PO DAILY [facility] Last Admin: 05/12/19 08:21 Dose: Not Given Nortriptyline HCl (Pamelor Cap*) 10 mg PO BEDTIME [facility] Last Admin: 05/11/19 21:59 Dose: 10 mg Pantoprazole Sodium (Protonix Tab*) 40 mg PO DAILY [facility] Last Admin: 05/12/19 08:22 Dose: 40 mg Polyvinyl Alcohol (Polyvinyl Alcohol 1.4% Opth*) 1 drop BOTH EYES Q2H PRN PRN Reason: DRY EYES Last Admin: 05/12/19 07:34 Dose: 1 drop Potassium Chloride (Klor Con Er Tab*) 10 meq PO DAILY PRN PRN Reason: LOW POTASSIUM Last Admin: 05/11/19 20:35 Dose: 10 meq - Discharge Plan Discharge Plan: Outpatient Follow Up Outpatient Program: Private Clinician(s)
--- NOTE | 2019-05-12 15:04 | HP ---
PSYCHIATRIC ADMISSION HISTORY AND PHYSICAL: DATE OF ADMISSION: 05/11/19 CHIEF COMPLAINT: Anxiety and trouble sleeping. JUSTIFICATION FOR ADMISSION: The patient has had about a 2-week period of severe anxiety, depression , and trouble sleeping with multiple emergency room visits, visits to her primary provider and visits to her psychiatrist as well as phone calls to the primary provider at [facility] and her psychia trist. Her condition if anything has worsened due to her anxiety and somatization. HISTORY OF PRESENT ILLNESS: The patient is a 64-year-old white female who over the last 2 we eks to a month has failed an outpatient treatment for panic disorder, anxiety, somatization, and like ly depressive relapse. She has multiple anxiety attacks, which she attributes to somatic issues and has made multiple ER visits. She will feel her heart beating quickly and believed it is her heart or high blood pressure and called emergency rooms and spent a long time calming down. She will have blo od pressure medicines prescribed due to the high blood pressure and then feel dizzy because of them a nd believes she is going to and either return to the ER or call her primary providers. She has a mplified stressors in that she chronically tries to look after her mother who at baseline has a histr ionic manipulative personality and now has Alzheimer's. Her father was managing to help with the mot her, but the father now has colon cancer with an ileostomy. The parents both live in assisted living , but the patient is still very much involved with their care. The patient has a 20-year history of these conditions and years of therapy with Dr. Vanessa and with me. About 10 years ago, she had a depressive episode and was admitted here. This was related in part due to work-related stressors. S he reported not tolerating many drugs including multiple antidepressants and physical medications, bu t is unclear if she has true allergies. She does say she does not tolerate Xanax, buspirone, SSRIs, Effexor, and other medications. For some years, she did tolerably well on 10 mg of nortriptyline, bu t when I raised her to 20 mg, she felt dizzy and could not tolerate that either. She once took Flexe ril 5 mg for back pain and says that it helped her sleep. However, at this point, as an outpatient, she was so anxious that she could not imagine taking any other medications. I offered her 25 mg of S eroquel, 5 mg of Flexeril or Soma, all which she had not a bad reaction to before and the Flexeril sh e tolerated. She filled those, but she could not actually take a single dose. She finally brought max barbosaelf to the hospital hoping to feel safe while she tried a new medication. On the other hand, the first day she was here, I prescribed low dose of Seroquel and she refused to take it. PSYCHIATRIC REVIEW OF SYSTEMS: Notable for anxiety and episodes of panic attacks at this time includ ing one waking her from sleep. She denies obsessive thoughts, compulsive rituals, binging, purging, or restriction. She has many somatic preoccupations though. Family and legal history negative. She denies substance use history and denies a history of suicidality. SOCIAL HISTORY: She has lived locally for many years and worked at [employer] many years. 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 She denies having weapons in the house. MEDICAL REVIEW OF SYSTEMS: She feels physically well at this time and is followed by [facility], Dr. Tyson. She has a history of mild hypertension and a history of sleep apne a for which she uses a CPAP. Her hemoglobin A1c was slightly elevated. She had occasional shortness of breath, using inhalers as needed. She was recently put on potassium chloride due to a low potass ium. She uses Protonix as a standing dose for gastroesophageal reflux disease. MENTAL STATUS EXAMINATION: She is alert and oriented x3. She is cooperative with exam. Mood is dys phoric and anxious and affect is full. Speech is goal directed and coherent with no formal thought d isorder. Speech is somewhat pressured. No psychotic symptoms are present. She denies suicidal, chasidy icidal, or violent ideation. Judgment, insight, and impulse control were fair. Estimated intelligen ce is above average. IMPRESSION: The impression is that of a woman who most likely is having an episode of major depressi on, moderate, which would explain the number of these somatic symptoms, anxiety, panic attacks, sleep disturbances, depressed mood, and anxiety. She has a long history of not tolerating and not been effie ling to try different antidepressants unfortunately. She does tolerate reasonably size doses of Klon opin and has even pushed to go beyond 0.5 mg 4 times a day, but I do not want to do that. She denies psychosis. I would in the inpatient setting try a low dose of Latuda 20 mg which can augment antide pressants to try and address anxiety. She can be persuaded to try again raising the nortriptyline do se that would be good. She will get individual and group psychotherapy as well as 30-minute checks. DIAGNOSES: At this time: 1. Major depression, moderate, recurrent, without psychotic features. 2. Panic disorder without agoraphobia. ESTIMATED LENGTH OF STAY: 1 week. PROGNOSIS: Fair to good. [id number]/CPS #: [id number]
[2019-05-12] MEDS: clonazePAM TAB(*) 0.5 MG PO SCH ×2 (17:04→20:43)
[2019-05-12] MEDS: Nortriptyline CAP* 10 MG PO SCH (20:43)
[2019-05-12] MEDS: Aspirin EC TAB* 81 MG TAB.EC PO SCH (20:45)
[2019-05-12] MEDS: Famotidine TAB* 20 MG PO SCH (20:45)
[2019-05-13] MEDS ORDERED: LORazepam TAB(*) 1 MG ONE (01:16)
[2019-05-13] MEDS ORDERED: LORazepam TAB(*) 1 MG PO ONE (01:17)
[2019-05-13] MEDS: Vitamin THERAPEUTIC TAB PO SCH (08:02)
[2019-05-13] MEDS: clonazePAM TAB(*) 0.5 MG PO SCH ×4 (08:02→22:32)
[2019-05-13] MEDS: Magnesium Oxide TAB* 400 MG PO SCH (08:03)
[2019-05-13] MEDS: Pantoprazole TAB * 40 MG TAB PO SCH (08:03)
[2019-05-13] MEDS: Artificial Tears* 15 ML BTL BOTH EYES PRN ×3 (08:05→17:38)
[2019-05-13] MEDS: FLAXSEED OIL PO SCH (08:07)
[2019-05-13] MEDS: [UNRECOGNIZED DRUG - OTHER] PO SCH (08:07)
[2019-05-13] MEDS: Acetaminophen TAB* 325 MG PO PRN (08:38)
--- NOTE | 2019-05-13 15:16 | PN ---
Subjective - Subjective Date of Service: 05/13/19 Service Type: [id number] Hosp care 15 min low complexity Subjective: Lena complains of tachycardia and hypertension after each Latuda dose, asks that we stop this med. REports being well treated and feeling safe here. Objective - General Observations Appearance: Neat Appears Stated Age: Yes Stature: WNL Posture: WNL Eye Contact: Average Behavior/Activity: WNL - Interaction Observations Attitude Towards Examiner: Cooperative Attitude Towards Parent/Guardian: Positive Interaction Stated Mood: Anxious Speech Pattern/Tone: Clear, Appropriate, Normal Volume Thought Process: Coherent Perception: WNL Thought Content: WNL Hallucination Type: None Delusion Type: None - Cognitive Function Orientation: A&O x 4 Level of Consciousness: Awake, Alert, Appropriate Cognition: WNL Estimated Intelligence: Normal Insight: WNL Judgment Within Normal Limits: Yes - Medication Compliance Cooperative with Inpatient Medication Regimen: Yes - Group Participation Participates in Group Activities: Yes Assessment - Assessment Merits Inpatient Hospitalization: For Stabilization, Consolidate Improvements, For Discharge Planning Inpatient DSM-V Dx: F33.1 Clinical Impression: Impression is of a woman with multiple stressors who most likely has a recurrent major depression with associated anxiety, somatic symptoms, sleep disturbance. She reports being intolerant to multiple antidepressants, unfortunately. She has no bipolar history. She is willing to try Latuda for anxiety off label and on label to treat depression. She is apprehensive and I will give her the first dose at 1 PM with staff around. She can have individual and group psychotherapy. She has intellectual insight only; she is unable to grapple with the idea that she can ride through the anxiety attacks or medication side effects without life -threatening events. Her suicide risk is low at this time. She denies feeling hopeless. She does report racing thoughts during acute anxiety attacks. She denies psychosis. Plan - Plan Treatment Plan: Name: LENA MARQUIS Birthdate: 1955 [id number] Replace Latuda with Abilify to address c/o tachycardia after each of first few doses of Latuda. At Lena's request, discussed this and other options with Dr Vigil, who agrees wtih this change. Encouraged Lena to sit through anxiety after trying new medication, and she reports she had been trying to do this at Dr Vigil's advice around the Latuda. She feels that since she awoke from sleep with intense anxiety after taking Latuda, that the anxiety was from the Latuda and not general apprehension at taking a new medication, which she agrees is an issue for her. Lena requested first dose be given after Latuda is at low serum level per 18 hour half-life, agrees to first Abilify 2 mg dose Wednesday morning. Encourage groups and milieus. Continued Medication Management: Different Medication Medications: Current Medications Acetaminophen (Tylenol Tab*) 650 mg PO Q4H PRN PRN Reason: PAIN or TEMP > 101 F Last Admin: 05/13/19 08:38 Dose: 650 mg Al Hydrox/Mg Hydrox/Simethicone (Maalox Plus*) 30 ml PO Q4H PRN PRN Reason: INDIGESTION Albuterol (Ventolin Hfa Inhaler*) 1 puff INH Q4H PRN PRN Reason: SOB/WHEEZING Aspirin (Aspirin Ec Tab*) 81 mg PO BEDTIME [facility] Last Admin: 05/12/19 20:45 Dose: 81 mg Clonazepam (Klonopin Tab(*)) 0.5 mg PO QID [facility] Last Admin: 05/13/19 12:56 Dose: 0.5 mg Famotidine (Pepcid Tab*) 40 mg PO BEDTIME [facility] Last Admin: 05/12/19 20:45 Dose: 40 mg Guaifenesin (Mucinex*) 600 mg PO BID PRN PRN Reason: CONGESTION Ibuprofen (Motrin Tab*) 800 mg PO Q8H PRN PRN Reason: PAIN Last Admin: 05/12/19 08:23 Dose: 800 mg Lurasidone HCl (Latuda) 40 mg PO 1700 [facility] Magnesium Oxide (Magox 400 Tab*) 200 mg PO DAILY [facility] Last Admin: 05/13/19 08:03 Dose: 200 mg Multivitamins (Theragran Tab*) 1 tab PO DAILY [facility] Last Admin: 05/13/19 08:02 Dose: 1 tab Mupirocin (Bactroban 2 % Oint*) 1 applic TOPICAL BID PRN PRN Reason: DRY SKIN [place]-3 Flaxseed Oil (1000mg) 1 dose PO DAILY [facility] Last Admin: 05/13/19 08:07 Dose: Not Given Nortriptyline HCl (Pamelor Cap*) 10 mg PO BEDTIME [facility] Last Admin: 05/12/19 20:43 Dose: 10 mg Pantoprazole Sodium (Protonix Tab*) 40 mg PO DAILY [facility] Last Admin: 05/13/19 08:03 Dose: 40 mg Polyvinyl Alcohol (Polyvinyl Alcohol 1.4% Opth*) 1 drop BOTH EYES Q2H PRN PRN Reason: DRY EYES Last Admin: 05/13/19 12:56 Dose: 1 drop Potassium Chloride (Klor Con Er Tab*) 10 meq PO DAILY PRN PRN Reason: LOW POTASSIUM Last Admin: 05/11/19 20:35 Dose: 10 meq - Discharge Plan Discharge Plan: Outpatient Follow Up
[2019-05-13] MEDS ORDERED: Lurasidone(*) 40 MG TAB PO SCH (17:00)
[2019-05-13] MEDS: Nortriptyline CAP* 10 MG PO SCH (22:32)
[2019-05-13] MEDS: Aspirin EC TAB* 81 MG TAB.EC PO SCH (22:33)
[2019-05-13] MEDS: Famotidine TAB* 20 MG PO SCH (22:34)
[2019-05-14] MEDS: clonazePAM TAB(*) 0.5 MG PO SCH ×4 (08:15→21:01)
[2019-05-14] MEDS: Pantoprazole TAB * 40 MG TAB PO SCH (08:16)
[2019-05-14] MEDS: Vitamin THERAPEUTIC TAB PO SCH (08:16)
[2019-05-14] MEDS: Acetaminophen TAB* 325 MG PO PRN ×2 (08:19→12:15)
[2019-05-14] MEDS: Magnesium Oxide TAB* 400 MG PO SCH (08:58)
[2019-05-14] MEDS: FLAXSEED OIL 1000 MG PO SCH (08:59)
[2019-05-14] MEDS: Artificial Tears* 15 ML BTL BOTH EYES PRN ×2 (08:59→21:05)
[2019-05-14] MEDS: Nortriptyline CAP* 10 MG PO SCH (21:00)
[2019-05-14] MEDS: Aspirin EC TAB* 81 MG TAB.EC PO SCH (21:01)
[2019-05-14] MEDS: Famotidine TAB* 20 MG PO SCH (21:01)
[2019-05-15] MEDS: clonazePAM TAB(*) 0.5 MG PO SCH ×4 (08:38→20:43)
[2019-05-15] MEDS: ARIPiprazole TAB* 2 MG PO SCH (08:38)
[2019-05-15] MEDS: Vitamin THERAPEUTIC TAB PO SCH (08:39)
[2019-05-15] MEDS: Pantoprazole TAB * 40 MG TAB PO SCH (08:39)
[2019-05-15] MEDS: FLAXSEED OIL 1000 MG PO SCH (08:39)
[2019-05-15] MEDS: Magnesium Oxide TAB* 400 MG PO SCH (09:39)
[2019-05-15] MEDS: Artificial Tears* 15 ML BTL BOTH EYES PRN ×4 (09:54→20:45)
[2019-05-15] MEDS ORDERED: CMCS:Saliva Substitute (NF) 1 SPRAY BTL MT PRN (15:50)
[2019-05-15] MEDS ORDERED: Ondansetron ODT TAB* 4 MG SL PRN (15:51)
--- NOTE | 2019-05-15 16:10 | PN ---
Subjective - Subjective Date of Service: 05/15/19 Service Type: [id number] Hosp care 35 min high complexity Subjective: Lena is incredibly anxious regarding the start of Abilify. She anticipates that she will experience all the side effects that are predicted and interprets all physical sensations as side effects. She is frightened of feeling "bad." We spend a long time working on what side effects might be most likely anticipated and what she can do to mitigate those responses. Objective - General Observations Appearance: Neat, Well Groomed Appears Stated Age: Yes Stature: WNL Eye Contact: Average Behavior/Activity: WNL - Interaction Observations Attitude Towards Examiner: Cooperative, Anxious Stated Mood: Dysphoric, Anxious Affect: Full Speech Pattern/Tone: Clear Thought Process: Coherent Perception: WNL Thought Content: Preoccupation/Ruminations, Obsessional Hallucination Type: None Delusion Type: None, Somatic - Cognitive Function Orientation: A&O x 4 Level of Consciousness: Awake, Alert, Appropriate Cognition: WNL Estimated Intelligence: Above Normal Insight: WNL Judgment Within Normal Limits: No Ability to Make Reasonable Decisions: Moderately Impaired - Medication Compliance Cooperative with Inpatient Medication Regimen: Yes - Group Participation Participates in Group Activities: Partial Assessment - Assessment Merits Inpatient Hospitalization: For Immediate Safety, For Stabilization Inpatient DSM-V Dx: F33.1 Clinical Impression: Impression is of a woman with multiple stressors who most likely has a recurrent major depression with associated anxiety, somatic symptoms, sleep disturbance. She reports being intolerant to multiple antidepressants, unfortunately. She has no bipolar history. She is willing to try Latuda for anxiety off label and on label to treat depression. She is apprehensive and I will give her the first dose at 1 PM with staff around. She can have individual and group psychotherapy. She has intellectual insight only; she is unable to grapple with the idea that she can ride through the anxiety attacks or medication side effects without life -threatening events. Her suicide risk is low at this time. She denies feeling hopeless. She does report racing thoughts during acute anxiety attacks. She denies psychosis. Plan - Plan Treatment Plan: Name: LENA MARQUIS Birthdate: 1955 [id number] Replace Latuda with Abilify to address c/o tachycardia after each of first few doses of Latuda. At Lena's request, discussed this and other options with Dr Vigil, who agrees wtih this change. Encouraged Lena to sit through anxiety after trying new medication, and she reports she had been trying to do this at Dr Vigil's advice around the Latuda. She feels that since she awoke from sleep with intense anxiety after taking Latuda, that the anxiety was from the Latuda and not general apprehension at taking a new medication, which she agrees is an issue for her. Lena requested first dose be given after Latuda is at low serum level per 18 hour half-life, agrees to first Abilify 2 mg dose Wednesday. Encourage groups and milieus. 05/16/19 Lena will attempt to tolerate new side effects through the night of Abilify 2 mg Several PRNs are in place to aid in tolerance if a "side effect" should become more bothersome. Continued Medication Management: Different Medication Medications: Current Medications Acetaminophen (Tylenol Tab*) 650 mg PO Q4H PRN PRN Reason: PAIN or TEMP > 101 F Last Admin: 05/14/19 12:15 Dose: 650 mg Al Hydrox/Mg Hydrox/Simethicone (Maalox Plus*) 30 ml PO Q4H PRN PRN Reason: INDIGESTION Albuterol (Ventolin Hfa Inhaler*) 1 puff INH Q4H PRN PRN Reason: SOB/WHEEZING Aripiprazole (Abilify Tab*) 2 mg PO DAILY [facility] Last Admin: 05/15/19 08:38 Dose: 2 mg Aspirin (Aspirin Ec Tab*) 81 mg PO BEDTIME [facility] Last Admin: 05/14/19 21:01 Dose: 81 mg Clonazepam (Klonopin Tab(*)) 0.5 mg PO QID [facility] Last Admin: 05/15/19 12:48 Dose: 0.5 mg Famotidine (Pepcid Tab*) 40 mg PO BEDTIME [facility] Last Admin: 05/14/19 21:01 Dose: 40 mg Guaifenesin (Mucinex*) 600 mg PO BID PRN PRN Reason: CONGESTION Ibuprofen (Motrin Tab*) 800 mg PO Q8H PRN PRN Reason: PAIN Last Admin: 05/12/19 08:23 Dose: 800 mg Lorazepam (Ativan Tab(*)) 2 mg PO BEDTIME PRN PRN Reason: INSOMNIA Magnesium Oxide (Magox 400 Tab*) 200 mg PO DAILY [facility] Last Admin: 05/15/19 09:39 Dose: 200 mg Multivitamins (Theragran Tab*) 1 tab PO DAILY [facility] Last Admin: 05/15/19 08:39 Dose: 1 tab Mupirocin (Bactroban 2 % Oint*) 1 applic TOPICAL BID PRN PRN Reason: DRY SKIN Pto Flaxseed Oil Cap (1000 Mg) 1 dose PO DAILY [facility] Last Admin: 05/15/19 08:39 Dose: 1 dose Nortriptyline HCl (Pamelor Cap*) 10 mg PO BEDTIME [facility] Last Admin: 05/14/19 21:00 Dose: 10 mg Ondansetron HCl (Zofran Odt Tab*) 4 mg SL Q6H PRN PRN Reason: NAUSEA/VOMITING Pantoprazole Sodium (Protonix Tab*) 40 mg PO DAILY [facility] Last Admin: 05/15/19 08:39 Dose: 40 mg Polyvinyl Alcohol (Polyvinyl Alcohol 1.4% Opth*) 1 drop BOTH EYES Q2H PRN PRN Reason: DRY EYES Last Admin: 05/15/19 16:07 Dose: 1 drop Potassium Chloride (Klor Con Er Tab*) 10 meq PO DAILY PRN PRN Reason: LOW POTASSIUM Last Admin: 05/11/19 20:35 Dose: 10 meq Saliva Substitute (Biotene Moisturizing Mouth (Nf)) 1 spray MT Q2H PRN; Protocol PRN Reason: dry mouth
[2019-05-15] MEDS: Aspirin EC TAB* 81 MG TAB.EC PO SCH (20:44)
[2019-05-15] MEDS: Famotidine TAB* 20 MG PO SCH (20:44)
[2019-05-15] MEDS: Nortriptyline CAP* 10 MG PO SCH (20:44)
[2019-05-16] MEDS: Acetaminophen TAB* 325 MG PO PRN (01:10)
[2019-05-16] MEDS: LORazepam TAB(*) 1 MG PO PRN (01:10)
[2019-05-16] MEDS: Artificial Tears* 15 ML BTL BOTH EYES PRN ×5 (01:19→20:53)
[2019-05-16] MEDS: Pantoprazole TAB * 40 MG TAB PO SCH (08:05)
[2019-05-16] MEDS: Vitamin THERAPEUTIC TAB PO SCH (08:06)
[2019-05-16] MEDS: clonazePAM TAB(*) 0.5 MG PO SCH ×4 (08:06→22:05)
[2019-05-16] MEDS: Magnesium Oxide TAB* 400 MG PO SCH (08:06)
[2019-05-16] MEDS: FLAXSEED OIL 1000 MG PO SCH (08:07)
[2019-05-16] MEDS: ARIPiprazole TAB* 2 MG PO SCH (12:50)
[2019-05-16] MEDS: Ibuprofen TAB* 800 MG PO PRN (12:51)
--- NOTE | 2019-05-16 16:21 | PN ---
Subjective - Subjective Date of Service: 05/16/19 Service Type: [id number] Hosp care 35 min high complexity Subjective: Lena and I spoke at length about her anxiety related to medication changes. Many of her "side effects" are interpretations of body sensations that are typical for others, but that she never seems to have gotten an opportunity to experience herself or to have experienced with the opportunity to compare what' s "normal." We spent a long time discussing her father and her mother and her two boys. She is extremely critical of herself and is in fact critical of her own response to medications, which she then turns to criticism of the medication itself. Objective - General Observations Appearance: Neat, Well Groomed Appears Stated Age: Yes Stature: WNL Posture: WNL Eye Contact: Average Behavior/Activity: WNL - Interaction Observations Attitude Towards Examiner: Cooperative, Anxious, Ingratiating Stated Mood: Dysphoric, Anxious, Silly Affect: Bright Speech Pattern/Tone: Clear Thought Process: Coherent Perception: WNL Thought Content: Preoccupation/Ruminations, Self-Deprecatory Hallucination Type: None Delusion Type: None - Cognitive Function Orientation: A&O x 4 Level of Consciousness: Awake, Alert, Appropriate Cognition: WNL Estimated Intelligence: Above Normal Insight: WNL Judgment Within Normal Limits: Yes - Medication Compliance Cooperative with Inpatient Medication Regimen: Yes - Group Participation Participates in Group Activities: Partial Assessment - Assessment Merits Inpatient Hospitalization: For Immediate Safety, To Initiate Treatment, For Ongoing Evaluation Inpatient DSM-V Dx: F33.1 Clinical Impression: Impression is of a woman with multiple stressors who most likely has a recurrent major depression with associated anxiety, somatic symptoms, sleep disturbance. She reports being intolerant to multiple antidepressants, unfortunately. She has no bipolar history. She is willing to try Latuda for anxiety off label and on label to treat depression. She is apprehensive and I will give her the first dose at 1 PM with staff around. She can have individual and group psychotherapy. She has intellectual insight only; she is unable to grapple with the idea that she can ride through the anxiety attacks or medication side effects without life -threatening events. Her suicide risk is low at this time. She denies feeling hopeless. She does report racing thoughts during acute anxiety attacks. She denies psychosis. Plan - Plan Treatment Plan: Name: LENA MARQUIS Birthdate: 1955 [id number] Replace Latuda with Abilify to address c/o tachycardia after each of first few doses of Latuda. At Lena's request, discussed this and other options with Dr Vigil, who agrees wtih this change. Encouraged Lena to sit through anxiety after trying new medication, and she reports she had been trying to do this at Dr Vigil's advice around the Latuda. She feels that since she awoke from sleep with intense anxiety after taking Latuda, that the anxiety was from the Latuda and not general apprehension at taking a new medication, which she agrees is an issue for her. Lena requested first dose be given after Latuda is at low serum level per 18 hour half-life, agrees to first Abilify 2 mg dose Wednesday morning. Encourage groups and milieus. 05/15/19 Lena will attempt to tolerate new side effects through the night of Abilify 2 mg Several PRNs are in place to aid in tolerance if a "side effect" should become more bothersome. 05/16/19 Lena will continue with Abilify for another night. Many of her side effect concerns have been addressed. She is planning on staying for many days in an effort to treat herself well. Continued Medication Management: Different Medication Medications: Current Medications Acetaminophen (Tylenol Tab*) 650 mg PO Q4H PRN PRN Reason: PAIN or TEMP > 101 F Last Admin: 05/16/19 01:10 Dose: 650 mg Al Hydrox/Mg Hydrox/Simethicone (Maalox Plus*) 30 ml PO Q4H PRN PRN Reason: INDIGESTION Albuterol (Ventolin Hfa Inhaler*) 1 puff INH Q4H PRN PRN Reason: SOB/WHEEZING Aripiprazole (Abilify Tab*) 2 mg PO DAILY [facility] Last Admin: 05/16/19 12:50 Dose: 2 mg Aspirin (Aspirin Ec Tab*) 81 mg PO BEDTIME [facility] Last Admin: 05/15/19 20:44 Dose: 81 mg Clonazepam (Klonopin Tab(*)) 0.5 mg PO QID [facility] Last Admin: 05/16/19 14:39 Dose: 0.5 mg Famotidine (Pepcid Tab*) 40 mg PO BEDTIME [facility] Last Admin: 05/15/19 20:44 Dose: 40 mg Guaifenesin (Mucinex*) 600 mg PO BID PRN PRN Reason: CONGESTION Ibuprofen (Motrin Tab*) 800 mg PO Q8H PRN PRN Reason: PAIN Last Admin: 05/16/19 12:51 Dose: 800 mg Lorazepam (Ativan Tab(*)) 2 mg PO BEDTIME PRN PRN Reason: INSOMNIA Last Admin: 05/16/19 01:10 Dose: 2 mg Magnesium Oxide (Magox 400 Tab*) 200 mg PO DAILY [facility] Last Admin: 05/16/19 08:06 Dose: 200 mg Multivitamins (Theragran Tab*) 1 tab PO DAILY [facility] Last Admin: 05/16/19 08:06 Dose: 1 tab Mupirocin (Bactroban 2 % Oint*) 1 applic TOPICAL BID PRN PRN Reason: DRY SKIN Pto Flaxseed Oil Cap (1000 Mg) 1 dose PO DAILY [facility] Last Admin: 05/16/19 08:07 Dose: 1 dose Nortriptyline HCl (Pamelor Cap*) 10 mg PO BEDTIME [facility] Last Admin: 05/15/19 20:44 Dose: 10 mg Ondansetron HCl (Zofran Odt Tab*) 4 mg SL Q6H PRN PRN Reason: NAUSEA/VOMITING Pantoprazole Sodium (Protonix Tab*) 40 mg PO DAILY [facility] Last Admin: 05/16/19 08:05 Dose: 40 mg Polyvinyl Alcohol (Polyvinyl Alcohol 1.4% Opth*) 1 drop BOTH EYES Q30M PRN PRN Reason: DRY EYES Potassium Chloride (Klor Con Er Tab*) 10 meq PO DAILY PRN PRN Reason: LOW POTASSIUM Last Admin: 05/11/19 20:35 Dose: 10 meq Saliva Substitute (Biotene Moisturizing Mouth (Nf)) 1 spray MT Q2H PRN; Protocol PRN Reason: dry mouth
[2019-05-16] MEDS: Famotidine TAB* 20 MG PO SCH (20:52)
[2019-05-16] MEDS: Aspirin EC TAB* 81 MG TAB.EC PO SCH (20:52)
[2019-05-16] MEDS: Nortriptyline CAP* 10 MG PO SCH (20:52)
[2019-05-17] MEDS: Artificial Tears* 15 ML BTL BOTH EYES PRN ×5 (08:34→20:40)
[2019-05-17] MEDS: ARIPiprazole TAB* 2 MG PO SCH (08:34)
[2019-05-17] MEDS: clonazePAM TAB(*) 0.5 MG PO SCH ×4 (08:34→20:36)
[2019-05-17] MEDS: Pantoprazole TAB * 40 MG TAB PO SCH (08:35)
[2019-05-17] MEDS: Vitamin THERAPEUTIC TAB PO SCH (08:35)
[2019-05-17] MEDS: FLAXSEED OIL 1000 MG PO SCH (08:36)
[2019-05-17] MEDS: Magnesium Oxide TAB* 400 MG PO SCH (08:36)
--- NOTE | 2019-05-17 15:29 | PN ---
Subjective - Subjective Date of Service: 05/17/19 Service Type: [id number] Hosp care 35 min high complexity Subjective: Lena talks about her anxiety and how it is related to her interpretation of her somatic symptoms. We discuss this in an attempt to neutralize the anxiety that occurs with stimuli such as an increased heart rate or blood pressure. She talks a lot about her father and mother and she requests a family meeting with her son and . Objective - General Observations Appearance: Neat, Well Groomed Appears Stated Age: Yes Stature: WNL Posture: WNL Eye Contact: Average Behavior/Activity: WNL - Interaction Observations Attitude Towards Examiner: Cooperative, Anxious Stated Mood: Dysphoric, Anxious, Silly Affect: Full Speech Pattern/Tone: Clear Thought Process: Coherent Perception: WNL Thought Content: Preoccupation/Ruminations, Phobic Hallucination Type: None Delusion Type: None - Cognitive Function Orientation: A&O x 4 Level of Consciousness: Awake, Alert, Appropriate Cognition: WNL Estimated Intelligence: Above Normal Insight: WNL Judgment Within Normal Limits: Yes - Medication Compliance Cooperative with Inpatient Medication Regimen: Partial - Group Participation Participates in Group Activities: Partial Assessment - Assessment Merits Inpatient Hospitalization: For Immediate Safety Inpatient DSM-V Dx: F33.1 Clinical Impression: Impression is of a woman with multiple stressors who most likely has a recurrent major depression with associated anxiety, somatic symptoms, sleep disturbance. She reports being intolerant to multiple antidepressants, unfortunately. She has no bipolar history. She is willing to try Latuda for anxiety off label and on label to treat depression. She is apprehensive and I will give her the first dose at 1 PM with staff around. She can have individual and group psychotherapy. She has intellectual insight only; she is unable to grapple with the idea that she can ride through the anxiety attacks or medication side effects without life -threatening events. Her suicide risk is low at this time. She denies feeling hopeless. She does report racing thoughts during acute anxiety attacks. She denies psychosis. Plan - Plan Treatment Plan: Name: LENA MARQUIS Birthdate: 1955 [id number] Replace Latuda with Abilify to address c/o tachycardia after each of first few doses of Latuda. At Lena's request, discussed this and other options with Dr Vigil, who agrees wtih this change. Encouraged Lena to sit through anxiety after trying new medication, and she reports she had been trying to do this at Dr Vigil's advice around the Latuda. She feels that since she awoke from sleep with intense anxiety after taking Latuda, that the anxiety was from the Latuda and not general apprehension at taking a new medication, which she agrees is an issue for her. Lena requested first dose be given after Latuda is at low serum level per 18 hour half-life, agrees to first Abilify 2 mg dose Wednesday morning. Encourage groups and milieus. 05/15/19 Lena will attempt to tolerate new side effects through the night of Abilify 2 mg Several PRNs are in place to aid in tolerance if a "side effect" should become more bothersome. 05/16/19 Lena will continue with Abilify for another night. Many of her side effect concerns have been addressed. She is planning on staying for many days in an effort to treat herself well. 05/17/19 Lena will continue with Abilify. She will work on workbooks to figure out more about her anxiety disorder. She will consider discharge any time between Wednesday and Wednesday. Continued Medication Management: Different Medication Medications: Current Medications Acetaminophen (Tylenol Tab*) 650 mg PO Q4H PRN PRN Reason: PAIN or TEMP > 101 F Last Admin: 05/16/19 01:10 Dose: 650 mg Al Hydrox/Mg Hydrox/Simethicone (Maalox Plus*) 30 ml PO Q4H PRN PRN Reason: INDIGESTION Albuterol (Ventolin Hfa Inhaler*) 1 puff INH Q4H PRN PRN Reason: SOB/WHEEZING Aripiprazole (Abilify Tab*) 2 mg PO DAILY [facility] Last Admin: 05/17/19 08:34 Dose: 2 mg Aspirin (Aspirin Ec Tab*) 81 mg PO BEDTIME [facility] Last Admin: 05/16/19 20:52 Dose: 81 mg Clonazepam (Klonopin Tab(*)) 0.5 mg PO QID [facility] Last Admin: 05/17/19 13:13 Dose: 0.5 mg Famotidine (Pepcid Tab*) 40 mg PO BEDTIME [facility] Last Admin: 05/16/19 20:52 Dose: 40 mg Guaifenesin (Mucinex*) 600 mg PO BID PRN PRN Reason: CONGESTION Ibuprofen (Motrin Tab*) 800 mg PO Q8H PRN PRN Reason: PAIN Last Admin: 05/16/19 12:51 Dose: 800 mg Lorazepam (Ativan Tab(*)) 2 mg PO BEDTIME PRN PRN Reason: INSOMNIA Last Admin: 05/16/19 01:10 Dose: 2 mg Magnesium Oxide (Magox 400 Tab*) 200 mg PO DAILY [facility] Last Admin: 05/17/19 08:36 Dose: 200 mg Multivitamins (Theragran Tab*) 1 tab PO DAILY [facility] Last Admin: 05/17/19 08:35 Dose: 1 tab Mupirocin (Bactroban 2 % Oint*) 1 applic TOPICAL BID PRN PRN Reason: DRY SKIN Pto Flaxseed Oil Cap (1000 Mg) 1 dose PO DAILY [facility] Last Admin: 05/17/19 08:36 Dose: 1 dose Nortriptyline HCl (Pamelor Cap*) 10 mg PO BEDTIME [facility] Last Admin: 05/16/19 20:52 Dose: 10 mg Ondansetron HCl (Zofran Odt Tab*) 4 mg SL Q6H PRN PRN Reason: NAUSEA/VOMITING Pantoprazole Sodium (Protonix Tab*) 40 mg PO DAILY [facility] Last Admin: 05/17/19 08:35 Dose: 40 mg Polyvinyl Alcohol (Polyvinyl Alcohol 1.4% Opth*) 1 drop BOTH EYES Q30M PRN PRN Reason: DRY EYES Last Admin: 05/17/19 13:14 Dose: 1 drop Potassium Chloride (Klor Con Er Tab*) 10 meq PO DAILY PRN PRN Reason: LOW POTASSIUM Last Admin: 05/11/19 20:35 Dose: 10 meq Saliva Substitute (Biotene Moisturizing Mouth (Nf)) 1 spray MT Q2H PRN; Protocol PRN Reason: dry mouth
[2019-05-17] MEDS: Aspirin EC TAB* 81 MG TAB.EC PO SCH (20:36)
[2019-05-17] MEDS: Famotidine TAB* 20 MG PO SCH (20:37)
[2019-05-17] MEDS: Nortriptyline CAP* 10 MG PO SCH (20:37)
[2019-05-18] MEDS: LORazepam TAB(*) 1 MG PO PRN (03:08)
[2019-05-18] MEDS: Artificial Tears* 15 ML BTL BOTH EYES PRN ×5 (03:09→20:52)
[2019-05-18] MEDS: FLAXSEED OIL 1000 MG PO SCH (08:49)
[2019-05-18] MEDS: Vitamin THERAPEUTIC TAB PO SCH (08:50)
[2019-05-18] MEDS: ARIPiprazole TAB* 2 MG PO SCH (08:50)
[2019-05-18] MEDS: Pantoprazole TAB * 40 MG TAB PO SCH (08:50)
[2019-05-18] MEDS: clonazePAM TAB(*) 0.5 MG PO SCH ×4 (08:50→20:48)
[2019-05-18] MEDS: Magnesium Oxide TAB* 400 MG PO SCH (08:50)
--- NOTE | 2019-05-18 16:11 | PN ---
Subjective - Subjective Date of Service: 05/18/19 Service Type: 92357 Hosp care 35 min high complexity Subjective: Lena remains anxious and frustrated by what she considers "side effects" and feeling odd and spacey. She is eager to feel well and does not tolerate deviations from feeling good, although she has difficulty defining what is exactly wrong or right. Objective - General Observations Appearance: Neat, Well Groomed Appears Stated Age: Yes Stature: WNL Posture: WNL Eye Contact: Average Behavior/Activity: WNL - Interaction Observations Attitude Towards Examiner: Cooperative Stated Mood: Dysphoric, Anxious Affect: Bright Speech Pattern/Tone: Clear Perception: WNL Thought Content: Preoccupation/Ruminations, Obsessional Hallucination Type: None Delusion Type: None - Cognitive Function Orientation: A&O x 4 Level of Consciousness: Awake, Alert, Appropriate Cognition: WNL Estimated Intelligence: Normal Insight: WNL Judgment Within Normal Limits: No Ability to Make Reasonable Decisions: Mildly Impaired - Medication Compliance Cooperative with Inpatient Medication Regimen: Yes - Group Participation Participates in Group Activities: Yes Assessment - Assessment Inpatient DSM-V Dx: F33.1 Clinical Impression: Impression is of a woman with multiple stressors who most likely has a recurrent major depression with associated anxiety, somatic symptoms, sleep disturbance. She reports being intolerant to multiple antidepressants, unfortunately. She has no bipolar history. She is willing to try Latuda for anxiety off label and on label to treat depression. She is apprehensive and I will give her the first dose at 1 PM with staff around. She can have individual and group psychotherapy. She has intellectual insight only; she is unable to grapple with the idea that she can ride through the anxiety attacks or medication side effects without life -threatening events. Her suicide risk is low at this time. She denies feeling hopeless. She does report racing thoughts during acute anxiety attacks. She denies psychosis. Plan - Plan Treatment Plan: Name: LENA MARQUIS Birthdate: 1955 [id number] Replace Latuda with Abilify to address c/o tachycardia after each of first few doses of Latuda. At Lena's request, discussed this and other options with Dr Vigil, who agrees wtih this change. Encouraged Lena to sit through anxiety after trying new medication, and she reports she had been trying to do this at Dr Vigil's advice around the Latuda. She feels that since she awoke from sleep with intense anxiety after taking Latuda, that the anxiety was from the Latuda and not general apprehension at taking a new medication, which she agrees is an issue for her. Lena requested first dose be given after Latuda is at low serum level per 18 hour half-life, agrees to first Abilify 2 mg dose Wednesday morning. Encourage groups and milieus. 05/15/19 Lena will attempt to tolerate new side effects through the night of Abilify 2 mg Several PRNs are in place to aid in tolerance if a "side effect" should become more bothersome. 05/16/19 Lena will continue with Abilify for another night. Many of her side effect concerns have been addressed. She is planning on staying for many days in an effort to treat herself well. 05/17/19 Lena will continue with Abilify. She will work on workbooks to figure out more about her anxiety disorder. She will consider discharge any time between Wednesday and Wednesday. 05/18/19 Prepare for family meeting tomorrow Continue reassurances and continue with medications as they are. Continued Medication Management: Different Medication Medications: Current Medications Acetaminophen (Tylenol Tab*) 650 mg PO Q4H PRN PRN Reason: PAIN or TEMP > 101 F Last Admin: 05/16/19 01:10 Dose: 650 mg Al Hydrox/Mg Hydrox/Simethicone (Maalox Plus*) 30 ml PO Q4H PRN PRN Reason: INDIGESTION Albuterol (Ventolin Hfa Inhaler*) 1 puff INH Q4H PRN PRN Reason: SOB/WHEEZING Aripiprazole (Abilify Tab*) 2 mg PO DAILY [facility] Last Admin: 05/18/19 08:50 Dose: 2 mg Aspirin (Aspirin Ec Tab*) 81 mg PO BEDTIME [facility] Last Admin: 05/17/19 20:36 Dose: 81 mg Clonazepam (Klonopin Tab(*)) 0.5 mg PO QID [facility] Last Admin: 05/18/19 12:55 Dose: 0.5 mg Famotidine (Pepcid Tab*) 40 mg PO BEDTIME [facility] Last Admin: 05/17/19 20:37 Dose: 40 mg Guaifenesin (Mucinex*) 600 mg PO BID PRN PRN Reason: CONGESTION Ibuprofen (Motrin Tab*) 800 mg PO Q8H PRN PRN Reason: PAIN Last Admin: 05/16/19 12:51 Dose: 800 mg Lorazepam (Ativan Tab(*)) 2 mg PO BEDTIME PRN PRN Reason: INSOMNIA Last Admin: 05/18/19 03:08 Dose: 2 mg Magnesium Oxide (Magox 400 Tab*) 200 mg PO DAILY [facility] Last Admin: 05/18/19 08:50 Dose: 200 mg Multivitamins (Theragran Tab*) 1 tab PO DAILY [facility] Last Admin: 05/18/19 08:50 Dose: 1 tab Mupirocin (Bactroban 2 % Oint*) 1 applic TOPICAL BID PRN PRN Reason: DRY SKIN Pto Flaxseed Oil Cap (1000 Mg) 1 dose PO DAILY [facility] Last Admin: 05/18/19 08:49 Dose: 1 dose Nortriptyline HCl (Pamelor Cap*) 10 mg PO BEDTIME [facility] Last Admin: 05/17/19 20:37 Dose: 10 mg Ondansetron HCl (Zofran Odt Tab*) 4 mg SL Q6H PRN PRN Reason: NAUSEA/VOMITING Pantoprazole Sodium (Protonix Tab*) 40 mg PO DAILY [facility] Last Admin: 05/18/19 08:50 Dose: 40 mg Polyvinyl Alcohol (Polyvinyl Alcohol 1.4% Opth*) 1 drop BOTH EYES Q30M PRN PRN Reason: DRY EYES Last Admin: 05/18/19 12:55 Dose: 1 drop Potassium Chloride (Klor Con Er Tab*) 10 meq PO DAILY PRN PRN Reason: LOW POTASSIUM Last Admin: 05/11/19 20:35 Dose: 10 meq Saliva Substitute (Biotene Moisturizing Mouth (Nf)) 1 spray MT Q2H PRN; Protocol PRN Reason: dry mouth - Discharge Plan Discharge Plan: Outpatient Follow Up Outpatient Program: Private Clinician(s)
[2019-05-18] MEDS: Aspirin EC TAB* 81 MG TAB.EC PO SCH (20:48)
[2019-05-18] MEDS: Famotidine TAB* 20 MG PO SCH (20:49)
[2019-05-18] MEDS: Nortriptyline CAP* 10 MG PO SCH (20:50)
[2019-05-19] MEDS: LORazepam TAB(*) 1 MG PO PRN ×2 (02:00→22:11)
[2019-05-19] MEDS: Artificial Tears* 15 ML BTL BOTH EYES PRN ×5 (02:01→20:28)
[2019-05-19] MEDS: FLAXSEED OIL 1000 MG PO SCH (08:49)
[2019-05-19] MEDS: Vitamin THERAPEUTIC TAB PO SCH (08:49)
[2019-05-19] MEDS: ARIPiprazole TAB* 2 MG PO SCH (08:49)
[2019-05-19] MEDS: Magnesium Oxide TAB* 400 MG PO SCH (08:50)
[2019-05-19] MEDS: Pantoprazole TAB * 40 MG TAB PO SCH (08:50)
[2019-05-19] MEDS: clonazePAM TAB(*) 0.5 MG PO SCH ×4 (08:50→20:27)
[2019-05-19] MEDS: Famotidine TAB* 20 MG PO SCH (20:24)
[2019-05-19] MEDS: Nortriptyline CAP* 10 MG PO SCH (20:24)
[2019-05-19] MEDS: Aspirin EC TAB* 81 MG TAB.EC PO SCH (20:24)
[2019-05-20] MEDS: LORazepam TAB(*) 1 MG PO PRN ×2 (01:40→22:26)
[2019-05-20] MEDS: Artificial Tears* 15 ML BTL BOTH EYES PRN ×5 (01:40→22:28)
[2019-05-20] MEDS: clonazePAM TAB(*) 0.5 MG PO SCH ×4 (08:12→20:14)
[2019-05-20] MEDS: ARIPiprazole TAB* 2 MG PO SCH (08:13)
[2019-05-20] MEDS: Vitamin THERAPEUTIC TAB PO SCH (08:14)
[2019-05-20] MEDS: Pantoprazole TAB * 40 MG TAB PO SCH (08:14)
[2019-05-20] MEDS: FLAXSEED OIL 1000 MG PO SCH (08:19)
[2019-05-20] MEDS: Magnesium Oxide TAB* 400 MG PO SCH (08:20)
[2019-05-20] MEDS: Aspirin EC TAB* 81 MG TAB.EC PO SCH (20:13)
[2019-05-20] MEDS: Nortriptyline CAP* 10 MG PO SCH (20:13)
[2019-05-20] MEDS: Famotidine TAB* 20 MG PO SCH (20:13)
[2019-05-21] MEDS: LORazepam TAB(*) 1 MG PO PRN ×2 (01:48→22:10)
[2019-05-21] MEDS: Artificial Tears* 15 ML BTL BOTH EYES PRN ×6 (01:51→22:10)
[2019-05-21] MEDS: ARIPiprazole TAB* 2 MG PO SCH (08:07)
[2019-05-21] MEDS: Magnesium Oxide TAB* 400 MG PO SCH (08:08)
[2019-05-21] MEDS: Pantoprazole TAB * 40 MG TAB PO SCH (08:08)
[2019-05-21] MEDS: Vitamin THERAPEUTIC TAB PO SCH (08:09)
[2019-05-21] MEDS: clonazePAM TAB(*) 0.5 MG PO SCH ×4 (08:10→21:52)
[2019-05-21] MEDS: FLAXSEED OIL 1000 MG PO SCH (08:11)
[2019-05-21] MEDS: Aspirin EC TAB* 81 MG TAB.EC PO SCH (21:52)
[2019-05-21] MEDS: Nortriptyline CAP* 10 MG PO SCH (21:52)
[2019-05-21] MEDS: Famotidine TAB* 20 MG PO SCH (21:52)
[2019-05-22] MEDS: LORazepam TAB(*) 1 MG PO PRN ×2 (00:58→21:56)
[2019-05-22] MEDS: Artificial Tears* 15 ML BTL BOTH EYES PRN ×7 (00:59→21:57)
[2019-05-22] MEDS: clonazePAM TAB(*) 0.5 MG PO SCH ×4 (07:45→21:15)
[2019-05-22] MEDS: Vitamin THERAPEUTIC TAB PO SCH (07:46)
[2019-05-22] MEDS: Magnesium Oxide TAB* 400 MG PO SCH (07:47)
[2019-05-22] MEDS: Pantoprazole TAB * 40 MG TAB PO SCH (07:47)
[2019-05-22] MEDS: ARIPiprazole TAB* 2 MG PO SCH (08:52)
[2019-05-22] MEDS: FLAXSEED OIL 1000 MG PO SCH (11:01)
--- NOTE | 2019-05-22 15:57 | PN ---
Subjective - Subjective Date of Service: 05/22/19 Service Type: [id number] Hosp care 25 min moderate complexity Subjective: Lena is preparing to leave on Wednesday (tomorrow). She states she is not ready to leave today, but she is getting bored and "itching" to get out. She is satisfied with how she feels and asks good questions regarding dosages and times of administration. She is warned about using two different benzodiazepines and is cautious but agreeable with the feedback. She is grateful for all she learned at the hospital and is happy to share her experience. Objective - General Observations Appearance: Neat, Well Groomed Appears Stated Age: Yes Stature: WNL Posture: WNL Eye Contact: Average Behavior/Activity: WNL - Interaction Observations Attitude Towards Examiner: Cooperative Stated Mood: Euthymic Affect: Full Speech Pattern/Tone: Clear, Appropriate, Normal Volume Thought Process: Coherent Perception: WNL Thought Content: Preoccupation/Ruminations Hallucination Type: None Delusion Type: None - Cognitive Function Orientation: A&O x 4 Level of Consciousness: Awake, Alert, Appropriate Cognition: WNL Estimated Intelligence: Above Normal Insight: WNL Judgment Within Normal Limits: Yes - Medication Compliance Cooperative with Inpatient Medication Regimen: Yes - Group Participation Participates in Group Activities: Yes Assessment - Assessment Merits Inpatient Hospitalization: For Stabilization, For Discharge Planning Inpatient DSM-V Dx: F33.1 Clinical Impression: Impression is of a woman with multiple stressors who most likely has a recurrent major depression with associated anxiety, somatic symptoms, sleep disturbance. She reports being intolerant to multiple antidepressants, unfortunately. She has no bipolar history. She is willing to try Latuda for anxiety off label and on label to treat depression. She is apprehensive and I will give her the first dose at 1 PM with staff around. She can have individual and group psychotherapy. She has intellectual insight only; she is unable to grapple with the idea that she can ride through the anxiety attacks or medication side effects without life -threatening events. Her suicide risk is low at this time. She denies feeling hopeless. She does report racing thoughts during acute anxiety attacks. She denies psychosis. She is feeling much better and will be discharged tomorrow. Plan - Plan Treatment Plan: Name: LENA MARQUIS Birthdate: 1955 [id number] Replace Latuda with Abilify to address c/o tachycardia after each of first few doses of Latuda. At Lena's request, discussed this and other options with Dr Vigil, who agrees wtih this change. Encouraged Lena to sit through anxiety after trying new medication, and she reports she had been trying to do this at Dr Vigil's advice around the Latuda. She feels that since she awoke from sleep with intense anxiety after taking Latuda, that the anxiety was from the Latuda and not general apprehension at taking a new medication, which she agrees is an issue for her. Lena requested first dose be given after Latuda is at low serum level per 18 hour half-life, agrees to first Abilify 2 mg dose Wednesday morning. Encourage groups and milieus. 05/15/19 Lena will attempt to tolerate new side effects through the night of Abilify 2 mg Several PRNs are in place to aid in tolerance if a "side effect" should become more bothersome. 05/16/19 Lena will continue with Abilify for another night. Many of her side effect concerns have been addressed. She is planning on staying for many days in an effort to treat herself well. 05/17/19 Lena will continue with Abilify. She will work on workbooks to figure out more about her anxiety disorder. She will consider discharge any time between Wednesday and Wednesday. 05/18/19 Prepare for family meeting tomorrow Continue reassurances and continue with medications as they are. 05/22/19 Discharge tomorrow. Medications: Current Medications Acetaminophen (Tylenol Tab*) 650 mg PO Q4H PRN PRN Reason: PAIN or TEMP > 101 F Last Admin: 05/16/19 01:10 Dose: 650 mg Al Hydrox/Mg Hydrox/Simethicone (Maalox Plus*) 30 ml PO Q4H PRN PRN Reason: INDIGESTION Last Admin: 05/21/19 20:01 Dose: 30 ml Albuterol (Ventolin Hfa Inhaler*) 1 puff INH Q4H PRN PRN Reason: SOB/WHEEZING Aripiprazole (Abilify Tab*) 2 mg PO DAILY [facility] Last Admin: 05/22/19 08:52 Dose: 2 mg Aspirin (Aspirin Ec Tab*) 81 mg PO BEDTIME [facility] Last Admin: 05/21/19 21:52 Dose: 81 mg Clonazepam (Klonopin Tab(*)) 0.5 mg PO QID [facility] Last Admin: 05/22/19 12:54 Dose: 0.5 mg Famotidine (Pepcid Tab*) 40 mg PO BEDTIME [facility] Last Admin: 05/21/19 21:52 Dose: 40 mg Guaifenesin (Mucinex*) 600 mg PO BID PRN PRN Reason: CONGESTION Ibuprofen (Motrin Tab*) 800 mg PO Q8H PRN PRN Reason: PAIN Last Admin: 05/16/19 12:51 Dose: 800 mg Lorazepam (Ativan Tab(*)) 1 mg PO BEDTIME PRN PRN Reason: INSOMNIA Last Admin: 05/22/19 00:58 Dose: 1 mg Magnesium Oxide (Magox 400 Tab*) 200 mg PO DAILY [facility] Last Admin: 05/22/19 07:47 Dose: 200 mg Multivitamins (Theragran Tab*) 1 tab PO DAILY [facility] Last Admin: 05/22/19 07:46 Dose: 1 tab Mupirocin (Bactroban 2 % Oint*) 1 applic TOPICAL BID PRN PRN Reason: DRY SKIN Pto Flaxseed Oil Cap (1000 Mg) 1 dose PO DAILY [facility] Last Admin: 05/22/19 11:01 Dose: 1 dose Nortriptyline HCl (Pamelor Cap*) 10 mg PO BEDTIME [facility] Last Admin: 05/21/19 21:52 Dose: 10 mg Ondansetron HCl (Zofran Odt Tab*) 4 mg SL Q6H PRN PRN Reason: NAUSEA/VOMITING Pantoprazole Sodium (Protonix Tab*) 40 mg PO DAILY [facility] Last Admin: 05/22/19 07:47 Dose: 40 mg Polyvinyl Alcohol (Polyvinyl Alcohol 1.4% Opth*) 1 drop BOTH EYES Q30M PRN PRN Reason: DRY EYES Last Admin: 05/22/19 12:56 Dose: 1 drop Potassium Chloride (Klor Con Er Tab*) 10 meq PO DAILY PRN PRN Reason: LOW POTASSIUM Last Admin: 05/11/19 20:35 Dose: 10 meq Saliva Substitute (Biotene Moisturizing Mouth (Nf)) 1 spray MT Q2H PRN; Protocol PRN Reason: dry mouth - Discharge Plan Discharge Plan: Outpatient Follow Up Outpatient Program: Private Clinician(s)
[2019-05-22] MEDS: Nortriptyline CAP* 10 MG PO SCH (19:57)
[2019-05-22] MEDS: Aspirin EC TAB* 81 MG TAB.EC PO SCH (19:57)
[2019-05-22] MEDS: Famotidine TAB* 20 MG PO SCH (19:58)
[2019-05-23] MEDS: LORazepam TAB(*) 1 MG PO PRN (01:25)
[2019-05-23] MEDS: Artificial Tears* 15 ML BTL BOTH EYES PRN ×3 (01:25→12:57)
[2019-05-23 08:29] VITALS: BP 135/63
[2019-05-23] MEDS: FLAXSEED OIL 1000 MG PO SCH (09:00)
[2019-05-23] MEDS: Pantoprazole TAB * 40 MG TAB PO SCH (09:00)
[2019-05-23] MEDS: clonazePAM TAB(*) 0.5 MG PO SCH ×2 (09:00→12:56)
[2019-05-23] MEDS: Vitamin THERAPEUTIC TAB PO SCH (09:00)
[2019-05-23] MEDS: ARIPiprazole TAB* 2 MG PO SCH (09:00)
[2019-05-23] MEDS: Magnesium Oxide TAB* 400 MG PO SCH (09:01)
--- NOTE | 2019-06-05 15:45 | DS ---
DISCHARGE SUMMARY: DATE OF ADMISSION: 05/11/19 DATE OF DISCHARGE: 05/23/19 PROVIDER: Jennifer Gonzalez NP, Psychiatry. SUPERVISING PHYSICIAN: Dontae Harris MD.* (DICTATED BY JENNIFER GONZALEZ NP ) DIAGNOSES: Depressive disorder, generalized anxiety disorder, panic disorder. CONDITION AT THE TIME OF DISCHARGE: Improved, psychiatrically cleared, stable. Hamida participated in group, and was social with peers. Her family is agreeable to her discharge, as is Hamida. She has done well here psychiatrically. She tolerated new meds including Abilify well, although it was a struggle to convince her to take those medications at times as she tended to believe she would not be able to manage the side effects. She will be attending outpatient treatment with private providers. MENTAL STATE EXAMINATION: At the time of discharge, Hamida is calm, cooperative , and makes good eye contact. She is alert and oriented x4. Her grooming is excellent. Her speech pace is normal. Her thought processes are logical. She is not psychotic or delusional. She denies AH, VH, SI, and HI. Her insight and judgment are good. She is willing to follow up and urged to see her therapist. DISCHARGE INSTRUCTIONS TO THE PATIENT: A. Medications: 1. Albuterol inhaler 2 puff q.4 hours p.r.n. shortness of breath or wheezing. 2. Amlodipine 2.5 mg daily. 3. Aripiprazole 2 mg daily. 4. Artificial Tears 1 drop in both eyes q.2 hours p.r.n. dry eye. 5. Aspirin 81 mg p.o. bedtime. 6. Calcium carbonate - vitamin D3 one tab q.a.m. 7. 2000 units vitamin D daily. 8. 0.5 mg Klonopin t.i.d. p.r.n. anxiety. 9. 10 mg Flexeril t.i.d. p.r.n. pain. 10. Flaxseed oil 1000 mg daily. 11. Breo Ellipta 1 puff inhaled daily. 12. Guaifenesin 600 mg b.i.d. p.r.n. congestion. 13. Ibuprofen 800 mg q.8 hours p.r.n. pain. 14. Levocetirizine 5 mg daily. 15. Lorazepam 1 mg at bedtime, dispensed 60 p.r.n. insomnia. 16. 250 mg of magnesium oxide daily. 17. Multivitamin daily. 18. Bactroban 2% ointment topically p.r.n. 19. Nortriptyline 10 mg at bedtime. 20. Ondansetron 4 mg q.8 hours p.r.n. nausea. 21. Pantoprazole 40 mg daily. 22. Potassium chloride 10 mEq daily. 23. Ranitidine 300 mg at bedtime. B. Diet is gluten-free. C. Activities as tolerated. Hamida is a nonsmoker. There are no studies pending at the time of discharge. D. Followup care: Hamida has an appointment with Dr. Vanessa in [place] on 05/23/19 at [address] Vigil for medication management on [facility] in [place]. She is recommended to see Dr. Tyson within 30 days of discharge. E. Disposition. She is being discharged home. F. Substance abuse followup is not indicated. HOSPITAL COURSE: Part A. Chief complaint: Anxiety and trouble sleeping. The patient has had a 2-week period of severe anxiety, depression, and trouble sleeping with multiple emergency room visits, visits to her primary provider, and visits to her psychiatrist, as well as phone calls to the primary provider at [facility] and to her psychiatrist. Her condition if anything has worsened due to her anxiety and somatization. The patient is a 64-year-old white female who over the last 2 weeks to a month has failed an outpatient treatment for panic disorder, anxiety, somatization, and likely depressive relapse. She has multiple anxiety attacks, which she attributes to somatic issues and has made multiple ER visits. She will feel her heart beating quickly and believe it is her heart or high blood pressure and called emergency rooms and spent a long time calming down. She will have blood pressure medications prescribed due to the high blood pressure and then feel dizzy because of them and believe she is going to and either return to the ER or call her primary providers. She has amplified stressors, in that she chronically tries to look after her mother who at baseline has a histrionic manipulative personality and now has Alzheimer's. Her father was managing to help with the mother, but the father now has colon cancer with an ileostomy. The parents both live in Assisted living, but the patient is still very much involved with their care. The patient has a 20-year history of these conditions and years of therapy with Dr. Vanessa and with me (after me Dr. Vigil). About 10 years ago, she had a depressive episode and was admitted here at [facility]. This was related in part due to work related stressors. She reported not tolerating many drugs including multiple antidepressants and physical medications, but it is unclear if she has true allergies. She does say she does not tolerate Xanax, BuSpar, SSRIs, Effexor and other medications. For some years, she did tolerably well on 10 mg of nortriptyline, but when I raised her to 20 mg, she felt dizzy and could not tolerate that either. She once took Flexeril 5 mg for back pain and said that it helped her sleep. However, at that point, as an outpatient, she was so anxious that she could not imagine taking any other medications. I offered her 25 mg of Seroquel, 5 mg of Flexeril or Soma, all of which she had not had a bad reaction to before and the Flexeril she tolerated. She filled those but she could not actually take a single dose. She finally brought herself to the hospital, hoping to feel safe while she tried a new medication. On the other hand, the first day she was here I prescribed a low dose of Seroquel and she refused to take it. Part B. Psychiatric treatment was rendered. Hamida was admitted to the adult behavioral unit and placed on 15-minute checks for safety. She did advance to 30- minute checks and staff pass. Hamida did well on the unit. She went to groups. She interacted with peers well. She enjoyed being on the unit. She felt safe, and she knew that if any problems were to occur, she would be in a good place to be treated and that seems to mitigate some of her anxiety. She was started on Latuda but she could not tolerate that as she reported tachycardia. On 05/15/19, Hamida attempted to take Abilify 2 mg. To preempt her anxiety, several p.r.n.'s were put in place to aid in her tolerance if a "side effect" should become bothersome. She did not need these PRNs. On 05/16/19, Hamida continued with Abilify for another night. Many of her side effect concerns have been addressed. She is planning on staying for many days in an effort to "treat myself well." On 05/17/19, Hamida will continue with Abilify. She is using workbooks to figure out more about her anxiety disorder, and she is considering discharge between this coming Wednesday and the following Wednesday. On 05/18/19, Hamida managed her anxiety well in the midst of preparing for a family meeting which took place on 05/19/19. Reassurances were continued. The fact that she might be uncomfortable was considered as something that she would need to understand she had to tolerate. She discovered that in fact her fear was not specifically of dying, but of feeling uncomfortable and losing control. We talked about how feeling uncomfortable is a normal response to new medications and new events in her life and the repetition of that particular refrain was helpful to her. On 05/23/19, she reported being ready to leave. She also reported that she was getting bored, that things were getting easy to deal with, and she was ready to go. It should be noted as she started an atypical antipsychotic that her hemoglobin A1C was 6.2, triglycerides were 118, cholesterol 268, LDL cholesterol 196, HDL cholesterol 48.9. We did have a meeting with her son Matt and her . They both expressed some helplessness related to her inability to manage her own somatic sensations , and they also expressed that they wanted to help her, but they did not know how. Hamida gave them some mixed signals regarding what would be most helpful to her, which she indicated was nothing, that she can handle everything on her own while her family indicated that that was clearly not the case as she called the ambulance multiple times and had no reason to stay in the hospital. Hamida liked the family meeting and was interested in more. No consults were entered other than a nutrition consult. She is significantly improved. Upon her discharge, she says she has never felt so happy. 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 She is future oriented. She is eager to leave and eager to perhaps do more family therapy which would be recommended if her family is willing to go forward to that. We wish Hamida well. JENNIFER GONZALEZ, PUBLIC HEALTH AIDE [id number]/[facility] #: [id number] [facility] CENTERLewis
== END 2019-05-23 15:20 | disposition home or self-care (01) | DRG 885 ==
LOC: ED 13:29 → BSU 19:42
PROVIDERS: ADMIT Psychiatry & Neurology Psychiatry; ATTEND Psychiatry & Neurology Psychiatry
DX: F33.1 Major depressive disorder, recurrent, moderate (principal); F41.0 Panic disorder [episodic paroxysmal anxiety]; F41.9 Anxiety disorder, unspecified; K21.9 Gastro-esophageal reflux disease without esophagitis; I10 Essential (primary) hypertension; G47.33 Obstructive sleep apnea (adult) (pediatric); Z99.89 Dependence on other enabling machines and devices
CPT/HCPCS: 36415; 80053; 80061; 80307; 80320; 80329; 80335; 81003; 81015; 83036; 84443; 84484; 85025; 87086; 93005; 99232; 99233; 99238; 99284; A9270-GY; G0480

== ENCOUNTER 2019-06-27 00:13 | Emergency (ER) | payer MEDICARE, OTHER ==
--- OUTSIDE RECORDS SUMMARY | 2019-06-27 00:26 | XMS REPORT | Continuity of Care Document ---
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 Problems Active Problems Provider Date Obstructive sleep apnea syndrome Brionna Horvath DNP, RN, PUMP AND STILL OPERATOR-BC Onset: 12/2017 Insomnia Brionna Horvath DNP, RN, PU[employer] AND STILL OPERATOR-BC Onset: 02/10/2018 Sleep related bruxism Brionna Horvath DNP, RN, PU[employer] AND STILL OPERATOR-BC Onset: 02/10/2018 Lipoma of skin Pedrito Cason MD Onset: 10/18/2018 Social History Type Date Description Comments Sex Unknown Tobacco Use Start: Unknown Never Smoked Cigarettes Smoking Status Reviewed: 06/02/19 Never Smoked Cigarettes ETOH Use Denies alcohol [...] sneezing fits Prednisone Moderate 01/26/2018 Gabapentin 02/10/2018 Amlodipine 05/31/2019 Losartan 05/31/2019 Lisinopril 05/31/2019 Lurasidone 05/31/2019 Medications Active Medications SIG Qnty Indications Ordering Provider Date Aripiprazole Take 1 Tablet By Unknown 2mg Tablets Mouth Every Day Magnesium 1 by mouth every Unknown 250mg Tablets day ( last taken 7-8 days ago week of 02/08/18) Multivitamin Adult 1 by mouth every Unknown day Tablets Benzonatate Take 1 Capsule By Unknown 100mg Mouth Three Times Capsules Daily as Needed For Cough Ativan 1-2 by mouth at Unknown 1mg Tablets night Tylenol Extra Strength 2 by mouth as Unknown needed 500mg Tablets Ranitidine HCL 1 by mouth every Unknown [...] 1 by mouth once a Unknown day [id number] Tablets Aspir-81 1 by mouth every Unknown 81mg Tablets DR day Immunizations Description No Information Available Vital Signs Date Vital Result Comment 06/02/2019 8:21am Height 67 inches 5'7" Weight 173.50 lb Heart Rate 84 /min BP Systolic Sitting 134 mmHg Rue reg cuff BP Diastolic Sitting 74 mmHg Rue reg cuff Respiratory Rate 16 /min O2 % BldC Oximetry 98 % On Ra BMI (Body Mass Index) 27.2 kg/m2 05/31/2019 9:35am Height 67 inches 5'7" Weight 174.12 lb Heart Rate 86 /min BP Systolic Sitting 128 mmHg Rue reg cuff BP Diastolic Sitting 78 mmHg Rue reg cuff Respiratory Rate 16 /min O2 % BldC Oximetry 96 % On Ra BMI (Body Mass Index) 27.3 kg/m2 Results Description No Information Available Procedures Description No Information Available Medical Devices Description No Information Available Encounters Type Date Location Provider Dx Diagnosis Office Visit 02/21/2019 Orthopedic Pedrito Cason, D17.22 Benign lipomatous 11:[facility] neoplasm of skin, subcu of left arm Assessments Date Code Description Provider 06/02/2019 G47.33 Obstructive sleep apnea (adult) Brionna Horvath DNP, RN, PUMP AND STILL OPERATOR-BC (pediatric) 06/02/2019 R00.0 Tachycardia, unspecified Brionna Horvath DNP, RN, PUMP AND STILL OPERATOR-BC 05/31/2019 G47.33 Obstructive sleep apnea (adult) Brionna Horvath DNP, RN, PUMP AND STILL OPERATOR-BC (pediatric) 05/31/2019 R09.02 Hypoxemia Brionna Horvath DNP, RN, PUMP AND STILL OPERATOR-BC 02/21/2019 D17.22 Benign lipomatous neoplasm of skin Pedrito Cason MD and subcutaneous tissue o 12/23/2018 D17.22 Benign lipomatous neoplasm of skin Pedrito Cason MD and subcutaneous tissue o 12/23/2018 Z47.89 Encounter for other orthopedic Pedrito Cason MD aftercare 12/06/2018 D17.22 Benign lipomatous neoplasm of skin Pedrito Cason MD and subcutaneous tissue o 12/06/2018 Z48.02 Encounter for removal of sutures Pedrito Cason MD Plan of Treatment Future Appointment(s):08/02/2019 11:00 am - Brionna Horvath DNP, RN, PUMP AND STILL OPERATOR-BC at [facility]09/01/2019 11:15 am - Brionna Horvath DNP , RN, PUMP AND STILL OPERATOR-BC at [facility]06/02/2019 - Brionna Horvath DNP, RN, PUMP AND STILL OPERATOR-BCG47.33 Obstructive sleep apnea (adult) (pediatric)New Orders:Sleep Study Cpap, Ordered: 06/02/19Follow up:2 monthsRecommendations: Continue PAP device, Benefitting and compliant with treatment. Due to nocturnal awakening, issues with CPAP pressure and history of hypoxemia, recommend in-lab CPAP/BiPAP titration. Will ask you to be late sleeper until 8-9 AM and to be placed on cancellation list. If you come in on cancellation list you may need to get up at 6-7 AM, they will wake you up. Please bring your mask and night time and as needed medications to take if needed during the night.. Cleaning Wipe off mask daily (baby wipe-noscent, or warm water) Clean mask, tubing, filter, and water chamber weekly in mild no scent dish soap and water. Hang to dry. If you have any sleepiness while driving you MUST avoid operating a vehicle or machinery. If you have difficulty with your equipment, or need to replace your mask or hoses, please contact your homecare agency. A weight change of 20 pounds or more may have an effect on your equipment; if you are experiencing problems please call for an appointment. If you have any further questions, please call the [facility] at [phone].R00.0 Tachycardia, unspecifiedRecommendations:Recommend in-lab study to evaluate rate and apnea optimal pressure. Functional Status Description No Information Available Mental Status Description No Information Available Referrals Description No Information Available
--- OUTSIDE RECORDS SUMMARY | 2019-06-27 00:26 | XMS REPORT | Summary of Care ---
:1955 Author Organization [facility] Address [address] [facility] [place] [address] Care Team Providers Name Role Phone Jerson Tyson MD Primary Care Provider Reason for Visit Reason Comments Sick Pt presents in office for possible stomach bug, lose stool for 48hrs, pt has been taking OTC stomach relief since 06/25/19. 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 [place] [address] [place] [address] [phone] Allergies Active Allergy Reactions Severity Noted Date Comments Alprazolam Unknown Reaction 11/28/2007 Atorvastatin Unknown Reaction 01/04/2014 anxiety Buspirone 11/28/2007 BuSpar-reaction unknown Cefaclor GI Reaction 12/07/[address] and spacy feeling Ct Dye Unknown Reaction 11/28/2007 Dexamethasone ACCOUNT SERVICE ASSOCIATE Reaction 04/07/2008 Severe anxiety Dilaudid Cough Unknown Reaction 11/28/2007 Doxycycline Hyclate Other 03/20/2016 patient felt horrid. Erythromycin Unknown Reaction 11/28/2007 Metronidazole Hcl Unknown Reaction 11/28/2007 Glycerin Unknown Reaction 11/28/2007 Keflex Other 08/17/2018 Increase anxiety Levaquin Unknown Reaction 11/28/2007 Levothyroxine Other 03/25/2017 Itching, diarrhea, headache, increased anxiety , hypertension, dizziness Metoprolol Unknown Reaction 11/28/2007 Mirtazapine Other 03/07/2019 Tachycardia, increase anxiety Paroxetine Hydrochloride Unknown Reaction 11/28/2007 Penicillins Unknown Reaction 11/28/2007 Prednisone Other, GI Reaction Medium 06/25/2017 Anxiety from medication and upset stomach Fluoxetine Hcl Unknown Reaction 11/28/2007 Sulfacetamide Sodium Unknown Reaction 11/28/2007 Sulfur Dioxide Other 08/19/2011 Pt states that when she eats dried apricots she has sneezing fits. Tramadol Cardiac Reaction 12/14/2018 Rapid heart rate documented as of this encounter (statuses as of 06/26/2019) Medications Medication Sig Dispensed Refills Start Date End Date Status TYLENOL EXTRA STRENGTH Take by mouth. Prn 0 Active PO clonazepam (KLONOPIN) Take 1 Tab by 50 0 05/15/2008 Active 0.5 mg Oral Tab mouth THREE TIMES DAILY NEEDED for anxiety MDD 3 Additional information Patient taking differently: 0.5 mg Oral TID, MDD 3, Reported on 06/30/2017 4: 54 PM nortriptyline (PAMELOR) 10 MG Take 10 mg by mouth 0 Active Oral Cap DAILY. GuaiFENesin (MUCINEX PO) Take by mouth Continuous 0 Active prn. polyvinyl alcohol-povidone Place 1 Drop in both eyes 0 Active (REFRESH) 1.4-0.6 % Ophthalmic NEEDED. Solution Calcium Carb-Cholecalciferol Take 1 Tab by mouth 60 Tab 0 09/01/2016 Active (CALCIUM+D3) 600-800 MG-UNIT DAILY. Oral Tab aspirin (ECOTRIN) 81 MG Oral Take 81 mg by mouth 0 Active Tab EC DAILY. Flaxseed, Linseed, (FLAX SEED Take 1,000 mg by mouth 0 03/09/2017 Active OIL) 1000 MG Oral Cap DAILY. daily vitamin Oral Tab Take 1 Tab by mouth 0 Active DAILY. mupirocin (BACTROBAN) 2 % Apply 1 g by Topical route TWO 30 g 5 03/17/2018 Active externally Ointment TIMES DAILY NEEDED (skin lesions). BREO ELLIPTA 200-25 MCG/INH DAILY NEEDED. 5 02/04/2018 Active Inhalation AEROSOL POWDER, BREATH ACTIVATED PROAIR HFA 108 (90 Base) INHALE 2 PUFFS BY MOUTH 5 02/05/2018 Active MCG/ACT Inhalation Aero Soln EVERY 4 HOURS NEEDED Levocetirizine Dihydrochloride TAKE 1 TABLET BY MOUTH 5 02/05/2018 Active 5 MG Oral Tab EVERY DAY NEEDED Magnesium 250 MG Oral Tab Take 250 mg by mouth 0 Active DAILY. pantoprazole (PROTONIX) 40 MG Take 1 Tab by mouth 90 Tab 3 12/07/2018 Active Oral Tab EC DAILY. Cholecalciferol (VITAMIN D-3) Take 2,000 Units by mouth 60 Cap 0 2018 Active 1000 units Oral Cap DAILY. potassium chloride (K-DUR) 10 Take 1 Tab by mouth DAILY 90 Tab 1 2018 Active MEQ Oral Tab CRIndications: NEEDED (for leg Hypokalemia cramps). ibuprofen (MOTRIN) 800 MG Oral Take 1 Tab by mouth EVERY 90 Tab 5 2018 Active TabIndications: Thumb pain, EIGHT HOURS NEEDED unspecified laterality (pain). cyclobenzaprine (FLEXERIL) 10 THREE TIMES DAILY 0 05/02/2019 Active MG Oral Tab NEEDED. Aripiprazole (ABILIFY) 2 MG DAILY. 0 05/22/2019 Active Oral Tab LORazepam (ATIVAN) 1 MG Oral DIRECTED. Take 1 tab 0 05/22/2019 Active Tab at HS, february repeat PRN, MDD 2mg ondansetron (ZOFRAN ODT) 4 MG EVERY SIX HOURS 0 05/22/2019 Active Oral TABLET DISPERSIBLE NEEDED. ranitidine (ZANTAC) 300 MG Oral Take 300 mg by mouth 90 Tab 3 06/02/2019 Active Tab EVERY BEDTIME. 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 Headache(784.0) 11/28/2007 Overview: Stess related Pain in joint, pelvic region and thigh 11/28/2007 Overview: Right hip pain, Bone scan of right kidney revealed a cyst Irritable bowel syndrome 11/28/2007 Subacute thyroiditis 11/28/2007 Sprain of neck 11/28/2007 Sjogren's disease Sleep apnea documented as of this encounter (statuses as of 06/26/2019) Immunizations Name Administration Dates Next Due DTAP Vaccine 11/17/2010 documented as of this encounter Social History Tobacco Use Types Packs/Day Years Used Date Never Smoker Smokeless Tobacco: Never Used Alcohol Use Drinks/Week oz/Week Comments No 0 Standard drinks or equivalent 0.0 Sex Assigned at Date Recorded Not on file Job Start Date Occupation Industry Not on file Not on file Not on file Travel History Travel Start Travel End No recent travel history available. documented as of this encounter Last Filed Vital Signs Vital Sign Reading Time Taken Comments Blood Pressure 152/80 06/26/2019 3:25 PM EDT Pulse 76 06/26/2019 3:25 PM EDT Temperature 36.6 06/26/2019 3:25 PM C (97.9 EDT F) Respiratory Rate - - Oxygen Saturation 98% 06/26/2019 3:25 PM EDT Inhaled Oxygen Concentration - - Weight 78.8 kg (173 lb 12.8 oz) 06/26/2019 3:25 PM EDT Height 170.8 cm (5' 7.25") 06/26/2019 3:25 PM EDT Body Mass Index 27.02 06/26/2019 3:25 PM EDT documented in this encounter Patient Instructions Patient InstructionsRubi Martinez NP - 06/26/2019 3:20 PM EDT Get blood work done today. Stay hydrated - instead of gatorade use an over the counter rehydrating solution (such as pedialyte). You can eat whatever you can tolerate - no need to limit yourself, but avoid things such as spicy foods for now. Stop taking the anti-diarrheal. If you have signs of dehydration (such as decreased urination, dry eyes or mouth ), return or go to ER. If your are not feeling better in the next 5-7 days, return for further evaluation. 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 It is caused by bacteria, parasites, or viruses. Common symptoms include the following: Diarrhea or gas Nausea, vomiting, or poor appetite Abdominal cramps, pain, or gurgling Fever Tiredness or weakness Headaches or muscle aches with any of the above symptoms Call 911 for any of the following: You have trouble breathing or a very fast pulse. Seek care immediately if: You see blood in your diarrhea. You cannot stop vomiting. You have not urinated for 12 hours. You feel like you are going to faint. Contact your healthcare provider if: You have a fever. You continue to vomit or have diarrhea, even after treatment. You see worms in your diarrhea. Your mouth or eyes are dry. You are not urinating as much or as often. You have questions or concerns about your condition or care. Treatment for gastroenteritis may include medicines to slow or stop your diarrhea or vomiting. You may also need medicines to treat an infection caused by bacteria or a parasite. Manage your symptoms: Drink liquids as directed. Ask your healthcare provider how much liquid to drink each day, andwhich liquids are best for you. You may also need to drink an oral rehydration solution (ORS). An ORS has the right amounts of sugar , salt, and minerals in water to replace body fluids. Eat bland foods. When you feel hungry, begin eating soft, bland foods. Examples are bananas, clear soup, potatoes, and applesauce. Do not have dairy products, alcohol, sugary drinks, or drinks with caffeine until you feel better. Rest as much as possible. Slowly start to do more each day when you begin to feel better. Prevent the spread of germs: Gastroenteritis can spread easily. Keep yourself, your family, and your surroundings clean to help prevent the spread of gastroenteritis: Wash your hands often. Use soap and water. Wash your hands after you use the bathroom, change a child's diapers, or sneeze. Wash your hands before you prepare or eat food. Clean surfaces and do laundry often. Wash your clothes and towels separately from the rest of the laundry. Clean surfaces in your home with antibacterial rug cleaner hand or bleach. Clean food thoroughly and cook safely. Wash raw vegetables before you cook. Cook meat, fish, and eggs fully. Do not use the same dishes for raw meat as you do for other foods. Refrigerate any leftover food immediately. Be aware when you camp or travel. Drink only clean water. Do not drink from rao or lakes unless you purify or boil the water first. When you travel , drink bottled water and do not add ice. Do not eat fruit that has not been peeled. Do not eat raw fish or meat that is not fully cooked. Follow up with your healthcare provider as directed: Write down your questions so you remember to ask them during your visits. 2016 [employer]. Information is for End User's use only and may not be sold, redistributed or otherwise used for commercial purposes. All illustrations and images included in CareNotes are the copyrighted property of [employer]. or [employer]. The above information is an mental retardation aide only. It is not intended as medical advice for individual conditions or treatments. Talk to your doctor, nurse or pharmacist before following any medical regimen to see if it is safe and effective for you. documented in this encounter Progress Notes Rubi Martinez NP - 06/26/2019 3:20 PM EDT PATIENT: Hamida Trent : 1955 DATE OF SERVICE: 06/26/2019 CHIEF COMPLAINT: Chief Complaint Patient presents with Sick Pt presents in office for possible stomach bug, lose stool for 48hrs, pt has been taking OTC stomach relief since 06/25/19. No vomitting Subjective HISTORY OF PRESENT ILLNESS: Hamida Trent is a 64-y.o. female. HPI Since - not feeling well, stomach bloated, no appetite. She is gluten free. She is usually constpitated but is now having loose stools (on the verge of diarrhea) since yesterday - 10-12 BM'sin the last 24 hours. Took pepto- bismol last night. No energy. She has anxiety and depression andbeing sick has made them worse. She almost went to the ER last night for anxiety. Headaches and muscle aches, lower back ache across the whole back. She is hydrating with gingerale and gaterade, gluten free bone broth with sodium. Bananas for potassium. Abd pain - generalized whole abd. Belching, flatulence. No changes to urination (increased frequency with increased fluids, clear). Nausea, no vomiting. No recent travel, hiking, or antibiotics in the past 6 months. Past Medical History: Diagnosis Date Abdominal pain, epigastric 11/28/2007 Allergic rhinitis, cause unspecified 11/28/2007 Anxiety State 11/28/2007 Eye disease HYPOTHYROID Headache(784.0) 11/28/2007 Stess related Hormones and synthetic substitutes causing adverse effect in therapeutic use Hypothyroidism 11/28/2007 History of thyroiditis as documented Irritable bowel syndrome 11/28/2007 Otitis Media 11/28/2007 Pain in joint, pelvic region and thigh 11/28/2007 Right hip pain, Bone scan also incidentally found right kidney cyst Postmenopausal , first Reflux esophagitis 11/28/2007 Esophagogastroduodenoscopy performed on 09/19/07 Renal Cyst 11/28/2007 Sjogren's disease (HCC) Sleep apnea on CPAP Sprain of neck 11/28/2007 Subacute thyroiditis 11/28/2007 Urinary incontinence Family History Problem Relation Age of Onset Breast Cancer Maternal Grandmother Cancer Maternal Grandmother ? skin High Cholesterol Mother Diabetes Father High Cholesterol Father Cancer Father colon CA Thyroid Sister Cancer Maternal Uncle colon Current Outpatient Medications Medication Sig Aripiprazole (ABILIFY) 2 MG Oral Tab DAILY. aspirin (ECOTRIN) 81 MG Oral Tab EC Take 81 mg by mouth DAILY. BREO ELLIPTA 200-25 MCG/INH Inhalation AEROSOL POWDER, BREATH ACTIVATED DAILY NEEDED. Calcium Carb-Cholecalciferol (CALCIUM+D3) 600-800 MG-UNIT Oral Tab Take 1 Tab by mouth DAILY. Cholecalciferol (VITAMIN D-3) 1000 units Oral Cap Take 2,000 Units by mouth DAILY. clonazepam (KLONOPIN) 0.5 mg Oral Tab Take 1 Tab by mouth THREE TIMES DAILY NEEDED for anxiety MDD 3 (Patient taking differently: Take 0.5 mg by mouth THREE TIMES DAILY. MDD 3) cyclobenzaprine (FLEXERIL) 10 MG Oral Tab THREE TIMES DAILY NEEDED. daily vitamin Oral Tab Take 1 Tab by mouth DAILY. Flaxseed, Linseed, (FLAX SEED OIL) 1000 MG Oral Cap Take 1,000 mg by mouth DAILY. GuaiFENesin (MUCINEX PO) Take by mouth Continuous prn. ibuprofen (MOTRIN) 800 MG Oral Tab Take 1 Tab by mouth EVERY EIGHT HOURS NEEDED (pain). Levocetirizine Dihydrochloride 5 MG Oral Tab TAKE 1 TABLET BY MOUTH EVERY DAY NEEDED LORazepam (ATIVAN) 1 MG Oral Tab DIRECTED. Take 1 tab at HS, may repeat PRN, MDD 2mg Magnesium 250 MG Oral Tab Take 250 mg by mouth DAILY. mupirocin (BACTROBAN) 2 % Apply externally Ointment 1 g by Topical route TWO TIMES DAILY NEEDED (skin lesions). nortriptyline (PAMELOR) 10 MG Oral Cap Take 10 mg by mouth DAILY. ondansetron (ZOFRAN ODT) 4 MG Oral TABLET DISPERSIBLE EVERY SIX HOURS NEEDED. pantoprazole (PROTONIX) 40 MG Oral Tab EC Take 1 Tab by mouth DAILY. polyvinyl alcohol-povidone (REFRESH) 1.4-0.6 % Ophthalmic Solution Place 1 Drop in both eyes NEEDED. potassium chloride (K-DUR) 10 MEQ Oral Tab CR Take 1 Tab by mouth DAILY NEEDED (for leg cramps). PROAIR HFA 108 (90 Base) MCG/ACT Inhalation Aero Soln INHALE 2 PUFFS BY MOUTH EVERY 4 HOURS NEEDED ranitidine (ZANTAC) 300 MG Oral Tab Take 300 mg by mouth EVERY BEDTIME. TYLENOL EXTRA STRENGTH PO Take by mouth. Prn No current facility-administered medications for this visit. Allergies Allergen Reactions Prednisone Other and GI Reaction Anxiety from medication and upset stomach Alprazolam Unknown Reaction Atorvastatin Unknown Reaction anxiety Buspirone BuSpar-reaction unknown Cefaclor GI Reaction Nausea and spacy feeling Contrast Dye [Ct Dye] Unknown Reaction Dexamethasone ACCOUNT SERVICE ASSOCIATE Reaction Severe anxiety Dilaudid Cough Unknown Reaction Doxycycline Hyclate Other patient felt horrid. Erythromycin Unknown Reaction Flagyl I.V. [Metronidazole Hcl] Unknown Reaction Glycerin Unknown Reaction Keflex Other Increase anxiety Levaquin Unknown Reaction Levothyroxine Other Itching, diarrhea, headache, increased anxiety , hypertension, dizziness Metoprolol Unknown Reaction Mirtazapine Other Tachycardia, increase anxiety Paxil [Paroxetine Hydrochloride] Unknown Reaction Pcn [Penicillins] Unknown Reaction Prozac [Fluoxetine Hcl] Unknown Reaction Sulfacetamide Sodium Unknown Reaction Sulfur Dioxide Other Pt states that when she eats dried apricots she has sneezing fits. Tramadol Cardiac Reaction Rapid heart rate Social History Socioeconomic History Marital status: Spouse name: Not on file Number of children: Not on file Years of education: Not on file Highest education level: Not on file Occupational History Not on file Social Needs Financial resource strain: Not on file Food insecurity: Worry: Not on file Inability: Not on file Transportation needs: Medical: Not on file Non-medical: Not on file Tobacco Use Smoking status: Never Smoker Smokeless tobacco: Never Used Substance and Sexual Activity Alcohol use: No Alcohol/week: 0.0 standard drinks Drug use: No Sexual activity: Never Lifestyle Physical activity: Days per week: Not on file Minutes per session: Not on file Stress: Not on file Relationships Social connections: Talks on phone: Not on file Gets together: Not on file Attends roman catholic service: Not on file Active member of club or organization: Not on file Attends meetings of clubs or organizations: Not on file Relationship status: Not on file Intimate partner violence: Fear of current or ex partner: Not on file Emotionally abused: Not on file Physically abused: Not on file Forced sexual activity: Not on file Other Topics Concern Back Care Not Asked Bike Helmet Not Asked Blood Transfusions Not Asked Caffeine Concern Not Asked Exercise Not Asked Hobby Hazards Not Asked International Travel Not Asked Service Not Asked Occupational Exposure Not Asked Seat Belt Not Asked Self-Exams Not Asked Sleep Concern Not Asked Special Diet Not Asked Stress Concern Not Asked Weight Concern Not Asked Social History Narrative REVIEW OF SYSTEMS: Review of Systems Constitutional: Positive for malaise/fatigue. Negative for fever. Gastrointestinal: Positive for abdominal pain, diarrhea and nausea. Negative for blood in stool. Genitourinary: Positive for frequency. Negative for dysuria and urgency. Objective PHYSICAL EXAM: VITALS: BP 152/80 (BP Location: Right arm, Patient Position: Sitting) | Pulse 76 | Temp 97.9 F (36.6 C) (Tympanic) | Ht 5' 7.25" (1.708 m) | Wt 173 lb 12.8 oz (78.8 kg) | SpO2 98% | BMI 27.02 kg/m Body mass index is 27.02 kg/m. Physical Exam Constitutional: Vital signs are normal. She appears well-developed. Non-toxic appearance. No distress. HENT: Mouth/Throat: Mucous membranes are normal. Mucous membranes are not pale and not dry. Cardiovascular: Normal rate, regular rhythm and normal heart sounds. Exam reveals no gallop and no friction rub. No murmur heard. Pulmonary/Chest: Effort normal and breath sounds normal. No respiratory distress. Abdominal: Soft. Normal appearance and bowel sounds are normal. There is no hepatosplenomegaly. There is generalized tenderness. There is no rigidity, no rebound, no guarding, no CVA tenderness, no tenderness at McBurney's point and negative Merrill's sign. No hernia. Musculoskeletal: Cervical back: Normal. Thoracic back: Normal. Lumbar back: Normal. Lymphadenopathy: Head (right side): No submental, no submandibular, no tonsillar, no preauricular and no posterior auricular adenopathy present. Head (left side): No submental, no submandibular, no tonsillar, no preauricular and no posterior auricular adenopathy present. She has no cervical adenopathy. Right: No supraclavicular adenopathy present. Left: No supraclavicular adenopathy present. Nursing note and vitals reviewed. ASSESSMENT / IMPRESSION: ICD-9-CM ICD-10-CM 1. Urinary frequency 788.41 R35.0 URINE DIP MANUAL (AMB POCT) 2. Diarrhea of presumed infectious origin 009.3 R19.7 BASIC METABOLIC PANEL MAGNESIUM LEVEL Plan 1. Urinary frequency - URINE DIP MANUAL (AMB POCT) - negative 2. Diarrhea of presumed infectious origin - BASIC METABOLIC PANEL; Future - MAGNESIUM LEVEL; Future -She is worried about her potassium - she takes 10mg potassium daily for a history of hypokalemia. Will check this today and she should switch from gatorade to an oral rehydration solution such as pedialyte. -Will call with lab abnormalities. Get blood work done today. Stay hydrated - instead of gatorade use an over the counter rehydrating solution (such as pedialyte). You can eat whatever you can tolerate - no need to limit yourself, but avoid things such as spicy foods for now. Stop taking the anti-diarrheal. If you have signs of dehydration (such as decreased urination, dry eyes or mouth ), return or go to ER. If your are not feeling better in the next 5-7 days, return for further evaluation. Author: Rubi Martinez NP 06/26/2019 16:13 documented in this encounter Plan of Treatment Date Type Specialty Care Team Description 08/01/2019 Office Visit Internal Medicine Jerson Tyson MD [address] [place] [address] [phone] Name Type Priority Associated Diagnoses Order Schedule BASIC METABOLIC PANEL Lab Routine Diarrhea of presumed Expected: 06/26/2019 infectious origin (Approximate), Expires: 06/26/2020 URINE DIP MANUAL (AMB POCT Routine Urinary frequency Ordered: 06/26/2019 POCT) MAGNESIUM LEVEL Lab Routine Diarrhea of presumed Expected: 06/26/2019 infectious origin (Approximate), Expires: 06/26/2020 Health Maintenance Due Date Last Done Comments MEDICARE ANNUAL WELLNESS 1955 VISIT ZOSTER IMMUNIZATION SERIES 2003 (1 of 2) PNEUMOCOCCAL 65+YRS (1 of 2 2018 - PCV13) INFLUENZA VACCINE (#1) 2019 MAMMOGRAM (SCREENING) 08/23/2019 08/23/2018, 08/19/2017, 06/30/2016, Additional history exists FALL RISK ASSESSMENT 09/07/2019 09/07/2018, 09/07/2018 DIABETES SCREENING 03/07/2020 03/07/2019, 12/12/2018, 09/09/2018, Additional history exists DEPRESSION SCREENING 05/30/2020 05/30/2019, 05/30/2019 COLONOSCOPY SCREENING 11/12/2022 11/12/2017, 11/12/2017, 02/20/2013, Additional history exists LIPID DISORDER SCREENING 03/07/2024 03/07/2019, 12/12/2018, 03/24/2018, Additional history exists OSTEOPOROSIS SCREENING 07/14/2026 07/14/2016, 08/01/2012 HPV IMMUNIZATION SERIES Aged Out No longer eligible based on patient's age to complete this topic MENINGOCOCCAL VACCINE IMM Aged Out No longer eligible based on patient's age to complete this topic documented as of this encounter Results Not on filedocumented in this encounter Visit Diagnoses Diagnosis Urinary frequency - Primary Diarrhea of presumed infectious origin documented in this encounter Insurance Payer Benefit Plan / Subscriber ID Effective Dates Phone Address Type Group MEDICARE MEDICARE PART A xxxxxxxxxxx 2018-Present Medicare & B AETNA COMMERCIAL AETNA xxxxxxxxxx 2016-Present [employer] documented as of this encounter
[2019-06-27] MEDS ORDERED: NS 0.9% 1000 ML** 1,000 ML IV ONE (03:10)
[2019-06-27 03:35] LABS: ABS Basophils 0.1 10^3/ul (0-0.2); ABS Eosinophils 0.2 10^3/ul (0-0.6); ABS Lymphocytes 1.9 10^3/ul (1.0-4.8); ABS Monocytes 0.9 10^3/ul (0-0.8); ABS Neutrophils 4.7 10^3/ul (1.5-7.7); Eosinophil % 2.1 %; Hematocrit 38 % (35-47); Hemoglobin 12.9 g/dL (12.0-16.0); Lymphocyte % 24.2 %; Mean Corpuscular HGB Conc 34 g/dL (31-36); Mean Corpuscular Hemoglobin 28 pg (27-31); Mean Corpuscular Volume 83 fL (80-97); Mean Platelet Volume 8.3 fL (7.4-10.4); Nucleated Red Blood Cells % 0.2; Platelet Count 296 10^3/uL (150-450); Red Blood Count 4.59 10^6 /uL (3.70-4.87); Red Cell Distribution Width 17 % (10-15); White Blood Count 7.7 10^3/uL (3.5-10.8)
--- NOTE | 2019-06-27 03:43 | ED ---
GI/ HPI - HPI Summary HPI Summary: Patient is a 64 y/o F presenting to [facility] with complaints of abdominal bloating and discomfort for the past few days. She additionally makes note of diarrhea, dehydration and weight loss. Patient states that she was evaluated by [facility] afternoon of 06/26/19 for these Sx and was diagnosed with gastroenteritis. Patient reports Sx have worsened since then. She also makes note of episodes of anxiety and depression. She claims to have a notable psychiatric history and states that she had been previously admitted to in-patient psychiatric units. She is on Klonopin, Nortriptyline, and Ativan. She states that she had been feeling anxious earlier today and had taken Ativan with no relief in Sx. On triage, pain is rated 8/10, nothing is noted to aggravate/alleviate Sx. Home medications and allergies are reviewed. - History of Current Complaint Chief Complaint: EDAbdPain Time Seen by Provider: 06/27/19 03:06 Stated Complaint: THROAT PAIN PER PT Hx Obtained From: Patient Onset/Duration: Started Days Ago Timing: Lasting Days Current Severity: Severe Pain Intensity: 7 Associated Signs and Symptoms: Positive: Diarrhea, Abdominal Pain - discomfort, bloating, Other: - positive - dehydration, weight loss, anxiety, depression Aggravating Factor(s): Nothing Alleviating Factor(s): Nothing - Additional Pertinent History Primary Care Physician: Dr. Tyson at [facility] - Allergy/Home Medications Allergies/Adverse Reactions: Allergies Allergy/AdvReac Type Severity Reaction Status Date / Time alprazolam Allergy Anxiety Verified 06/27/19 03:08 aripiprazole [From Abilify] Allergy See Comment Verified 06/27/19 03:08 atorvastatin Allergy See Comment Verified 06/27/19 03:08 buspirone Allergy See Comment Verified 06/27/19 03:08 cefaclor Allergy GI Upset Verified 06/27/19 03:08 cephalexin [From Keflex] Allergy Unknown Verified 06/27/19 03:08 Reaction Details dexamethasone Allergy Anxiety Verified 06/27/19 03:08 diphenhydramine Allergy See Comment Verified 06/27/19 03:08 [From Benadryl] doxycycline Allergy See Comment Verified 06/27/19 03:08 erythromycin base Allergy See Comment Verified 06/27/19 03:08 fluoxetine [From Prozac] Allergy See Comment Verified 06/27/19 03:08 gabapentin Allergy See Comment Verified 06/27/19 03:08 gluten Allergy See Comment Verified 06/27/19 03:08 glycerin Allergy Unknown Verified 06/27/19 03:08 Reaction Details hydromorphone [From Dilaudid] Allergy See Comment Verified 06/27/19 03:08 levofloxacin Allergy GI Upset Verified 06/27/19 03:08 levothyroxine Allergy Tachycardia Verified 06/27/19 03:08 lisinopril Allergy Nausea And Verified 06/27/19 03:08 Vomiting losartan Allergy See Comment Verified 06/27/19 03:27 metoprolol Allergy See Comment Verified 06/27/19 03:08 metronidazole [From Flagyl] Allergy Unknown Verified 06/27/19 03:08 Reaction Details mirtazapine Allergy Tachycardia Verified 06/27/19 03:08 paroxetine Allergy See Comment Verified 06/27/19 03:08 Penicillins Allergy GI Upset Verified 06/27/19 03:08 prednisone Allergy Anxiety Verified 06/27/19 03:08 sulfacetamide Allergy Unknown Verified 06/27/19 03:08 Reaction Details tramadol Allergy Tachycardia Verified 06/27/19 03:08 Iodinated Contrast Media AdvReac See Comment Verified 06/27/19 03:08 [Iodinated Contrast- Oral and IV Dye] PMH/Surg Hx/FS Hx/Imm Hx Endocrine/Hematology History: Reports: Hx Thyroid Disease - had issues in the past-no issues since becoming gluten free Denies: Hx Anticoagulant Therapy, Hx Diabetes Cardiovascular History: Reports: Hx Hypercholesterolemia, Hx Hypertension, Other Cardiovascular Problems/Disorders - Elevated cholesterol Denies: Hx Pacemaker/ICD Respiratory History: Reports: Hx Asthma - rescue med if needed-hasn't had issues in a long, Hx Sleep Apnea Denies: Hx Chronic Obstructive Pulmonary Disease (COPD), Other Respiratory Problems/Disorders GI History: Reports: Hx Gastroesophageal Reflux Disease - GERD-on medication Denies: Hx Irritable Bowel, Hx Ulcer, Other GI Disorders - Gluten free diet History: Reports: Other Problems/Disorders - had a UTI once, not recently Denies: Hx Renal Disease Musculoskeletal History: Reports: Hx Arthritis - hands and neck, Other Musculoskeletal History - benign lipomatous neoplasm-left elbow Sensory History: Reports: Hx Cataracts - developing cataracts, Hx Contacts or Glasses - Glasses Denies: Hx Deafness, Hx Hearing Aid Opthamlomology History: Reports: Hx Cataracts - developing cataracts, Hx Contacts or Glasses - Glasses Neurological History: Reports: Hx Nerve Disease - Sjogrens syndrome Denies: Other Neuro Impairments/Disorders Psychiatric History: Reports: Hx Anxiety - on medication, Hx Depression, Hx Inpatient Treatment, Hx Community Mental Health Tx Denies: Hx Eating Disorder, Hx Panic Disorder - Cancer History Cancer Type, 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 Deviated septum. [place] teeth. Colonoscopies Hx Anesthesia Reactions: Yes - last colonoscopy-was told she should be sedated differently-[facility] - Immunization History Date of Tetanus Vaccine: UTD Date of Influenza Vaccine: none Infectious Disease History: No Infectious Disease History: Denies: Hx Clostridium Difficile, Hx Hepatitis, Hx Human Immunodeficiency Virus (HIV), Hx of Known/Suspected MRSA, Hx Shingles, Hx Tuberculosis, Hx Known/ Suspected VRE, Hx Known/Suspected VRSA, History Other Infectious Disease, Traveled Outside the [place] in Last 30 Days - Family History Known Family History: Positive: Cardiac Disease - SISTER - [place] AGE 54, Diabetes - FATHER, Other - F - COLON CA, BOTH PARENTS - HIGH CHOLESTEROL, M - BRAIN TUMOR - Social History Alcohol Use: None Hx Substance Use: No Substance Use Type: Reports: None Hx Tobacco Use: No Smoking Status (MU): Never Smoked Tobacco Review of Systems Constitutional: Other - positive - weight loss and dehydration Positive: Abdominal Pain - discomfort and bloating , Diarrhea Positive: Anxious, Depressed All Other Systems Reviewed And Are Negative: Yes Physical Exam - Summary Physical Exam Summary: Appearance: Well-appearing, Well-nourished, lying in bed comfortably Skin: Warm, dry, no obvious rash Eyes: sclera anicteric, no conjunctival pallor ENT: mucous membranes moist, pharynx appears normal Neck: Supple, nontender Respiratory: Clear to auscultation, no signs of respiratory distress Cardiovascular: Normal S1, S2. No murmurs. Normal distal pulses in tibial and radial bilaterally. Abdomen: Soft, nontender, normal active bowel sounds present Musculoskeletal: Normal, Strength/ROM Intact Neurological: A&Ox3, awake and alert, mentation is normal, speech is fluent and appropriate Psychiatric: affect is normal, does not appear anxious or depressed Triage Information Reviewed: Yes Vital Signs On Initial Exam: Initial Vitals Temp Pulse Resp BP Pulse Ox 97.3 F 95 18 211/109 98 06/27/19 00:15 06/27/19 00:15 06/27/19 00:15 06/27/19 00:15 06/27/19 00:15 Vital Signs Reviewed: Yes Diagnostics - Vital Signs Vital Signs Temp Pulse Resp BP Pulse Ox 06/27/19 02:36 98.4 F 83 15 188/98 98 06/27/19 00:15 97.3 F 95 18 211/109 98 - Laboratory Lab Results: Lab Results 06/27/19 Range/Units 03:21 WBC 7.7 (3.5-10.8) 10^3/uL RBC 4.59 (3.70-4.87) 10^6 /uL Hgb 12.9 (12.0-16.0) g/dL Hct 38 (35-47) % MCV 83 (80-97) fL MCH 28 (27-31) pg MCHC 34 (31-36) g/dL RDW 17 H (10-15) % Plt Count 296 (150-450) 10^3/uL MPV 8.3 (7.4-10.4) fL Neut % (Auto) 61.3 % Lymph % (Auto) 24.2 % [place] % (Auto) 11.7 % Eos % (Auto) 2.1 % Baso % (Auto) 0.7 % Absolute Neuts (auto) 4.7 (1.5-7.7) 10^3/ul Absolute Lymphs (auto) 1.9 (1.0-4.8) 10^3/ul Absolute Monos (auto) 0.9 H (0-0.8) 10^3/ul Absolute Eos (auto) 0.2 (0-0.6) 10^3/ul Absolute Basos (auto) 0.1 (0-0.2) 10^3/ul Absolute Nucleated RBC 0.0 10^3/ul Nucleated RBC % 0.2 Result Diagrams: 06/27/19 03:21 06/27/19 03:21 Lab Statement: Any lab studies that have been ordered have been reviewed, and results considered in the medical decision making process. GIGU Course/Dx - Course Course Of Treatment: Patient is a 64 y/o F presenting to [facility] with complaints of abdominal bloating and discomfort for the past few days. She additionally makes note of diarrhea, dehydration and weight loss. Patient states that she was evaluated by [facility] afternoon of 06/26/19 for these Sx and was diagnosed with gastroenteritis. Patient reports Sx have worsened since then. She also makes note of episodes of anxiety and depression. She claims to have a notable psychiatric history and states that she had been previously admitted to in- patient psychiatric units. She is on Klonopin, Nortriptyline, and Ativan. She states that she had been feeling anxious earlier today and had taken Ativan with no relief in Sx. Physical exam is unremarkable. Bloodwork was obtained. Abnormal values include RDW 17, absolute monos 0.9, chloride 100, glucose 104. UA showed 3+ leukocyte esterase. During ED course, patient was given fluids and Ativan 0.5 mg PO. Patient was discharged to home and will follow up with PCP within three days. - Diagnoses Provider Diagnoses: Anxiety, Dyspepsia Discharge ED - Sign-Out/Discharge Documenting (check all that apply): Patient Departure - discharge Patient Received Moderate/Deep Sedation with Procedure: No - Discharge Plan Condition: Good Disposition: HOME Patient Education Materials: Indigestion (ED), Anxiety (ED) Referrals: Taj Tyson MD [Primary Care Provider] - 3 Days Additional Instructions: Your blood work didn't show any indication of a serious problem in the abdomen. I think much of your symptoms are related to your anxiety and should improve if you can work with your doctor to get that under control. - Billing Disposition and Condition Condition: GOOD Disposition: Home - Attestation Statements Document Initiated by Perfecto: Yes Documenting Juanitaibe: TAJ SAM Provider For Whom Perfecto is Documenting (Include Credential): JEROME VEGA MD Scribe Attestation: TAJ Navarrete scribed for JEROME VEGA MD on 07/01/19 at 0625. Scribe Documentation Reviewed: Yes Provider Attestation: The documentation as recorded by the TAJ cast accurately reflects the service I personally performed and the decisions made by me, JEROME VEGA MD Status of Scribkatina Document: Viewed
[2019-06-27] MEDS ORDERED: LORazepam TAB(*) 0.5 MG PO ONE (03:47)
[2019-06-27 03:56] LABS: Albumin 4.4 g/dL (3.2-5.2); Albumin/Globulin Ratio 1.7 (1-3); BUN/Creatinine Ratio 13.2 (8-20); C Reactive Protein 2.14 mg/L (<8.01); EGFR African American 74.8 (>60); EGFR Non-African American 61.9 (>60); Globulin 2.6 g/dL (2-4); Potassium 3.5 mmol/L (3.5-5.0); Total Bilirubin 0.3 mg/dL (0.2-1.0)
[2019-06-27 04:58] VITALS: BP 186/101
[2019-06-27 05:23] LABS: Urine Appearance Clear; Urine Bacteria Absent (Absent); Urine Bilirubin Negative (Negative); Urine Blood Negative (Negative); Urine Color Colorless; Urine Glucose Negative (Negative); Urine Ketones Negative (Negative); Urine Nitrite Negative (Negative); Urine Protein Negative (Negative); Urine Red Blood Cell Absent (Absent); Urine Specific Gravity 1.002 (1.010-1.030); Urine Urobilinogen Negative (Negative); Urine White Blood Cell Trace(0-5/hpf) (Absent)
== END 2019-06-27 05:00 | disposition home or self-care (01) ==
LOC: ED 00:13
DX: F41.9 Anxiety disorder, unspecified (principal); R10.13 Epigastric pain; E78.00 Pure hypercholesterolemia, unspecified; I10 Essential (primary) hypertension; J45.909 Unspecified asthma, uncomplicated; K21.9 Gastro-esophageal reflux disease without esophagitis; F32.9 Major depressive disorder, single episode, unspecified; Z79.899 Other long term (current) drug therapy; Z88.5 Allergy status to narcotic agent; Z88.0 Allergy status to penicillin; Z88.2 Allergy status to sulfonamides; Z88.8 Allergy status to other drugs, medicaments and biological substances; Z88.1 Allergy status to other antibiotic agents; Z91.041 Radiographic dye allergy status
CPT/HCPCS: 36415; 80053; 81003; 81015; 83605; 83690; 85025; 86140; 87086; 96360; 96361; 99283; A9270-GY

== ENCOUNTER 2019-12-05 18:29 | Emergency (ER) | payer MEDICARE, OTHER ==
--- OUTSIDE RECORDS SUMMARY | 2019-12-05 19:23 | XMS REPORT | Continuity of Care Document ---
:1955 Author Organization [facility] Address [address], [place] [phone] Phone Care Team Providers Name Role Phone [...] the type is not supported. Please contact [facility] practice for further details. Medications Medication Instructions Dosage Effective Dates Status Comments (start - stop) meloxicam 7.5 mg take 1 tablet by 7.5 MG - Active tablet oral route 2 times every day pantoprazole 20 mg take 2 tablet by 40 MG - Active tablet,delayed oral route every release day lorazepam 1 mg take 1 tablet by 1 MG - Active tablet oral route 2 times every day as needed as needed Calcium 500 + D - Active 500 mg (1,250 mg)-200 unit tablet Aspir-81 81 [...] with food as needed Bactroban Nasal 2 apply by topical - Active % ointment route 2 times every day one-half of the ointment from the tube into each nostril in the morning and evening as needed MUCINEX (unknown take 1 tablet by Not Available - Active strength) oral route every 12 hours as needed Pamelor 10 mg take 1 tablet by 1 tablet - Active capsule oral route every day Refresh Tears 0.5 [address] as needed - Active % eye drops potassium chloride take 1 Tablet by 10 MEQ - Active ER 10 mEq oral route every tablet,extended day with food release Zantac 300 mg take 1 tablet by - Active tablet oral route every day at bedtime selenium 100 mcg take 1 tablet by 1 tablet - Active tablet oral route 2 times every day Restasis 0.05 % instill 1 drop by 1.00 drop - No Longer eye drops in a ophthalmic route Active dropperette every 12 hours into affected eye(s) Problems Condition Effective Dates (start - Clinical Status Comments stop) 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 Vitamin D deficiency 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 Fatigue 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, unspecified Fatigue 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, unspecified Fatigue Depression Active GERD Active High Cholesterol Active Osteoarthritis Active Hypothyroidism Active Asthma Active Anxiety Active Migraine Headaches Active Bilateral cataracts Active Procedures Procedure Date ROUTINE VENIPUNCTURE COMPLETE CBC W/AUTO DIFF WBC RBC SED RATE, AUTOMATED C-REACTIVE PROTEIN ASSAY OF CREATININE ASSAY OF SERUM ALBUMIN ALANINE AMINO (ALT) (SGPT) TRANSFERASE (AST) (SGOT) ASSAY OF VITAMIN D OFFICE/OUTPATIENT VISIT, EST Results Test Name Date and Time Measure Units Reference Range Abnormal Flag Status Comments Panel Description: Vitamin D, 25-OH Final Vitamin D,25OH 16:13:00 30.8 ng/mL 30.0-100.0 Final Panel Description: CBC Final WBC 16:13:00 8.4 10*3/uL 3.7-10.1 Final RBC 16:13:00 5.01 10*6/uL 3.50-5.50 Final HGB 16:13:00 14.5 g/dL 12.0-16.0 Final HCT 16:13:00 44.7 % 36.0-48.0 Final MCV 16:13:00 89.3 fL 80.0-100.0 Final MCH 16:13:00 29.0 pg 26.0-34.0 Final MCHC 16:13:00 32.5 g/dL 31.0-37.0 Final RDW 16:13:00 14.0 % 10.0-15.0 Final PLATELETS 16:13:00 286 10*3/uL 150-500 Final MPV 16:13:00 7.8 fL 6.0-10.0 Final JAC# 16:13:00 5.78 10*3/uL 2.10-8.00 Final LYM# 16:13:00 1.54 10*3/uL 1.00-5.00 Final MONO# 16:13:00 0.85 10*3/uL 0.10-1.00 Final EOS# 16:13:00 0.1 10*3/uL 0.0-0.5 Final BASO# 16:13:00 0.1 10*3/uL 0.0-0.2 Final JAC% 16:13:00 69.2 % 50.0-80.0 Final LYM% 16:13:00 18.5 % 25.0-50.0 L Final MONO% 16:13:00 10.2 % 2.0-10.0 H Final EOS% 16:13:00 1.1 % 0.0-5.0 Final BASO% 16:13:00 1.1 % 0.0-4.0 Final Panel Description: ALBUMIN Final ALB 16:13:00 4.3 g/dL 3.4-4.4 Final Panel Description: ALT Final ALT 16:13:00 29 U/L 30-65 L Final Panel Description: AST Final AST 16:13:00 25 U/L 15-37 Final Panel Description: CREATININE Final CREATININE 16:13:00 1.0 mg/dL 0.6-1.2 Final eGFR 16:13:00 55.5 mL/min/1.73m Final Panel Description: CRP Final CRP 16:13:00 <0.2 mg/dL 0.0-1.0 Final Advance Directives Directive Yes / No Effective Date File Name No information Encounters Encounter Practice Location Reason(s) Diagnoses Date Provider Providers Description For Visit Copied on Encounter Arthritis Arthritis Sicca syndrome [facility] with other PA-C [facility], [facility] PLLC involvement [address] [facility], [place], [id number], [id number], [place]. tel:[phone] tel:[phone] Arthritis Arthritis Sicca syndrome [facility] with other PA-C [facility] 0 [facility], [facility] PLLC involvement [address] [facility], [place], [place], [id number], [id number], [place]. tel:[phone] tel:[phone] OFFICE/OUTPA Arthritis Arthritis Sjogren's Sicca syndrome [facility] (chief with other PA-C Provider: FLO [facility] complaint) organ 9 [facility], [address] PLL[facility] involvementVita [address] [facility], [facility], [facility] [place], [place], [address] [place], [place], [place] [id number], [id number], [address], [place], tel:[phone] tel:[phone] [place], [address]. [id number] tel:[phone] Arthritis Arthritis Sicca syndrome [place] Referring [facility] Health with other 1-201 PA-C Provider: [facility] 9 [facility], [facility] PLLC involvement 5[address] [facility] [place], [address] [place], [place] [id number], [id number], [address], [place], tel:[phone] tel:[phone] [place], [address]. [id number] [id number] tel:[phone] Arthritis Arthritis Sicca syndrome [place]2 [facility] [place] [facility] with other 4-201 PA-C Provider: [facility] organ 8 [facility], 5[facility] PLLC involvement [address] [facility], [facility] [place], [address] [place], [place] [id number], [id number], [address], [place], tel:[phone] tel:[phone] [place], [address]. [id number] tel:[phone] Arthritis Arthritis Sicca syndrome Jan-2 [facility] [place] Referring [facility] Health with other 5-201 PA-C Provider: [facility] organ 8 [facility], 5[address] PLLC involvementFati 5[address] [facility], [facility] [place], [address] [place], [place] [id number], [id number], [address], [place], tel:[phone] tel:[phone] [place], [address]. [id number] tel:[phone] Arthritis Arthritis Vasculitis [place]- [facility] [place] Referring Health Health limited to the 8-201 PA-C Provider: [facility] skin, 8 [facility], 5[address] PLLC unspecifiedFati 5794 [facility], [place], [facility] [place], [place], [address] [place], [place] [id number], [id number], [address], [place], tel:[phone] tel:[phone] [place], [address]. [id number] [id number] tel:[phone] Arthritis Arthritis Vasculitis Giles NESBITT Referring Health Health limited to the 0-201 Noah. Provider: Simin Duval skin, 8 5794 [facility], 5[address] PLLC unspecifiedFati [facility], [facility], [facility], [place], [place], [place], [address] [place], [id number], [facility] [id number], [place]. Rd, [place] tel:[phone] [place], tel: [phone] [place], [address]. [id number] tel:[phone] Family History Family Member Diagnosis Age At Onset Father Osteoarthritis Immunizations Vaccine Date Status Comments No information Payers Payer name Insurance type Covered constitution party ID Authorization(s) Medicare MB [id number] Aetna No Referral Required CI [id number] Social History Type Description Quantity Date Captured [...] Surface Circumference percentile Ox Ox Area 67.00 176.00 27.5 122/2019 in lbs 7 mm[Hg] 3:50 kg/m PM eter (2) Chief Complaint And Reason For Visit No information Reason For Referral Reason For Referral No information Plan Of Treatment Date Type Action Status Appointment Hamida Trent BOOKED History Of Present Illness Encounter Date Complaint History Of Present Illness Sjogren's The pain severity is 5/10. Patient is experiencing generalized morning stiffness for all day, eye symptoms including dryness, fatigue and dry [...]
--- OUTSIDE RECORDS SUMMARY | 2019-12-05 19:23 | XMS REPORT | Continuity of Care Document ---
:1955 Author Organization [facility] Address [address] [place], [place] [id number] Phone Care Team Providers Name Role Phone [...] the type is not supported. Please contact [facility] practice for further details. Medications Medication [...] needed as needed Calcium 500 + D 500 - Active [...] 300 mg tablet take 1 tablet by - Active oral route every day at bedtime selenium [...] Active Bilateral cataracts Active Procedures Procedure Date No information Results Test Name Date and Time Measure Units Reference Range Abnormal Flag Status Comments No information Advance Directives Directive Yes / No Effective Date File Name No information Encounters Encounter Practice Location Reason(s) Diagnoses Date Provider Providers Description For Visit Copied on Encounter Arthritis Arthritis Sicca syndrome [facility] with other PA-C Simin Duval organ 0 [facility], 5794 PLLC involvement [address] [place], [place], [id number], [id number], [place]. tel:[phone] tel:[phone] Arthritis Arthritis Sicca syndrome [facility] with other PA-C [facility] 0 [facility]ana [facility], 5794 PLLC involvement [address] [place], [place], [id number], [id number], [place]. tel:[phone] tel:[phone] Arthritis Arthritis Sicca syndrome [facility] with other 1-201 PA-C Provider: [facility] organ 9 [facility], 5[address] [facility]Vita [address] [facility], [facility], [facility] [place], [address] [place], [place], [place] [id number], [id number], Rd, [place], tel:[phone] tel:[phone] [place], [address]. [id number] tel:[phone] Arthritis Arthritis Sicca syndrome Jesu-0 [facility] Referring Health Health with other 1-201 PA-C Provider: [facility] organ 9 [facility], 5794 PLLC involvement [facility], [facility] [place], [address] [place], [place] [id number], [id number], Rd, [place], tel:[phone] tel:[phone] [place], [address]. [id number] [phone] tel:[phone] Arthritis Arthritis Sicca syndrome Oct-2 [facility] Referring Health Health with other 4-201 PA-C Provider: [facility] organ 8 [facility], [address] [facility], [facility] [place], [place], [address] [place], [place] [id number], [id number], Rd, [place], tel:[phone] tel:[phone] [place], [address]. [id number] [phone] tel:[phone] Arthritis Arthritis Sicca syndrome Apr-2 [facility] Referring Health Health with other 5-201 PA-C Provider: [facility] organ 8 [facility], 5[address] PLL[facility] involvementFati [address] [facility], [facility] [place], [place], [address] [place], [place], [place] [id number], [id number], Rd, [place], tel:[phone] tel:[phone] [place], [address]. [id number] [id number] tel:[phone] Arthritis Arthritis Vasculitis Nov- Kalie Referring Health Health [facility] Provider: Simin cordova, 8 [facility], [address] [facility], [facility], [address] [place], [place], [place] [id number], [id number], Rd, [place], tel:[phone] tel:[phone] [place], [address]. [id number] tel:[phone] Arthritis Arthritis Vasculitis Giles NESBITT Referring [facility] Health limited to the 0 [place]. Provider: Simin cordova, 8 5[address] [facility], 5[address] PLLC unspecifiedFati [facility], [place], [facility], [place], [address] [place], [id number], [facility] [id number], [place]. , [place] tel:+[phone] [place], tel:[phone] [place], [address]. [id number] tel:[phone] Family History Family Member Diagnosis Age At Onset Father Osteoarthritis Immunizations Vaccine Date Status Comments No information Payers Payer name Insurance type Covered democrat ID Authorization(s) Medicare MB [id number] Aetna No Referral Required [id number] Social History Type Description Quantity Date Captured Comments Alcohol Use Details Unknown Caffeine Use Details Unknown Tobacco Use Status Unknown Smoking Status Unknown Sex Female Vital Signs Date / Height Weight BMI Pulse Blood Temperature Respiratory Body Head BMI Pulse Inhaled Time: Rate Pressure Rate Surface Circumference percentile Ox Ox Area No information Chief Complaint And Reason For Visit No information Reason For Referral Reason For Referral No information Plan Of Treatment Date Type Action Status Appointment Hamida Trent BOOKED History Of Present Illness Encounter Date Complaint History Of Present Illness No information Functional Status Date Functional Assessment No information Medications Administered Medication Instructions Dosage Effective Dates (start - stop) Status Comments No information Instructions Date Instruction Additional Information No information
--- OUTSIDE RECORDS SUMMARY | 2019-12-05 19:23 | XMS REPORT | Continuity of Care Document ---
:1955 Author Organization [facility] Address [address], [place] [id number] Phone Care Team Providers Name Role Phone [...] the type is not supported. Please contact [facility] practice for further details. Medications [...] Copied on Encounter Arthritis Arthritis Sicca syndrome rollApp with other PA-C Simin Duval organ 0 [facility], [facility] PLLC involvement [address], [place], [id number], [id number], [place]. tel:[phone] tel:[phone] Arthritis Arthritis Sicca syndrome [employer] with other PA-C [facility], [facility] PLLC involvement [address], [place], [id number], [id number], [place]. tel:[phone] tel:[phone] Arthritis Arthritis Sicca syndrome [email or web address] [facility] with other 1-201 PA-C Provider: [facility] 9 [facility], [facility] involvementVita [address] [facility], [facility], [facility] [place], [place], [address] [place], [place], [place] [id number], [id number], [address], [place]. [place], tel:[phone] tel:[phone] [place], [address]. [phone] tel:[phone] Arthritis Arthritis Sicca syndrome Jesu-0 [facility] Referring Health Health with other 1-201 PA-C Provider: [facility] 9 [facility], [facility] involvement [address] [facility], [facility] [place], [place], [address] [place], [place], [place] [id number], [id number], [address], [place], tel:[phone] tel:[phone] [place], [address]. [id number] tel:[phone] Arthritis Arthritis Sicca syndrome Oct-2 [facility] Referring Health Health with other 4-201 PA-C Provider: [facility] 8 [facility], 5794 PLLC involvement [address] [facility], [facility] [place], [place], [address] [place], [place], [place] [id number], [id number], [address], [place], tel:[phone] tel:[phone] [place], [address]. [phone] tel:[phone] Arthritis Arthritis Sicca syndrome Apr-2 [facility] Referring Health Health with other 5-201 PA-C Provider: [facility] 8 [facility], 5[address] PLL[facility] involvementFati [address] [facility], [facility] [place], [place], [address] [place], [place], [place] [id number], [id number], [address], [place], tel:[phone] tel:[phone] [place], [address]. [id number] tel:[phone] Arthritis Arthritis Vasculitis Nov- Kalie Referring Health [facility] Provider: Simin cordova, 8 [facility], 5[address] PLLC unspecifiedFati [address] [facility], [facility], [address] [place], [place], [place] [id number], [id number], [address], [place], tel:[phone] tel:[phone] [place], [address]. [id number] tel:[phone] Arthritis Arthritis Vasculitis Giles NESBITT Referring [facility] Health limited to the 0 [place]. Provider: Simin cordova, 8 [address] [facility], 5794 PLLC unspecifiedFati [facility], [place], [facility], [place], [address] [place], [id number], [facility] [id number], [place]. , [place] tel:[phone] [place], tel:[phone] [place], [address]. [id number] tel:[phone] Family History Family Member Diagnosis Age At Onset Father Osteoarthritis Immunizations Vaccine Date Status Comments No information Payers Payer name Insurance type Covered constitution party ID Authorization(s) Medicare MB [id number] [employer] No Referral Required [id number] Social History Type Description Quantity Date Captured [...]
--- NOTE | 2019-12-05 19:24 | ED ---
Psychiatric Complaint - HPI Summary HPI Summary: The patient is a 64 y/o F presenting to [facility] with a cc of palpitations with anxiety sudden onset today. She reports that she has hx of anxiety and depression with medications for a few years, and she was admitted in May 2019. At that time, she felt like her medications were not helping so she and the psych team tried changing her medications without much relief. She then began going to acupuncture which had helped with her anxiety until now. 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 She states that she does take 1mg Ativan when she becomes anxious but did not have it with her at the time. She notes stress in her life taking care of her parents. She is feeling mildly anxious in the ED. PMHx: HLD ( not medication compliant), thyroid disease, HTN, asthma, sleep apnea, GERD, Sjogrens syndrome. Nonsmoker, no EtOH, no substance use. Medications reviewed. Allergies noted. Home Medications Medication Instructions Recorded Confirmed Type clonazePAM TAB(*) [Klonopin TAB(*)] 0.5 mg PO TID PRN 10/17/15 12/05/19 History Aspirin EC TAB* [Ecotrin EC Low 81 mg PO BEDTIME 06/14/17 12/05/19 History Dose 81 MG*] Cholecalciferol TAB* [Vitamin D 2,000 units PO DAILY 05/11/19 12/05/19 History TAB*] Flaxseed Oil [Steger-3 Flaxseed Oil] 1,000 mg PO DAILY 05/11/19 12/05/19 History Ibuprofen TAB* [Motrin TAB* 800 MG] 800 mg PO Q8HR PRN 05/11/19 12/05/19 History LevoCETirizine TAB (NF) [Xyzal TAB 5 mg PO DAILY PRN 05/11/19 12/05/19 History (NF)] Multivitamins/Minerals TAB* 1 tab PO DAILY 05/11/19 12/05/19 History [Theragran/minerals TAB*] guaiFENesin ER TAB [Mucinex*] 600 mg PO BID PRN 05/11/19 12/05/19 History LORazepam TAB(*) [Ativan 1 MG TAB 1 mg PO BEDTIME PRN #60 tab MDD 2 05/22/19 Rx (*)] mg Magnesium Oxide TAB* [MagOx 400 250 mg PO DAILY 06/01/19 12/05/19 History TAB*] Rosuvastatin (NF) [Crestor (NF)] 10 mg PO DAILY 12/05/19 12/05/19 History amLODIPine TAB* [Norvasc 5 mg TAB*] 5 mg PO DAILY 30 Days #30 tab 12/05/19 Rx - History Of Current Complaint Chief Complaint: EDPsychosocial Time Seen by Provider: 12/05/19 18:42 Hx Obtained From: Patient Onset/Duration: Sudden Onset, Still Present Timing: Constant Severity Initially: Moderate Severity Currently: Moderate Character: Anxious Aggravating Factor(s): Recent Stress Alleviating Factor(s): Nothing Associated Signs And Symptoms: Positive: Negative Related History: Positive For: Prior Psychiatric Issues - anxiety, depression - Allergies/Home Medications Allergies/Adverse Reactions: Allergies Allergy/AdvReac Type Severity Reaction Status Date / Time alprazolam Allergy Anxiety Verified 12/05/19 20:45 aripiprazole [From Abilify] Allergy See Comment Verified 12/05/19 20:45 atorvastatin Allergy See Comment Verified 12/05/19 20:45 buspirone Allergy See Comment Verified 12/05/19 20:45 cefaclor Allergy GI Upset Verified 12/05/19 20:45 cephalexin [From Keflex] Allergy Unknown Verified 12/05/19 20:45 Reaction Details dexamethasone Allergy Anxiety Verified 12/05/19 20:45 diphenhydramine Allergy See Comment Verified 12/05/19 20:45 [From Benadryl] doxycycline Allergy See Comment Verified 12/05/19 20:45 erythromycin base Allergy See Comment Verified 12/05/19 20:45 fluoxetine [From Prozac] Allergy See Comment Verified 12/05/19 20:45 gabapentin Allergy See Comment Verified 12/05/19 20:45 gluten Allergy See Comment Verified 12/05/19 20:45 glycerin Allergy Unknown Verified 12/05/19 20:45 Reaction Details hydromorphone [From Dilaudid] Allergy See Comment Verified 12/05/19 20:45 levofloxacin Allergy GI Upset Verified 12/05/19 20:45 levothyroxine Allergy Tachycardia Verified 12/05/19 20:45 lisinopril Allergy Nausea And Verified 12/05/19 20:45 Vomiting losartan Allergy See Comment Verified 12/05/19 20:45 metoprolol Allergy See Comment Verified 12/05/19 20:45 metronidazole [From Flagyl] Allergy Unknown Verified 12/05/19 20:45 Reaction Details mirtazapine Allergy Tachycardia Verified 12/05/19 20:45 paroxetine Allergy See Comment Verified 12/05/19 20:45 Penicillins Allergy GI Upset Verified 12/05/19 20:45 prednisone Allergy Anxiety Verified 12/05/19 20:45 sulfacetamide Allergy Unknown Verified 12/05/19 20:45 Reaction Details tramadol Allergy Tachycardia Verified 12/05/19 20:45 Iodinated Contrast Media AdvReac See Comment Verified 12/05/19 20:45 [Iodinated Contrast- Oral and IV Dye] Home Medications: Home Medications clonazePAM TAB(*) [Klonopin TAB(*)] 0.5 mg PO TID PRN 10/17/15 [History Confirmed 12/05/19] Aspirin EC TAB* [Ecotrin EC Low Dose 81 MG*] 81 mg PO BEDTIME 06/14/17 [History Confirmed 12/05/19] Cholecalciferol TAB* [Vitamin D TAB*] 2,000 units PO DAILY 05/11/19 [History Confirmed 12/05/19] Flaxseed Oil [Steger-3 Flaxseed Oil] 1,000 mg PO DAILY 05/11/19 [History Confirmed 12/05/19] Ibuprofen TAB* [Motrin TAB* 800 MG] 800 mg PO Q8HR PRN 05/11/19 [History Confirmed 12/05/19] LevoCETirizine TAB (NF) [Xyzal TAB (NF)] 5 mg PO DAILY PRN 05/11/19 [History Confirmed 12/05/19] Multivitamins/Minerals TAB* [Theragran/minerals TAB*] 1 tab PO DAILY 05/11/19 [ History Confirmed 12/05/19] guaiFENesin ER TAB [Mucinex*] 600 mg PO BID PRN 05/11/19 [History Confirmed ] LORazepam TAB(*) [Ativan 1 MG TAB (*)] 1 mg PO BEDTIME PRN #60 tab MDD 2 mg 09/28 [Rx Confirmed 12/05/19] Magnesium Oxide TAB* [MagOx 400 TAB*] 250 mg PO DAILY 06/01/19 [History Confirmed 12/05/19] Rosuvastatin (NF) [Crestor (NF)] 10 mg PO DAILY 12/05/19 [History Confirmed ] amLODIPine TAB* [Norvasc 5 mg TAB*] 5 mg PO DAILY 30 Days #30 tab 12/05/19 [Rx] PMH/Surg Hx/FS Hx/Imm Hx Endocrine/Hematology History: Reports: Hx Thyroid Disease - had issues in the past-no issues since becoming gluten free Denies: Hx Anticoagulant Therapy, Hx Diabetes Cardiovascular History: Reports: Hx Hypercholesterolemia, Hx Hypertension, Other Cardiovascular Problems/Disorders - Elevated cholesterol Denies: Hx Pacemaker/ICD Respiratory History: Reports: Hx Asthma - rescue med if needed-hasn't had issues in a long, Hx Sleep Apnea Denies: Hx Chronic Obstructive Pulmonary Disease (COPD), Other Respiratory Problems/Disorders GI History: Reports: Hx Gastroesophageal Reflux Disease - GERD-on medication Denies: Hx Irritable Bowel, Hx Ulcer, Other GI Disorders - Gluten free diet History: Reports: Other Problems/Disorders - had a UTI once, not recently Denies: Hx Renal Disease Musculoskeletal History: Reports: Hx Arthritis - hands and neck, Other Musculoskeletal History - benign lipomatous neoplasm-left elbow Sensory History: Reports: Hx Cataracts - developing cataracts, Hx Contacts or Glasses - Glasses Denies: Hx Deafness, Hx Hearing Aid Opthamlomology History: Reports: Hx Cataracts - developing cataracts, Hx Contacts or Glasses - Glasses Neurological History: Reports: Hx Nerve Disease - Sjogrens syndrome Denies: Other Neuro Impairments/Disorders Psychiatric History: Reports: Hx Anxiety - on medication, Hx Depression, Hx Inpatient Treatment, Hx Community Mental Health Tx Denies: Hx Eating Disorder, Hx Panic Disorder - Cancer History Cancer Type, 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 Hx Chemotherapy: No Hx Radiation Therapy: No - Surgical History Surgical History: Yes Surgery Procedure, Year, and Place: Precancerous skin cancers. Deviated septum. Thompson teeth. Colonoscopies Hx Anesthesia Reactions: Yes - last colonoscopy-was told she should be sedated differently-[facility] - Immunization History Date of Tetanus Vaccine: UTD Date of Influenza Vaccine: none Infectious Disease History: No Infectious Disease History: Denies: Hx Clostridium Difficile, Hx Hepatitis, Hx Human Immunodeficiency Virus (HIV), Hx of Known/Suspected MRSA, Hx Shingles, Hx Tuberculosis, Hx Known/ Suspected VRE, Hx Known/Suspected VRSA, History Other Infectious Disease, Traveled Outside the [place] in Last 30 Days - Family History Known Family History: Positive: Cardiac Disease - SISTER - [place] AGE 54, Diabetes - FATHER, Other - F - COLON CA, BOTH PARENTS - HIGH CHOLESTEROL, M - BRAIN TUMOR - Social History Alcohol Use: None Hx Substance Use: No Substance Use Type: Reports: None Hx Tobacco Use: No Smoking Status (MU): Never Smoked Tobacco Review of Systems Positive: Palpitations Positive: Anxious, Other - stressed All Other Systems Reviewed And Are Negative: Yes Physical Exam - Summary Physical Exam Summary: Constitutional: Well-developed, Well-nourished, Alert. (-) Distressed Skin: Warm, Dry HENT: Normocephalic; Atraumatic Eyes: Conjunctiva normal Neck: Musculoskeletal ROM normal neck. (-) JVD, (-) Stridor, (-) Nuchal rigidity Cardio: Rhythm regular, rate normal, Heart sounds normal; Intact distal pulses; Radial pulses are 2+ and symmetric. (-) Murmur Pulmonary/Chest wall: Effort normal. (-) Respiratory distress, (-) Wheezes, (-) Rales Abd: Soft, (-) tenderness, (-) Distension, (-) Guarding, (-) Rebound Musculoskeletal: (-) Edema Lymph: (-) Cervical adenopathy Neuro: Alert, Oriented x3 Psych: Anxious but otherwise normal Triage Information Reviewed: Yes Vital Signs On Initial Exam: Initial Vitals Temp Pulse Resp BP Pulse Ox 98.1 F 106 16 209/105 100 12/05/19 18:31 12/05/19 18:31 12/05/19 18:31 12/05/19 18:31 12/05/19 18:31 Vital Signs Reviewed: Yes Procedures - Sedation Patient Received Moderate/Deep Sedation with Procedure: No Diagnostics - Vital Signs Vital Signs Temp Pulse Resp BP Pulse Ox 12/05/19 18:49 192/86 12/05/19 18:34 104 209/105 100 12/05/19 18:32 89 99 12/05/19 18:31 98.1 F 106 16 209/105 100 - Laboratory Result Diagrams: 12/05/19 19:53 12/05/19 19:53 Lab Statement: Any lab studies that have been ordered have been reviewed, and results considered in the medical decision making process. - EKG 185 Cardiac Rate: NL - 90 BPM EKG Rhythm: Sinus Rhythm Summary of EKG Findings: An EKG at 1858 reveals normal sinus rhythm at 90 BPM, T wave flattening in aVL. No STEMI. ED physician has reviewed and interpreted this EKG. Re-Evaluation - Re-Evaluation First Eval Re-Evaluation Time: 20:25 Change: Improved Comment: BP improved, chronically elevated. Discussed results and plan for d/c. Second Eval Re-Evaluation Time: 21:00 Comment: Patient requesting potassium as hers is "boredline low", d/w patient it is normal but she can try 20 mg PO, would also to try tylenol Course/Dx - Course Course Of Treatment: 64 y/o F w HTN and anxiety pw panic attack. - appears calm in ED but very worried about her anxiety. No CP. Hx HTN here but is "allergic" to many HTN meds that make her feel "tired and off". Neuro exam normal. Labwork normal. D/w patient chronic HTN can try amlodipine (she is hesitant to since other medications made her feel tired). Patient also reporting stuffy nose, sore throat suspect allergic cause. Offered flonase which she declined. Also declined saline drops. Advised to f/u w her PCP re: HTN and psychiatry for anxiety. - Differential Dx/Clinical Impression Provider Diagnosis: Anxiety, Hypertension Discharge ED - Sign-Out/Discharge Documenting (check all that apply): Patient Departure - Patient will be discharged home. - Discharge Plan Condition: Stable Disposition: HOME Prescriptions: amLODIPine TAB* [Norvasc 5 mg TAB*] 5 mg PO DAILY 30 Days #30 tab Patient Education Materials: Chronic Hypertension (ED) Referrals: Jerson Tyson MD [Primary Care Provider] - 3 Days Additional Instructions: You were seen in the emergency department for anxiety and high blood pressure. Your labs did not show any abnormalities. Please take amlodipine for your blood pressure. Please follow up with your primary care doctor in the next 2-3 days and return to the emergency department for headaches, chest pain, worsening or concerning symptoms. It was a pleasure taking care of you today. - Billing Disposition and Condition Condition: STABLE Disposition: Home - Attestation Statements Document Initiated by Scribe: Yes Documenting Scribe: Alissa Zamora Provider For Whom Scribe is Documenting (Include Credential): Dr. Iris Berman MD Scribe Attestation: I, Alissa Zamora, scribed for Dr. Iris Berman MD on 12/07/19 at 1032. Scribe Documentation Reviewed: Yes Provider Attestation: The documentation as recorded by the Alissa cast accurately reflects the service I personally performed and the decisions made by me, Dr. Iris Berman MD Status of Scrclaire Document: Viewed
[2019-12-05] MEDS ORDERED: NS 0.9% 1000 ML** 1,000 ML IV ONE (19:27)
[2019-12-05] MEDS ORDERED: LORazepam TAB(*) 1 MG PO ONE (19:27)
[2019-12-05 19:59] LABS: ABS Eosinophils 0.1 10^3/ul (0-0.6); ABS Lymphocytes 1.3 10^3/ul (1.0-4.8); ABS Monocytes 0.6 10^3/ul (0-0.8); ABS Neutrophils 4.8 10^3/ul (1.5-7.7); Eosinophil % 2.2 %; Hematocrit 40 % (35-47); Hemoglobin 13.6 g/dL (12.0-16.0); Lymphocyte % 18.3 %; Mean Corpuscular HGB Conc 34 g/dL (31-36); Mean Corpuscular Hemoglobin 30 pg (27-31); Mean Corpuscular Volume 89 fL (80-97); Mean Platelet Volume 8.1 fL (7.4-10.4); Platelet Count 258 10^3/uL (150-450); Red Blood Count 4.47 10^6 /uL (3.70-4.87); Red Cell Distribution Width 16 % (10-15); White Blood Count 6.8 10^3/uL (3.5-10.8)
[2019-12-05 20:16] LABS: Albumin 4.5 g/dL (3.2-5.2); Albumin/Globulin Ratio 1.7 (1-3); Calcium 9.8 mg/dL (8.6-10.3); EGFR African American 72.1 (>60); EGFR Non-African American 59.6 (>60); Globulin 2.7 g/dL (2-4); Potassium 3.5 mmol/L (3.5-5.0); Total Bilirubin 0.3 mg/dL (0.2-1.0); Total Protein 7.2 g/dL (6.4-8.9)
[2019-12-05] MEDS ORDERED: Saline NASAL DROPS 0.65%* 1 DROP BTL BOTH NARES ONE (20:39)
[2019-12-05] MEDS ORDERED: Potassium Chlor TAB* 20 MEQ TAB.ER PO ONE (20:55)
[2019-12-05] MEDS ORDERED: Butalb/Acetamin/Caff TAB* 1 TAB PO ONE (20:55)
[2019-12-05] MEDS ORDERED: Acetaminophen TAB* 325 MG PO ONE (21:14)
[2019-12-05 21:48] VITALS: BP 155/82
== END 2019-12-05 21:47 | disposition home or self-care (01) ==
LOC: ED 18:29
DX: F41.9 Anxiety disorder, unspecified (principal); I10 Essential (primary) hypertension; E03.9 Hypothyroidism, unspecified; E78.00 Pure hypercholesterolemia, unspecified; K21.9 Gastro-esophageal reflux disease without esophagitis; F32.9 Major depressive disorder, single episode, unspecified; R00.2 Palpitations; Z79.82 Long term (current) use of aspirin; Z79.899 Other long term (current) drug therapy
CPT/HCPCS: 36415; 80053; 84484; 85025; 93005; 96360; 96361; 99284; A9270-GY